=== PATIENT | female | born 1950 | race Hispanic/Latino ===

== ENCOUNTER 2022-06-29 12:11 | Emergency (ER) | payer MEDICARE ==
--- OUTSIDE RECORDS SUMMARY | 2022-06-29 12:19 | XMS REPORT | Continuity of Care Document ---
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 spray, Me moria propionate 03-06 NASAL, l 0.05 15:50: BID, # 16 Xander MG/ACTUAT 24 gm, 0 Metered Refill(s), Dose Nasal Pharmacy: [place] [facility] [Flonase[facility] [id number] Bromphenira No 5 mL, PO, M emoria mine 03-06 TID, PRN l Maleate 0.4 15:50: cough, # He rmann MG/ML / 16 200 mL, 0 Dextrometho Refill(s), [facility] Pharm[facility]: [facility] MG/ML / [facility] Store Pseudoephed [id number] rine Hydrochlori de 6 MG/ML Oral Solution [Bromfed DM] diclofenac No 50 mg = 1 Me moria potassium 03-06 tab, PO, l 50 mg oral 15:50: TID, PRN Her capps tablet 00 for pain, # 60 tab, 0 Refill(s), [facility] [id number] Methocarbam No 750 mg = 1 Memoria ol 750 MG 03-06 tab, PO, l Oral Tablet 15:50: Q8H, PRN He rmann [Robaxin] 00 Spasms, X 20 day, # 60 tab, 0 Refill(s), [facility] [address] Ketorolac No 30 mg, Memori a 03-06 Route: IM, l 15:49: Drug form: Xander 00 INJ, ONCE, Dosing Weight 86.364, kg, Start date: 03/06/18 10:49:00 CDT, Stop date: 03/06/18 10:49:00 CDT NovoTwist Yes 1 ea, Memoria Insulin Pen 5-18 MISC, l [employer] 32G 19:45: Daily, # He rmann 5mm=3/16 00 365 ea, 11 inch Refill(s) 3 ML Yes See Memoria Insulin 5-18 Instructio l Glargine 16:14: ns, 50 Xander 100 UNT/ML 00 unit SUB-Q Prefilled Bedtime, # Syringe 1 box, 6 [Lantus] Refill(s), Pharmacy: [facility] [id number] 3 ML Yes 60 unit, Memoria Insulin 5-18 SUB-Q, l Lispro 100 16:14: BID, # 1 Her capps UNT/ML Pen 00 box, 5 Injector Refill(s), [Humalog] Pharmacy: [facility] [address] cetirizine Yes 10 mg = 1 Me moria hydrochlori 5-18 tab, PO, l de 10 MG 16:14: Daily, PRN Her capps Oral Tablet 00 for [Zyrtec] allergy symptoms, # 30 tab, 0 Refill(s), Pharmacy: [facility] [id number] 3 ML Yes See Memoria Insulin 5-02 Instructio l Lispro 25 12:30: ns, INJECT He rmann UNT/ML / 00 60 UNITS Insulin, SUBCUTANEO Protamine USLY EVERY Lispro, 12 HOURS, Human 75 # 21 syr, UNT/ML 1 Prefilled Refill(s), Syringe Pharmacy: [Humalog [facility] Mix 75/25] [facility] Store [address] levothyroxi Yes See Memori a ne 25 mcg -02 Instructio l (0.025 mg) 12:30: ns, TAKE 1 H ermann oral tablet 00 TABLET BY MOUTH EVERY DAY, # 90 tab, 1 Refill(s), Pharmacy: [facility] [address] Rosuvastati Yes 40 mg, PO, Memoria n calcium 5-02 Bedtime, # l 40 MG Oral 12:30: 90 tab, 1 He rmann Tablet 00 Refill(s), [Crestor] Pharmacy: [facility] [address] Trazodone Yes 50 mg = 1 Mem oria Hydrochlori 5-02 tab, PO, l de 50 MG 12:30: Bedtime, # Her capps Oral Tablet 00 90 tab, 1 Refill(s) tramadol Yes 50 mg = 1 Antoni bret hydrochlori 5-02 tab, PO, l de 50 MG 12:30: Q8H, PRN Bonny nn Oral Tablet 00 Pain, # 90 tab, 0 Refill(s) Hydrochloro Yes 1 tab, PO, Memoria thiazide 5-02 Daily, # l 12.5 MG / 12:30: 90 tab, 0 Her capps Lisinopril 00 Refill(s), 20 MG Oral Pharmacy: Tablet [facility] [address] baclofen Yes 20 mg = 1 M emoria mg oral 4-24 tab, PO, l tablet 16:34: TID, PRN Xander 00 Spasms, # 90 tab, 0 Refill(s), Pharmacy: [facility] [address] Bromphenira Yes 5 mL, PO, M emoria mine 4-02 TID, PRN l Maleate 0.4 20:26: cough, # He rmann MG/ML / 33 200 mL, 0 Dextrometho Refill(s), [facility] Pharmacy: Hydrobromid [facility] e 2 MG/ML / Drug Store Pseudoephed [address] rine Hydrochlori de 6 MG/ML Oral Solution [Bromfed DM] cetirizine No 10 mg = 1 Me moria hydrochlori -02 tab, PO, l de 10 MG 20:26: Daily, PRN Her capps Oral Tablet 00 for [Zyrtec] allergy symptoms, # 30 tab, 0 Refill(s), Pharmacy: [facility] [address] Azithromyci No See Memori a n 5 Day 4 Instructio l Dose Pack 20:26: ns, Take 2 He rmann 250 mg oral 00 tablets by tablet mouth the first day then 1 tablet by mouth days 2-5., X 5 day, # 6 tab, 0 Refill(s), Pharmacy: [facility] [address] Magic Mouth Yes 5 ml, Memor ia Wash 2-05 S&SPIT, l (Maalox/Russell 18:05: QID, PRN He rmann adryl/Lidoc 00 Mouth ann-marie) 1:1:1 Pain, swish and spit out up to 4 times per day, # 90 ml, 1 Refill(s) 2 ML No 1,200,000 Memoria penicillin 1-30 unit, l G 17:32: Route: IM, Adrian benzathine 00 ONCE, [id number] Dosing UNT/ML Weight Prefilled 93.636, Syringe kg, Start [Bicillin date: A] 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, Stop date: 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 benzonatate No 200 mg = 1 Memoria 200 MG Oral 1-30 cap, PO, l Capsule 17:32: TID, X 10 Bonny nn [Tessalon] 00 day, # 30 cap, 0 Refill(s), Pharmacy: [facility] #[id number] Fluticasone Yes 2 spray, Me moria propionate 1-30 NASAL, l 0.05 17:32: BID, # 16 Adrian MG/ACTUAT 00 gm, 0 Metered Refill(s), Dose Nasal Pharmacy: [place] [facility] [Flonase] [facility] #[id number] Bromphenira No 5 mL, PO, M emoria mine 1-30 TID, PRN l Maleate 0.4 17:32: cough, # He rmann MG/ML / 00 200 mL, 0 Dextrometho Refill(s), [facility] Pharmacy: Hydrobromid [facility] 2 MG/ML / cy #[id number] Pseudoephed rine Hydrochlori de 6 MG/ML Oral Solution [Bromfed DM] Tylenol No Notes: Do Memor ia 08 not exceed l 09:41: 4 gm/day. Adrian 00 (Same as: Tylenol) tramadol Yes 50 mg = 1 Antoni bret hydrochlori 1-05 tab, PO, l de 50 MG 15:21: Q8H, PRN Bonny nn Oral Tablet 00 Pain, # 90 tab, 0 Refill(s) Trazodone Yes 50 mg = 1 Mem oria Hydrochlori 1-05 tab, PO, l de 50 MG 15:20: Bedtime, # Her capps Oral Tablet 25 90 tab, 1 Refill(s), Pharmacy: [id number] Rosuvastati Yes 40 mg, PO, Memoria n calcium 1-05 Bedtime, # l 40 MG Oral 15:20: 90 tab, 1 He rmann Tablet 16 Refill(s), [Crestor] Pharmacy: [facility] #[id number] levothyroxi Yes See Memori a ne 25 mcg 1-05 Instructio l (0.025 mg) 15:20: ns, TAKE 1 H ermann oral tablet 01 TABLET BY MOUTH EVERY DAY, # 90 tab, 1 Refill(s), Pharmacy: [facility] #[id number] baclofen 20 Yes See Memori a mg oral 1-05 Instructio l tablet 15:17: ns, TAKE 1 Bonny nn 33 TABLET BY MOUTH 3 TIMES A DAY NEEDED FOR SPASMS, # 90 tab, 0 Refill(s), Pharmacy: [facility] #[id number] sertraline Yes 50 mg = 1 Me moria 50 mg oral 1-05 tab, PO, l tablet 15:17: Daily, # Xander 00 90 tab, 0 Refill(s), Pharmacy: [facility] #[id number] Hydrochloro Yes 1 tab, PO, Memoria thiazide 1-05 Daily, # l 12.5 MG / 15:17: 90 tab, 0 Her capps Lisinopril 00 Refill(s), 20 MG Oral [id number] Glyburide 5 Yes 2 tab, PO, Memoria MG / 1-05 BID-Meals, l Metformin 15:17: # 120 tab, He rmann hydrochlori 00 3 de 500 MG Refill(s), Oral Tablet Pharmacy: [facility] #[id number] Glyburide 5 No 2 tab, PO, Memoria MG / 1-05 BID-Meals, l Metformin 14:46: # 120 tab, He rmann hydrochlori 00 1 de 500 MG Refill(s) Oral Tablet Hydrochloro 0 No 1 tab, PO, Memoria thiazide 1-05 Daily, # l 12.5 MG / 14:46: 90 tab, 0 Her capps Lisinopril 00 Refill(s) 20 MG Oral Tablet sertraline No 50 mg = 1 Me moria 50 mg oral 1-05 tab, PO, l tablet 14:46: Daily, # Xander 00 90 tab, 0 Refill(s) levothyroxi 2016-07 Yes See Memori a ne 25 mcg 2-29 Instructio l (0.025 mg) 11:59: ns, # 90 Her capps oral tablet 53 tab, TAKE 1 TABLET BY MOUTH EVERY DAY, Pharmacy: [facility] #[id number] baclofen 20 2016-07 Yes See Memori a mg oral 2-15 Instructio l tablet 19:19: ns, TAKE 1 Bonny nn 00 TABLET BY MOUTH 3 TIMES A DAY NEEDED FOR SPASMS, # 90 tab, 0 Refill(s), Pharmacy: [facility] #[id number] Ibuprofen 2016-07 Yes See Memoria 600 MG Oral 2-01 Instructio l Tablet 20:59: ns, # 60 Adrian [Ibu] 00 tab, TAKE 1 TABLET BY MOUTH EVERY 8HOURS NEEDED WITH PAIN TAKE WITH FOOD, Pharmacy: [facility] #[id number] 3 ML 2016-07 Yes See Memoria Insulin 2-01 Instructio l Lispro 25 20:59: ns, # 21 Herm danuta UNT/ML / 00 syr, Insulin, INJECT 60 Protamine UNITS Lispro, SUBCUTANEO Human 75 USLY EVERY UNT/ML 12 HOURS, Prefilled Pharmacy: Syringe [facility] [Humalog [facility] #[id number] Mix 75/25] FLUoxetine Yes Severe 10mg QD Take 1 Nando ris (PROZAC) 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 rosuvastati 2015-07 Yes 40mg Take 40 mg Coleman n (CRESTOR) 1-03 by mouth Heal th 40 mg 14:12: at bedtime tablet 04 nightly. aspirin 325 2015-07 Yes 325mg QD Take 325 H arris mg tablet 1-03 mg by Health 14:12: mouth 04 daily. INSULIN 2015-07 Yes Hyperglycem Q.5D Use to H arris SYRINGE 0-13 ia inject Health 0.5mL 00:00: medication 30GX5/16" 00 2 times (MONOJECT daily. Use ULTRACOMFOR a new T INSULIN syringe SYR 0.5ML each time. 30GX5/16") syringe-nee dle insulin NPH 2015-07 Yes Hyperglycem Inject 20 Coleman (NOVOLIN N, 0-13 ia units [facility] HUMULIN N) 00:00: under the 100 unit/mL 00 skin every injection morning with breakfast and 10 units under the skin every evening with dinner.. glyBURIDE-m Yes Type 2 2{tbl} Q.5D Take 2 Coleman [facility]FORMIN 8-23 [facility] ([facility] 00:00: mellitus mouth 2 ) 5-500 mg 00 with times per tablet complicatio daily n, without (with long-term meals). current use of insulin fenofibrate Yes Hypertrigly 54mg QD Take 1 Coleman (LOFIBRA) 8-23 ceridemia tablet by [facility] 54 mg 00:00: mouth tablet 00 daily. blood Yes Type 2 Use as Berthold glucose 8-23 diabetes directed.. He alth meter 00:00: mellitus 00 with complicatio n, without long-term current use of insulin blood Yes Type 2 Q.5D 2 times Coleman glucose 8-23 diabetes daily to Heal th test strips 00:00: mellitus test blood 00 with sugar. complicatio n, without long-term current use of insulin lancets 28 Yes Type 2 Q.5D 2 times Price rris gauge 8-23 diabetes daily. Health 00:00: mellitus 00 with complicatio n, without long-term current use of insulin gabapentin Yes Type 2 100mg Take 1 Price rris (NEURONTIN) 8-08 diabetes capsule by [facility] 100 mg 00:00: mellitus mouth 3 capsule 00 with times complicatio daily. n, without long-term current use of insulin traMADol Yes Acute left 50mg Take 1 H arris (ULTRAM) 50 7-28 ankle pain tablet by [facility] mg tablet 00:00: mouth 00 every 8 hours as needed for Pain Severe pain. ibuprofen Yes Body aches 800mg Take 1 Coleman (MOTRIN) 6-20 tablet by [facility] 800 mg 00:00: mouth tablet 00 every 8 hours as needed for Pain. loratadine Yes Acute 10mg QD Take 1 Sharita is (CLARITIN) 6-20 pharyngitis tablet by Health 10 mg 00:00: , mouth tablet 00 unspecified daily. etiology loratadine Yes 10mg Take 10 mg M ethodi (CLARITIN) 6-[address] 10 mg 00:00: Hospita tablet 00 l ibuprofen Yes Sprain of Take 1 tab Coleman (MOTRIN) 5-25 left ankle, PO Q8 hrs Health 800 mg 00:00: unspecified x5 days, tablet 00 ligament, then Q8 initial hrs prn encounter pain. Take with food.. ketorolac No 4 days Memor ia 30 mg/mL 04-11 l injectable 17:00: Xander solution Aspirin 81 No Notes: Do Me moria MG Enteric 04-11 not crush l Coated 14:00: or chew. Adrian Tablet (Same As: Ecotrin) Lantus No 7 unit, Memoria 04-11 Route: l 02:00: SUB-Q, Drug form: SOLN, Bedtime, Dosing Weight 85.909, kg, Start date: 04/10/14 21:00:00, Duration: 30 day, Stop date: 05/09/14 21:00:00 Levemir No Notes: Memoria FlexPen 04-11 Same as l 02:00: Levemir "single patient use only" Plavix Yes 75 mg, PO, Memor ia 9-25 Daily, 0 l 20:10: Refill(s) Lexapro Yes 10 mg, PO, Antoni bret 9-25 Daily, 0 l 20:10: Refill(s) Lisinopril Yes 2.5 mg, Antoni bret 9-25 PO, Daily, l 20:10: 0 Refill(s) aspirin No 81 mg, PO, Antoni bret 9-25 Daily, 0 l 20:10: Refill(s) Metformin Yes 1,000 mg, Mem oria 9-25 PO, BID, 0 l 20:10: Refill(s) Crestor Yes 40 mg, PO, Antoni bret 9-25 Bedtime, 0 l 20:10: Refill(s) 3 ML Yes = 40 unit, Memoria Insulin 9-25 SUB-Q, l Glargine 20:10: Bedtime, # Her capps 100 UNT/ML 00 10 ml, 0 Prefilled Refill(s) Syringe [Lantus] ketorolac No 4 days Memor ia 30 mg/mL 9-25 l injectable 17:00: Adrian solution 00 Saline No Notes: Memoria Flush 0.9% 9-25 (Same as: l 14:00: BD Adrian 00 Posiflush) Aspirin 81 No 81 mg, Memor ia MG Enteric 9-25 Route: PO, l Coated 14:00: Drug form: Bonny nn Tablet 00 ECTAB, Daily, Dosing Weight 85.909, kg, Start date: 04/10/14 9:00:00, Duration: 30 day, Stop date: 05/09/14 9:00:00 Aspirin 325 No Notes: (Do Memoria MG Enteric 9-25 Not Crush) l Coated 14:00: Do not Xander Tablet 00 crush or chew. Aspirin 81 Yes 81 mg = 1 Me moria MG Enteric 9-25 tab, PO, l Coated 07:27: Daily, # 0 Bonny nn Tablet 00 tab, 0 Refill(s) Aspirin Low No 0 Memori a Dose 81 mg 9-25 Refill(s) l oral tablet 07:27: Heron n 00 Insulin Yes Bedtime, 0 Antoni bret Glargine 9-25 Refill(s) l 100 UNT/ML 07:03: Xander Injectable 00 Solution [Lantus] Saline No Notes: Memoria Flush 0.9% 9-25 (Same as: l 06:54: BD Adrian 00 Posiflush) Aspirin 81 No 324 mg, Antoni bret MG Chewable 9-25 Route: l Tablet 06:01: CHEW, Adrian 00 ONCE, Dosing Weight 84.545, kg, Priority: STAT, Start date: 04/10/14 1:01:00, Stop date: 04/10/14 1:01:00 Saline No Notes: Memoria Flush 0.9% 9-25 (Same as: l 02:52: BD Adrian 00 Posiflush) insulin Yes DM type 2 If 150 to Coleman REGULAR 12 (diabetes 200 take 2 H ealth (NOVOLIN R) 00:00: mellitus, un its sc 100 unit/mL 00 type 2) 200 to 250 injection take 4 units scIf 250 to 300 take 6 units scIf 300 to 350 take 8 units scAnd if 350 and more call simvastatin Yes Polyneuropa Take 1 po Coleman (ZOCOR) 40 9-12 thy in daily Health mg tablet 00:00: diabetes(35 00 7.2) levothyroxi Yes UTI (lower Take 1 po Coleman ne 9-12 urinary daily Health (SYNTHROID) 00:00: tract 25 mcg 00 infection) tablet ibuprofen Yes Knee pain Take 1 po Coleman (MOTRIN) 912 twice Health 800 mg 00:00: daily tablet 00 levothyroxi Yes Take 1 po M ethodi ne 9-[address] (SYNTHROID) 00:00: Hospit a 25 mcg 00 l tablet simvastatin Yes Take 1 po M ethodi (ZOCOR) 40 9-[address] mg tablet 00:00: Hospita 00 l Insulin Yes UTI (lower Use as Price rris Syringes, 3-21 urinary directed Hea lth Disposable, 00:00: tract 1 mL 00 infection) syringe furosemide Yes UTI (lower Take 1 po Coleman (LASIX) 20 2-28 urinary q week Heal th mg tablet 00:00: tract 00 infection) gabapentin 2010-07 Yes Polyneuropa Take 1 po Coleman (NEURONTIN) 2-22 thy in tid Health 300 mg 00:00: diabetes(35 capsule 00 7.2) famotidine Yes Gastritis 40mg QD Take 1 Tab Coleman (PEPCID) 40 6-27 by mouth Heal th mg tablet 00:00: daily. 00 LANCETS 2009-07 Yes UTI (lower Use as Price rris 0-26 urinary Directed Health 00:00: tract 00 infection) NAFTIN 1 % Yes Tinea apply to Price rris TOPICAL 4-14 corporis the Health CREAM 00:00: affected 00 and surroundin g areas of skin by topical route bid for fungus IBUPROFEN Yes Furuncle of take 1 Coleman 800 MG TAB 3-11 axilla tablet Healt h 00:00: (800mg) by 00 oral route 3 times per day with food prn pain PRECISION 2008-0 Yes Diabetes use 2-3 H arris XTRA 5-30 uncomplicat times Health GLUCOMETER 00:00: ed daily 00 adult-type II Alcohol Alcohol No Alcohol Vill[facility] e Prep Pads Prep Pads Prep Pads Family APPLY 1 APPLY 1 APPLY 1 Practi c PADS EVERY PADS EVERY PADS EVERY e DAY BY DAY BY DAY BY TOPICAL TOPICAL TOPICAL ROUTE ROUTE ROUTE azelastine azelastine No azelastine [place] 137 mcg 137 mcg 137 mcg Family (0.1 %) (0.1 %) (0.1 %) Practi c nasal spray nasal spray nasal e aerosol aerosol spray SPRAY 2 SPRAY 2 aerosol SPRAYS BY SPRAYS BY SPRAY 2 INTRANASAL INTRANASAL SPRAYS BY ROUTE TWICE ROUTE TWICE INTRANASAL A DAY A DAY ROUTE TWICE A DAY BD BD No BD Village Ultra-Fine Ultra-Fine Ultra-Fine Family Mini Pen Mini Pen Mini Pen Pra ctic Needle 31 Needle 31 Needle 31 e gauge x gauge x gauge x 3/16" USE 316" USE 316" USE DIRECTED DIRECTED TWICE A DAY TWICE A DAY DIRECTED TWICE A DAY ezetimibe ezetimibe No ezetimibe [facility] 10 mg 10 mg 10 mg Family tablet TAKE tablet TAKE tablet Practic 1 TABLET BY 1 TABLET BY TAKE 1 e MOUTH EVERY MOUTH EVERY TABLET BY DAY DAY MOUTH EVERY DAY FreeStyle FreeStyle No FreeStyle [facility] Bebo 14 Bebo 14 Bebo 14 Fam vinay Day [place] Practic USE TO TEST USE TO TEST USE TO e BLOOD SUGAR BLOOD SUGAR TEST BLOOD FOUR TIMES FOUR TIMES SUGAR FOUR DAILY DAILY TIMES DAILY FreeStyle FreeStyle No FreeStyle [facility] Bebo 14 Bebo 14 Bebo 14 Fam vinay Day Sensor Day Sensor Day Sensor Practic kit USE TO kit USE TO kit USE TO e TEST BLOOD TEST BLOOD TEST BLOOD SUGAR FOUR SUGAR FOUR SUGAR FOUR TIMES DAILY TIMES DAILY TIMES DAILY Jardiance Jardiance No Jardiance [facility] 25 mg 25 mg 25 mg Family tablet TAKE tablet TAKE tablet Practic 1 TABLET BY 1 TABLET BY TAKE 1 e MOUTH EVERY MOUTH EVERY TABLET BY DAY DAY MOUTH EVERY DAY Levemir Levemir No Levemir Villag e FlexTouch FlexTouch FlexTouch Family U-100 U-100 U-100 Practic Insulin 100 Insulin 100 Insulin e unit/mL (3 unit/mL (3 100 mL) mL) unit/mL (3 subcutaneou subcutaneou mL) s pen s pen subcutaneo INJECT 42 INJECT 42 us pen UNITS EVERY UNITS EVERY INJECT 42 DAY BY DAY BY UNITS SUBCUTANEOU SUBCUTANEOU EVERY DAY S ROUTE FOR S ROUTE FOR BY 90 DAYS. 90 DAYS. SUBCUTANEO US ROUTE FOR 90 DAYS. levocetiriz levocetiriz No levocetiri [place] ine 5 mg ine 5 mg zine 5 mg Fa veda tablet TAKE tablet TAKE tablet Practic 1 TABLET BY 1 TABLET BY TAKE 1 e MOUTH MOUTH TABLET BY EVERYDAY AT EVERYDAY AT MOUTH BEDTIME BEDTIME EVERYDAY AT BEDTIME lisinopril lisinopril No lisinopril [facility] 10 mg 10 mg 10 mg Family tablet TAKE tablet TAKE tablet Practic 1 TABLET BY 1 TABLET BY TAKE 1 e MOUTH TWICE MOUTH TWICE TABLET BY A DAY A DAY MOUTH TWICE A DAY pantoprazol pantoprazol No pantoprazo [facility] e 40 mg e 40 mg le 40 mg Famil y tablet,kana tablet,kana tablet,del Practic yed release yed release ayed e TAKE 1 TAKE 1 release TABLET BY TABLET BY TAKE 1 MOUTH EVERY MOUTH EVERY TABLET BY DAY DAY MOUTH EVERY DAY Rybelsus 7 Rybelsus 7 No Rybelsus 7 Village mg tablet mg tablet mg tablet Family TAKE 1 TAKE 1 TAKE 1 Practic TABLET BY TABLET BY TABLET BY e MOUTH EVERY MOUTH EVERY MOUTH DAY DAY EVERY DAY sertraline sertraline No sertraline [facility] 25 mg 25 mg 25 mg Family tablet TAKE tablet TAKE tablet Practic 1 TABLET BY 1 TABLET BY TAKE 1 e MOUTH EVERY MOUTH EVERY TABLET BY DAY DAY MOUTH EVERY DAY Immunizations Ordered Immunization Filled Immunization Date Status Commen ts Source Name Name COVID-19, mRNA, COVID-19, mRNA, 2021-06-01 Completed [facility] LNP-S, PF, 30 LNP-S, PF, 30 00:00:00 Practice mcg/0.3 mL dose mcg/0.3 mL dose ([facility]) ([facility]) COVID-19, mRNA, COVID-19, mRNA, 2020-09-28 Completed [facility] LNP-S, PF, 30 LNP-S, PF, 30 00:00:00 Practice mcg/0.3 mL dose mcg/0.3 mL dose ([facility]) ([employer]) PFIZER COVID-19 MRNA 2020-09-28 Completed [facility] VACCINATION 00:00:00 Hospital COVID-19, mRNA, COVID-19, mRNA, 2020-09-07 Completed [facility] age Family LNP-S, PF, 30 LNP-S, PF, 30 00:00:00 Practice mcg/0.3 mL dose mcg/0.3 mL dose ([facility]) ([facility] [employer]) PFIZER COVID-19 MRNA 2020-09-07 Completed [facility] VACCINATION 00:00:00 Hospital pneumococcal pneumococcal 2020-04-21 Completed [facility] veda conjugate PCV 13 conjugate PCV 13 00:00:00 Pr actice zoster recombinant zoster recombinant 2020-04-21 Completed [facility] 00:00:00 Practice pneumococcal 2018-09-10 Completed [facility] capps 13-valent 15:32:00 vaccine<sup>1</sup> pneumococcal pneumococcal 2018-09-10 Completed [facility] conjugate PCV 13 conjugate PCV 13 00:00:00 Pr actice PPV 23 Pneumococcal 2015-11-30 Completed [facility] Polysaccaride 00:00:00 influenza virus 2015-04-17 Completed [facility] Adrian vaccine, inactivated 18:05:00 Hx influenza 2014-05-19 Completed [facility] vaccine-unspecified< 06:00:00 sup>3</sup> Hx influenza 2014-05-19 Completed [facility] capps vaccine-unspecified< 06:00:00 sup>2</sup> diphtheria/pertussis 2014-01-21 Completed Antoni Grantann , acel/tetanus 05:00:00 adult<sup>4</sup> diphtheria/pertussis 2014-01-21 Completed Antoni rial Adrian , acel/tetanus 05:00:00 adult<sup>3</sup> influenza virus 2013-04-05 Completed [facility] Xander vaccine, 05:00:00 inactivated<sup>2</s up> influenza virus 2013-04-05 Completed [facility] Adrian vaccine, 05:00:00 inactivated<sup>1</s up> Tdap Tetanus, 2011-03-16 Completed Jared Carcamo diphtheria, 00:00:00 acellular pertussis Vaccine Pneumococcal 2011-03-16 Completed Jared Graham 7-valent conj 0.5 mL 00:00:00 injection pneumococcal pneumococcal 2011-03-16 Completed [facility] veda conjugate PCV 7 conjugate PCV 7 00:00:00 Prac darwin Influenza Vaccine 2008-09-24 Completed [facility] 00:00:00 Vital Signs Vital Name Observation Time Observation Value Comments Source BP Diastolic 2021-12-22 00:00:00 73 mm[Hg] [facility] Height 2021-12-22 00:00:00 62 [in_i] [facility] BMI (Body Mass Index) 2021-12-22 00:00:00 33.7 kg/m2 [facility] BP Systolic 2021-12-22 00:00:00 113 mm[Hg] [facility] Body Weight 2021-12-22 00:00:00 184 [lb_av] [facility] BP Diastolic 2021-12-10 00:00:00 76 mm[Hg] [facility] Height 2021-12-10 00:00:00 62 [in_i] [facility] BMI (Body Mass Index) 2021-12-10 00:00:00 33.9 kg/m2 [facility] BP Systolic 2021-12-10 00:00:00 131 mm[Hg] [facility] Body Weight 2021-12-10 00:00:00 185.6 [lb_av] [facility] BP Diastolic 2021-11-11 00:00:00 73 mm[Hg] [facility] Height 2021-11-11 00:00:00 62 [in_i] [facility] BMI (Body Mass Index) 2021-11-11 00:00:00 33.8 kg/m2 [facility] BP Systolic 2021-11-11 00:00:00 130 mm[Hg] [facility] Body Weight 2021-11-11 00:00:00 184.6 [lb_av] [facility] Height 2021-11-10 00:00:00 62 [in_i] [facility] BP Diastolic 2021-09-14 00:00:00 82 mm[Hg] [facility] Height 2021-09-14 00:00:00 62 [in_i] [facility] BMI (Body Mass Index) 2021-09-14 00:00:00 34.6 kg/m2 [facility] BP Systolic 2021-09-14 00:00:00 146 mm[Hg] [facility] Body Weight 2021-09-14 00:00:00 189 [lb_av] [facility] BP Diastolic 2021-07-07 00:00:00 75 mm[Hg] [facility] Height 2021-07-07 00:00:00 62 [in_i] [facility] BMI (Body Mass Index) 2021-07-07 00:00:00 34.7 kg/m2 [facility] BP Systolic 2021-07-07 00:00:00 145 mm[Hg] [facility] Body Weight 2021-07-07 00:00:00 189.8 [lb_av] [facility] BP Diastolic 2021-05-11 00:00:00 80 mm[Hg] [facility] Height 2021-05-11 00:00:00 62 [in_i] [facility] BMI (Body Mass Index) 2021-05-11 00:00:00 35 kg/m2 [facility] BP Systolic 2021-05-11 00:00:00 143 mm[Hg] [facility] Body Weight 2021-05-11 00:00:00 191.6 [lb_av] [facility] BP Diastolic 2021-02-03 00:00:00 83 mm[Hg] [facility] Height 2021-02-03 00:00:00 62 [in_i] [facility] BMI (Body Mass Index) 2021-02-03 00:00:00 34.6 kg/m2 [facility] BP Systolic 2021-02-03 00:00:00 133 mm[Hg] [facility] Body Weight 2021-02-03 00:00:00 189 [lb_av] [facility] BP Diastolic 2021-02-02 00:00:00 60 mm[Hg] [facility] Height 2021-02-02 00:00:00 62 [in_i] [facility] BMI (Body Mass Index) 2021-02-02 00:00:00 34.6 kg/m2 [facility] BP Systolic 2021-02-02 00:00:00 132 mm[Hg] [facility] Body Weight 2021-02-02 00:00:00 189.4 [lb_av] [facility] BP Diastolic 2021-01-09 00:00:00 72 mm[Hg] [facility] Height 2021-01-09 00:00:00 62 [in_i] [facility] BMI (Body Mass Index) 2021-01-09 00:00:00 34.9 kg/m2 [facility] BP Systolic 2021-01-09 00:00:00 112 mm[Hg] [facility] Body Weight 2021-01-09 00:00:00 191 [lb_av] [facility] BP Diastolic 2020-11-02 00:00:00 72 mm[Hg] [facility] Height 2020-11-02 00:00:00 62 [in_i] [facility] BMI (Body Mass Index) 2020-11-02 00:00:00 34.6 kg/m2 [facility] BP Systolic 2020-11-02 00:00:00 115 mm[Hg] [facility] Body Weight 2020-11-02 00:00:00 189.2 [lb_av] [facility] BP Diastolic 2020-09-16 00:00:00 78 mm[Hg] [facility] Height 2020-09-16 00:00:00 62 [in_i] [facility] BMI (Body Mass Index) 2020-09-16 00:00:00 35.3 kg/m2 [facility] BP Systolic 2020-09-16 00:00:00 125 mm[Hg] [facility] Body Weight 2020-09-16 00:00:00 193 [lb_av] [facility] BP Diastolic 2020-07-27 00:00:00 80 mm[Hg] [facility] Height 2020-07-27 00:00:00 62 [in_i] [facility] BMI (Body Mass Index) 2020-07-27 00:00:00 35.9 kg/m2 [facility] BP Systolic 2020-07-27 00:00:00 144 mm[Hg] [facility] Body Weight 2020-07-27 00:00:00 196.2 [lb_av] [facility] BP Diastolic 2020 00:00:00 80 mm[Hg] [facility] Height 2020 00:00:00 62 [in_i] [facility] BMI (Body Mass Index) 2020 00:00:00 35.7 kg/m2 [facility] BP Systolic 2020 00:00:00 168 mm[Hg] [facility] Body Weight 2020 00:00:00 195 [lb_av] [facility] BP Diastolic 2020-05-19 00:00:00 83 mm[Hg] [facility] Height 2020-05-19 00:00:00 62 [in_i] [facility] BMI (Body Mass Index) 2020-05-19 00:00:00 35.7 kg/m2 [facility] BP Systolic 2020-05-19 00:00:00 175 mm[Hg] [facility] Body Weight 2020-05-19 00:00:00 195 [lb_av] [facility] Weight 2018-10-31 16:20:00 [facility] BMI Calculated 2018-10-31 16:20:00 [facility] Height 2018-10-31 16:20:00 154.94 cm [facility] Temperature Oral (F) 2018-10-31 16:20:00 98.8 F [facility] Heart Rate 2018-10-31 16:20:00 [facility] Systolic (mm Hg) 2018-10-31 16:20:00 [facility] Diastolic (mm Hg) 2018-10-31 16:20:00 [facility] Weight 2018-09-10 14:33:00 [facility] BMI Calculated 2018-09-10 14:33:00 [facility] Height 2018-09-10 14:33:00 154.94 cm [facility] Systolic (mm Hg) 2018-09-10 14:33:00 Antoni [facility] Diastolic (mm Hg) 2018-09-10 14:33:00 [facility] Temperature Oral (F) 2018-09-10 14:33:00 99.0 F [facility] Heart Rate 2018-09-10 14:33:00 [facility] BMI Calculated 2018-08-02 19:39:00 [facility] Weight 2018-08-02 19:39:00 [facility] Height 2018-08-02 19:39:00 154.94 cm [facility] Temperature Oral (F) 2018-08-02 19:39:00 98.7 F [facility] Heart Rate 2018-08-02 19:39:00 [facility] Systolic (mm Hg) 2018-08-02 19:39:00 Antoni [facility] Temperature Oral (F) 2018-04-02 18:44:00 98.9 F [facility] Weight 2018-04-02 18:44:00 [facility] BMI Calculated 2018-04-02 18:44:00 [facility] Height 2018-04-02 18:44:00 154.94 cm [facility] Systolic (mm Hg) 2018-04-02 18:44:00 Antoni rial X[facility] Diastolic (mm Hg) 2018-04-02 18:44:00 [facility] Heart Rate 2018-04-02 18:44:00 [facility] Temperature Oral (F) 2018-03-26 05:06:00 98.6 F [facility] Respitory Rate 2018-03-26 05:06:00 [facility] Heart Rate 2018-03-26 05:06:00 [facility] Systolic (mm Hg) 2018-03-26 05:06:00 Antoni rial X[facility] Diastolic (mm Hg) 2018-03-26 05:06:00 [facility] Weight 2018-03-26 02:39:00 [facility] Systolic (mm Hg) 2018-03-26 02:39:00 Antoni rial [facility] Diastolic (mm Hg) 2018-03-26 02:39:00 [facility] Heart Rate 2018-03-26 02:39:00 [facility] Temperature Oral (F) 2018-03-26 02:39:00 98.7 F [facility] Respitory Rate 2018-03-26 02:39:00 [facility] BMI Calculated 2018-03-06 15:22:00 [facility] Weight 2018-03-06 15:22:00 [facility] Heart Rate 2018-03-06 15:22:00 [facility] Temperature Oral (F) 2018-03-06 15:22:00 98.5 F [facility] Systolic (mm Hg) 2018-03-06 15:22:00 Antoni [facility] Diastolic (mm Hg) 2018-03-06 15:22:00 [facility] Height 2018-03-06 15:22:00 154.94 cm [facility] BMI Calculated 2017-11-07 16:17:00 [facility] Height 2017-11-07 16:17:00 154.94 cm [facility] Weight 2017-11-07 16:17:00 [facility] Heart Rate 2017-11-07 16:17:00 [facility] Temperature Oral (F) 2017-11-07 16:17:00 97.8 F [facility] Systolic (mm Hg) 2017-11-07 16:17:00 Antoni rial Adrian Diastolic (mm Hg) 2017-11-07 16:17:00 [facility] BMI Calculated 2017-10-16 19:56:00 [facility] Weight 2017-10-16 19:56:00 [facility] Height 2017-10-16 19:56:00 154.94 cm [facility] Temperature Oral (F) 2017-10-16 19:56:00 98.4 F [facility] Heart Rate 2017-10-16 19:56:00 [facility] Systolic (mm Hg) 2017-10-16 19:56:00 Antoni rial Xander Diastolic (mm Hg) 2017-10-16 19:56:00 [facility] Height 2017-09-26 18:19:00 154.94 cm [facility] BMI Calculated 2017-09-26 18:19:00 [facility] Weight 2017-09-26 18:19:00 [facility] Temperature Oral (F) 2017-09-26 18:19:00 98.3 F [facility] Systolic (mm Hg) 2017-09-26 18:19:00 Antoni rial Xander Diastolic (mm Hg) 2017-09-26 18:19:00 [facility] Heart Rate 2017-09-26 18:19:00 [facility] Height 2017-08-21 17:29:00 154.94 cm [facility] Temperature Oral (F) 2017-08-21 17:29:00 98.9 F [facility] Respitory Rate 2017-08-21 17:29:00 [facility] Heart Rate 2017-08-21 17:29:00 [facility] BMI Calculated 2017-08-21 17:29:00 [facility] Weight 2017-08-21 17:29:00 [facility] Systolic (mm Hg) 2017-08-21 17:29:00 Antoni [facility] Diastolic (mm Hg) 2017-08-21 17:29:00 [facility] Height 2017-08-15 16:49:00 154.94 cm [facility] Temperature Oral (F) 2017-08-15 16:49:00 97.9 F [facility] Heart Rate 2017-08-15 16:49:00 [facility] BMI Calculated 2017-08-15 16:49:00 [facility] Weight 2017-08-15 16:49:00 [facility] Systolic (mm Hg) 2017-08-15 16:49:00 Antoni rial Adrian Diastolic (mm Hg) 2017-08-15 16:49:00 [facility] Weight 2017-07-24 09:36:00 [facility] BMI Calculated 2017-07-24 09:36:00 [facility] Height 2017-07-24 09:36:00 160.02 cm [facility] Respitory Rate 2017-07-24 09:36:00 [facility] Heart Rate 2017-07-24 09:36:00 [facility] Systolic (mm Hg) 2017-07-24 09:36:00 Antoni rial X[facility] Diastolic (mm Hg) 2017-07-24 09:36:00 [facility] Temperature Oral (F) 2017-07-24 09:36:00 101.9 F [facility] BMI Calculated 2017-07-21 14:41:00 [facility] Height 2017-07-21 14:41:00 157.48 cm [facility] Weight 2017-07-21 14:41:00 [facility] Heart Rate 2017-07-21 14:41:00 [facility] Temperature Oral (F) 2017-07-21 14:41:00 98.5 F [facility] Systolic (mm Hg) 2017-07-21 14:41:00 Antoni rial [facility] Diastolic (mm Hg) 2017-07-21 14:41:00 [facility] Temperature Oral (F) 2014-04-10 20:30:00 98.7 F [facility] Heart Rate 2014-04-10 20:30:00 [facility] Respitory Rate 2014-04-10 20:30:00 [facility] Systolic (mm Hg) 2014-04-10 20:30:00 Antoni [facility] Diastolic (mm Hg) 2014-04-10 20:30:00 [facility] Diastolic (mm Hg) 2014-04-10 16:36:00 [facility] Systolic (mm Hg) 2014-04-10 16:36:00 Antoni [facility] Temperature Oral (F) 2014-04-10 16:36:00 98.2 F [facility] Heart Rate 2014-04-10 16:36:00 [facility] Respitory Rate 2014-04-10 16:36:00 Livanjose armando lund X[facility] Systolic (mm Hg) 2014-04-10 12:32:00 Antoni [facility] Respitory Rate 2014-04-10 12:32:00 Livanori al Adrian Diastolic (mm Hg) 2014-04-10 12:32:00 [facility] Temperature Oral (F) 2014-04-10 12:32:00 97.8 F [facility] Heart Rate 2014-04-10 12:32:00 Jamie Terrell Height 2014-04-10 06:46:00 160.02 cm [facility] BMI Calculated 2014-04-10 06:46:00 Thalia Talamantes Weight 2014-04-10 06:46:00 [facility] Weight 2014-04-10 02:38:00 [facility] Procedures Procedure Date / Time Performing Clinician Source Performed MAMMO, screening, 2021-12-22 00:00:00 [facility] Wayne barrett bilateral Practice X-RAY OF SHOULDER 2 VIEW 2021-01-09 00:00:00 [facility] XR, ribs, unilateral, w/ 2021-01-09 00:00:00 [facility] chest Practice XR, lumbar spine 2021-01-09 00:00:[address] [facility] Practice Colonoscopy 2020-09-24 [facility] screening, 2020-07-27 00:00:00 [facility] Wayne barrett, bilateral Practice bone density 2020-07-27 00:00:00 [facility] daniela Practice MAMMO, screening, 2020 00:00:00 [facility] Wayne barrett, bilateral Practice Diabetic retinal eye exam 2018-09-10 06:00:00 Me dre Terrell Ankle joint operations [facility] Partial hysterectomy [facility] rmdanuta [facility]lect[facility]air [facility] Ankle [facility] Tonsillectomy [facility] Cancer Surgery [facility] Plan of Care Planned Activity Planned Date Details Comments Source Future Scheduled Test 2022-05-23 HEPATITIS B VACCINES [facility] 02:11:48 (1 of 3 - 3-dose series) [code = HEPATITIS B VACCINES (1 of 3 - 3-dose series)] Future Scheduled Test 2022-05-23 Hepatitis C screening [facility] 02:11:48 (procedure) [code = 487321550] Future Scheduled Test 2022-05-23 BREAST CANCER [facility] 02:11:48 SCREENING [code = BREAST CANCER SCREENING] Future Scheduled Test 2022-05-23 COLONOSCOPY SCREENING [facility] 02:11:48 [code = COLONOSCOPY SCREENING] Future Scheduled Test 2022-05-23 SHINGLES VACCINES (1 [facility] 02:11:48 of 2) [code = SHINGLES VACCINES (1 of 2)] Future Scheduled Test 2022-05-23 65+ PNEUMOCOCCAL [facility] 02:11:48 VACCINE (2 - PPSV23 if available, else PCV20) [code = 65+ PNEUMOCOCCAL VACCINE (2 - PPSV23 if available, else PCV20)] Future Scheduled Test 2022-05-23 COVID-19 VACCINE (3 - [facility] 02:11:48 Booster for Pfizer series) [code = COVID-19 VACCINE (3 - Booster for Pfizer series)] Future Scheduled Test 2022-05-23 INFLUENZA VACCINE [facility] 02:11:48 [code = INFLUENZA VACCINE] Future Scheduled Test 2017-02-28 Screening for [facility] 00:00:00 malignant neoplasm of colon (procedure) [code = 538218966] Future Scheduled Test 2017-02-25 Breast Cancer Scrn [facility] 00:00:00 (Yearly) [code = Breast Cancer Scrn (Yearly)] Future Scheduled Test 2016-11-29 Imm Pneumococcal 65+ [facility] 00:00:00 (2 - PCV) [code = Imm Pneumococcal 65+ (2 - PCV)] Future Scheduled Test 1949 COVID-19 Vaccine (#1) [facility] 00:00:00 [code = COVID-19 Vaccine (#1)] Future Appointment 2022-12-22 Marsha Rico, [address] [facility] [address] [facility] 15:30:00 Mendy Lujan; [address], [place] [address] Instructions [facility] Encounters Start End Encounter Admission Attending Care Care Encounter Source Date/Time Date/Time Type Type Clinicians Facility Department ID 2020-09-24 Inpatient Ted Anna HCABM DAYS [id number] [facility] 12:30:00 [id number] [facility] 2020-09-14 Inpatient EL Ted Anna HCABM OPLA [id number] [facility] 10:00:00 [id number] [facility] 2019-10-14 Inpatient HCABM ROXANE [id number] [facility] 16:24:00 [facility] 2022-06-12 2022-06-12 Outpatient Gilbert_L VFP VFP [id number] 00:00:00 00:00:00 [id number] Family Practic e 2022-05-16 2022-05-16 NOREEN Freitas [id number] CLAC [id number] [facility] 20:00:00 21:00:00 Miftari [id number] 5[facility] [id number] 2022-05-08 2022-05-08 Outpatient Gilbert_L VFP VFP [id number] 00:00:00 00:00:00 [id number] Family Practic e 2022-05-03 2022-05-03 Outpatient OWENS_T DMG DMG [id number] [facility] 00:00:00 00:00:00 1018 [facility] l [facility] 2022-03-15 2022-03-15 Outpatient OWENS_T DMG DMG [id number] [facility] 00:00:00 00:00:00 0830 Medica l Group 2022-03-15 2022-03-15 Outpatient Gilbert_L VFP VFP [id number] 00:00:00 00:00:00 [id number] Family Practic e 2022-03-09 2022-03-09 Outpatient OWENS_T DMG DMG [id number] [facility] 00:00:00 00:00:00 0824 Medica l Group 2022-03-08 2022-03-08 Outpatient Persaud_B_W VFP VFP [id number] [facility] 00:00:00 00:00:00 AGDNU [id number] Family Practic e 2022-02-15 2022-02-15 Outpatient OWENS_T DMG [facility] [id number] [facility] 00:00:00 00:00:00 0802 Medica l Group 2022-01-28 2022-01-28 Outpatient OWENS_T DMG [facility] [id number] [facility] 07:21:00 07:21:00 0715 Medica l Group 2021-12-22 2021-12-22 Outpatient Gilbert_L VFP VFP [id number] [facility] 06:14:00 06:14:00 [id number] Family Practic e 2021-12-22 2021-12-22 Outpatient Persaud_B_W VFP VFP [id number] [facility] 06:14:00 06:14:00 AGDNU [id number] Family Practic e 2021-12-22 2021-12-22 Outpatient Persaud_B_W VFP VFP [id number] [facility] 06:14:00 06:14:00 AGDNU [id number] Family Practic e 2021-12-22 2021-12-22 Outpatient Persaud_B_W VFP VFP [id number] [facility] 06:14:00 06:14:00 AGDNU [id number] Family Practic e 2021-12-22 2021-12-22 Marsha VFP [place] - [id number] V illage 00:00:00 00:00:00 RicoLaw Famil y MD: [id number] Medical - Pract grace Brooke [address] [address] , Ph. 2021-12-10 2021-12-10 Outpatient Persaud_B_W VFP VFP [id number] [facility] 04:12:00 04:12:00 AGDNU [id number] Family Practic e 2021-12-10 2021-12-10 Outpatient Gilbert_L VFP VFP [id number] [facility] 04:12:00 04:12:00 [id number] Family Practic e 2021-12-10 2021-12-10 Eva VFP [place] - [id number] [facility] 00:00:00 00:00:00 Law Blue Family PEDAL ASSEMBLER: 4615 Medical - Pract [place] [address], jessica ([address] [address] , Ph. 2021-11-15 2021-11-15 Outpatient Gilbert_L VFP VFP [id number] [facility] 08:45:00 08:45:00 [id number] Family Practic e 2021-11-15 2021-11-15 Outpatient Persaud_B_W VFP VFP [id number] [facility] 08:45:00 08:45:00 AGDNU [id number] Family Practic e 2021-11-15 2021-11-15 Outpatient Persaud_B_W VFP VFP [id number] [facility] 08:45:00 08:45:00 AGDNU [id number] Family Practic e 2021-11-11 2021-11-11 Outpatient Gilbert_L VFP VFP [id number] 10:58:00 10:58:00 [id number] Family Practic e 2021-11-11 2021-11-11 Lisbeth VFP [place] - [id number] V illage 00:00:00 00:00:00 [facility] [place]: [facility] ctic 4615 STEFANY_HOU_[address] zachary Brooke [address] [address] , Ph. 2021-11-10 2021-11-10 Outpatient Gilbert_L VFP VFP [id number] [place] [address] 04:06:00 04:06:00 [id number] Family Practic e 2021-11-10 2021-11-10 Lisbeth VFP [place] - [id number] V illage 00:00:00 00:00:00 [facility] [place] MD: [facility] ct 4615 VM_HOU_[address] zachary Brooke [facility], [address] [address] , Ph. 2021-09-14 2021-09-14 Outpatient Gilbert_L VFP VFP [id number] [facility] 03:06:00 03:06:00 [id number] Family Practic e 2021-09-14 2021-09-14 Outpatient Persaud_B_W VFP VFP [id number] [facility] 03:06:00 03:06:00 AGDNU [id number] Family Practic e 2021-09-14 2021-09-14 Outpatient Persaud_B_W VFP VFP [id number] [facility] 03:06:00 03:06:00 AGDNU [id number] Family Practic e 2021-09-14 2021-09-14 Eva VFP [place] - [id number] [facility] 00:00:00 00:00:00 Law Blue Family PEDAL ASSEMBLER: 4615 Medical - Pract grace OLIVIA_Fair jessica Singleton ([facility] [address], [place] [address] , Ph. 2021-08-16 2021-08-16 Outpatient Gilbert_L VFP VFP [id number] [facility] 06:24:00 06:24:00 [id number] Family Practic e 2021-08-13 2021-08-13 Outpatient Persaud_B_W VFP VFP [id number] [facility] 02:31:00 02:31:00 AGDNU [id number] Family Practic e 2021-08-13 2021-08-13 Outpatient Persaud_B_W VFP VFP [id number] [facility] 02:31:00 02:31:00 AGDNU [id number] Family Practic e 2021-07-07 2021-07-07 Outpatient Gilbert_L VFP VFP [id number] [facility] 07:33:00 07:33:00 [id number] Family Practic e 2021-07-07 2021-07-07 Marsha VFP [place] - [id number] V illage 00:00:00 00:00:00 Law Rico Famil y MD: [id number] Medical - Pracarjun MCKINNEYU_Fair jessica Singleton ([facility] [address], [place] [address] , Ph. 2021-06-25 2021-06-25 Outpatient Persaud_B_W VFP VFP [id number] [facility] 02:12:00 02:12:00 AGDNU [id number] Family Practic e 2021-06-25 2021-06-25 Outpatient Persaud_B_W VFP VFP [id number] [facility] 02:12:00 02:12:00 AGDNU [id number] Family Practic e 2021-06-25 2021-06-25 Outpatient Gilbert_L VFP VFP [id number] 68-20 [facility] 02:12:00 02:12:00 [id number] Family Practic e 2021-05-11 2021-05-11 Outpatient Gilbert_L VFP VFP [id number] 05:47:00 05:47:00 [id number] Family Practic e 2021-05-11 2021-05-11 Marsha VFP [place] - [id number] V illage 00:00:00 00:00:00 Law Rico y MD: [id number] Medical - Pract [facility] VM_HOU_Fair e jessica Lujan ([facility]) [address] [address] , Ph. 2021-04-27 2021-04-27 Outpatient Harrison_L VFP VFP [id number] [facility] 08:19:00 08:19:00 [id number] Family Practic e 2021-04-15 2021-04-15 Outpatient Persaud_B_W VFP VFP [id number] [facility] 02:28:00 02:28:00 AG [id number] Family Practic e 2021-04-15 2021-04-15 Zach VFP [place] - [id number] V illage 00:00:00 00:00:00 Jarrel [facility] Family Yobany Medical - Pract DO: 4615 VM_HOU_[address] Mendy lopez ([facility]) Tai ([facility]) [address], [place] [address] , Ph. 2021-04-14 2021-04-14 Outpatient Persaud_B_W VFP VFP [id number] [facility] 04:58:00 04:58:00 AG [id number] Family Practic e 2021-04-14 2021-04-14 Marsha VFP [place] - [id number] V illage 00:00:00 00:00:00 Law Rico Famil y MD: 4615 Medical - Pract grace Brooke VM_HOU_[place] e jessica Lujan ([address] [address] , Ph. 2021-04-07 2021-04-07 Outpatient Harrison_L VFP VFP [id number] [facility] 10:47:00 10:47:00 [id number] Family Practic e 2021-04-07 2021-04-07 Outpatient Harrison_L VFP VFP [id number] [facility] 10:47:00 10:47:00 [id number] Family Practic e 2021-02-23 2021-02-23 Outpatient Persaud_B_W VFP VFP [id number] [facility] 03:17:00 03:17:00 AG [id number] Family Practic e 2021-02-23 2021-02-23 Outpatient Persaud_B_W VFP VFP [id number] [facility] 03:17:00 03:17:00 AG [id number] Family Practic e 2021-02-05 2021-02-05 Outpatient Persaud_B_W VFP VFP [id number] [facility] 05:41:00 05:41:00 AG [id number] Family Practic e 2021-02-04 2021-02-04 Outpatient Persaud_B_W VFP VFP [id number] [facility] 11:21:00 11:21:00 AG [id number] Family Practic e 2021-02-03 2021-02-03 Outpatient Persaud_B_W VFP VFP [id number] [facility] 01:38:00 01:38:00 AG [id number] Family Practic e 2021-02-03 2021-02-03 Marsha VFP [place] - [id number] V illage 00:00:00 00:00:00 Law Rico Famil y MD: 4615 Medical - Pract grace Brooke [facility] jessica Lujan ([facility] [address], [place] [address] , Ph. 2021-02-02 2021-02-02 Outpatient Persaud_B_W VFP VFP [id number] [facility] 11:36:00 11:36:00 AG [id number] Family Practic e 2021-02-02 2021-02-02 Marsha VFP [place] - [id number] V illage 00:00:00 00:00:00 RicoLaw y MD: 4615 Medical - Pract [facility] VM_HOU_Fair e Tai [facility] [address], [place] [address] , Ph. 2021-01-25 2021-01-25 Emergency EM Baer, [facility] FERS [id number] [facility] 19:52:00 22:38:00 Gabriel [id number] [facility] 2021-01-21 2021-01-21 Outpatient EDWINENS_T DMG [facility] [id number] [facility] 05:58:00 05:58:00 [id number] Medica l Group 2021-01-13 2021-01-13 Outpatient Persaud_B_W VFP VFP [id number] [facility] 08:32:00 08:32:00 AG [id number] Family Practic e 2021-01-13 2021-01-13 Outpatient Persaud_B_W VFP VFP [id number] [facility] 08:32:00 08:32:00 AG [id number] Family Practic e 2021-01-09 2021-01-09 Outpatient Persaud_B_W VFP VFP [id number] [facility] 01:22:00 01:22:00 AG [id number] Family Practic e 2021-01-09 2021-01-09 Eva VFP [place] - [id number] [facility] 00:00:00 00:00:00 Mirza, [facility] PEDAL ASSEMBLER: 4615 Medical - Pract [place] VM_HOU_[place] e Tai [facility] ([facility] [facility] [address] [facility], [place] [address] , Ph. 2020-11-18 2020-11-18 Outpatient Persaud_B_W VFP VFP 119 5368-20 [facility] 03:32:00 03:32:00 AG [id number] Family Practic e 2020-11-18 2020-11-18 Outpatient Persaud_B_W VFP VFP 119 5368-20 [facility] 03:32:00 03:32:00 AG [id number] Family Practic e 2020-11-18 2020-11-18 Outpatient Persaud_B_W VFP VFP 119 5368-20 [facility] 03:32:00 03:32:00 AG [id number] Family Practic e 2020-11-18 2020-11-18 Outpatient Persaud_B_W VFP VFP 119 5368-20 [facility] 03:32:00 03:32:00 AG [id number] Family Practic e 2020-11-02 2020-11-02 Outpatient Persaud_B_W VFP VFP 119 5368-20 [place] 03:20:00 03:20:00 AG [id number] Family Practic e 2020-11-02 2020-11-02 Marsha VFP [place] - [id number] V illage 00:00:00 00:00:00 Rico Law Famil y MD: [id number] Medical - Pract grace MCCALL_Alex Lujan [facility]) [address], [place] [address] , Ph. 2020-10-06 2020-10-06 Outpatient Persaud_B_W VFP VFP 119 5368-20 [facility] 04:07:00 04:07:00 AG [id number] Family Practic e 2020-09-28 2020-09-28 Outpatient BONIFACIORUSSELL [facility] [id number] [address] [place] [address] 00:00:00 00:00:00 HANS Marques [facility] 2020-09-21 2020-09-21 Outpatient Ted AnnaCL HCACL [id number] [facility] 22:58:06 22:58:06 78 [facility] 2020-09-16 2020-09-16 Outpatient Ted Olsen HCABM OPLA [id number] [id number] [facility] 08:11:00 08:11:00 [id number] [facility] 2020-09-16 2020-09-16 Outpatient Persaud_B_W VFP VFP 119 5368-20 [facility] 05:04:00 05:04:00 AG [id number] Family Practic e 2020-09-16 2020-09-16 Marsha VFP [place] - [id number] V illage 00:00:00 00:00:00 Law Rico Famil y : 46[address] Luisana MCKINNEYU_Fair jessica Singleton [facility]) [address] [address] , Ph. 2020-09-07 2020-09-07 Outpatient Ted AnnaCL HCACL G00 [id number] [facility] 13:53:13 13:53:13 55 [facility] 2020-09-07 2020-09-07 Outpatient Ted Anna HCABM OPLA V82 [id number] [facility] 08:11:00 08:11:00 [id number] [facility] 2020-09-07 2020-09-07 Outpatient [facility] [id number] [place] 00:00:00 00:00:[address] 2020-09-02 2020-09-02 Outpatient Persaud_B_W VFP VFP 119 5368-20 [facility] 05:01:00 05:01:00 AG [id number] Family Practic e 2020-08-24 2020-08-24 Outpatient Persaud_B_W VFP VFP 119 5368-20 [facility] 12:12:00 12:12:00 AG [id number] Family Practic e 2020-08-24 2020-08-24 Marsha VFP [place] - [id number] V illage 00:00:00 00:00:00 Law Rico Famil y : 4615 Medical - Pracarjun OLIVIA_Fair jessica Singleton [facility] [address] [facility], [place] [address] , Ph. 2020-08-21 2020-08-21 Outpatient Persaud_B_W VFP VFP 119 5368-20 [facility] 12:51:00 12:51:00 AG [id number] Family Practic e 2020-08-12 2020-08-12 Outpatient Persaud_B_W VFP VFP 119 5368-20 [facility] 02:11:00 02:11:00 AG [id number] Family Practic e 2020-07-27 2020-07-27 Outpatient Persaud_B_W VFP VFP 119 5368-20 [facility] 06:13:00 06:13:00 AG [id number] Family Practic e 2020-07-27 2020-07-27 Marsha VFP [place] - [id number] V illage 00:00:00 00:00:00 Law Rico Famil y MD: [id number] Medical - Pract Mendy _HOU_Fair e jessica Lujan [address] [address] , Ph. 2020-07-24 2020-07-24 Outpatient Persaud_B_W VFP VFP 119 5368-20 [facility] 09:04:00 09:04:00 AG [id number] Family Practic e 2020-06-12 2020-06-12 Outpatient Persaud_B_W VFP VFP 119 5368-20 [facility] 02:58:00 02:58:00 AG [id number] Family Practic e 2020-06-09 2020-06-09 Outpatient Persaud_B_W VFP VFP 119 5368-20 [facility] 09:00:00 09:00:00 AG [id number] Family Practic e 2020 2020 Outpatient Persaud_B_W VFP VFP 119 5368-20 [facility] 05:40:00 05:40:00 AG [id number] Family Practic e 2020 2020 Marsha VFP [place] - [id number] V illage 00:00:00 00:00:00 Law Rico Famil y MD: [id number] Medical - Pract Mendy VM_HOU_Fair e jessica Lujan [address] [address] , Ph. 2020-05-23 2020-05-23 Outpatient Persaud_B_W VFP VFP 119 5368-20 [facility] 01:14:00 01:14:00 AG Family Practic e 2020-05-19 2020-05-19 Outpatient Persaud_B_W VFP VFP 119 5368-20 [facility] 05:53:00 05:53:00 AG Family Practic e 2020-05-19 2020-05-19 Marsha VFP [place] - [id number] V illage 00:00:00 00:00:00 RicoLaw davis: 4615 Medical - Pract grace MCCALL_MALATHI_jessica Aguayo ([facility]) [address], [place] [address] , Ph. 2020-05-12 2020-05-12 [facility] 5368-20 [facility] 03:41:00 03:41:00 AG [id number] Family Practic e 2020-01-10 2020-01-10 Outpatient BRITTON, [facility] [id number] [place] 00:00:00 00:00:00 SUZAN [address] 2020-01-02 2020-01-02 Outpatient [facility] [id number] [place] 00:00:00 00:00:00 SUZAN [address] 2020-01-02 2020-01-02 Outpatient [facility] [id number] [place] 00:00:00 00:00:00 SUZAN [address] 2019-01-07 2019-01-09 Phone nullFlavo [facility] [id number] Memoria 16:17:50 04:59:59 Message r Primary 21 l [facility] 2019-01-07 2019-01-08 Outpatient MHMG MH[facility] [id number] 11:17:50 23:59:59 21 2018-12-31 2019-01-02 Phone nullFlavo [facility] [id number] Memoria 20:19:01 04:59:59 Message r Primary 20 [facility] 2018-12-31 2019-01-01 Outpatient MHMG MHMG [id number] 15:19:01 23:59:59 20 2018-11-09 2018-11-11 Phone nullFlavo [facility] [id number] Memoria 19:21:00 04:59:59 Message r Primary 19 [facility] 2018-11-09 2018-11-10 Outpatient MHMG MH[facility] [id number] 14:21:00 23:59:59 19 2018-11-08 2018-11-09 Between nullFlavo [facility] [id number] Memoria 17:54:48 17:54:48 Visit r Primary 35 l [facility] 2018-11-08 2018-11-09 Between nullFlavo MG [id number] Memoria 17:53:56 17:53:56 Visit r Primary 34 [facility] 2018-11-08 2018-11-09 Outpatient MHMG MG [id number] 12:54:48 12:54:48 35 2018-11-08 2018-11-09 Outpatient MHMG MG [id number] 12:53:56 12:53:56 34 2018-10-31 2018-11-01 [place] [id number] Memoria 16:15:00 04:59:59 r Primary 23 [facility] 2018-10-31 2018-10-31 [facility] [id number] 11:15:00 23:59:59 Dhiekson 23 quised2018-10-31 2018-10-31 Outpatient MHIE IE [id number] Memoria 11:15:00 11:15:[address] [facility] 2018-09-16 2018-09-17 Between nullFlavo MG [id number] Memoria 12:13:57 12:13:57 Visit r Primary 32 [facility] 2018-09-16 2018-09-17 Outpatient MG MG [id number] 06:13:57 06:13:57 32 2018-09-10 2018-09-12 Phone nullFlavo MG [id number] Memoria 15:15:00 05:59:59 Message r Primary 18 [facility] 2018-09-10 2018-09-11 Outpatient MG MG [id number] 09:15:00 23:59:59 18 2018-09-10 2018-09-11 [place] [id number] Memoria 14:30:00 05:59:59 r Primary 21 [facility] 2018-09-10 2018-09-10 Outpatient R[facility] [id number] 08:30:00 23:59:59 Dhiekson 21 quisedek 2018-09-10 2018-09-10 [place] [id number] Memoria 14:30:00 14:30:00 Pre-Reg r Primary 20 [facility] 2018-09-10 2018-09-10 Outpatient MHIE MHIE [id number] Memoria 08:30:00 08:30:[address] [facility] 2018-09-10 2018-09-10 Outpatient MHIE MHIE [id number] Memoria 08:30:00 08:30:[address] [facility] 2018-09-10 2018-09-10 Outpatient Shpats, MG MG [id number] 08:30:00 08:30:00 Selena 20 2018-08-27 2018-08-27 Ambulatory nullFlavo MHMG [id number] Memoria 21:30:00 21:30:00 Pre-Reg r Primary 22 [facility] 2018-08-27 2018-08-27 Outpatient MHIE MHIE [id number] Memoria 15:30:00 15:30:[address] [facility] 2018-08-27 2018-08-27 Outpatient Saravia, MG MG [id number] 15:30:00 15:30:00 Dhiekson 22 [facility] 2018-08-02 2018-08-03 [place] [id number] Memoria 19:30:00 05:59:59 r Primary 19 [facility] 2018-08-02 2018-08-02 Outpatient Shpats, MG MG [id number] 13:30:00 23:59:59 Selena 19 2018-08-02 2018-08-02 Ambulatory nullFlavo MHMG [id number] Memoria 19:30:00 19:30:00 Pre-Reg r Primary 18 [facility] 2018-08-02 2018-08-02 Outpatient MHIE MHIE [id number] Memoria 13:30:00 13:30:[address] [facility] 2018-08-02 2018-08-02 Outpatient MHIE MHIE [id number] Memoria 13:30:00 13:30:[address] [facility] 2018-08-02 2018-08-02 Outpatient Saravia, MG MG [id number] 13:30:00 13:30:00 Dhiekson 18 Melquised 2018-07-30 2018-07-30 [place] [id number] Memoria 20:30:00 20:30:00 Pre-Reg r Primary 17 l [facility] 2018-07-30 2018-07-30 Outpatient MHIE IE [id number] Memoria 14:30:00 14:30:00 17 radha Adrian 2018-07-30 2018-07-30 Outpatient Saravia, MG MG [id number] 14:30:00 14:30:00 Dhiekson 17 Mel[place] 2018-07-05 2018-07-07 Phone nullFlavo MG [id number] Memoria 17:18:00 05:59:59 Message r Primary 17 l [facility] 2018-07-05 2018-07-06 Outpatient MHMG MG [id number] 11:18:00 23:59:59 17 2018-05-18 2018-05-20 Phone nullFlavo MG [id number] Memoria 16:39:00 04:59:59 Message r Primary 16 l [facility] 2018-05-18 2018-05-19 Outpatient MHMG MG [id number] 11:39:00 23:59:59 16 2018-04-03 2018-04-03 Outpt Diag nullFlavo [facility] [id number] Memoria 12:45:00 12:45:00 Services r Outpatient 07 [facility] 2018-04-03 2018-04-03 Outpatient Alexandr, 2.16.840. 2.16.840.1. 3 [id number] 07:45:00 07:45:00 [place] 1.688451. [id number] 07 3.615.36 5.36 2018-04-02 2018-04-03 Outpatient nullFlavo [facility] [id number] Memoria 19:30:00 04:59:59 r Primary 16 [facility] 2018-04-02 2018-04-02 Outpatient Rani, MG [facility] [id number] 14:30:00 23:59:59 Dhiekson 16 Melquisedolya 2018-04-02 2018-04-02 Outpatient MHIE IE [id number] Memoria 14:30:00 14:30:00 16 radha Adrian 2018-03-26 2018-03-26 Emergency nullFlavo [facility] [id number] Memoria 02:38:00 05:08:00 zurdo Terrell 08 [facility] 2018-03-25 2018-03-26 Outpatient Brigid, [facility] [id number] 21:38:00 00:08:00 Gaby Rasmussen 2018-03-14 2018-03-16 Phone nullFlavo MH[facility] [id number] Memoria 15:17:00 04:59:59 Message r Primary 15 [facility] 2018-03-14 2018-03-15 Outpatient MHMG MHMG [id number] 10:17:00 23:59:59 15 2018-03-07 2018-03-09 Phone nullFlavo MHMG [id number] Memoria 19:52:00 04:59:59 Message r Primary 14 [facility] 2018-03-07 2018-03-08 Outpatient MHMG MHMG [id number] 14:52:00 23:59:59 14 2018-03-06 2018-03-07 Outpatient nullFlavo MHMG [id number] Memoria 15:00:00 04:59:59 r Primary 15 [facility] 2018-03-06 2018-03-06 Outpatient Saravia, MG MHMG [id number] 10:00:00 23:59:59 Dhiekson 15 [place] 2018-03-06 2018-03-06 Outpatient MHIE MHIE [id number] Memoria 10:00:00 10:00:00 15 radha Adrian 2017-12-01 2017-12-03 Phone nullFlavo MHMG [id number] Memoria 19:26:00 04:59:59 Message r Primary 13 [facility] 2017-12-01 2017-12-03 Phone nullFlavo MHMG [id number] Memoria 15:06:00 04:59:59 Message r Primary 12 [facility] 2017-12-01 2017-12-02 Outpatient MHMG MHMG [id number] 14:26:00 23:59:59 13 2017-12-01 2017-12-02 Outpatient MHMG MHMG [id number] 10:06:00 23:59:59 12 2017-10-20 2017-11-19 OP Therapy nullFlavo [facility] [id number] Memoria 07:30:00 04:59:00 Patients r DANIELA-Sj 02 [facility] 2017-10-20 2017-11-18 Outpatient Saravia, 2.16.840. 2.16.840.1. 3 [id number] 02:30:00 23:59:00 Dhiekson 1.906294. [id number] 02 Melquised[place] 3.615.98 5.98 2017-11-13 2017-11-15 Phone nullFlavo MHMG [id number] Memoria 20:21:00 04:59:59 Message r Primary 11 [facility] 2017-11-13 2017-11-15 Phone nullFlavo MNA [id number] Memoria 13:42:00 04:59:59 Message r Neuroscienc 10 l e [facility] 2017-11-13 2017-11-14 Outpatient MHMG MHMG [id number] 15:21:00 23:59:59 11 2017-11-13 2017-11-14 Outpatient MHMISCHER MHMISCHER [id number] 08:42:00 23:59:59 10 2017-11-07 2017-11-08 Outpatient nullFlavo MNA [id number] Memoria 15:30:00 04:59:59 r Neuroscienc 13 l e [facility] 2017-11-07 2017-11-07 Outpatient MHMISCHER MHMISCHER [id number] 10:30:00 23:59:59 13 2017-11-07 2017-11-07 Outpatient MHIE MHIE [id number] Memoria 10:30:00 10:30:[address] [facility] 2017-10-16 2017-10-17 Outpatient nullFlavo MHMG [id number] Memoria 20:00:00 04:59:59 r Primary 14 [facility] 2017-10-16 2017-10-16 Outpatient Saravia, MHMG MHMG [id number] 15:00:00 23:59:59 Dhiekson 14 [place] 2017-10-16 2017-10-16 Outpatient MHIE MHIE [id number] Memoria 15:00:00 15:00:[address] [facility] 2017-10-05 2017-10-07 Phone nullFlavo MNA [id number] Memoria 20:43:00 04:59:59 Message r Neuroscienc 09 l e [facility] 2017-10-05 2017-10-06 Outpatient MHMISCHER MHMISCHER [id number] 15:43:00 23:59:59 09 2017-09-26 2017-09-27 Outpatient nullFlavo MNA [id number] Memoria 17:45:00 04:59:59 r Neuroscienc 11 l e [facility] 2017-09-26 2017-09-26 Outpatient MHMISCHER MHMISCHER [id number] 12:45:00 23:59:59 11 2017-09-26 2017-09-26 Outpatient MHIE MHIE [id number] Memoria 12:45:00 12:45:00 11 l Adrian 2017-09-04 2017-09-06 Phone nullFlavo MNA [id number] Memoria 22:11:00 05:59:59 Message r Neuroscienc 08 l e [facility] 2017-09-04 2017-09-05 Outpatient MHMISCHER MHMISCHER [id number] 16:11:00 23:59:59 08 2017-08-21 2017-08-22 Outpatient nullFlavo [facility] [id number] Memoria 17:30:00 05:59:59 r Primary 12 l [facility] 2017-08-21 2017-08-21 Outpatient Brock MG [facility] [id number] 11:30:00 23:59:59 Terrie Pacheco 2017-08-21 2017-08-21 Outpatient MHIE MHIE [id number] Memoria 11:30:00 11:30:00 12 radha Adrian 2017-08-15 2017-08-17 Phone nullFlavo MNA [id number] Memoria 20:38:00 05:59:59 Message r Neuroscienc 07 l e [facility] 2017-08-15 2017-08-16 Outpatient MHMISCHER MHMISCHER [id number] 14:38:00 23:59:59 07 2017-08-15 2017-08-16 [place] [id number] Memoria 17:00:00 05:59:59 r Primary 10 l [facility] 2017-08-15 2017-08-16 Outpt Diag nullFlavo [facility] [id number] Memoria 18:16:00 05:59:00 Services r Outpatient 05 l [facility] 2017-08-15 2017-08-15 Outpatient Rani, [facility] [id number] 11:00:00 23:59:59 Dhiekson 10 [place] 2017-08-15 2017-08-15 Outpatient Rani, 2.16.840. 2.16.840.1. 3 [id number] 12:16:00 23:59:00 Dhiekson 1.146418. [id number] 05 Melquisedek 3.615.36 5.36 2017-08-15 2017-08-15 Outpatient MHIE IE [id number] Memoria 11:00:00 11:00:00 10 l Adrian 2017-08-04 2017-08-05 Outpt Diag nullFlavo [facility] [id number] Memoria 20:21:00 05:59:00 Services r Outpatient 04 l [facility] 2017-08-04 2017-08-04 Outpatient Saravia, 2.16.840. 2.16.840.1. 3 [id number] 14:21:00 23:59:00 Dhiekson 1.562297. [id number] 04 Mel[place] 3.615.36 5.36 2017-07-24 2017-07-24 Emergency nullFlavo [facility] [id number] Memoria 09:29:00 12:32:[address] [facility] 2017-07-24 2017-07-24 Outpatient Brigid [facility] [id number] 03:29:00 06:32:[address] [place] [address] 2017-07-24 2017-07-24 Outpatient Brigid, [facility] [id number] 03:29:00 06:32:[address] [place] [address] 2017-07-21 2017-07-22 Outpatient nullFlavo [facility] [id number] Memoria 14:30:00 05:59:59 r Primary 09 [facility] 2017-07-21 2017-07-21 Outpatient Rani [facility] [id number] 08:30:00 23:59:59 Dhiekson 09 [place] 2017-07-21 2017-07-21 Outpatient MHIE IE [id number] Memoria 08:30:00 08:30:00 09 radha Adrian 2017-07-14 2017-07-16 Phone nullFlavo [facility] [id number] Memoria 11:59:00 05:59:59 Message r Primary 06 [facility] 2017-07-14 2017-07-15 Outpatient MHMG MHMG [id number] 05:59:00 23:59:59 06 2017-06-30 2017-07-02 Phone nullFlavo [facility] [id number] Memoria 19:02:00 05:59:59 Message r Primary 05 [facility] 2017-06-30 2017-07-01 Outpatient MHMG MHMG [id number] 13:02:00 23:59:59 05 2017-06-30 2017-07-01 Outpt Diag nullFlavo [facility] [id number] Memoria 21:24:00 05:59:00 Services r Outpatient 03 [facility] 2017-06-30 2017-06-30 Outpatient Saravia, 2.16.840. 2.16.840.1. 3 [id number] 15:24:00 23:59:00 Liza 1.866626. [id number] 03 [place] 3.615.36 5.36 2017-06-19 2017-06-21 Phone nullFlavo [facility] [id number] Memoria 22:08:00 05:59:59 Message r Primary 04 [facility] 2017-06-19 2017-06-20 Outpatient MHMG MHMG [id number] 16:08:00 23:59:59 2017-06-14 2017-06-16 Phone nullFlavo MHMG [id number] Memoria 22:45:00 05:59:59 Message r Primary 03 [facility] 2017-06-14 2017-06-15 Outpatient MHMG MHMG [id number] 16:45:00 23:59:59 03 2017-04-21 2017-04-21 Outpatient MHIE MHIE [id number] Memoria 14:00:00 14:00:[address] [facility] 2016-07-22 2016-07-22 Outpatient [facility] [id number] [place] [address] 09:27:32 09:27:32 Health 2015-10-19 2015-10-19 Outpatient MHIE MHIE [id number] Memoria 08:00:00 08:00:00 07 radha Terrell 2015-09-28 2015-09-28 Outpatient MHIE MHIE [id number] Memoria 14:30:00 14:30:00 06 radha Terrell 2015-09-18 2015-09-18 Outpatient MHIE MHIE [id number] Memoria 10:00:00 10:00:00 05 radha Terrell 2015-08-18 2015-08-18 Outpatient MHIE MHIE [id number] Memoria 11:30:00 11:30:00 03 radha Adrian 2015-07-29 2015-07-29 Outpatient MHIE MHIE [id number] Memoria 10:00:00 10:00:00 04 radha GrantXander 2015-05-18 2015-05-18 Outpatient MHIE MHIE [id number] Memoria 11:00:00 11:00:00 02 radha Adrian 2015-05-04 2015-05-04 Outpatient MHIE MHIE [id number] Memoria 11:15:00 11:15:00 01 radha Adrian 2015-04-17 2015-04-17 Outpatient MHIE MHIE [id number] Memoria 11:00:00 11:00:00 00 radha Adrian 2014-06-05 2014-06-06 Outpatient nullFlavo [facility] [id number] Memoria 17:12:00 05:59:00 r Outpatient 01 l Imaging [facility] 2014-06-05 2014-06-05 Outpatient Murillo, 2.16.840. 2.16.840.1. [id number] 11:12:00 23:59:00 Yasemin 1.332497. 924720.3.61 01 Ryann 3.615.0.1 5.0.102 70 6440-09-25 2014-04-10 OBS nullFlavo [facility] [id number] Memoria 02:24:00 22:50:00 Observatio zurdo Terrell 04 l n Patient [facility] 2014-04-09 2014-04-10 Outpatient Marilin, 2.16.840. 2.16.840.1. [id number] 21:24:00 17:50:00 Eulalio 1.718914. [id number] 04 Parvez 3.615.0.1 5.0.758 12 7530-08-27 2014-03-13 Outpt Diag nullFlavo [facility] [id number] Memoria 18:44:00 04:59:00 Services r Outpatient 00 l [facility] 2014-03-12 2014-03-12 Outpatient Muirllo, 2.16.840. 2.16.840.1. [id number] 13:44:00 23:59:00 Yasemin 1.808282. [id number] [id number] Ryann 3.615.0.1 5.0.322 04 6734-01-16 2013-08-01 Outpatient 2.16.840. 2.16.840.1. 3 [id number] Memoria 19:51:00 23:59:00 1.907839. [id number] 03 l 3.615.0.1 5.0.101 Heron n 01 [facility] 2013-08-01 2013-08-01 Outpatient nullFlavo [id number] Memoria 19:51:00 19:51:00 [facility] 03 l Adrian 2013-06-14 2013-06-14 Outpatient 2.16.840. 2.16.840.1. 3 [id number] Memoria 19:34:00 23:59:00 1.546346. 825251.3.61 02 l 3.615.0.1 5.0.101 Heron n [facility] 2013-06-14 2013-06-14 Outpatient nullFlavo [id number] Memoria 19:34:00 19:34:00 [facility] 02 l Adrian 2012-07-24 2012-07-24 Outpatient [facility] [id number] Memoria 10:50:00 10:50:00 00 Adrian Results Test Description Test Time Test Comments Results Result Comments Source Influenza virus A and B and SARS-CoV+SARS-CoV-2 (COVID -19) 2021-12-10 14:11:38 panel - Upper respiratory specimen by Rapid immunoassay Test Item Value Reference Range Interpretation Comme nts Influenza A (test code = Influenza A) Presumptive Negative Influenza B (test code = Influenza B) Presumptive Negative SARS-CoV-2 Antigen (test code = SARS-CoV-2 Antigen) Presumptive Neg ative [facility] and SARS-CoV+SARS-CoV-2 (COVID- 19) Ag panel - Upper respiratory specimen by Rapid [id number] 14:11:38 Test Item Value Reference Range Interpretation Comments Influenza A (test code = Presumptive Negative Influenza A) Influenza B (test code = Presumptive Negative Influenza B) SARS-CoV-2 Antigen (test Presumptive Negative code = SARS-CoV-2 Antigen) [facility]Hemoglobin.total in [id number] 00:00:00 Test Item Value Reference Range Interpretation Comments Hemoglobin A1c/Hemoglobin.total in 7.7 % 1.0-5.7 H Blood (test code = 4548-4) average blood glucose (calculation) 174 mg/dL (test code = average blood glucose (calculation)) [facility] C-SPINE W/O [id number] 21:00:00 [facility])Name: JAMESON FLYNN : 1950 Sex: F Name: JAMESON FLYNN [facility] : 1950 Age/S: 70 / F [address] [facility] Unit #: [id number] Loc: Lisa Skinner [address] Phys: Gabriel Baer MD Acct: [id number] Dis Date: Status: REG ER PHONE #: [phone] Exam Date: 01/25/20212010 FAX #: [phone]: Pain s/p fall EXAMS: CPT CODE: [id number] CT C-SPINE W/O CONTRAST 38263 HISTORY: Pain s/p fall TECHNIQUE: Noncontrast 2.[address] of the head and cervical spine. Examination acquired within 24 hours of arrival. Automated exposure control for dose reduction. COMPARISON: None FINDINGS: There is swelling of the soft tissues of the scalp overlying the left side of the frontal bone. Calvarium and skull base are intact. No acute hemorrhage. No intracranial mass, mass effect, or midline shift. No effacement of the sulci or aprrish-white matter interface. No cortical atrophy. No signs of white matter small-vessel disease. No hydrocephalus.. No extra-axial fluid collection. Visualized paranasal sinuses are clear. Mastoid air cells and middle ear cavities are clear. Orbital contents are unremarkable. No acute fracture of the cervical spine. No subluxation. Craniocervical and cervicothoracic articulations are appropriate. Vertebral body heights are preserved. There is mild height loss of the C4-C5disc. Remaining intervertebral disc heights appear to be preserved. No prevertebral or paraspinal soft tissue abnormality. Lung apices are clear. IMPRESSION: Swelling of the soft tissues of the scalp overlying the left side of the frontal bone with no underlying skull fracture or evidence of intracranial injury. The brain parenchyma appears to be within normal limits. Mild degenerative changes of the cervical spine without fracture or malalignment. PAGE 1 Signed Report (CONTINUED) Name: JAMESON FLYNN [facility] : 1950 Age/S: 70 / F [address] [facility] Unit #: [id number] Loc: [place] [address] Phys: Gabriel Baer MD Acct: [id number] Dis Date: Status: REG ER PHONE #: [phone] Exam Date: 01/25/20212010 FAX #: [phone] Reason: Pain s/p fall EXAMS: CPT CODE: [id number] CT C-SPINE W/O CONTRAST 31160 (Continued) Location: [facility] Electronically Signedby Ata Casas MD on 01/25/2021 at 2100 Reported and signed by: Ata Casas MD CC: Gabriel Baer MD; Ted Anna MD Technologist:CRIS WARREN CT CTDI: DLP: Trnscb Date/Time: 01/25/2021 (2099) [email or web address] Orig Print D/T: S: 01/25/2021 (2102) PAGE 2 Signed Report- CT HEAD/BRAIN W/O [id number] 21:00:00 [facility] ([facility])Name: JAMESON FLYNN : 1950 Sex: F Name: JAMESON FLYNN [facility] : 1950 Age/S: 70 / F [address] [facility] Unit #: [id number] Loc: [place] [address] Phys: Gabriel Baer MD Acct: [id number] Dis Date: Status: REG ER PHONE #: [phone] Exam Date: 01/25/20212010 FAX #: [phone]: Pain s/p fall EXAMS: CPT CODE: [id number] CT HEAD/BRAIN W/O CONT 45654 HISTORY: Pain s/p fall TECHNIQUE: Noncontrast 2.[address] of the head and cervical spine. Examination acquired within 24 hours of arrival. Automated exposure control for dose reduction. COMPARISON: None FINDINGS: Thereis swelling of the soft tissues of the scalp overlying the left side of the frontal bone. Calvarium and skull base are intact. No acute hemorrhage. No intracranial mass, mass effect, or midline shift. No effacement of the sulci or parrish-white matter interface. No cortical atrophy. No signs of white matter small-vessel disease. No hydrocephalus.. No extra-axial fluid collection. Visualized paranasal sinuses are clear. Mastoid air cells and middle ear cavities are clear. Orbital contents are unremarkable. No acute fracture of the cervical spine. No subluxation. Craniocervical and cervicothoracic articulations are appropriate. Vertebral body heights are preserved. There is mild height loss of the C4-C5 disc. Remaining intervertebral disc heights appear to be preserved. No prevertebral or paraspinal soft tissue abnormality. Lung apices are clear. IMPRESSION: Swelling of the soft tissues of the scalp overlying the left side of the frontal bone with no underlying skull fracture or evidence of intracranial injury. The brain parenchyma appears to be within normal limits. Mild degenerative changes of the cervical spine without fracture or malalignment. PAGE 1 Signed Report (CONTINUED) Name: JAMESON FLYNN [facility] : 1950 Age/S: 70 / F [address] [facility] Unit #: [id number] Loc: [place] [address] Phys: Gabriel Baer MD Acct: [id number] Dis Date: Status: REG ER PHONE #: [phone] Exam Date: 01/25/20212010 FAX #: [phone] Reason: Pain s/p fall EXAMS: CPT CODE: [id number] CT HEAD/BRAIN W/O CONT 55055 (Continued) Location: [facility] Electronically Signedby Ata Casas MD on 01/25/2021 at 2100 Reported and signed by: Ata Casas MD CC: Gabriel Baer MD; Ted Anna MD Technologist:CRIS LOUISE CTDI: DLP: Trnscb Date/Time: 01/25/2021 (2099) t.[id number] Orig Print D/T: S: 01/25/2021 (2102) PAGE 2 Signed ReportSCR MAMM BILATERAL OLEGARIO CAD [id number] 12:57:49 Name: Jameson : 1950 Sex: F* - SCR MAMM BILATERAL OLEGARIO CAD DIGITALBILATERAL DIGITAL SCREENING MAMMOGRAM 3D/2D WITH CAD: 01/01/2021LINICAL: Asymptomatic. Digital breast tomosynthesis was performed in addition to routine CC and MLO views. Current mammographic images were evaluated by [employer] CAD (computer-aided detection) software. No prior exams were available for comparison. The tissue of both breasts is predominantly fatty. No suspicious mass, architectural distortion, malignant type calcification, or lymph node abnormality detected. IMPRESSION: NEGATIVEThere is no mammographic evidence of malignancy. Resume annual screening mammography in one year. Floyd Winslow M.D. ss/penrad:01/02/2021 12:57:49 Change Control Analyst: Jenna Leon , [facility]-FWletter sent: BIRADS 1-2 Normal Mammogram BI-RADS: 1 NegativeGASTRIC,[id number] 16:28:00 Test Item Value Reference Range Interpretation Comments GASTRIC,BIOPSY (test code = GASTB) RUN DATE: 09/25/20 [place] - Lab PAGE 1 RUN TIME: 1628 Specimen Inquiry RUN USER: INTERFACE PATIENT: JAMESON FLYNN LOC: [place] U #: [id number] AGE/SX: 70/F ROOM: RE09/24/20REG DR: Ted Anna MD : [birth year] BED: DIS: STATUS: [facility] TLOC: SPEC #: [id number] RECD: 09/24/20 STATUS: [facility] #: [id number] ELIANE: 09/24/20- SUBM DR: Ted Anna MD ENTERED: 09/24/20 SP TYPE: GASTRIC BX OT DR: ORDERED: GROSS/2 PROCEDURES: GROSS (09/25/20-1432) TISSUES: 1. DUODENUM, NOS - COLD BX 2. GASTRIC CORPUS - COLD BX 3. SIGMOID COLON - POLYP CLINICAL HISTORY COLLECTION DATE: 09/24/20 ROUTINE SCREENING COMMENT Sections of the third specimen (sigmoid colon polyp) shows benign colonic mucosa. In one area there is prominent submucosal fibrosis that is hypocellular and hyalinized appearing. A few scattered vessels are present within this area. The fibrosis causes the mucosa to have a polypoid appearance but no hyperplastic or adenomatous change is present. FINAL DIAGNOSIS Duodenum, cold biopsy: BENIGN DUODENAL MUCOSA WITH UNREMARKABLE VILLOUS ARCHITECTURE AND NO SIGNIFICANT PATHOLOGIC ALTERATION Gastric tissue, cold biopsy: REACTIVE GASTROPATHY SEPARATE FRAGMENT OF GASTRIC MUCOSA WITH MILD CHRONIC INFLAMMATION, INTESTINAL METAPLASIA AND REACTIVE EPITHELIAL CHANGE FRAGMENTS OF GASTRIC MUCOSA WITH NO SIGNIFICANT PATHOLOGIC ALTERATION NO AREAS OF MUCOSAL EROSION/ULCERATION NEGATIVE FOR MALIGNANCY Sigmoid colon polyp, hot snare: COLONIC MUCOSA WITH PROMINENT AREA OF INCREASED SUBMUCOSAL FIBROSIS, see comment NO HYPERPLASTIC OR ADENOMATOUS CHANGE PRESENT NEGATIVE FOR MALIGNANCY CONTINUED ON NEXT PAGE RUN DATE: 09/25/20 [facility] Lab PAGE 2 RUN TIME: 1628 Specimen Inquiry RUN USER: INTERFACE SPEC #: [id number] PATIENT: JAMESON FLYNN #[id number] (Continued) FINAL DIAGNOSIS (Continued) RRB/sm D [id number] MACROSCOPIC The first specimen is received in formalin, labeled with the patient's name, and identified as "duodenum bx", and consists of boothe biopsy tissue measuring 0.4 cm in aggregate, submitted as (1). The second specimen is received in formalin, labeled with the patient's name, and identified as "gastric bx", and consists of boothe biopsy tissue measuring 0.5 cm in aggregate, submitted as (2). The third specimen is received in formalin, labeled with the patient's name, and identified as "sigmoid colon polyp", and consists of a red nodular fragment of tissue measuring up to 0.4 cm that has a attached elongated boothe portion of tissue measuring 1.2 cm in length by 0.2 cm in diameter, submitted as (3). GROSS PERFORMED AT [facility] [address] [place] [address] [phone])[phone] MICROSCOPIC All of the stains, including any controls performed, stain appropriately. 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 Positiv e results do not rule out bacterial infection or co -infection with other viru ses. Negative result s do not preclude SARS-C oV-2 infection andsh ould not be used as the jenny e basis for patient managementdecis ions. Negative result s must be combined with otherclinical observations, p atient history, and epidemiological information . Detection of SARS-CoV-2 RNA may be affe cted bysample collec tion methods, storag e conditions, and /or stageof infection. Audrey l RNA mutations, vacc inations, antiviraltherap eutics, antibiotics, chemotherapeuti c orimmunosuppres monroe drugs have not been e valuated for effectson d etection. Results are for the identification of SARS-CoV-2 RNA usingthe Truong M2000 Sy stem under the FDA Emergen cy UseAuthorizatio n. The testing is perf ormed by personneltraine d in the procedures for the Truong M2000 molecular diagnostic SARS-CoV-2 assa y in vitro. Novel Coronavirus 17:06:00 Test Item Value Reference Range Interpretation Comments Novel Coronavirus Negative Negative Positive r esults are 2019 Inhouse (test indicativ e of the presence code = [id number]) ofSARS-CoV -2 RNA, clinical correlation wit h patient historyand othe r diagnostic info rmation is necessary to determinepatien t infection status. Positiv e results do not rule out bacterial infection or co -infection with other viru ses. Negative result s do not preclude SARS-C oV-2 infection andsh ould not be used as the jenny e basis for patient managementdecis ions. Negative result s must be combined with otherclinical observations, p atient history, and epidemiological information . Detection of SARS-CoV-2 RNA may be affe cted bysample collec tion methods, storag e conditions, and /or stageof infection. Audrey l RNA mutations, vacc inations, antiviraltherap eutics, antibiotics, chemotherapeuti c orimmunosuppres monroe drugs have not been e valuated for effectson d etection. Results are for the identification of SARS-CoV-2 RNA usingthe Truong M2000 Sy stem under the FDA Emergen cy UseAuthorizatio n. The testing is perf ormed by personneltraine d in the procedures for the Truong M2000 molecular diagnostic SARS-CoV-2 assa y in vitro. BASIC METABOLIC [id number] 18:05:00 Test Item Value Reference Range Interpretation Comments SODIUM (test code = 135 mmol/L 136-145 L NA) POTASSIUM (test code 3.8 mmol/L 3.5-5.1 N = K) CHLORIDE (test code 105.0 mmol/L 98-107 N = CL) CARBON DIOXIDE (test 23.0 mmol/L 21-32 N code = CO2) ANION GAP (test code 10.8 10-20 N = GAP) GLUCOSE (test code = 270 mg/dL 74-106 H GLU) BLOOD UREA NITROGEN 12 mg/dL 7-18 N (test code = BUN) GLOMERULAR > 60 mL/min See_Comment Estimated GFR b y FILTRATION RATE using Modifi ed MDRD (test code = GFR) formula. ron kidney disease is defined as eith er kidney damageor GFR <60 mL/min/1.73 m2 for >3 months. [Automated mess age] The system [employer]One generated this result transmitted ref erence range: >=60. Th e reference range was not used to int erpret this result as normal/abnormal . CREATININE (test 0.90 mg/dL 0.55-1.02 N Note rodrigues ge in code = CREAT) reference rang e due to change in reagent. BUN/CREATININE RATIO 13.3 10-20 N (test code = BUN/CREA) CALCIUM (test code = 9.0 mg/dL 8.5-10.1 N CA) CBC W/AUTO [id number] 17:44:00 Test Item Value Reference Range Interpretation Comments WHITE BLOOD CELL (test code = 6.8 K/mm3 4.5-12.5 N WBC) RED BLOOD CELL (test code = 5.03 mill/mm3 3.7-5.2 N RBC) HEMOGLOBIN (test code = HGB) 13.4 gram/dL 11.5-15.5 N HEMATOCRIT (test code = HCT) 44.5 % 36.0-46.0 N MEAN CELL VOLUME (test code = 88.5 fL 80-98 N MCV) MEAN CELL HGB (test code = MCH) 26.6 picogram 27.0-33.0 L MEAN CELL HGB CONCETRATION 30.1 gram/dL 33.0-36.0 L (test code = MCHC) RED CELL DISTRIBUTION WIDTH 15.4 % 11.6-16.2 N (test code = RDW) RED CELL DISTRIBUTION WIDTH SD 49.9 fL 37.0-51.0 N (test code = RDW-SD) PLATELET COUNT (test code = 228 K/mm3 150-450 N PLT) MEAN PLATELET VOLUME (test code 11.5 fL 6.7-11.0 H = MPV) NEUTROPHIL % (test code = NT%) 51.2 % 39.0-69.0 N IMMATURE GRANULOCYTE % (test 0.7 % 0.0-5.0 N code = IG%) LYMPHOCYTE % (test code = LY%) 39.8 % 25.0-55.0 N MONOCYTE % (test code = MO%) 5.1 % 0.0-10.0 N EOSINOPHIL % (test code = EO%) 2.3 % 0.0-5.0 N BASOPHIL % (test code = BA%) 0.9 % 0.0-1.0 N NUCLEATED RBC % (test code = 0.0 % 0-0 N NRBC%) NEUTROPHIL # (test code = NT#) 3.49 K/mm3 1.8-7.7 N IMMATURE GRANULOCYTE # (test 0.05 x10 3/uL 0-0.03 H code = IG#) LYMPHOCYTE # (test code = LY#) 2.72 K/mm3 1.0-5.0 N MONOCYTE # (test code = MO#) 0.35 K/mm3 0-0.8 N EOSINOPHIL # (test code = EO#) 0.16 K/mm3 0.0-0.5 N BASOPHIL # (test code = BA#) 0.06 K/mm3 0.0-0.2 N NUCLEATED RBC # (test code = 0.00 K/mm3 0.0-0.1 N NRBC#) Novel Coronavirus 14:24:00 Test Item Value Reference Range Interpretation Comments Novel Coronavirus 2018 Negative NOT DETECT. Test performed at: Inhouse (test code = [facility] IRL [address] [id number]) [address] [place], [place] [address] Covid 19 InHouse [id number] 17:15:00 Test Item Value Reference Range Interpretation Comments Covid 19 Negative Negative A negative resu lt does not InHouse NTX preclude the SA RS-COV-2 (test code = viralinfection and should not be [id number]) used as the so le basis forpatient trevor gement decisions. Negative result s must becombined with clinical o bservations, patient history , andepidemiologi erika information. Viral levels in clinicalsamples below the detec tion limit of the assay could ivnod d tonegative results. This t est was performed using the [employer] SmartTM COVID-19 PCRassay. This test was developed and i ts performancechar acteristics were determined by [facility]. Thi s test has notbeen FDA shazia ared or approved. This test is au thorized by theFDA under Em ergency Use Authorization(E UA). The EUA willremain in e ffect unless it is terminated o r revoked by FDA . Testing berta eters have not been validated for screeningasympt omatic patients. This test was v alidated according to e FDA's guidancedocumen t "Policy for Diagnostics yadira ting in LaboratoriesCer tified to Perform High Complexity Testing under CLIA". First test? UnknownEmployed in Healthcare? UnknownSymptomatic as defined by CDC? UnknownHospitalizeddue to COVID? UnknownIn ICU due to COVID? UnknownResident in a congregate care setting? Unknown? UnknownAge at collection: YHepatitis C virus RNA [Units/volume] (viral load) in Serum or Plasma by GET with probe [id number] 16:24:00 Test Item Value Reference Range Interpretation Comments hepatitis C antibody (test code non-reactive non-reactive = hepatitis C antibody) signal to cut-off (test code = 0.00 <1.00 signal to cut-off) [facility] W Auto Differential panel - [id number] 16:00:00 Test Item Value Reference Range Interpretation Comments WBC (test code = WBC) 5.49 x10*3/?L 3.98-10.04 RBC (test code = RBC) 5.47 10*12/L 3.93-5.22 H hemoglobin (test code = 14.70 g/dL 11.20-15.70 hemoglobin) hematocrit (test code = 45.7 % 34.1-44.9 H hematocrit) MCV (test code = MCV) 83.5 fL 80.0-100.0 MCH (test code = MCH) 26.9 pg 25.6-32.2 MCHC (test code = MCHC) 32.2 g/dL 32.2-35.5 RDW-SD (test code = RDW-SD) 44.6 fL 36.4-46.3 platelet count (test code = 224.0 k/uL 182.0-369.0 platelet count) MPV (test code = MPV) 12.7 fL 7.5-11.5 H neut% (test code = neut%) 44.8 % 34.0-71.1 lymph% (test code = lymph%) 44.4 % 19.3-51.7 mon% (test code = mon%) 6.6 % 4.7-12.5 eos% (test code = eos%) 3.5 % 0.7-5.8 baso% (test code = baso%) 0.7 % 0.1-1.2 neut# (test code = neut#) 2.5 x10*3/?L 1.6-6.1 lymph# (test code = lymph#) 2.4 x10*3/?L 1.2-3.7 mon# (test code = mon#) 0.4 x10*3/?L 0.2-0.9 eos# (test code = eos#) 0.19 x10*3/?L 0.04-0.36 baso# (test code = baso#) 0.04 x10*3/?L 0.01-0.08 [facility]em[facility].total in [id number] 12:48:00 Test Item Value Reference Range Interpretation Comments Hemoglobin A1c/Hemoglobin.total in 12.4 % 1.0-5.7 H Blood (test code = 4548-4) average blood glucose (calculated) 309 mg/dL (test code = average blood glucose (calculated)) [facility] 2000 panel - Serum or Plasma 2020-05-25 11:25:00 Test Item Value Reference Range Interpretation Comments ALT (test code = ALT) 26 U/L 0-55 AST (test code = AST) 21 U/L 5-34 BUN (test code = BUN) 12.8 mg/dL 9.8-25.0 alk phos (test code = alk phos) 94 unit/L 40-150 glucose (test code = glucose) 275 mg/dL 70-99 H albumin (test code = albumin) 4.3 g/dL 3.4-5.1 creatinine (test code = 0.83 mg/dL 0.57-1.11 creatinine) eGFR non- (test >60 code = eGFR non-) total bilirubin (test code = 0.6 mg/dL 0.2-1.2 total bilirubin) eGFR - (test >60 code = eGFR - ) sodium (test code = sodium) 137 mEq/L 135-145 potassium (test code = potassium) 4.5 mEq/L 3.5-5.3 chloride (test code = chloride) 104 mmol/L 98-110 total protein (test code = total 7.3 g/dL 6.1-8.2 protein) calcium (test code = calcium) 9.4 mg/dL 8.6-10.4 CO2 (test code = CO2) 24.9 mmol/L 20.0-32.0 anion gap (test code = anion gap) 8 calc [facility] 1996 panel - Serum or [id number] 11:25:00 Test Item Value Reference Range Interpretation Comments HDL (test code = HDL) 44 mg/dL L triglyceride (test code = 171 mg/dL <150 H triglyceride) VLDL (calculated) (test code = VLDL 34 mg/dL (calculated)) cholesterol/HDL ratio (test code = 4.5 mg/dL cholesterol/HDL ratio) non-HDL cholesterol (calculated) 156 mg/dL <160 (test code = non-HDL cholesterol (calculated)) cholesterol (test code = 200 mg/dL <200 cholesterol) Cholesterol in LDL [Mass/volume] in 122 mg/dL <130 Serum or Plasma (test code = 2089-1) [facility] Auto Differential panel - [id number] 04:46:00 Test Item Value Reference Range Interpretation Comments white blood cell count (test 5.4 thousand/uL 3.8-10.8 code = white blood cell count) red blood cell count (test 5.52 million/uL 3.80-5.10 H code = red blood cell count) hemoglobin (test code = 14.7 g/dL 11.7-15.5 hemoglobin) hematocrit (test code = 47.0 % 35.0-45.0 H hematocrit) MCV (test code = MCV) 85.1 fL 80.0-100.0 MCH (test code = MCH) 26.6 pg 27.0-33.0 L MCHC (test code = MCHC) 31.3 g/dL 32.0-36.0 L RDW (test code = RDW) 13.8 % 11.0-15.0 platelet count (test code = 217 thousand/uL 140-400 platelet count) MPV (test code = MPV) 12.1 fL 7.5-12.5 absolute neutrophils (test 2468 cells/uL 7704-5885 code = absolute neutrophils) absolute lymphocytes (test 2360 cells/uL 850-3900 code = absolute lymphocytes) absolute monocytes (test code 340 cells/uL 200-950 = absolute monocytes) absolute eosinophils (test 162 cells/uL 15-500 code = absolute eosinophils) absolute basophils (test code 70 cells/uL 0-200 = absolute basophils) neutrophils (test code = 45.7 % neutrophils) lymphocytes (test code = 43.7 % lymphocytes) monocytes (test code = 6.3 % monocytes) eosinophils (test code = 3.0 % eosinophils) basophils (test code = 1.3 % basophils) [facility] [id number] 11:25:00 Test Item Value Reference Range Interpretation Comments GLUBED (test code = 294 mg/dL 74-106 H Performe d by certified GLUBED) docking saw operator at [facility] - MRI BRAIN W/O [id number] 09:24:00 FAX: Cris Marroquin [phone] Elizabeth: B St: ADM Name: JAMESON FLYNN [facility] : 1950 Age/S: 69/F [address] [facility] Unit #: [id number] Loc: V.5 [place] [address] Phys: Cris Kruse MD Acct: [id number] Dis Date: Status: ADM IN PHONE #: [phone] Exam Date: 10/15/2019 09 FAX #: [phone] Reason: possible cva EXAMS: CPT CODE: [id number] MRI BRAIN W/O CONTRAST 46791 HISTORY:Possible CVA. COMPARISON: Head CT from previous day. Location: [facility]. MRI brain without contrast: No acute territorial vascular or acute lacunar infarction. No MR evidence for hemorrhage is noted. No extra-axial fluid collections are noted. Periventricular white matter ischemic lesions scattered lesionswithin the centrum semiovale white matter. No herniation, hydrocephalus or midline shift. Fourth ventricle does remain midline. The expected flow-voids are noted within the major intracranial vasculature. VII and VIII nerve complex are symmetrical and normal. Inspissated secretions within the bilateral mastoid air cells. Sinuses are clear. Intraorbital contents are unremarkable. Midbrain, cali and medulla are without mass effect. No cerebellar ectopia. Pituitary gland, optic chiasm and corpus callosum are normal. Clivus demonstrated normal marrow signal. Symmetrical hippocampi. No mesial temporal sc lerosis. IMPRESSION: No acute territorial vascular or acute lacunar infarction. Chronic white matterischemic disease. at 0924 Reported and signed by: Pernell Temple M.D. CC: Cris Kruse Technologist: FILEMON ERICKSONRT - MRI TrnscrdDate/Time/By: 10/15/2019 (923) : By: [email or web address] Orig Print D/T: S: 10/15/2019 (6117) PAGE 1 Signed [id number] 08:20:00 Test Item Value Reference Range Interpretation Comments GLUBED (test code = 243 mg/dL 74-106 H Performe d by certified GLUBED) docking saw operator at [facility] [id number] 07:07:00 Test Item Value Reference Range Interpretation Comments GLUBED (test code = 255 mg/dL 74-106 H Performe d by certified GLUBED) docking saw operator at [facility] BASIC METABOLIC [id number] 05:18:00 Test Item Value Reference Range Interpretation Comments SODIUM (test code = 137 mmol/L 136-145 RESULT V ERIFIED BY NA) REPEAT ANALYSIS POTASSIUM (test code 4.1 mmol/L 3.5-5.1 N = K) CHLORIDE (test code = 104.0 mmol/L 98-107 N CL) CARBON DIOXIDE (test 26.0 mmol/L 21-32 N code = CO2) ANION GAP (test code 11.1 10-20 N = GAP) GLUCOSE (test code = 277 mg/dL 74-106 H GLU) BLOOD UREA NITROGEN 20 mg/dL 7-18 H (test code = BUN) GLOMERULAR FILTRATION 55 mL/min >=60 Estima joel GFR by RATE (test code = using Dasha fied MDRD GFR) formula.Chronic kidney disease is defined as eith er kidney damageor GFR <60 mL/min/1.73 m2 for >3 months. CREATININE (test code 1.00 mg/dL 0.55-1.02 N Note change in = CREAT) reference range due to change in reagent. BUN/CREATININE RATIO 20.0 10-20 N (test code = BUN/CREA) CALCIUM (test code = 8.7 mg/dL 8.5-10.1 N CA) THYROID PROFILE [id number] 05:18:00 Test Item Value Reference Range Interpretation Comments T3 UPTAKE (test code = 33.0 % 30.0-40.0 N T3UP) T4 (THYROXINE) (test 6.3 ug/dL 4.5-13.9 N code = T4) T7 (FREE THYROXINE 2.07 FTI 1.3-5.1 N INDEX) (test code = T7) THYROID STIMULATING 3.480 uIU/mL 0.36-3.74 N TSH REFE RENCE HORMONE (test code = RANGES: EUTHYROID: TSH) 0.35 - 4.3 mIU/ mL HYPO : > 5.5 mI U/mL HYPER : < 0.35 mIU/mL [id number] 05:15:00 Test Item Value Reference Range Interpretation Comments GLYCOSYLATED HEMOGLOBIN 13.8 % HbA1 BELA [place]ELHO (HA1C) (test code = DIAGNOSI S: HbA1C GLYHGB) (%) ---- ------ Diab etic >6.4Prediabetes 5.7 - 6.4Normal <5. 7 ESTIMATED AVERAGE 349 MG/DL GLUCOSE (test code = EAG) [id number] 02:55:00 Test Item Value Reference Range Interpretation Comments TROPONIN-I (test code = TROPI) <0.015 ng/mL 0-0.045 N COMMENTS TO WEB PRESS OPERATOR: COLLECT 3 HOURS AFTER PREVIOUS SAMPLETROPONIN-I 2019-10-14 23:13:00 Test Item Value Reference Range Interpretation Comments TROPONIN-I (test code = TROPI) <0.015 ng/mL 0-0.045 N COMMENTS TO WEB PRESS OPERATOR: COLLECT 3 HOURS AFTER PREVIOUS [id number] 20:36:00 Test Item Value Reference Range Interpretation Comments GLUBED (test code = 270 mg/dL 74-106 H Performe d by certified GLUBED) docking saw operator at [facility] [id number] 18:43:00 Test Item Value Reference Range Interpretation Comments GLUBED (test code = 309 mg/dL 74-106 H Performe d by certified GLUBED) docking saw operator at [facility] BASIC METABOLIC [id number] 17:37:00 Test Item Value Reference Range Interpretation Comments SODIUM (test code = 130 mmol/L 136-145 L NA) POTASSIUM (test code = 4.0 mmol/L 3.5-5.1 N K) CHLORIDE (test code = 97.0 mmol/L 98-107 L CL) CARBON DIOXIDE (test 26.0 mmol/L 21-32 N code = CO2) ANION GAP (test code = 11.0 10-20 N GAP) GLUCOSE (test code = 396 mg/dL 74-106 H GLU) BLOOD UREA NITROGEN 26 mg/dL 7-18 H (test code = BUN) GLOMERULAR FILTRATION 44 mL/min >=60 Estima joel GFR by RATE (test code = GFR) using Modified MDRD formula.Chronic kidney disease is defined as eith er kidney damageor GFR <60 mL/min/1.73 m2 for >3 months. CREATININE (test code 1.20 mg/dL 0.55-1.02 H Note change in = CREAT) reference range due to change in reagent. BUN/CREATININE RATIO 21.7 10-20 H (test code = BUN/CREA) CALCIUM (test code = 9.0 mg/dL 8.5-10.1 N [place]) [id number] 17:37:00 Test Item Value Reference Range Interpretation Comments TROPONIN-I (test code = TROPI) <0.015 ng/mL 0-0.045 N PROTHROMBIN [id number] 17:31:00 Test Item Value Reference Range Interpretation Comments PROTHROMBIN TIME 11.6 seconds 9.0-14.0 N PATIENT (test code = PTP) INTERNATIONAL NORMAL 1.0 0.8-1.2 N The the rapeutic range RATIO (test code = for oral INR) anticoagulant t herapy formost indicat ions is an internati onal normalized rati o (INR)of between 2.0 and 3.0. The recommended therapeutic INR range for various cli nical situations is l isted below: Clinical Situat ion INR range Pulmonary embol ism treatment (2.0-3.0)Venous thrombosis treatmentVenous thrombosis prophylaxis (hi gh risk surgery)Prevent ion of systemic emboli sm from: Acute myocardial infa rction Valvular heart disease Atrial fibrillation Mechanical pros thetic heart valves (2.5-3.5) IS PATIENT ON ANTICOAGULANTS? NTHROMBOPLASTIN TIME [id number] 17:31:00 Test Item Value Reference Range Interpretation Comments THROMBOPLASTIN TIME PARTIAL 32.4 seconds 25.0-36.5 N (test code = PTT) IS PATIENT ON ANTICOAGULANTS? NBASIC METABOLIC [id number] 17:25:00 Test Item Value Reference Range Interpretation Comments SODIUM (test code = NA) 130 mmol/L 136-145 L POTASSIUM (test code = K) 4.0 mmol/L 3.5-5.1 N CHLORIDE (test code = CL) 97.0 mmol/L 98-107 L CARBON DIOXIDE (test code = CO2) mmol/L 21-32 ANION GAP (test code = GAP) 10-20 GLUCOSE (test code = GLU) mg/dL 74-106 BLOOD UREA NITROGEN (test code = mg/dL 7-18 BUN) GLOMERULAR FILTRATION RATE (test mL/min >=60 code = GFR) CREATININE (test code = CREAT) mg/dL 0.55-1.02 BUN/CREATININE RATIO (test code = 10-20 BUN/CREA) CALCIUM (test code = CA) mg/dL 8.5-10.1 [id number] 17:25:00 Test Item Value Reference Range Interpretation Comments TROPONIN-I (test code = TROPI) ng/mL 0-0.045 [id number] 17:21:00 Test Item Value Reference Range Interpretation Comments GLUBED (test code = 392 mg/dL 74-106 H Performe d by certified GLUBED) docking saw operator at [facility] CBC W/AUTO [id number] 17:17:00 Test Item Value Reference Range Interpretation Comments WHITE BLOOD CELL (test code = 5.6 K/mm3 4.5-12.5 N WBC) RED BLOOD CELL (test code = 4.76 mill/mm3 3.7-5.2 N RBC) HEMOGLOBIN (test code = HGB) 12.8 gram/dL 11.5-15.5 N HEMATOCRIT (test code = HCT) 39.2 % 36.0-46.0 N MEAN CELL VOLUME (test code = 82.4 fL 80-98 N MCV) MEAN CELL HGB (test code = MCH) 26.9 picogram 27.0-33.0 L MEAN CELL HGB CONCETRATION 32.7 gram/dL 33.0-36.0 L (test code = MCHC) RED CELL DISTRIBUTION WIDTH 13.9 % 11.6-16.2 N (test code = RDW) RED CELL DISTRIBUTION WIDTH SD 41.6 fL 37.0-51.0 N (test code = RDW-SD) PLATELET COUNT (test code = 201 K/mm3 150-450 N PLT) MEAN PLATELET VOLUME (test code 11.6 fL 6.7-11.0 H = MPV) NEUTROPHIL % (test code = NT%) 46.0 % 39.0-69.0 N IMMATURE GRANULOCYTE % (test 0.4 % 0.0-5.0 N code = IG%) LYMPHOCYTE % (test code = LY%) 43.0 % 25.0-55.0 N MONOCYTE % (test code = MO%) 6.6 % 0.0-10.0 N EOSINOPHIL % (test code = EO%) 2.8 % 0.0-5.0 N BASOPHIL % (test code = BA%) 1.2 % 0.0-1.0 H NUCLEATED RBC % (test code = 0.0 % 0-0 N NRBC%) NEUTROPHIL # (test code = NT#) 2.59 K/mm3 1.8-7.7 N IMMATURE GRANULOCYTE # (test 0.02 x10 3/uL 0-0.03 N code = IG#) LYMPHOCYTE # (test code = LY#) 2.42 K/mm3 1.0-5.0 N MONOCYTE # (test code = MO#) 0.37 K/mm3 0-0.8 N EOSINOPHIL # (test code = EO#) 0.16 K/mm3 0.0-0.5 N BASOPHIL # (test code = BA#) 0.07 K/mm3 0.0-0.2 N NUCLEATED RBC # (test code = 0.00 K/mm3 0.0-0.1 N NRBC#) CBC W/AUTO [id number] 17:16:00 Test Item Value Reference Range Interpretation Comments WHITE BLOOD CELL (test code = K/mm3 4.5-12.5 WBC) RED BLOOD CELL (test code = RBC) mill/mm3 3.7-5.2 HEMOGLOBIN (test code = HGB) 12.8 gram/dL 11.5-15.5 N HEMATOCRIT (test code = HCT) 39.2 % 36.0-46.0 N MEAN CELL VOLUME (test code = fL 80-98 MCV) MEAN CELL HGB (test code = MCH) picogram 27.0-33.0 MEAN CELL HGB CONCETRATION (test gram/dL 33.0-36.0 code = MCHC) RED CELL DISTRIBUTION WIDTH % 11.6-16.2 (test code = RDW) RED CELL DISTRIBUTION WIDTH SD fL 37.0-51.0 (test code = RDW-SD) PLATELET COUNT (test code = PLT) K/mm3 150-450 MEAN PLATELET VOLUME (test code fL 6.7-11.0 = MPV) NEUTROPHIL % (test code = NT%) % 39.0-69.0 IMMATURE GRANULOCYTE % (test % 0.0-5.0 code = IG%) LYMPHOCYTE % (test code = LY%) % 25.0-55.0 MONOCYTE % (test code = MO%) % 0.0-10.0 EOSINOPHIL % (test code = EO%) % 0.0-5.0 BASOPHIL % (test code = BA%) % 0.0-1.0 NEUTROPHIL # (test code = NT#) K/mm3 1.8-7.7 LYMPHOCYTE # (test code = LY#) K/mm3 1.0-5.0 MONOCYTE # (test code = MO#) K/mm3 0-0.8 EOSINOPHIL # (test code = EO#) K/mm3 0.0-0.5 BASOPHIL # (test code = BA#) K/mm3 0.0-0.2 - CT HEAD/BRAIN W/O [id number] 17:04:00 Name: JAMESON FLYNN [facility] : 1950 Age/S: 69 / F [address] [facility] #: [id number] Loc: [place] [address] Phys: MurphyElizabeth DO Acct: [id number] Dis Date: Status: REG ER PHONE #: [phone] Exam Date: 10/14/2019 1650 FAX #: [phone] Reason: slurred speech EXAMS: CPT CODE: [id number] CT HEAD/BRAIN W/O CONT 22527 HISTORY: slurred speech TECHNIQUE: Noncontrast 2.[address] of the head. Examination acquired within 24 hours of arrival. Automated exposure control for dose reduction. COMPARISON: None FINDINGS: No lacerations or contusions of the scalp or facial soft tissues. Calvarium and skull base are intact. No acute hemorrhage. No intracranial mass, mass effect, or midline shift. No effacement of the sulci or parrish-white matter interface. There is mild cortical atrophy and there are mild microvascular ischemic changes in the white matter. No hydrocephalus.. No extra-axial fluid collection. Visualized paranasal sinuses are clear. Mastoid air cells and middle ear cavities are clear. Orbital contents are unremarkable. IMPRESSION: No acute intracranial process. Mild cortical atrophy and white matter microvascular ischemic changes are present and likely chronic. Location: [facility] Reported and signed by: Ata Casas MD CC: Elizabeth Arrington DO Technologist:Yumi Sanderson RT(R); GIOVANNA Mcclellan CTDI: DLP: Trnscb Date/Time: 10/14/2019 (170) t.[email or web address] Orig Print D/T: S: 10/14/2019 (5935) PAGE 1 Signed Report- XR CHEST 1 [id number] 17:04:00 FAX: Elizabeth Arrington DO Elizabeth: B St: REG Name: JAMESON FLYNN [facility] : 1950 Age/S: 69/F [address] [facility] Unit #: [id number] Loc: [place] [address] Phys: Elizabeth Arrington DO Acct: [id number] Dis Date: Status: REG ER PHONE #: [phone] Exam Date: 10/14/2019 1652 FAX #: [phone] Reason: CODE STROKE EXAMS: CPT CODE: [id number] XR CHEST 1 V 09334 REASON FOR EXAM: CODE STROKE Exam Order Date: 10/14/2019 4:34 PM Ordering M.DJosue: Elizabeth Arrington DO PROCEDURE: - XR CHEST 1 V COMPARISON: None FINDINGS: The lungs are clear. There is no pleural effusion or pneumothorax. Pulmonary vascularity is within normal limits. Cardiomediastinal silhouette is normal in size for technique. The mediastinal contours are within normal limits. There are degenerative changes in the spine. The visualized upper abdomen is within normal limits. IMPRESSION: No acute cardiopulmonary process. Location: [facility] Reported and signed by: Ata Casas MD CC: Elizabeth Arrington DO Technologist: ANGELO MARLEY Trnscrd Date/Time/By: 10/14/2019 (765) : By: [email or web address] Orig Print D/T: S: 10/14/2019 (3926) PAGE 1 Signed ReportDUKE RALEIGH [id number] 14:45:00 Test Item Value Reference Range Interpretation Comments eGFR (test code = eGFR) 92 [facility]2014-09-25 14:45:00 Test Item Value Reference Range Interpretation Comments Potassium Lvl (test code = Potassium 3.6 3.5-5.1 Lvl) [facility]2014-09-25 14:45:00 Test Item Value Reference Range Interpretation Comments Calcium Lvl (test code = Calcium Lvl) 8.8 8.5-10.5 [facility]2014-09-25 14:45:00 Test Item Value Reference Range Interpretation Comments AGAP (test code = AGAP) 9.6 10.0-20.0 [facility]2014-09-25 14:45:00 Test Item Value Reference Range Interpretation Comments Sodium Lvl (test code = Sodium Lvl) 136 135-145 [facility]2014-09-25 14:45:00 Test Item Value Reference Range Interpretation Comments Creatinine Lvl (test code = Creatinine 0.7 0.5-1.4 Lvl) [facility]2014-09-25 14:45:00 Test Item Value Reference Range Interpretation Comments CO2 (test code = CO2) 27 24-32 [facility]2014-09-25 14:45:00 Test Item Value Reference Range Interpretation Comments Chloride Lvl (test code = Chloride Lvl) 103 95-109 [facility]2014-09-25 14:45:00 Test Item Value Reference Range Interpretation Comments BUN (test code = BUN) 11 7-22 [facility]2014-09-25 14:45:00 Test Item Value Reference Range Interpretation Comments Glucose Lvl (test code = Glucose Lvl) 131 70-99 [facility] [id number] 09:15:00 Test Item Value Reference Range Interpretation Comments Total CK (test code = Total CK) 88 12-191 [facility] [id number] 09:15:00 Test Item Value Reference Range Interpretation Comments Troponin-I (test code no gt See_Comment [Auto mated message] The = Troponin-I) system which g enerated this result transmit joel reference range : <=0.40. The reference r kezia was not used to interpr et this result as adal l/abnormal. [facility] CampusInteractive Project [id number] 09:15:00 Test Item Value Reference Range Interpretation Comments CK MB (test code = CK MB) 1.0 0.5-3.6 [facility] CenterDITTO.comR[facility] [id number] 09:15:00 Test Item Value Reference Range Interpretation Comments CK MB Index (test 1.1 See_Comment [Automate d message] The code = CK MB Index) system w [facility] generated this result transmit joel reference range : <=2.5. The reference range was not used to interpr et this result as adal l/abnormal. [facility] [employer] [id number] 09:15:00 Test Item Value Reference Range Interpretation Comments Glucose Lvl (test code = Glucose Lvl) 75 70-99 [facility] CampusBigFix [id number] 09:15:00 Test Item Value Reference Range Interpretation Comments BUN (test code = BUN) 12 7-22 [facility]Big[facility] [id number] 09:15:00 Test Item Value Reference Range Interpretation Comments Creatinine Lvl (test code = Creatinine 0.8 0.5-1.4 Lvl) [facility]Big[facility] [id number] 09:15:00 Test Item Value Reference Range Interpretation Comments CO2 (test code = CO2) 26 24-32 [facility] [id number] 09:15:00 Test Item Value Reference Range Interpretation Comments Chloride Lvl (test code = Chloride Lvl) 105 95-109 [facility]Big[facility] [id number] 09:15:00 Test Item Value Reference Range Interpretation Comments Sodium Lvl (test code = Sodium Lvl) 138 135-145 [facility] [id number] 09:15:00 Test Item Value Reference Range Interpretation Comments Potassium Lvl (test code = Potassium 3.8 3.5-5.1 Lvl) [facility] [id number] 09:15:00 Test Item Value Reference Range Interpretation Comments Calcium Lvl (test code = Calcium Lvl) 8.7 8.5-10.5 [facility] [id number] 09:15:00 Test Item Value Reference Range Interpretation Comments AGAP (test code = AGAP) 10.8 10.0-20.0 [facility]2014-09-25 09:15:00 Test Item Value Reference Range Interpretation Comments eGFR (test code = eGFR) 78 [facility] [id number] 09:15:00 Test Item Value Reference Range Interpretation Comments MPV (test code = MPV) 9.9 7.4-10.4 [facility] [id number] 09:15:00 Test Item Value Reference Range Interpretation Comments Platelet (test code = Platelet) 169 133-450 [facility] HospitalZfcmrngSCUOGSWNTG3476-07-03 09:15:00 Test Item Value Reference Range Interpretation Comments RDW (test code = RDW) 14.4 11.5-14.5 [facility] [id number] 09:15:00 Test Item Value Reference Range Interpretation Comments MCH (test code = MCH) 27.5 pg 27.0-31.0 [facility] [id number] 09:15:00 Test Item Value Reference Range Interpretation Comments MCHC (test code = MCHC) 33.2 32.0-36.0 [facility] H[id number] 09:15:00 Test Item Value Reference Range Interpretation Comments MCV (test code = MCV) 82.8 80.0-98.0 [facility] HospitalZedajeoXFCBTKUBMS2696-12-15 09:15:00 Test Item Value Reference Range Interpretation Comments Hct (test code = Hct) 37.3 36.0-48.0 [facility] HospitalDfvesgwRSWEEDGHLV6007-73-06 09:15:00 Test Item Value Reference Range Interpretation Comments Hgb (test code = Hgb) 12.4 12.0-16.0 [facility] HospitalCxiydmeZPEFNDBCHA4030-02-15 09:15:00 Test Item Value Reference Range Interpretation Comments RBC (test code = RBC) 4.50 4.20-5.40 [facility] [id number] 09:15:00 Test Item Value Reference Range Interpretation Comments WBC (test code = WBC) 7.5 3.7-10.4 [facility] H[id number] 09:15:00 Test Item Value Reference Range Interpretation Comments Basophils # (test code 0.0 See_Comment [Aut omated message] The = Basophils #) system which generated this result tra nsmitted reference range : <=0.2. The reference r kezia was not used to int erpret this result as normal/abnormal . [facility] H[id number] 09:15:00 Test Item Value Reference Range Interpretation Comments Eosinophils # (test code 0.2 See_Comment [A utomated message] The = Eosinophils #) system whic h generated this result tra nsmitted reference range : <=0.5. The reference r kezia was not used to int erpret this result as normal/abnormal . [facility] HospitalCmohozlOQWMZDCKYT4572-54-06 09:15:00 Test Item Value Reference Range Interpretation Comments Segs-Bands # (test code = Segs-Bands #) 3.5 1.5-8.1 [facility] H[id number] 09:15:00 Test Item Value Reference Range Interpretation Comments Basophils (test code = 0.5 See_Comment [Aut omated message] The Basophils) system which ge nerated this result tra nsmitted reference range : <=1.0. The reference r kezia was not used to int erpret this result as normal/abnormal . [facility] Ho[id number] 09:15:00 Test Item Value Reference Range Interpretation Comments Monocytes # (test code 0.5 See_Comment [Aut omated message] The = Monocytes #) system which generated this result tra nsmitted reference range : <=0.8. The reference r kezia was not used to int erpret this result as normal/abnormal . [facility] HospitalArrjeyeKJIGAPBTJQ3467-74-46 09:15:00 Test Item Value Reference Range Interpretation Comments Lymphocytes # (test code = Lymphocytes 3.3 1.0-5.5 #) [facility] Ho[id number] 09:15:00 Test Item Value Reference Range Interpretation Comments Monocytes (test code = Monocytes) 6.8 2.0-12.0 [facility] HospitalBudtkkhRXAIUNNWYT0975-04-39 09:15:00 Test Item Value Reference Range Interpretation Comments Lymphocytes (test code = Lymphocytes) 43.6 20.0-40.0 [facility] CenterNnjusltYEHSWFVRHT5060-56-07 09:15:00 Test Item Value Reference Range Interpretation Comments Eosinophils (test code = 3.1 See_Comment [A utomated message] The Eosinophils) system which ge nerated this result tra nsmitted reference range : <=4.0. The reference r kezia was not used to int erpret this result as normal/abnormal . [facility]WfgtdbrTDSOCGFAZK4327-81-38 09:15:00 Test Item Value Reference Range Interpretation Comments Segs (test code = Segs) 46.0 45.0-75.0 [facility] CenterLzvvfzvARYJNS5655-70-23 09:15:00 Test Item Value Reference Range Interpretation Comments LDL (Calculated) (test code = LDL 58 (Calculated)) [facility] CenterObltkchXSIGPA4224-95-75 09:15:00 Test Item Value Reference Range Interpretation Comments VLDL (test code = VLDL) 20 [facility] CenterSmaullfYACFDB8691-50-00 09:15:00 Test Item Value Reference Range Interpretation Comments HDL (test code = HDL) 51 [facility] CenterYxvftdwOACCMJ3028-99-16 09:15:00 Test Item Value Reference Range Interpretation Comments CHD Risk (test code = CHD Risk) 2.53 3.90-5.80 [facility] CenterZbpzswzUWUHZK2758-13-20 09:15:00 Test Item Value Reference Range Interpretation Comments Chol (test code = Chol) 129 [facility] CenterQxuikijLNAFQL5973-46-68 09:15:00 Test Item Value Reference Range Interpretation Comments Trig (test code = Trig) 98 [facility] [id number] 09:15:00 Test Item Value Reference Range Interpretation Comments Hgb A1C (test code = Hgb A1C) 6.0 [facility] AND [id number] 07:45:50 Test Item Value Reference Range Interpretation Comments UA Urobilinogen (test code = UA no gt 0.1-1.0 Urobilinogen) [facility] AND [id number] 07:45:50 Test Item Value Reference Range Interpretation Comments UA Turbidity (test code = Clear (04/10/14 2:45 UA Turbidity) AM) [facility] AND [id number] 07:45:50 Test Item Value Reference Range Interpretation Comments UA Color (test code = Yellow *NA*(04/10/14 UA Color) 2:45 AM) [facility] AND [id number] 07:45:50 Test Item Value Reference Range Interpretation Comments UA Spec Grav (test code = UA Spec Grav) 1.014 [facility] AND [id number] 07:45:50 Test Item Value Reference Range Interpretation Comments UA Glucose (test code = UA Negative mg/dL Glucose) [facility] AND [id number] 07:45:50 Test Item Value Reference Range Interpretation Comments UA Blood (test code = Negative (04/10/14 2:45 UA Blood) AM) [facility] AND [id number] 07:45:50 Test Item Value Reference Range Interpretation Comments UA pH (test code = UA pH) 5.5 5.0-8.0 [facility] AND [id number] 07:45:50 Test Item Value Reference Range Interpretation Comments UA Protein (test code = UA Negative mg/dL Protein) [facility] AND [id number] 07:45:50 Test Item Value Reference Range Interpretation Comments UA RBC (test code = no gt See_Comment [Automa joel message] The UA RBC) system which ge nerated this result transmit joel reference range : <=2. The reference range was not used to interpr et this result as adal l/abnormal. [facility] AND [id number] 07:45:50 Test Item Value Reference Range Interpretation Comments UA Leuk Est (test code Large *ABN*(04/10/14 = UA Leuk Est) 2:45 AM) [facility] AND [id number] 07:45:50 Test Item Value Reference Range Interpretation Comments UA Bili (test code = Negative *NA*(04/10/14 UA Bili) 2:45 AM) [facility] AND [id number] 07:45:50 Test Item Value Reference Range Interpretation Comments UA Nitrite (test code Negative (04/10/14 2:45 = UA Nitrite) AM) [facility] AND [id number] 07:45:50 Test Item Value Reference Range Interpretation Comments UA Ketones (test code = UA Negative mg/dL Ketones) [facility] AND [id number] 07:45:50 Test Item Value Reference Range Interpretation Comments UA WBC (test code = 30 See_Comment [Automa joel message] The UA WBC) system which ge nerated this result transmit joel reference range : <=5. The reference range was not used to interpr et this result as adal l/abnormal. [facility] AND [id number] 07:45:50 Test Item Value Reference Range Interpretation Comments UA Bacteria (test code = UA Occasional /HPF Bacteria) [facility] AND [id number] 07:45:50 Test Item Value Reference Range Interpretation Comments UA Mucus (test code = UA Mucus) Few /LPF [facility] AND [id number] 07:45:50 Test Item Value Reference Range Interpretation Comments UA Sq Epi (test code = UA Sq Epi) Few /LPF [facility] CenterFbcfjptCDZPTVKIIG3958-99-36 02:56:13 Test Item Value Reference Range Interpretation Comments MCHC (test code = MCHC) 33.1 32.0-36.0 [facility]MdemgthWLBSPHRZJO9994-31-48 02:56:13 Test Item Value Reference Range Interpretation Comments RBC (test code = RBC) 4.77 4.20-5.40 [facility] CenterXzosslfKGMHLXOZKZ5380-23-78 02:56:13 Test Item Value Reference Range Interpretation Comments MCH (test code = MCH) 27.7 pg 27.0-31.0 [facility] CenterLfbnumlYJVAXSLSGS0793-91-24 02:56:13 Test Item Value Reference Range Interpretation Comments MCV (test code = MCV) 83.7 80.0-98.0 [facility]JyyaodrIVWNZFYZBE6519-61-79 02:56:13 Test Item Value Reference Range Interpretation Comments PTT (test code = PTT) 30.3 s 22.9-35.8 [facility] CampusCisxsotSSTEECRPZL3042-04-72 02:56:13 Test Item Value Reference Range Interpretation Comments INR (test code = INR) 1.00 0.85-1.17 [facility] CampusHycorkmGGOACNOSST4817-93-67 02:56:13 Test Item Value Reference Range Interpretation Comments PT (test code = PT) 13.2 s 12.0-14.7 [facility] CampusannCARDIAC [id number] 02:56:13 Test Item Value Reference Range Interpretation Comments CK MB Index (test 0.7 See_Comment [Automate d message] The code = CK MB Index) system w [facility] generated this result transmit joel reference range : <=2.5. The reference range was not used to interpr et this result as adal l/abnormal. [facility] CampusSpeech Kingdom [id number] 02:56:13 Test Item Value Reference Range Interpretation Comments Troponin-I (test code no gt See_Comment [Auto mated message] The = Troponin-I) system which g enerated this result transmit joel reference range : <=0.40. The reference r kezia was not used to interpr et this result as adal l/abnormal. [facility] CampusSpe[facility] Kingdom [id number] 02:56:13 Test Item Value Reference Range Interpretation Comments CK MB (test code = CK MB) 0.7 0.5-3.6 [facility] CampusInteractive Project [id number] 02:56:13 Test Item Value Reference Range Interpretation Comments Total CK (test code = Total CK) 96 12-191 [facility] CampusBig[facility] [id number] 02:56:13 Test Item Value Reference Range Interpretation Comments eGFR (test code = eGFR) 78 [facility]Big[facility] [id number] 02:56:13 Test Item Value Reference Range Interpretation Comments BUN (test code = BUN) 15 7-22 [facility] [id number] 02:56:13 Test Item Value Reference Range Interpretation Comments Sodium Lvl (test code = Sodium Lvl) 136 135-145 [facility]Big[facility] [id number] 02:56:13 Test Item Value Reference Range Interpretation Comments Creatinine Lvl (test code = Creatinine 0.8 0.5-1.4 Lvl) [facility] [id number] 02:56:13 Test Item Value Reference Range Interpretation Comments AGAP (test code = AGAP) 9.9 10.0-20.0 [facility] [employer] [id number] 02:56:13 Test Item Value Reference Range Interpretation Comments CO2 (test code = CO2) 26 24-32 [facility] CampusBig[facility] [id number] 02:56:13 Test Item Value Reference Range Interpretation Comments Calcium Lvl (test code = Calcium Lvl) 8.8 8.5-10.5 [facility] [employer] [id number] 02:56:13 Test Item Value Reference Range Interpretation Comments Chloride Lvl (test code = Chloride Lvl) 104 95-109 [facility]2014-09-25 02:56:13 Test Item Value Reference Range Interpretation Comments Potassium Lvl (test code = Potassium 3.9 3.5-5.1 Lvl) [facility]2014-09-25 02:56:13 Test Item Value Reference Range Interpretation Comments Glucose Lvl (test code = Glucose Lvl) 104 70-99 [id number] 02:56:13 Test Item Value Reference Range Interpretation Comments Basophils # (test code 0.0 See_Comment [Aut omated message] The = Basophils #) system which generated this result tra nsmitted reference range : <=0.2. The reference r kezia was not used to int erpret this result as normal/abnormal . [id number] 02:56:13 Test Item Value Reference Range Interpretation Comments Eosinophils # (test code 0.1 See_Comment [A utomated message] The = Eosinophils #) system whic h generated this result tra nsmitted reference range : <=0.5. The reference r kezia was not used to int erpret this result as normal/abnormal . [facility] H[id number] 02:56:13 Test Item Value Reference Range Interpretation Comments Monocytes # (test code 0.5 See_Comment [Aut omated message] The = Monocytes #) system which generated this result tra nsmitted reference range : <=0.8. The reference r kezia was not used to int erpret this result as normal/abnormal . [facility] HospitalXywaxxnJYSTAAVNAJ0310-31-62 02:56:13 Test Item Value Reference Range Interpretation Comments Lymphocytes # (test code = Lymphocytes 3.4 1.0-5.5 #) [facility] Hos[id number] 02:56:13 Test Item Value Reference Range Interpretation Comments Segs-Bands # (test code = Segs-Bands #) 4.2 1.5-8.1 [facility] HospitalZuujdggGEVHNOYASQ1527-56-69 02:56:13 Test Item Value Reference Range Interpretation Comments Segs (test code = Segs) 51.2 45.0-75.0 [facility] HospitalUqarthdHYCSYNHKDM2861-62-79 02:56:13 Test Item Value Reference Range Interpretation Comments Basophils (test code = 0.5 See_Comment [Aut omated message] The Basophils) system which ge nerated this result tra nsmitted reference range : <=1.0. The reference r kezia was not used to int erpret this result as normal/abnormal . [facility] HospitalClypyqsXJVJKQNBFU1591-98-66 02:56:13 Test Item Value Reference Range Interpretation Comments Monocytes (test code = Monocytes) 6.0 2.0-12.0 [facility] HospitalGrmbmfgTLDBTEUXHL0669-72-86 02:56:13 Test Item Value Reference Range Interpretation Comments Lymphocytes (test code = Lymphocytes) 40.7 20.0-40.0 [facility] HospitalWbtommaIBOHITVTTU7410-39-23 02:56:13 Test Item Value Reference Range Interpretation Comments Eosinophils (test code = 1.6 See_Comment [A utomated message] The Eosinophils) system which ge nerated this result tra nsmitted reference range : <=4.0. The reference r kezia was not used to int erpret this result as normal/abnormal . [facility] HospitalCskmlftFPNQXLRWCD9154-89-37 02:56:13 Test Item Value Reference Range Interpretation Comments WBC (test code = WBC) 8.3 3.7-10.4 [facility] HospitalFjkmxwbDJJWQZJCTE2448-18-16 02:56:13 Test Item Value Reference Range Interpretation Comments Hgb (test code = Hgb) 13.2 12.0-16.0 [facility] HospitalDqyivcmILCXFHCABD5798-03-68 02:56:13 Test Item Value Reference Range Interpretation Comments Hct (test code = Hct) 39.9 36.0-48.0 [facility] HospitalRrkvyjjJVNGXCMCRH2390-70-62 02:56:13 Test Item Value Reference Range Interpretation Comments MPV (test code = MPV) 9.8 7.4-10.4 [facility] HospitalQjjslpwFPNFXSZLKY2530-46-08 02:56:13 Test Item Value Reference Range Interpretation Comments Platelet (test code = Platelet) 184 133-450 [facility] H[id number] 02:56:13 Test Item Value Reference Range Interpretation Comments RDW (test code = RDW) 14.7 11.5-14.5 [facility]
[2022-06-29] MEDS ORDERED: HYDROCODONE/APAP 10/325 TAB ONE (13:27)
--- NOTE | 2022-06-29 14:05 | RAD REPORT ---
EXAM DESCRIPTION: RAD - Shoulder Left 2 View - 06/29/2022 1:28 pm CLINICAL HISTORY: Left shoulder pain status post fall FINDINGS: No fracture or dislocation is seen. Osteoporosis
--- NOTE | 2022-06-29 14:25 | ER ---
Nurse's Notes [facility] Name: Ashley Flynn Age: 72 yrs Sex: Female : 1950 Arrival Date: 06/29/2022 Time: 12:16 Bed 14 Private MD: Diagnosis: Other sprain of left shoulder joint Presentation: 06/29 12:24 Chief complaint: Patient states: fall in house/tripped about 11 today and tried to jh5 catch myself on the wall with my left arm and it twisted back. I now have bad pain in my left neck, shoulder, left arm all the way down. Coronavirus screen: Vaccine status: Patient reports receiving the 2nd dose of the covid vaccine. Client denies travel out of the [place] in the last 14 days. Ebola Screen: Patient negative for fever greater than or equal to 101.5 degrees Fahrenheit, and additional compatible Ebola Virus Disease symptoms Patient denies exposure to infectious person. Patient denies travel to an Ebola-affected area in the 21 days before illness onset. Initial Sepsis Screen: Does the patient meet any 2 criteria? No. Patient's initial sepsis screen is negative. Does the patient have a suspected source of infection? No. Patient's initial sepsis screen is negative. Risk Assessment: Do you want to hurt yourself or someone else? Patient reports no desire to harm self or others. 12:24 Method Of Arrival: Ambulatory 5 12:24 Acuity: DONTE 3 jh5 12:45 Onset of symptoms was June 29, 2022. ap3 Triage Assessment: 12:27 General: Appears uncomfortable, slender, well groomed, well developed, Behavior is jh5 calm, cooperative, appropriate for age. Historical: - Allergies: 12:27 Sulfa (Sulfonamide Antibiotics); jh5 12:27 steriods; jh5 12:27 Latex, Natural Rubber; jh5 - PMHx: 12:27 Hypertensive disorder; Hypercholesterolemia; Diabetes mellitus; Hypothyroidism; jh5 - Immunization history:: Adult Immunizations up to date. - Social history:: Smoking status: Patient denies any tobacco usage or history of. Screenin:44 [facility] ED Fall Risk Assessment (Adult) History of falling in the last 3 months, ap3 including since admission Yes- single mechanical fall (1 pt) Confusion or Disorientation No (0 pts) Intoxicated or Sedated No (0 pts) Impaired Gait No (0 pts) Mobility Assist Device Used No (0 pt) Altered Elimination No (0 pt) Score/Fall Risk Level 0 - 2 = Low Risk Oriented to surroundings, Maintained a safe environment, Educated pt \T\ family on fall prevention, incl call for assistance when getting out of bed, Assessed \T\ reinforced patient's understanding of fall precautions, Provided non-skid footwear, Hourly rounding (assess needs \T\ fall precautionary measures) done, Used ambulatory aids as needed (educated on \T\ assisted with), Used gait belt as appropriate. Humpty Dumpty Scale Fall Assessment Tool (age< 18yrs) Age 13 years and above (1 pt). Abuse screen: Denies threats or abuse. Nutritional screening: No deficits noted. Tuberculosis screening: No symptoms or risk factors identified. Fall Risk Fall in past 12 months (25 points). No secondary diagnosis (0 pts). No IV (0 pts). Ambulatory Aid- None/Bed Rest/Nurse Assist (0 pts). Gait- Normal/Bed Rest/Wheelchair (0 pts) Mental Status- Oriented to own ability (0 pts). Total Henderson Fall Scale indicates Low Risk Score (25-44 pts). Fall prevention measures have been instituted. Side Rails Up X 2 Placed close to Nursing Station Frequent Obs/Assesments occuring Family Present and informed to notify staff if they need to leave bedside As available Patient and Family Educated on Fall Prevention Program and strategies. Assessment: 12:43 General: Appears uncomfortable, Behavior is calm, cooperative. Pain: Complains of pain ap3 in anterior aspect of left shoulder and posterior aspect of left shoulder. Neuro: Level of Consciousness is awake, alert, obeys commands, Oriented to person, place, time, situation, Gait is steady, Speech is normal. Cardiovascular: Patient's skin is warm and dry. Respiratory: Airway is patent Respiratory effort is even, unlabored, Respiratory pattern is regular, symmetrical. 14:34 Reassessment: Patient and/or family updated on plan of care and expected duration. Pain ap3 level reassessed. Patient is alert, oriented x 3, equal unlabored respirations, skin warm/dry/pink. Vital Signs: 12:24 BP 130 / 75; Pulse 75; Resp 16; Temp 98.6; Pulse Ox 96% ; Weight 82.55 kg; Height 5 ft. 5 2 in. (157.48 cm); Pain 8/10; 12:24 Body Mass Index 33.29 (82.55 kg, 157.48 cm) [facility] ED Course: 12:16 Patient arrived in ED. as 12:16 Heraclio Singleton PA is PHCP. [facility] 12:16 Radu Fernández MD is Attending Physician. [facility] 12:27 Triage completed. 5 12:29 Arm band placed on right wrist. 5 12:45 Patient has correct armband on for positive identification. Call light in reach. Adult ap3 w/ patient. Pulse ox on. NIBP on. Door closed. Noise minimized. Warm blanket given. 13:24 Teena Glasgow, RN is Primary Nurse. ap3 13:29 Shoulder Left (2 View) XRAY In Process Unspecified. EDMS 14:25 Hans Saldivar MD is Referral Physician. [facility] 14:38 No provider procedures requiring assistance completed. Patient did not have IV access ap3 during this emergency room visit. Administered Medications: 13:37 Drug: [place] (HYDROcodone-acetaminophen) 10 mg-325 mg 1 tabs Route: PO; ap3 14:34 Follow up: Response: No adverse reaction ap3 Medication: 12:45 VIS not applicable for this client. ap3 Outcome: 14:25 Discharge ordered by . [facility] 14:38 Discharged to home ambulatory. ap3 14:38 Condition: good 14:38 Discharge instructions given to patient, family, Instructed on discharge instructions, follow up and referral plans. medication usage, Demonstrated understanding of instructions, follow-up care, medications, Prescriptions given X 1. 14:43 Patient left the ED. ap3 Signatures: Dispatcher [employer] EDMS Heraclio Singleton PA PA Tyra Bowie as Teena Glasgow, RN RN ap3 Lakshmi Cortes RN RN 5
--- NOTE | 2022-06-29 14:26 | EDPHYS ---
Physician Documentation [facility] Name: Ashley Flynn Age: 72 yrs Sex: Female : 1950 Arrival Date: 06/29/2022 Time: 12:16 Bed 14 Private MD: ED Physician Radu Fernández HPI: 06/29 14:22 This 72 yrs old Female presents to ER via Ambulatory with complaints of Fall jmm Injury, Arm Pain, Shoulder Pain. 14:22 Details of fall: The patient fell from an upright position. Onset: The symptoms/episode jmm began/occurred acutely, today. This is a 72 year old female with a history of htn, hlp, dm that presents to the ED with complants of left shoulder pain after a fall which occurred earlier today. Denies hitting her head. Patient states her left arm twisted behind her and states she felt a pop. . Historical: - Allergies: 12:27 Sulfa (Sulfonamide Antibiotics); jh5 12:27 steriods; jh5 12:27 Latex, Natural Rubber; jh5 - PMHx: 12:27 Hypertensive disorder; Hypercholesterolemia; Diabetes mellitus; Hypothyroidism; jh5 - Immunization history:: Adult Immunizations up to date. - Social history:: Smoking status: Patient denies any tobacco usage or history of. ROS: 14:22 Constitutional: Negative for fever, chills, and weight loss, Cardiovascular: Negative jmm for chest pain, palpitations, and edema, Respiratory: Negative for shortness of breath, cough, wheezing, and pleuritic chest pain. 14:22 MS/extremity: Positive for injury or acute deformity, pain. 14:22 All other systems are negative. Exam: 14:22 Constitutional: This is a well developed, well nourished patient who is awake, alert, jmm and in no acute distress. Head/Face: atraumatic. Eyes: EOMI, no conjunctival erythema appreciated ENT: Moist Mucus Membranes Neck: Trachea midline, Supple Chest/axilla: Normal chest wall appearance and motion. Cardiovascular: Regular rate and rhythm. 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 14:22 Skin: Appearance: Color: normal in color. 14:22 Neuro: Orientation: is normal, Mentation: is normal, Memory: is normal. 14:22 Psych: Behavior/mood is pleasant, cooperative. Vital Signs: 12:24 BP 130 / 75; Pulse 75; Resp 16; Temp 98.6; Pulse Ox 96% ; Weight 82.55 kg; Height 5 ft. jh5 2 in. (157.48 cm); Pain 8/10; 12:24 Body Mass Index 33.29 (82.55 kg, 157.48 cm) 5 MDM: 12:33 Patient medically screened. [facility] 14:25 Data reviewed: vital signs, nurses notes. Counseling: I had a detailed discussion with [facility] the patient and/or guardian regarding: the historical points, exam findings, and any diagnostic results supporting the discharge/admit diagnosis, radiology results, the need for outpatient follow up, to return to the emergency department if symptoms worsen or persist or if there are any questions or concerns that arise at home. 06/29 12:51 Order name: Shoulder Left (2 View) XRAY; Complete Time: 14:06 [facility] 06/29 12:51 Order name: Sling; Complete Time: 14:34 [facility] Administered Medications: 13:37 Drug: [place] (HYDROcodone-acetaminophen) 10 mg-325 mg 1 tabs Route: PO; ap3 14:34 Follow up: Response: No adverse reaction ap3 Disposition Summary: 06/29/22 14:25 Discharge Ordered Location: Home [facility] Condition: Stable [facility] Diagnosis - Other sprain of left shoulder joint [facility] Followup: [facility] - With: Hans Saldivar MD - When: 2 - 3 days - Reason: Recheck today's complaints, Continuance of care, Re-evaluation by your physician Discharge Instructions: - Discharge Summary Sheet [facility] - Shoulder Pain [facility] Forms: - Medication Reconciliation Form [facility] - Thank You Letter [facility] - Antibiotic Education [facility] - Prescription Opioid Use [facility] Prescriptions: - orphenadrine citrate 100 mg Oral Tablet Sustained Release - take 1 tablet by ORAL route 2 times per day As needed; 20 tablet; Refills: 0, [facility] Product Selection Permitted Addendum: 07/03/2022 15:02 Co-signature as Attending Physician, Radu Fernández MD I agree with the assessment and c osullivan plan of care. Signatures: Dispatcher [employer] Radu Reese MD MD cha Mickail, Joel, PA PA jmm Prokisch, Amanda RN RN ap3 Lakshmi Cortes RN RN jh5
[2022-06-29 14:48] VITALS: BP 130/75; TEMP 98.6; O2SAT 96
== END 2022-06-29 14:43 | disposition home or self-care (01) ==
LOC: ER 12:11
DX: S43.492A Other sprain of left shoulder joint, initial encounter (principal); I10 Essential (primary) hypertension; E11.9 Type 2 diabetes mellitus without complications; Z88.2 Allergy status to sulfonamides; Z88.8 Allergy status to other drugs, medicaments and biological substances; Z91.040 Latex allergy status; Z91.048 Other nonmedicinal substance allergy status
CPT/HCPCS: 99284

== ENCOUNTER 2022-07-16 10:52 | Emergency (ER) | payer MEDICARE ==
--- OUTSIDE RECORDS SUMMARY | 2022-07-16 11:03 | XMS REPORT | Continuity of Care Document ---
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 [employer] [facility] sertraline 2017-07 No See Memoria 50 mg oral 1-02 Instructio l tablet 18:30: ns, TAKE 1 Bon[place] nn 00 TABLET BY MOUTH EVERY DAY, # 90 tab, 0 Refill(s), Pharmacy: [facility] [employer] [facility] Hydrochloro 2017-07 No See Memori a thiazide -02 Instructio l 12.5 MG / 18:30: ns, TAKE 1 He rmann Lisinopril 00 TABLET BY 20 MG Oral MOUTH Tablet DAILY, # 90 tab, 0 Refill(s), [facility] [employer] [facility] diclofenac 2017-07 Yes See Memoria potassium 1-02 Instructio l 50 mg oral 18:30: ns, TAKE 1 H ermann tablet 00 TABLET BY MOUTH THREE TIMES DAILY NEEDED FOR PAIN, # 270 tab, 0 Refill(s), [facility] [employer] [facility] cetirizine 2017-07 No See Memoria 10 mg oral 1-02 Instructio l tablet 18:30: ns, TAKE 1 Bon[place] nn 00 TABLET BY MOUTH DAILY NEEDED FOR ALLERGY SYMPTOMS, # 30 tab, 0 Refill(s), [facility] Trazodone 2017-07 Yes See Memoria Hydrochlori 1-02 Instructio l de 50 MG 18:30: ns, TAKE 1 Her capps Oral Tablet 00 TABLET BY MOUTH AT BEDTIME, # 90 tab, 0 Refill(s), [facility] [employer] [facility] sertraline 2017-07 No See Memoria 50 mg oral 1-02 Instructio l tablet 18:30: ns, TAKE 1 [place] nn 00 TABLET BY MOUTH EVERY DAY, # 90 tab, 0 Refill(s), Pharmacy: [facility] [employer] [facility] [id number] Hydrochloro 2017-07 No See Memori a thiazide 07-18 Instructio l 12.5 MG / 18:30: ns, TAKE 1 He rmann Lisinopril 00 TABLET BY 20 MG Oral MOUTH Tablet DAILY, # 90 tab, 0 Refill(s), Pharmacy: [facility] [employer] [facility] [address] diclofenac 2017-07 Yes See Memoria potassium 07-18 Instructio l 50 mg oral 18:30: ns, TAKE 1 H ermann tablet 00 TABLET BY MOUTH THREE TIMES DAILY NEEDED FOR PAIN, # 270 tab, 0 Refill(s), Pharmacy: [facility] [employer] [address] cetirizine 2017-07 No See Memoria 10 mg oral 07-18 Instructio l tablet 18:30: ns, TAKE 1 Bon[place] nn 00 TABLET BY MOUTH DAILY NEEDED FOR ALLERGY SYMPTOMS, # 30 tab, 0 Refill(s), Pharmacy: [facility] [employer] [facility] [address] Acetaminoph No 1 tab, PO, Memoria en 300 MG / 910 Q6H, PRN l Codeine 04:48: Pain, X 5 Bonny nn Phosphate 00 day, # 20 30 MG Oral tab, 0 Tablet Refill(s) [Tylenol with Codeine #3] Acetaminoph No 1 tab, PO, Memoria en [...] day, # [Flexeril] 20 tab, 0 Refill(s) Cyclobenzap No 10 mg = 1 M emoria rine 9-10 tab, PO, l hydrochlori 04:47: TID, PRN He rmann de 10 MG 00 for spasm, Oral Tablet X 5 day, # [Flexeril] 20 tab, 0 Refill(s) Ketorolac No 30 mg, Memori a 9-10 Route: IM, l 03:03: Drug form: Xander 00 INJ, ONCE, Dosing Weight 90.909, kg, Priority: STAT, Start date: 03/25/18 22:03:00 CDT, Stop date: 03/25/18 22:03:00 CDT Valium 2018-0 No 5 mg, Memoria 03-26 Route: PO, l 03:03: ONCE, Xander Dosing Weight 90.909, kg, Priority: STAT, Start date: 03/25/18 22:03:00 CDT, Stop date: 03/25/18 22:03:00 CDT Acetaminoph 2018-0 No 1 tab, Antoni bret en 325 MG / 03-26 Route: PO, l Hydrocodone 03:03: Drug Form: Xander Bitartrate 00 TAB, 5 MG Oral Dosing Tablet Weight [[place] 90.909, 5/325] kg, ONCE, STAT, Start date: 03/25/18 22:03:00 CDT, Stop date: 03/25/18 22:03:00 CDT Ketorolac 2018-0 No 30 mg, Memori a 03-26 Route: IM, l 03:03: Drug form: Xander 00 INJ, ONCE, Dosing Weight 90.909, kg, Priority: STAT, Start date: 03/25/18 22:03:00 CDT, Stop date: 03/25/18 22:03:00 CDT Valium 2018-0 No 5 mg, Memoria 03-26 Route: PO, l 03:03: ONCE, Dosing Weight 90.909, kg, Priority: STAT, Start date: 03/25/18 22:03:00 CDT, Stop date: 03/25/18 22:03:00 CDT Acetaminoph 2018-0 No 1 tab, Antoni bret en 325 MG / 03-26 Route: PO, l Hydrocodone 03:03: Drug Form: Xander Bitartrate 00 TAB, 5 MG Oral Dosing Tablet Weight [[place] 90.909, 5/325] kg, ONCE, STAT, Start date: 03/25/18 22:03:00 CDT, Stop date: 03/25/18 22:03:00 CDT Hydrochloro 2018-0 No See Memori a thiazide 8-22 Instructio l 12.5 MG / 23:53: ns, # 90 Herm danuta Lisinopril 50 tab, TAKE 20 MG Oral 1 TABLET Tablet BY MOUTH DAILY, 05/18/18 11:40:21 CDT, Pharmacy: [facility] [employer] [place] [address] levothyroxi No See Memori a ne 25 mcg 8-22 Instructio l (0.025 mg) 23:53: ns, # 90 Her capps oral tablet 50 tab, TAKE 1 TABLET BY MOUTH EVERY DAY, 07/05/18 11:24:22 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, Pharmacy: [facility] [employer] [place] [address] rosuvastati No See Memori a n 40 mg 8-22 Instructio l oral tablet 23:53: ns, # 90 He rmann 50 tab, TAKE 1 TABLET BY MOUTH AT BEDTIME, Pharmacy: [facility] [employer] [place] [address] Trazodone No See Memoria Hydrochlori 8-22 Instructio l de 50 MG 23:53: ns, # 90 Bonny nn Oral Tablet 50 tab, TAKE 1 TABLET BY MOUTH AT BEDTIME, 05/18/18 11:40:51 CDT, Pharmacy: [facility] [employer] [place] [address] Hydrochloro No See Memori a thiazide 8-22 Instructio l 12.5 MG / 23:53: ns, # 90 Herm danuta Lisinopril 50 tab, TAKE 20 MG Oral 1 TABLET Tablet BY MOUTH DAILY, 05/18/18 11:40:21 CDT, Pharmacy: [facility] [employer] [place] [address] levothyroxi No See Memori a ne 25 mcg 8-22 Instructio l (0.025 mg) 23:53: ns, # 90 Her capps oral tablet 50 tab, TAKE 1 TABLET BY MOUTH EVERY DAY, 07/05/18 11:24:22 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, Pharmacy: [facility] [employer] [place] [address] rosuvastati No See Memori a n 40 mg 8-22 Instructio l oral tablet 23:53: ns, # 90 He rmann 50 tab, TAKE 1 TABLET BY MOUTH AT BEDTIME, Pharmacy: [facility] [employer] [place] [address] Trazodone No See Memoria Hydrochlori 8-22 Instructio l de 50 MG 23:53: ns, # 90 Bon[place] nn Oral Tablet 50 tab, TAKE 1 TABLET BY MOUTH AT BEDTIME, 05/18/18 11:40:51 CDT, Pharmacy: [facility] Fluticasone No See Memori a propionate 8-21 Instructio l 0.05 20:14: ns, # 48 [place] MG/ACTUAT 08 mL, SHAKE Metered LIQUID AND Dose Nasal USE 1 [place] SPRAY IN EACH NOSTRIL TWICE DAILY, Pharmacy: [facility] diclofenac No See Memoria potassium 8-21 Instructio l 50 mg oral 20:14: ns, # 270 He rmann tablet 08 tab, TAKE 1 TABLET BY MOUTH THREE TIMES DAILY NEEDED FOR PAIN, 05/18/18 11:40:05 CDT, Pharmacy: [facility] Fluticasone No See Memori a propionate 8-21 Instructio l 0.05 20:14: ns, # 48 Xander MG/ACTUAT 08 mL, SHAKE Metered LIQUID AND Dose Nasal USE 1 [place] SPRAY IN EACH NOSTRIL TWICE DAILY, [facility] diclofenac No See Memoria potassium 8-21 Instructio l 50 mg oral 20:14: ns, # 270 He rmann tablet 08 tab, TAKE 1 TABLET BY MOUTH THREE TIMES DAILY NEEDED FOR PAIN, 05/18/18 11:40:05 CDT, Pharmacy: [facility] [employer] [facility] Fluticasone No 1 spray, Me moria propionate 8-21 NASAL, l 0.05 15:50: BID, # 16 [place] MG/ACTUAT 24 gm, 0 Metered Refill(s), Dose Nasal Pharmacy: [place] [facility] [Flonase[facility] [address] Fluticasone No 1 spray, Me moria propionate 8-21 NASAL, l 0.05 15:50: BID, # 16 [place] MG/ACTUAT 24 gm, 0 Metered Refill(s), Dose Nasal Pharmacy: [place] [facility]Flonase[facility] [id number] Bromphenira No 5 mL, PO, M emoria mine 8-21 TID, PRN l Maleate 0.4 15:50: cough, # He rmann MG/ML / 16 200 mL, 0 Dextrometho Refill(s), rphan [facility] Store Pseudoephed [address] rine Hydrochlori de 6 MG/ML Oral Solution [Bromfed DM] Bromphenira 2018-0 No 5 mL, PO, M emoria mine 8-21 TID, PRN l Maleate 0.4 15:50: cough, # He rmann MG/ML / 16 200 mL, 0 Dextrometho Refill(s), [facility] Pharmacy: Hydrobromid [facility] e 2 MG/ML / Drug Store Pseudoephed [address] rine Hydrochlori de 6 MG/ML Oral Solution [Bromfed DM] diclofenac No 50 mg = 1 Me moria potassium 8-21 tab, PO, l 50 mg oral 15:50: TID, PRN Her capps tablet 00 for pain, # 60 tab, 0 Refill(s), Pharmacy: [facility] [address] Methocarbam 0 No 750 mg = 1 Memoria ol 750 MG 8-21 tab, PO, l Oral Tablet 15:50: Q8H, PRN He rmann [Robaxin] 00 Spasms, X 20 day, # 60 tab, 0 Refill(s), Pharmacy: [facility] [address] diclofenac 0 No 50 mg = 1 Me moria potassium 8-21 tab, PO, l 50 mg oral 15:50: TID, PRN Her capps tablet 00 for pain, # 60 tab, 0 Refill(s), Pharmacy: [facility] [address] Methocarbam No 750 mg = 1 Memoria ol 750 MG 8-21 tab, PO, l Oral Tablet 15:50: Q8H, PRN He rmann [Robaxin] 00 Spasms, X 20 day, # 60 tab, 0 Refill(s), Pharmacy: [facility] [address] Ketorolac 2017-0 No 30 mg, Memori a 8 Route: IM, l 15:49: Drug form: Xander 00 INJ, ONCE, Dosing Weight 86.364, kg, Start date: 03/06/18 10:49:00 CDT, Stop date: 03/06/18 10:49:00 CDT Ketorolac 2017-0 No 30 mg, Memori a 03-06 Route: IM, l 15:49: Drug form: Xander 00 INJ, ONCE, Dosing Weight 86.364, kg, Start date: 03/06/18 10:49:00 CDT, Stop date: 03/06/18 10:49:00 CDT NovoTwist 2018-0 Yes 1 ea, Memoria Insulin Pen 5-18 MISC, l [place] 32G 19:45: Daily, # He rmann 5mm=09/30 99 365 ea, 11 inch Refill(s) NovoTwist 2018-0 Yes 1 ea, Memoria Insulin Pen 5-18 MISC, l [place] 32G 19:45: Daily, # He rmann 5mm=09/30 99 365 ea, 11 inch Refill(s) 3 ML Yes See Memoria Insulin 5-18 Instructio l Glargine 16:14: ns, 50 [place] 100 UNT/ML 00 unit SUB-Q Prefilled Bedtime, # Syringe 1 box, 6 [Lantus] Refill(s), [id number] 3 ML Yes 60 unit, Memoria Insulin 5-18 SUB-Q, l Lispro 100 16:14: BID, # 1 Her capps UNT/ML Pen 00 box, 5 Injector Refill(s), [Humalog] [facility] [address] cetirizine Yes 10 mg = 1 Me moria hydrochlori 5-18 tab, PO, l de 10 MG 16:14: Daily, PRN Her capps Oral Tablet 00 for [Zyrtec] allergy symptoms, # 30 tab, 0 Refill(s), [facility] [address] 3 ML Yes See Memoria Insulin 5-18 Instructio l Glargine 16:14: ns, 50 [place] 100 UNT/ML 00 unit SUB-Q Prefilled Bedtime, # Syringe 1 box, 6 [Lantus] Refill(s), Pharmacy: [facility] [id number] 3 ML Yes 60 unit, Memoria Insulin 5-18 SUB-Q, l Lispro 100 16:14: BID, # 1 Her capps UNT/ML Pen 00 box, 5 Injector Refill(s), [Humalog] Pharmacy: [facility] [id number] cetirizine 2018-0 Yes 10 mg = 1 Me moria hydrochlori 5-18 tab, PO, l de 10 MG 16:14: Daily, PRN Her capps Oral Tablet 00 for [Zyrtec] allergy symptoms, # 30 tab, 0 Refill(s), Pharmacy: [facility] 67111 3 ML Yes See Memoria Insulin 5-02 Instructio l Lispro 25 12:30: ns, INJECT He rmann UNT/ML / 00 60 UNITS Insulin, SUBCUTANEO Protamine USLY EVERY Lispro, 12 HOURS, Human 75 # 21 syr, UNT/ML 1 Prefilled Refill(s), Syringe Pharmacy: [Humalog [facility] Mix 75/25] Drug Store 400[address] levothyroxi Yes See Memori a ne 25 mcg -02 Instructio l (0.025 mg) 12:30: ns, TAKE 1 H ermann oral tablet 00 TABLET BY MOUTH EVERY DAY, # 90 tab, 1 Refill(s), Pharmacy: [facility] [address] Rosuvastati Yes 40 mg, PO, Memoria n calcium 5-02 Bedtime, # l 40 MG Oral 12:30: 90 tab, 1 He rmann Tablet 00 Refill(s), [Crestor] Pharmacy: [facility] [address] Trazodone Yes 50 mg = 1 Mem [...] 00 Refill(s), 20 MG Oral [facility] [id number] 3 ML Yes See Memoria Insulin 5-02 Instructio l Lispro 25 12:30: ns, INJECT He rmann UNT/ML / 00 60 UNITS Insulin, SUBCUTANEO Protamine USLY EVERY Lispro, 12 HOURS, Human 75 # 21 syr, UNT/ML 1 Prefilled Refill(s), Syringe Pharmacy: [Humalog [facility] Mix 75/25] Drug Store 15375 levothyroxi Yes See Memori a ne 25 mcg -02 Instructio l (0.025 mg) 12:30: ns, TAKE 1 H ermann oral tablet 00 TABLET BY MOUTH EVERY DAY, # 90 tab, 1 Refill(s), Pharmacy: [facility] [address] Rosuvastati Yes 40 mg, PO, Memoria n calcium 5-02 Bedtime, # l 40 MG Oral 12:30: 90 tab, 1 He rmann Tablet 00 Refill(s), [Crestor] Pharmacy: [facility] [address] Trazodone Yes 50 mg = 1 Mem oria Hydrochlori -02 tab, PO, l de 50 MG 12:30: [...] 00 Refill(s), 20 MG Oral Pharmacy: Tablet [facility] [address] baclofen Yes 20 mg = 1 M emoria mg oral 4-24 tab, PO, l tablet 16:34: TID, PRN [place] 00 Spasms, # 90 tab, 0 Refill(s), Pharmacy: [facility] 95[address] baclofen Yes 20 mg = 1 M emoria mg oral 4-24 tab, PO, l tablet 16:34: TID, PRN [place] 00 Spasms, # 90 tab, 0 Refill(s), Pharmacy: [facility] [address] Bromphenira Yes 5 mL, PO, M emoria mine 4-02 TID, PRN l Maleate 0.4 20:26: cough, # He rmann MG/ML / 33 200 mL, 0 Dextrometho Refill(s), [facility] Pharmacy: Hydrobromid [facility] e 2 MG/ML / Drug Store Pseudoephed [address] rine Hydrochlori de 6 MG/ML Oral Solution [Bromfed DM] Bromphenira Yes 5 mL, PO, M emoria mine 4-02 TID, PRN l Maleate 0.4 20:26: cough, # He rmann MG/ML / 33 200 mL, 0 Dextrometho Refill(s), [facility] Pharmacy: Hydrobromid [facility] e 2 MG/ML / Drug Store Pseudoephed [address] rine Hydrochlori de 6 MG/ML Oral Solution [Bromfed DM] cetirizine No 10 mg = 1 Me moria hydrochlori -02 tab, PO, l de 10 MG 20:26: Daily, PRN Her capps Oral Tablet 00 for [Zyrtec] allergy symptoms, # 30 tab, 0 Refill(s), Pharmacy: [facility] [employer] [facility] Azithromyci No See Memori a n 5 Day 10-16 Instructio l Dose Pack 20:26: ns, Take 2 He rmann 250 mg oral 00 tablets by tablet mouth the first day then 1 tablet by mouth days 2-5., X 5 day, # 6 tab, 0 Refill(s), Pharmacy: [facility] [employer] [address] cetirizine No 10 mg = 1 Me moria hydrochlori - tab, PO, l de 10 MG 20:26: Daily, PRN Her capps Oral Tablet 00 for [Zyrtec] allergy symptoms, # 30 tab, 0 Refill(s), Pharmacy: [facility] [address] Azithromyci No See Memori a n 5 Day 10-16 Instructio l Dose Pack 20:26: ns, Take 2 He rmann 250 mg oral 00 tablets by tablet mouth the first day then 1 tablet by mouth days 2-5., X 5 day, # 6 tab, 0 Refill(s), Pharmacy: [facility] [address] Magic Mouth Yes 5 ml, Memor ia Wash 2-05 S&SPIT, l (Maalox/Otoniel 18:05: QID, PRN He rmann adryl/Lidoc 00 Mouth ann-marie) 1:1:1 Pain, swish and spit out up to 4 times per day, # 90 ml, 1 Refill(s) Magic Mouth Yes 5 ml, Memor ia Wash 2-05 S&SPIT, l (Maalox/Otoniel 18:05: QID, PRN He rmann adryl/Lidoc 00 Mouth ann-marie) 1:1:1 Pain, swish and spit out up to 4 times per day, # 90 ml, 1 Refill(s) 2 ML No 1,200,000 Memoria penicillin 1-30 unit, l G 17:32: Route: IM, Xander benzathine 00 ONCE, [id number] Dosing UNT/ML Weight Prefilled 93.636, Syringe kg, Start [Bicillin date: L-A] 08/15/17 11:32:00 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, Stop date: 08/15/17 11:32:00 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 benzonatate No 200 mg = 1 Memoria 200 MG Oral 1-30 cap, PO, l Capsule 17:32: TID, X 10 Bonny nn [Tessalon] 00 day, # 30 cap, 0 Refill(s), Pharmacy: [id number] Fluticasone Yes 2 spray, Me moria propionate 1-30 NASAL, l 0.05 17:32: BID, # 16 Xander MG/ACTUAT 00 gm, 0 Metered Refill(s), Dose Nasal Pharmacy: [place] [facility] [Flonase[facility] #[id number] Bromphenira No 5 mL, PO, M emoria mine 1-30 TID, PRN l Maleate 0.4 17:32: cough, # He rmann MG/ML / 00 200 mL, 0 Dextrometho Refill(s), rphan Pharmacy: Hydrobromid [facility] 2 MG/ML / cy #[id number] Pseudoephed rine Hydrochlori de 6 MG/ML Oral Solution [Bromfed DM] 2 ML No 1,200,000 Memoria penicillin 1-30 unit, l G 17:32: Route: IM, Xander benzathine 00 ONCE, [id number] Dosing UNT/ML Weight Prefilled 93.636, Syringe kg, Start [Bicillin date: L-A] 08/15/17 11:32:00 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, Stop date: 08/15/17 11:32:00 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 benzonatate No 200 mg = 1 Memoria 200 MG Oral 1-30 cap, PO, l Capsule 17:32: TID, X 10 Bonny nn [Tessalon] 00 day, # 30 cap, 0 Refill(s), Pharmacy: [facility] #[id number] Fluticasone Yes 2 spray, Me moria propionate 1-30 NASAL, l 0.05 17:32: BID, # 16 [place] MG/ACTUAT 00 gm, 0 Metered Refill(s), Dose Nasal Pharmacy: [place] [facility] [Flonase] [facility] #[id number] Bromphenira No 5 mL, PO, M emoria mine 1-30 TID, PRN l Maleate 0.4 17:32: cough, # He rmann MG/ML / 00 200 mL, 0 Dextrometho Refill(s), [facility] Pharmacy: Hydrobromid [facility] 2 MG/ML / cy #[id number] Pseudoephed rine Hydrochlori de 6 MG/ML Oral Solution [Bromfed DM] Tylenol No Notes: Do Memor ia 08 not exceed l 09:41: 4 gm/day. [place] 00 (Same as: Tylenol) Tylenol No Notes: Do Memor ia 08 not exceed l 09:41: 4 gm/day. (Same as: Tylenol) tramadol Yes 50 mg = 1 Antoni bret hydrochlori 1-05 tab, PO, l de 50 MG 15:21: Q8H, PRN Bonny nn Oral Tablet 00 Pain, # 90 tab, 0 Refill(s) tramadol Yes 50 mg = 1 Antoni bret hydrochlori 1-05 tab, PO, l de 50 MG 15:21: Q8H, PRN Bonny nn Oral Tablet 00 Pain, # 90 tab, 0 Refill(s) Trazodone Yes 50 mg = 1 Mem oria Hydrochlori 1-05 tab, PO, l de 50 MG 15:20: Bedtime, # Her capps Oral Tablet 25 90 tab, 1 Refill(s), [id number] Trazodone 2018 Yes 50 mg = 1 Mem oria Hydrochlori 1-05 tab, PO, l de 50 MG 15:20: Bedtime, # Her capps Oral Tablet 25 90 tab, 1 Refill(s), [id number] Rosuvastati Yes 40 mg, PO, Memoria n calcium 1-05 Bedtime, # l 40 MG Oral 15:20: 90 tab, 1 He rmann Tablet 16 Refill(s), [Crestor] [id number] Rosuvastati Yes 40 mg, PO, Memoria n calcium 1-05 Bedtime, # l 40 MG Oral 15:20: 90 tab, 1 He rmann Tablet 16 Refill(s), [Crestor] [id number] levothyroxi Yes See Memori a ne 25 mcg 1-05 Instructio l (0.025 mg) 15:20: ns, TAKE 1 H ermann oral tablet 01 TABLET BY MOUTH EVERY DAY, # 90 tab, 1 Refill(s), [id number] levothyroxi Yes See Memori a ne 25 mcg 1-05 Instructio l (0.025 mg) 15:20: ns, TAKE 1 H ermann oral tablet 01 TABLET BY MOUTH EVERY DAY, # 90 tab, 1 Refill(s), [id number] baclofen Yes See Memori a mg oral 1-05 Instructio l tablet 15:17: ns, TAKE 1 Bonny nn 33 TABLET BY MOUTH 3 TIMES A DAY NEEDED FOR SPASMS, # 90 tab, 0 Refill(s), [id number] baclofen Yes See Memori a mg oral 1-05 Instructio l tablet 15:17: ns, TAKE 1 Bonny nn 33 TABLET BY MOUTH 3 TIMES A DAY NEEDED FOR SPASMS, # 90 tab, 0 Refill(s), [id number] sertraline Yes 50 mg = 1 Me moria 50 mg oral 1-05 tab, PO, l tablet 15:17: Daily, # [place] 00 90 tab, 0 Refill(s), Pharmacy: [facility] #[id number] Hydrochloro 2018-0 Yes 1 tab, PO, Memoria thiazide 1-05 Daily, # l 12.5 MG / 15:17: 90 tab, 0 Her capps Lisinopril 00 Refill(s), 20 MG Oral Pharmacy: [facility] #[id number] Glyburide 5 0 Yes 2 tab, PO, Memoria MG / 1-05 [facility], l Metformin 15:17: # 120 tab, He rmann hydrochlori 00 3 de 500 MG Refill(s), Oral Tablet Pharmacy: [facility] #[id number] sertraline 2017- Yes 50 mg = 1 Me moria 50 mg oral 1-05 tab, PO, l tablet 15:17: Daily, # [place] 00 90 tab, 0 Refill(s), Pharmacy: [facility] #[id number] Hydrochloro 2017-0 Yes 1 tab, PO, Memoria thiazide 1-05 Daily, # l 12.5 MG / 15:17: 90 tab, 0 [facility] Lisinopril 00 Refill(s), 20 MG Oral Pharmacy: [facility] #[id number] Glyburide 5 Yes 2 tab, PO, Memoria MG / 1-05 [facility], l Metformin 15:17: # 120 tab, He rmann hydrochlori 00 3 de 500 MG Refill(s), Oral Tablet Pharmacy: [facility] #[id number] Glyburide 5 0 No 2 tab, PO, Memoria MG / 1-05 [facility], l Metformin 14:46: # 120 tab, He rmann hydrochlori 00 1 de 500 MG Refill(s) Oral Tablet Hydrochloro 2018-0 No 1 tab, PO, Memoria thiazide 1-05 Daily, # l 12.5 MG / 14:46: 90 tab, 0 Her capps Lisinopril 00 Refill(s) 20 MG Oral Tablet sertraline 2018-0 No 50 mg = 1 Me moria 50 mg oral 1-05 tab, PO, l tablet 14:46: Daily, # [place] 00 90 tab, 0 Refill(s) Glyburide 5 2018-0 No 2 tab, PO, Memoria MG / 1-05 BID-Meals, l Metformin 14:46: # 120 tab, He rmann hydrochlori 00 1 de 500 MG Refill(s) Oral Tablet Hydrochloro No 1 tab, PO, [facility] thiazide 1-05 [...] 1 TABLET BY MOUTH EVERY DAY, Pharmacy: [id number] levothyroxi 2016-07 Yes See Memori a ne 25 mcg 2-29 Instructio l (0.025 mg) 11:59: ns, # 90 Her capps oral tablet 53 tab, TAKE 1 TABLET BY MOUTH EVERY DAY, Pharmacy: [facility] #[id number] baclofen 20 2016-07 Yes See Memori a mg oral 2-15 Instructio l tablet 19:19: ns, TAKE 1 [place] nn 00 TABLET BY MOUTH 3 TIMES A DAY NEEDED FOR SPASMS, # 90 tab, 0 Refill(s), Pharmacy: [facility] #[id number] baclofen 20 2016-07 Yes See Memori a mg oral 2-15 Instructio l tablet 19:19: ns, TAKE 1 [place] nn 00 TABLET BY MOUTH 3 TIMES A DAY NEEDED FOR SPASMS, # 90 tab, 0 Refill(s), Pharmacy: [facility] #[id number] Ibuprofen 2016-07 Yes See Memoria 600 MG Oral 2-01 Instructio l Tablet 20:59: ns, # 60 [place] [Ibu] 00 tab, TAKE 1 TABLET BY MOUTH EVERY 8HOURS NEEDED WITH PAIN TAKE WITH FOOD, Pharmacy: [facility] #[id number] 3 ML 2016-07 Yes See Memoria Insulin 2-01 Instructio l Lispro 25 20:59: ns, # 21 Herm danuta UNT/ML / 00 syr, Insulin, INJECT 60 Protamine UNITS Lispro, SUBCUTANEO Human 75 USLY EVERY UNT/ML 12 HOURS, Prefilled Pharmacy: [facility] [Humalog [facility] #[id number] Mix 75/25] Ibuprofen 2016-07 Yes See Memoria 600 MG Oral 2-01 Instructio l Tablet 20:59: ns, # 60 [place] [Ibu] 00 tab, TAKE 1 TABLET BY MOUTH EVERY 8HOURS NEEDED WITH PAIN TAKE WITH FOOD, Pharmacy: [facility] #[id number] 3 ML 2016-07 Yes See Memoria Insulin 2-01 Instructio l Lispro 25 20:59: ns, # 21 Herm danuta UNT/ML / 00 syr, Insulin, INJECT 60 Protamine UNITS Lispro, SUBCUTANEO Human 75 USLY EVERY UNT/ML 12 HOURS, Prefilled Pharmacy: [facility] [Humalog [facility] #[id number] Mix 75/25] FLUoxetine Yes [...] daily as needed for Anxiety or Insomnia. FLUoxetine Yes Severe 10mg QD Take 1 [...] mg by Health 14:12: mouth 04 daily. rosuvastati 2015-07 Yes 40mg Take 40 mg [...] 20 [facility] (NOVOLIN N, 0-13 ia units Health HUMULIN N) 00:00: under the 100 unit/mL 00 skin every injection morning with breakfast and 10 units under the skin every evening with dinner.. INSULIN 2015-07 Yes Hyperglycem Q.5D Use to H arris SYRINGE 0-13 ia inject Health 0.5mL 00:00: medication 30GX5/16" 00 2 times (MONOJECT daily. Use ULTRACOMFOR a new T INSULIN syringe SYR 0.5ML each time. 30GX5/16") syringe-nee dle insulin NPH 2015-07 Yes Hyperglycem Inject 20 [facility] (NOVOLIN N, 0-13 ia units Health HUMULIN N) 00:00: under the 100 unit/mL 00 skin every injection morning with breakfast and 10 units under the skin every evening with dinner.. glyBURIDE-m Yes Type 2 2{tbl} Q.5D Take 2 [facility] etFORMIN 8-23 diabetes tablets by ealt (GLUCOVANCE 00:00: mellitus mouth 2 ) 5-500 mg 00 with times per tablet complicatio daily n, without (with long-term meals). current use of insulin fenofibrate Yes Hypertrigly 54mg QD Take 1 [facility] (LOFIBRA) 8-23 ceridemia tablet by [facility] 54 mg 00:00: mouth tablet 00 daily. blood Yes Type 2 Use as Coleman glucose 8-23 diabetes directed.. He alth meter 00:00: mellitus 00 with complicatio n, without long-term current use of insulin blood Yes Type 2 Q.5D 2 times [facility] glucose 8-23 diabetes daily to test strips 00:00: mellitus test blood 00 with sugar. complicatio n, without long-term current use of insulin lancets 28 Yes Type 2 Q.5D 2 times Price rris gauge 8-23 diabetes daily. Health 00:00: mellitus 00 with complicatio n, without long-term current use of insulin glyBURIDE-m Yes Type 2 2{tbl} Q.5D Take 2 [place] etFORMIN 8-23 diabetes tablets by H eaantonio (GLUCOVANCE 00:00: mellitus mouth 2 ) 5-500 mg 00 with times per tablet complicatio daily n, without (with long-term meals). current use of insulin fenofibrate Yes Hypertrigly 54mg QD Take 1 [facility] (LOFIBRA) 8- ceridemia tablet by Health 54 mg 00:00: mouth tablet 00 daily. blood Yes Type 2 Use as Coleman glucose 8- diabetes directed.. He alth meter 00:00: mellitus 00 with complicatio n, without long-term current use of insulin blood Yes Type 2 Q.5D 2 times [facility] glucose 8- diabetes daily to test strips 00:00: mellitus test blood 00 with sugar. complicatio n, without long-term current use of insulin lancets 28 Yes Type 2 Q.5D 2 times Price rris gauge 8- diabetes daily. Health 00:00: mellitus 00 with complicatio n, without long-term current use of insulin gabapentin Yes Type 2 100mg Take 1 Price rris (NEURONTIN) 8-08 diabetes capsule by Health 100 mg 00:00: mellitus mouth 3 capsule 00 with times complicatio daily. n, without long-term current use of insulin gabapentin Yes Type 2 100mg Take 1 Price rris (NEURONTIN) 8-08 diabetes capsule by Health 100 mg 00:00: mellitus mouth 3 capsule 00 with times complicatio daily. n, without long-term current use of insulin traMADol Yes Acute left 50mg Take 1 H arris (ULTRAM) 50 7-28 ankle pain tablet by Health mg tablet 00:00: mouth 00 every 8 hours as needed for Pain Severe pain. traMADol Yes Acute left 50mg Take 1 H arris (ULTRAM) 50 7-28 ankle pain tablet by Health mg tablet 00:00: mouth 00 every 8 hours as needed for Pain Severe pain. loratadine Yes 10mg Take 10 mg M ethodi (CLARITIN) 6-[address] 10 mg 00:00: Hospita tablet 00 l ibuprofen Yes Body aches 800mg Take 1 [facility] (MOTRIN) 6-20 tablet by Health 800 mg 00:00: mouth tablet 00 every 8 hours as needed for Pain. loratadine Yes Acute 10mg QD Take 1 Sharita is (CLARITIN) 6-20 pharyngitis tablet by Health 10 mg 00:00: , mouth tablet 00 unspecified daily. etiology loratadine Yes 10mg Take 10 mg M ethodi (CLARITIN) 6-[address] 10 mg 00:00: Hospita tablet 00 l ibuprofen Yes Body aches 800mg Take 1 [facility] (MOTRIN) 6-20 tablet by Health 800 mg 00:00: mouth tablet 00 every 8 hours as needed for Pain. loratadine Yes Acute 10mg QD Take 1 Sharita is (CLARITIN) 6-20 pharyngitis tablet by Health 10 mg 00:00: , mouth tablet 00 unspecified daily. etiology ibuprofen Yes Sprain of Take 1 tab [facility] (MOTRIN) 5-25 left ankle, PO Q8 hrs Health 800 mg 00:00: unspecified x5 days, tablet 00 ligament, then Q8 initial hrs prn encounter pain. Take with food.. ibuprofen Yes Sprain of Take 1 tab [facility] (MOTRIN) 5-25 left ankle, PO Q8 hrs Health 800 mg 00:00: unspecified x5 days, tablet 00 ligament, then Q8 initial hrs prn encounter pain. Take with food.. ketorolac No 4 days Memor ia 30 mg/mL 9-26 l injectable 17:00: [place] solution 00 ketorolac No 4 days Memor ia 30 mg/mL 9-26 l injectable 17:00: [place] solution 00 Aspirin 81 No Notes: Do Me moria MG Enteric 04-11 not crush l Coated 14:00: or chew. [place] Tablet 00 (Same As: Ecotrin) Aspirin 81 No Notes: Do Me moria MG Enteric 9-26 not crush l Coated 14:00: or chew. [place] Tablet 00 (Same As: Ecotrin) Lantus No 7 unit, Memoria 04-11 Route: l 02:00: SUB-Q, X[place] 00 Drug form: SOLN, Bedtime, Dosing Weight 85.909, kg, Start date: 04/10/14 21:00:00, Duration: 30 day, Stop date: 05/09/14 21:00:00 Levemir 2013-0 No Notes: Memoria FlexPen 04-11 Same as l 02:00: Levemir "single patient use only" Lantus No 7 unit, Memoria 04-11 Route: l 02:00: SUB-Q, Drug form: SOLN, Bedtime, Dosing Weight 85.909, kg, Start date: 04/10/14 21:00:00, Duration: 30 day, Stop date: 05/09/14 21:00:00 Levemir 2013-0 No Notes: [facility] FlexPen 04-11 Same as [...] 10 ml, 0 Prefilled Refill(s) Syringe [Lantus] Plavix Yes 75 mg, PO, Memor ia 9-25 Daily, 0 l 20:10: Refill(s) Lexapro Yes 10 mg, PO, Antoni bret 9-25 Daily, 0 l 20:10: Refill(s) Lisinopril Yes 2.5 mg, Antoni bret 9-25 PO, Daily, l 20:10: 0 Xander 00 Refill(s) aspirin No 81 mg, PO, Antoni bret 9-25 Daily, 0 l 20:10: Refill(s) Xander Metformin Yes 1,000 mg, Mem oria 9-25 PO, BID, 0 l 20:10: Refill(s) Xander Crestor Yes 40 mg, PO, Antoni bret 9-25 Bedtime, 0 l 20:10: Refill(s) [place] 00 3 ML Yes = 40 unit, Memoria Insulin 9-25 SUB-Q, l Glargine 20:10: Bedtime, # Her capps 100 UNT/ML 00 10 ml, 0 Prefilled Refill(s) Syringe [Lantus] ketorolac No 4 days Memor ia 30 mg/mL 9-25 l injectable 17:00: [place] solution 00 ketorolac No 4 days Memor ia 30 mg/mL 9-25 l injectable 17:00: Xander solution 00 Saline No Notes: Memoria Flush 0.9% 9-25 (Same as: l 14:00: BD [place] 00 Posiflush) Aspirin 81 No 81 mg, Memor ia MG Enteric 9-25 Route: PO, l Coated 14:00: Drug form: [place] nn Tablet 00 ECTAB, Daily, Dosing Weight 85.909, kg, Start date: 04/10/14 9:00:00, Duration: 30 day, Stop date: 05/09/14 9:00:00 Aspirin 325 No Notes: (Do Memoria MG Enteric 9-25 Not Crush) l Coated 14:00: Do not Xander Tablet 00 crush or chew. Saline No Notes: Memoria Flush 0.9% 9-25 (Same as: l 14:00: BD Xander 00 Posiflush) Aspirin 81 No 81 mg, Memor ia MG Enteric 9-25 Route: PO, l Coated 14:00: Drug form: [place] nn Tablet 00 ECTAB, Daily, Dosing Weight 85.909, kg, Start date: 04/10/14 9:00:00, Duration: 30 day, Stop date: 05/09/14 9:00:00 Aspirin 325 No Notes: (Do Memoria MG Enteric 9-25 Not Crush) l Coated 14:00: Do not [place] Tablet 00 crush or chew. Aspirin 81 Yes 81 mg = 1 Me moria MG Enteric 9-25 tab, PO, l Coated 07:27: Daily, # 0 [place] Tablet 00 tab, 0 Refill(s) Aspirin Low No 0 Memori a Dose 81 mg 9-25 Refill(s) l oral tablet 07:27: [place] n 00 Aspirin 81 Yes 81 mg = 1 Me moria MG Enteric 9-25 tab, PO, l Coated 07:27: Daily, # 0 [place] nn Tablet 00 tab, 0 Refill(s) Aspirin Low No 0 Memori a Dose 81 mg 9-25 Refill(s) l oral tablet 07:27: Her[place] n 00 Insulin Yes Bedtime, 0 Antoni bret Glargine 9-25 Refill(s) l 100 UNT/ML 07:03: [place] Injectable 00 Solution [Lantus] Insulin Yes Bedtime, 0 Antoni bret Glargine 9-25 Refill(s) l 100 UNT/ML 07:03: Xander Injectable 00 Solution [Lantus] Saline No Notes: Memoria Flush 0.9% 9-25 (Same as: l 06:54: BD [place] 00 Posiflush) Saline No Notes: Memoria Flush 0.9% 9-25 (Same as: l 06:54: BD Xander 00 Posiflush) Aspirin 81 No 324 mg, Antoni bret MG Chewable 9-25 Route: l Tablet 06:01: CHEW, [place] 00 ONCE, Dosing Weight 84.545, kg, Priority: STAT, Start date: 04/10/14 1:01:00, Stop date: 04/10/14 1:01:00 Aspirin 81 No 324 mg, Antoni bret MG Chewable 9-25 Route: l Tablet 06:01: CHEW, Xander 00 ONCE, Dosing Weight 84.545, kg, Priority: STAT, Start date: 04/10/14 1:01:00, Stop date: 09/25/14 1:01:00 Saline No Notes: Memoria Flush 0.9% 9-25 (Same as: l 02:52: BD X[place] 00 Posiflush) Saline No Notes: Memoria Flush 0.9% 9-25 (Same as: l 02:52: BD X[place] 00 Posiflush) levothyroxi Yes Take 1 po M ethodi ne 9-[address] (SYNTHROID) 00:00: Hospit a 25 mcg 00 l tablet simvastatin Yes Take 1 po M ethodi (ZOCOR) 40 9-[address] mg tablet 00:00: Hospita 00 l insulin Yes DM type 2 If 150 to [facility] REGULAR 12 (diabetes 200 take 2 H ealth (NOVOLIN R) 00:00: mellitus, un its sc 100 unit/mL 00 type 2) 200 to 250 injection take 4 units scIf 250 to 300 take 6 units scIf 300 to 350 take 8 units scAnd if 350 and more call MD frankel Yes Polyneuropa Take 1 po [facility] (ZOCOR) 40 9-12 thy in daily Health mg tablet 00:00: diabetes(35 00 7.2) levothyroxi Yes UTI (lower Take 1 po [place] ne 9-12 urinary daily Health (SYNTHROID) 00:00: tract 25 mcg 00 infection) tablet ibuprofen Yes Knee pain Take 1 po [facility] (MOTRIN) 9-12 twice Health 800 mg 00:00: daily tablet 00 levothyroxi Yes Take 1 po M ethodi ne 9-[address] (SYNTHROID) 00:00: Hospit a 25 mcg 00 l tablet simvastatin Yes Take 1 po M ethodi (ZOCOR) 40 9-[address] mg tablet 00:00: Hospita 00 l insulin Yes DM type 2 If 150 to [facility] REGULAR 12 (diabetes 200 take 2 H ealth (NOVOLIN R) 00:00: mellitus, un its sc 100 unit/mL 00 type 2) 200 to 250 injection take 4 units scIf 250 to 300 take 6 units scIf 300 to 350 take 8 units scAnd if 350 and more call MD frankel Yes Polyneuropa Take 1 po [facility] (ZOCOR) 40 9-12 thy in daily Health mg tablet 00:00: diabetes(35 00 7.2) levothyroxi Yes UTI (lower Take 1 po Coleman ne 9-12 urinary daily Health (SYNTHROID) 00:00: tract 25 mcg 00 infection) tablet ibuprofen Yes Knee pain Take 1 po [facility] (MOTRIN) 9-12 twice Health 800 mg 00:00: daily tablet 00 Insulin Yes UTI (lower Use as Price rris Syringes, 3-21 urinary directed Hea lth Disposable, 00:00: tract 1 mL 00 infection) syringe Insulin Yes UTI (lower Use as Price rris Syringes, 3-21 urinary directed Hea lth Disposable, 00:00: tract 1 mL 00 infection) syringe furosemide Yes UTI (lower Take 1 po [facility] (LASIX) 20 2-28 urinary q week Heal th mg tablet 00:00: tract 00 infection) furosemide Yes UTI (lower Take 1 po [facility] (LASIX) 20 2-28 urinary q week Heal th mg tablet 00:00: tract 00 infection) gabapentin 2010-07 Yes Polyneuropa Take 1 po [facility] (NEURONTIN) 2-22 thy in tid Health 300 mg 00:00: diabetes(35 capsule 00 7.2) gabapentin 2010-07 Yes Polyneuropa Take 1 po [facility] (NEURONTIN) 2-22 thy in tid Health 300 mg 00:00: diabetes(35 capsule 00 7.2) famotidine Yes Gastritis 40mg QD Take 1 Tab [facility] (PEPCID) 40 6-27 by mouth Heal th mg tablet 00:00: daily. 00 famotidine Yes Gastritis 40mg QD Take 1 Tab [facility] (PEPCID) 40 6-27 by mouth Heal th mg tablet 00:00: daily. 00 LANCETS 2009-07 Yes UTI (lower Use as Price rris 0-26 urinary Directed Health 00:00: tract 00 infection) LANCETS 2009-07 Yes UTI (lower Use as Price rris 0-26 urinary Directed Health 00:00: tract 00 infection) NAFTIN 1 % Yes Tinea apply to Price rris TOPICAL 4-14 corporis the Health CREAM 00:00: affected 00 and surroundin g areas of skin by topical route bid for fungus NAFTIN 1 % Yes Tinea apply to Price rris TOPICAL 4-14 corporis the Health CREAM 00:00: affected 00 and surroundin g areas of skin by topical route bid for fungus IBUPROFEN Yes Furuncle of take 1 [facility] 800 MG TAB 3-11 axilla tablet Healt h 00:00: (800mg) by 00 oral route 3 times per day with food prn pain IBUPROFEN Yes [place] of take 1 [facility] 800 MG TAB 3-11 axilla tablet Healt h 00:00: (800mg) by 00 oral route 3 times per day with food prn pain PRECISION Yes Diabetes use 2-3 H arris XTRA 5-30 uncomplicat times Health GLUCOMETER 00:00: ed daily 00 adult-type II PRECISION Yes Diabetes use 2-3 H arris XTRA [...] TWICE A DAY ezetimibe ezetimibe No ezetimibe [facility] 10 mg 10 mg 10 mg Family tablet TAKE tablet TAKE tablet Practic 1 TABLET BY 1 TABLET BY TAKE 1 e MOUTH EVERY MOUTH EVERY TABLET BY DAY DAY MOUTH EVERY DAY FreeStyle FreeStyle No FreeStyle [facility] Bebo 14 Bebo 14 Bebo 14 Fam vinay Day [place] Day [place] Day [place] Practic USE TO TEST USE TO TEST USE TO e BLOOD SUGAR BLOOD SUGAR TEST BLOOD FOUR TIMES FOUR TIMES SUGAR FOUR DAILY DAILY TIMES DAILY FreeStyle FreeStyle No FreeStyle [facility] Bebo 14 Bebo 14 Bebo 14 Fam vinay Day Sensor Day Sensor Day Sensor Practic kit USE TO kit USE TO kit USE TO e TEST BLOOD TEST BLOOD TEST BLOOD SUGAR FOUR SUGAR FOUR SUGAR FOUR TIMES DAILY TIMES DAILY TIMES DAILY Jardiance Jardiance No Jardiance [place] 25 mg 25 mg 25 mg Family [...] FOR 90 DAYS. levocetiriz levocetiriz No levocetiri [facility] ine 5 mg ine 5 mg zine 5 mg Fa veda tablet TAKE tablet TAKE tablet Practic 1 TABLET BY 1 TABLET BY TAKE 1 e MOUTH MOUTH TABLET BY EVERYDAY AT EVERYDAY AT MOUTH BEDTIME BEDTIME EVERYDAY AT BEDTIME lisinopril lisinopril No lisinopril [facility] 10 mg 10 mg 10 mg Family [...] DAY EVERY DAY sertraline sertraline No sertraline [place] 25 mg 25 mg 25 mg Family tablet TAKE tablet TAKE tablet Practic 1 TABLET BY 1 TABLET BY TAKE 1 e MOUTH EVERY MOUTH EVERY TABLET BY DAY DAY MOUTH EVERY DAY Immunizations Ordered Immunization Filled Immunization Date Status Commen Source Name Name COVID-19, mRNA, COVID-19, mRNA, 2021-06-01 Completed [facility] LNP-S, PF, 30 LNP-S, PF, 30 00:00:00 Practice mcg/0.3 mL dose mcg/0.3 mL dose (Pfizer-BioNTech) (Pfizer-BioNTech) COVID-19, mRNA, COVID-19, mRNA, 2020-09-28 Completed [facility] LNP-S, PF, 30 LNP-S, PF, 30 00:00:00 Practice mcg/0.3 mL dose mcg/0.3 mL dose (Pfizer-BioNTech) (Pfizer-BioNTech) PFIZER COVID-19 MRNA 2020-09-28 Completed [facility] VACCIN[facility] 00:00:00 Hospital PFIZER COVID-19 MRNA 2020-09-28 Completed [facility] VACCINATION 00:00:00 [facility] COVID-19, mRNA, COVID-19, mRNA, 2020-09-07 Completed [facility] LNP-S, PF, 30 LNP-S, PF, 30 00:00:00 Practice mcg/0.3 mL dose mcg/0.3 mL dose (Pfizer-BioNTech) (Pfizer-BioNTech) PFIZER COVID-19 MRNA 2020-09-07 Completed [facility]ACC[facility] 00:00:00 Hospital PFIZER COVID-19 MRNA 2020-09-07 Completed [facility] VACCINATION 00:00:00 [facility] pneumococcal pneumococcal 2020-04-[address] [facility] conjugate PCV 13 conjugate PCV 13 00:00:00 Pr actice zoster recombinant zoster recombinant 2020-04-21 Completed [facility] 00:00:00 Practice pneumococcal 2018-09-10 Completed [facility] capps 13-valent 15:32:00 vaccine<sup>1</sup> pneumococcal 2018-09-10 Completed [facility] capps 13-valent 15:32:00 vaccine<sup>1</sup> pneumococcal pneumococcal 2018-09-[address] [facility] conjugate PCV 13 conjugate PCV 13 00:00:00 Pr actice PPV 23 Pneumococcal 2015-11-30 Completed [facility] Polys[facility]ar[facility] 00:00:00 PPV 23 Pneumococcal 2015-11-30 Completed [facility] 00:00:00 influenza virus 2015-04-17 [facility] 18:05:00 influenza virus 2015-04-17 [facility] 18:05:00 Hx influenza 2014-05-19 Completed [facility] capps vaccine-unspecified< 06:00:00 sup>3</sup> Hx influenza 2014-05-19 Completed [facility] Her capps vaccine-unspecified< 06:00:00 sup>2</sup> Hx influenza 2014-05-19 Completed [facility] Her capps vaccine-unspecified< 06:00:00 sup>3</sup> Hx influenza 2014-05-19 Completed [facility] vaccine-unspecified< 06:00:00 sup>2</sup> diphtheria/pertussis 2014-01-21 Completed [facility] [place] , acel/tetanus 05:00:00 adult<sup>4</sup> diphtheria/pertussis 2014-01-21 Completed [facility] [place] , acel/tetanus 05:00:00 adult<sup>3</sup> diphtheria/pertussis 2014-01-21 Completed [facility] [place] , acel/tetanus 05:00:00 adult<sup>4</sup> diphtheria/pertussis 2014-01-21 Completed Antoni rial [place] , acel/tetanus 05:00:00 adult<sup>3</sup> influenza virus 2013-04-05 [facility], 05:00:00 inactivated<sup>1</s up> influenza virus 2013-04-05 [facility], 05:00:00 inactivated<sup>2</s up> influenza virus 2013-04-05 Com[facility], 05:00:00 inactivated<sup>1</s up> influenza virus 2013-04-05 [facility], 05:00:00 inactivated<sup>2</s up> pneumococcal pneumococcal 2011-03-[address] [facility] conjugate PCV 7 conjugate PCV 7 00:00:00 Prac darwin Tdap Tetanus, 2011-03-16 Completed [facility] diphtheria, 00:00:00 acellular pertussis Vaccine Pneumococcal 2011-03-16 Completed [facility] 7-valent conj 0.5 mL 00:00:00 injection Tdap Tetanus, 2011-03-16 Completed [facility] diphtheria, 00:00:00 acellular pertussis Vaccine Pneumococcal 2011-03-16 Completed [facility] 7-valent conj 0.5 mL 00:00:00 injection Influenza Vaccine 2008-09-24 Completed [facility] 00:00:00 Influenza Vaccine 2008-09-24 Completed [facility] 00:00:00 Vital Signs Vital Name Observation Time Observation Value Comments Source BP Diastolic 2021-12-22 00:00:00 73 mm[Hg] [facility] Height 2021-12-22 00:00:00 62 [in_i] [facility] BMI (Body Mass Index) 2021-12-22 00:00:00 33.7 kg/m2 [facility] BP Systolic 2021-12-22 00:00:00 113 mm[Hg] [facility] Body Weight 2021-12-22 00:00:00 184 [lb_av] [facility] BP Diastolic 2021-12-10 00:00:00 76 mm[Hg] [facility] Height 2021-12-10 00:00:00 62 [in_i] [facility] BMI (Body Mass Index) 2021-12-10 00:00:00 33.9 kg/m2 [facility] BP Systolic 2021-12-10 00:00:00 131 mm[Hg] [facility] Body Weight 2021-12-10 00:00:00 185.6 [lb_av] [facility] BP Diastolic 2021-11-11 00:00:00 73 mm[Hg] [facility] Height 2021-11-11 00:00:00 62 [in_i] [facility] BMI (Body Mass Index) 2021-11-11 00:00:00 33.8 kg/m2 [facility] BP Systolic 2021-11-11 00:00:00 130 mm[Hg] [facility] Body Weight 2021-11-11 00:00:00 184.6 [lb_av] [facility] Height 2021-11-10 00:00:00 62 [in_i] [facility] BP Diastolic 2021-09-14 00:00:00 82 mm[Hg] [facility] Height 2021-09-14 00:00:00 62 [in_i] [facility] BMI (Body Mass Index) 2021-09-14 00:00:00 34.6 kg/m2 [facility] BP Systolic 2021-09-14 00:00:00 146 [...] Practice Body Weight 2020 00:00:00 195 [lb_av] [facility] BP Diastolic 2020-05-19 00:00:00 83 mm[Hg] [facility] Height 2020-05-19 00:00:00 62 [in_i] [facility] BMI (Body Mass Index) 2020-05-19 00:00:00 35.7 kg/m2 [facility] BP Systolic 2020-05-19 00:00:00 175 mm[Hg] [facility] Body Weight 2020-05-19 00:00:00 195 [lb_av] [facility] Weight 2018-10-31 16:20:00 [facility] [place] BMI Calculated 2018-10-31 16:20:00 [facility] Height 2018-10-31 16:20:00 154.94 cm [facility] Temperature Oral (F) 2018-10-31 16:20:00 98.8 F [facility] Heart Rate 2018-10-31 16:20:00 [facility] Systolic (mm Hg) 2018-10-31 16:20:00 [facility] [place] Diastolic (mm Hg) 2018-10-31 16:20:00 Mem orial [place] Weight 2018-09-10 14:33:00 [facility] BMI Calculated 2018-09-10 14:33:00 [facility] [place] Height 2018-09-10 14:33:00 154.94 cm [facility] [place] Systolic (mm Hg) 2018-09-10 14:33:00 Antoni rial [place] Diastolic (mm Hg) 2018-09-10 14:33:00 Mem orial [place] Temperature Oral (F) 2018-09-10 14:33:00 99.0 F [facility] [place] Heart Rate 2018-09-10 14:33:00 [facility] [place] BMI Calculated 2018-08-02 19:39:00 [facility] [place] Weight 2018-08-02 19:39:00 [facility] Height 2018-08-02 19:39:00 154.94 cm [facility] Temperature Oral (F) 2018-08-02 19:39:00 98.7 F [facility] [place] Heart Rate 2018-08-02 19:39:00 [facility] [place] Systolic (mm Hg) 2018-08-02 19:39:00 Antoni rial [place] Temperature Oral (F) 2018-04-02 18:44:00 98.9 F [facility] Weight 2018-04-02 18:44:00 [facility] BMI Calculated 2018-04-02 18:44:00 [facility] [place] Height 2018-04-02 18:44:00 154.94 cm [facility] Systolic (mm Hg) 2018-04-02 18:44:00 Antoni rial [place] Diastolic (mm Hg) 2018-04-02 18:44:00 Mem orial [place] Heart Rate 2018-04-02 18:44:00 [facility] Temperature Oral (F) 2018-03-26 05:06:00 98.6 F [facility] Respitory Rate 2018-03-26 05:06:00 [facility] [place] Heart Rate 2018-03-26 05:06:00 [facility] [place] Systolic (mm Hg) 2018-03-26 05:06:00 Antoni rial [place] Diastolic (mm Hg) 2018-03-26 05:06:00 Mem orial [place] Weight 2018-03-26 02:39:00 [facility] [place] Systolic (mm Hg) 2018-03-26 02:39:00 Antoni rial [place] Diastolic (mm Hg) 2018-03-26 02:39:00 Mem orial [place] Heart Rate 2018-03-26 02:39:00 [facility] [place] Temperature Oral (F) 2018-03-26 02:39:00 98.7 F [facility] [place] Respitory Rate 2018-03-26 02:39:00 Memori al [facility] BMI Calculated 2018-03-06 15:22:00 [facility] Weight 2018-03-06 15:22:00 [facility] Heart Rate 2018-03-06 15:22:00 [facility] [place] Temperature Oral (F) 2018-03-06 15:22:00 98.5 F [facility] Systolic (mm Hg) 2018-03-06 15:22:00 Antoin rial [place] Diastolic (mm Hg) 2018-03-06 15:22:00 [facility] Height 2018-03-06 15:22:00 154.94 cm [facility] BMI Calculated 2017-11-07 16:17:00 [facility] [place] Height 2017-11-07 16:17:00 154.94 cm [facility] Weight 2017-11-07 16:17:00 [facility] Heart Rate 2017-11-07 16:17:00 [facility] Temperature Oral (F) 2017-11-07 16:17:00 97.8 F [facility] Systolic (mm Hg) 2017-11-07 16:17:00 [facility] [place] Diastolic (mm Hg) 2017-11-07 16:17:00 [facility] [place] BMI Calculated 2017-10-16 19:56:00 [facility] Weight 2017-10-16 19:56:00 [facility] Height 2017-10-16 19:56:00 154.94 cm [facility] Temperature Oral (F) 2017-10-16 19:56:00 98.4 F [facility] Heart Rate 2017-10-16 19:56:00 [facility] Systolic (mm Hg) 2017-10-16 19:56:00 Antoni [facility] Diastolic (mm Hg) 2017-10-16 19:56:00 [facility] Height 2017-09-26 18:19:00 154.94 cm [facility] BMI Calculated 2017-09-26 18:19:00 [facility] [place] Weight 2017-09-26 18:19:00 [facility] Temperature Oral (F) 2017-09-26 18:19:00 98.3 F [facility] Systolic (mm Hg) 2017-09-26 18:19:00 [facility] [place] Diastolic (mm Hg) 2017-09-26 18:19:00 [facility] [place] Heart Rate 2017-09-26 18:19:00 [facility] Height 2017-08-21 17:29:00 154.94 cm [facility] Temperature Oral (F) 2017-08-21 17:29:00 98.9 F [facility] Respitory Rate 2017-08-21 17:29:00 [facility] [place] Heart Rate 2017-08-21 17:29:00 [facility] BMI Calculated 2017-08-21 17:29:00 [facility] Weight 2017-08-21 17:29:00 [facility] Systolic (mm Hg) 2017-08-21 17:29:00 Antoni [facility] Diastolic (mm Hg) 2017-08-21 17:29:00 [facility] [place] Height 2017-08-15 16:49:00 154.94 cm [facility] Temperature Oral (F) 2017-08-15 16:49:00 97.9 F [facility] Heart Rate 2017-08-15 16:49:00 [facility] BMI Calculated 2017-08-15 16:49:00 [facility] Weight 2017-08-15 16:49:00 [facility] Systolic (mm Hg) 2017-08-15 16:49:00 [facility] [place] Diastolic (mm Hg) 2017-08-15 16:49:00 [facility] [place] Weight 2017-07-24 09:36:00 [facility] BMI Calculated 2017-07-24 09:36:00 [facility] Height 2017-07-24 09:36:00 160.02 cm [facility] Respitory Rate 2017-07-24 09:36:00 [facility] Heart Rate 2017-07-24 09:36:00 [facility] Systolic (mm Hg) 2017-07-24 09:36:00 [facility] Diastolic (mm Hg) 2017-07-24 09:36:00 [facility] Temperature Oral (F) 2017-07-24 09:36:00 101.9 F [facility] BMI Calculated 2017-07-21 14:41:00 [facility] Height 2017-07-21 14:41:00 157.48 cm [facility] Weight 2017-07-21 14:41:00 [facility] Heart Rate 2017-07-21 14:41:00 [facility] Temperature Oral (F) 2017-07-21 14:41:00 98.5 F [facility] Systolic (mm Hg) 2017-07-21 14:41:00 [facility] Diastolic (mm Hg) 2017-07-21 14:41:00 [facility] [place] Temperature Oral (F) 2014-04-10 20:30:00 98.7 F [facility] Heart Rate 2014-04-10 20:30:00 [facility] Respitory Rate 2014-04-10 20:30:00 [facility] Systolic (mm Hg) 2014-04-10 20:30:00 [facility] [place] Diastolic (mm Hg) 2014-04-10 20:30:00 [facility] Diastolic (mm Hg) 2014-04-10 16:36:00 [facility] Systolic (mm Hg) 2014-04-10 16:36:00 [facility] Temperature Oral (F) 2014-04-10 16:36:00 98.2 F [facility] Heart Rate 2014-04-10 16:36:00 [facility] Respitory Rate 2014-04-10 16:36:00 [facility] Systolic (mm Hg) 2014-04-10 12:32:00 [facility] Respitory Rate 2014-04-10 12:32:00 [facility] Diastolic (mm Hg) 2014-04-10 12:32:00 [facility] Temperature Oral (F) 2014-04-10 12:32:00 97.8 F [facility] Heart Rate 2014-04-10 12:32:00 [facility] 2014-04-10 06:46:00 160.02 cm [facility] BMI Calculated 2014-04-10 06:46:00 [facility] Weight 2014-04-10 06:46:00 [facility] Weight 2014-04-10 02:38:00 [facility] Procedures Procedure Date / Time Performing Clinician Source Performed MAMMO, screening, 2021-12-22 00:00:00 [facility] Wayne barrett bilateral Practice X-RAY OF SHOULDER 2 VIEW 2021-01-09 00:00:00 [facility] XR, ribs, unilateral, w/ 2021-01-09 00:00:00 [facility] chest Practice XR, lumbar spine 2021-01-09 00:00:[address] [facility] Practice Colonoscopy 2020-09-24 [facility], screening, 2020-07-27 00:00:00 [facility] Wayne barrett, bilateral Practice bone density 2020-07-27 00:00:00 [facility] Practice MAMMO, screening, 2020 00:00:00 [facility] veda barrett, bilateral Practice Diabetic retinal eye exam 2018-09-10 06:00:00 [facility] Hysterectomy (Partial) [facility] Repair of Ankle [facility] Tonsillectomy [facility] Cancer Surgery [facility] Ankle joint operations [facility] Plan of Care Planned Activity Planned Date Details Comments Source Future Scheduled Test 2022-07-03 [facility] 09:33:18 (procedure) [code = 011177940] Future Scheduled Test 2022-07-03 BREAST CANCER [facility] 09:33:18 SCREENING [code = BREAST CANCER SCREENING] Future Scheduled Test 2022-07-03 COLONOSCOPY SCREENING [facility] 09:33:18 [code = COLONOSCOPY SCREENING] Future Scheduled Test 2022-07-03 SHINGLES VACCINES (1 [facility] 09:33:18 of 2) [code = SHINGLES VACCINES (1 of 2)] Future Scheduled Test 2022-07-03 65+ PNEUMOCOCCAL [facility] 09:33:18 VACCINE (2 - PPSV23 if available, else PCV20) [code = 65+ PNEUMOCOCCAL VACCINE (2 - PPSV23 if available, else PCV20)] Future Scheduled Test 2022-07-03 COVID-19 VACCINE ([address] [place] [address] 09:33:18 Booster for Pfizer series) [code = COVID-19 VACCINE (3 - Booster for Pfizer series)] Future Scheduled Test 2022-07-03 INFLUENZA VACCINE [facility] 09:33:18 [code = INFLUENZA VACCINE] Future Scheduled Test 2022-05-23 HEPATITIS B VACCINES [facility] 02:11:48 (1 of 3 - 3-dose series) [code = HEPATITIS B VACCINES (1 of 3 - 3-dose series)] Future Scheduled Test 2022-05-23 Hepatitis C screening [facility] 02:11:48 (procedure) [code = 369622277] Future Scheduled Test 2022-05-23 BREAST CANCER [facility] 02:11:48 SCREENING [code = BREAST CANCER SCREENING] Future Scheduled Test 2022-05-23 COLONOSCOPY SCREENING [facility] 02:11:48 [code = COLONOSCOPY SCREENING] Future Scheduled Test 2022-05-23 SHINGLES VACCINES (1 [facility] 02:11:48 of 2) [code = SHINGLES VACCINES (1 of 2)] Future Scheduled Test 2022-05-23 65+ PNEUMOCOCCAL [facility] 02:11:48 VACCINE (2 - PPSV23 if available, else PCV20) [code = 65+ PNEUMOCOCCAL VACCINE (2 - PPSV23 if available, else PCV20)] Future Scheduled Test 2022-05-23 COVID-19 VACCINE ([address] [place] [address] 02:11:48 Booster for Pfizer series) [code = COVID-19 VACCINE (3 - Booster for Pfizer series)] Future Scheduled Test 2022-05-23 INFLUENZA VACCINE [facility] 02:11:48 [code = INFLUENZA VACCINE] Future Scheduled Test 2017-02-28 [facility] 00:00:00 malignant neoplasm of colon (procedure) [code = 329790417] Future Scheduled Test 2017-02-28 [facility] 00:00:00 malignant neoplasm of colon (procedure) [code = 411235158] Future Scheduled Test 2017-02-25 Breast Cancer Scrn [facility] 00:00:00 (Yearly) [code = Breast Cancer Scrn (Yearly)] Future Scheduled Test 2017-02-25 Breast Cancer Scrn [facility] 00:00:00 (Yearly) [code = Breast Cancer Scrn (Yearly)] Future Scheduled Test 2016-11-29 Imm Pneumococcal 65+ [facility] 00:00:00 (2 - PCV) [code = Imm Pneumococcal 65+ (2 - PCV)] Future Scheduled Test 2016-11-29 Imm Pneumococcal 65+ [facility] 00:00:00 (2 - PCV) [code = Imm Pneumococcal 65+ (2 - PCV)] Future Scheduled Test 1949 COVID-19 Vaccine (#1) [facility] 00:00:00 [code = COVID-19 Vaccine (#1)] Future Scheduled Test 1949 COVID-19 Vaccine (#1) [facility] 00:00:00 [code = COVID-19 Vaccine (#1)] Future Appointment 2022-12-22 Marsha Rico, [address] [facility] 15:30:00 Mendy Bostony; [address], [place] [address] [facility] Encounters Start End Encounter Admission Attending Care Care Encounter Source Date/Time Date/Time Type Type Clinicians Facility Department ID 2020-09-24 Inpatient Ted Anna [facility] DAYS [id number] [facility] 12:30:00 [id number] [facility] 2020-09-14 [id number] 10:00[facility]00 [facility] 2019-10-14 Inpatient HCABM ROXANE [id number] [facility] 16:24:00 [facility] 2022-06-12 2022-06-12 Outpatient Yobany_L VFP VFP [id number] 00:00:00 00:00:00 [id number] Family Practic e 2022-05-16 2022-05-16 NOREEN Zena [id number] CLAC [id number] [facility] 20:00:00 21:00:00 [id number] 5[facility] [id number] 2022-05-08 2022-05-08 Outpatient Gilbert_L VFP VFP [id number] [place] [address] 00:00:00 00:00:00 [id number] Family Practic e 2022-05-03 2022-05-03 Outpatient OWENS_T DMG DMG [id number] [facility] 00:00:00 00:00:00 1018 Medica l Group 2022-03-15 2022-03-15 Outpatient OWENS_T DMG DMG [id number] [facility] 00:00:00 00:00:00 0830 Medica l Group 2022-03-15 2022-03-15 Outpatient Gilbert_L VFP VFP [id number] [place] [address] 00:00:00 00:00:00 [id number] Family Practic e 2022-03-09 2022-03-09 Outpatient OWENS_T DMG DMG [id number] [facility] 00:00:00 00:00:00 0824 Medica l Group 2022-03-08 2022-03-08 Outpatient Persaud_B_W VFP VFP [id number] [facility] 00:00:00 00:00:00 AGDNU [id number] Family Practic e 2022-02-15 2022-02-15 Outpatient OWENS_T DMG DMG [id number] [facility] 00:00:00 00:00:00 0802 Medica l Group 2022-01-28 2022-01-28 Outpatient OWENS_T DMG DMG [id number] [facility] 07:21:00 07:21:00 0715 Medica l Group 2021-12-22 2021-12-22 Outpatient Gilbert_L VFP VFP [id number] [place] [address] 06:14:00 06:14:00 [id number] Family Practic e 2021-12-22 2021-12-22 Outpatient Persaud_B_W VFP VFP [id number] [facility] 06:14:00 06:14:00 AGDNU [id number] Family Practic e 2021-12-22 2021-12-22 Outpatient Persaud_B_W VFP VFP [id number] [facility] 06:14:00 06:14:00 AGDNU [id number] Family Practic e 2021-12-22 2021-12-22 Outpatient Persaud_B_W VFP VFP [id number] [facility] 06:14:00 06:14:00 AGDNU [id number] Family Practic e 2021-12-22 2021-12-22 Marsha VFP [place] - [id number] V illage 00:00:00 00:00:00 Trisha [facility] Famil y MD: 4615 Medical - Pract [facility] VM_HOU_Fair e Tai [address] [address] , Ph. 2021-12-10 2021-12-10 Outpatient Gilbert_L VFP VFP [id number] [place] [address] 04:12:00 04:12:00 [id number] Family Practic e 2021-12-10 2021-12-10 Outpatient Persaud_B_W VFP VFP [id number] [facility] 04:12:00 04:12:00 AGDNU [id number] Family Practic e 2021-12-10 2021-12-10 Eva VFP [place] - [id number] [facility] 00:00:00 00:00:00 Mirza, Law Family STATISTICS TEACHER: 4615 Medical - Pract [facility] VM_HOU_Fair e Tai [facility] ([address] [address] , Ph. 2021-11-15 2021-11-15 Outpatient Gilbert_L VFP VFP [id number] [facility] 08:45:00 08:45:00 [id number] Family Practic e 2021-11-15 2021-11-15 Outpatient Persaud_B_W VFP VFP [id number] [facility] 08:45:00 08:45:00 AGDNU [id number] Family Practic e 2021-11-15 2021-11-15 Outpatient Persaud_B_W VFP VFP [id number] [facility] 08:45:00 08:45:00 AGDNU [id number] Family Practic e 2021-11-11 2021-11-11 Outpatient Gilbert_L VFP VFP [id number] [facility] 10:58:00 10:58:00 [id number] Family Practic e 2021-11-11 2021-11-11 Lisbeth VFP [place] - [id number] V illage 00:00:00 00:00:00 [facility] MD Sarwat: [facility] 4615 VM_HOU_Fair zachary lopez ([facility]) [facility], [facility] [address], [place] [address] , Ph. 2021-11-10 2021-11-10 Outpatient Gilbert_L VFP VFP [id number] [facility] 04:06:00 04:06:00 [id number] Family Practic e 2021-11-10 2021-11-10 Lisbeth VFP [place] - [id number] V illage 00:00:00 00:00:00 [facility] MD Sarwat: [facility] 4615 VM_HOU_Fair e Mendy lopez ([facility]) [facility], [facility] [address], [place] [address] , Ph. 2021-09-14 2021-09-14 Outpatient Gilbert_L VFP VFP [id number] [facility] 03:06:00 03:06:00 [id number] Family Practic e 2021-09-14 2021-09-14 Outpatient Persaud_B_W VFP VFP [id number] [facility] 03:06:00 03:06:00 AGDNU [id number] Family Practic e 2021-09-14 2021-09-14 Outpatient Persaud_B_W VFP VFP [id number] [facility] 03:06:00 03:06:00 AGDNU [id number] Family Practic e 2021-09-14 2021-09-14 Eva VFP [place] - [id number] [facility] 00:00:00 00:00:00 Law Blue Family STATISTICS TEACHER: 4615 Medical - Pract Mendy VM_HOU_Fair e Tai [address] [address] , Ph. 2021-08-16 2021-08-16 Outpatient Gilbert_L VFP VFP [id number] [facility] 06:24:00 06:24:00 [id number] Family Practic e 2021-08-13 2021-08-13 Outpatient Persaud_B_W VFP VFP [id number] [facility] 02:31:00 02:31:00 AGDNU [id number] Family Practic e 2021-08-13 2021-08-13 Outpatient Persaud_B_W VFP VFP [id number] [facility] 02:31:00 02:31:00 AGDNU [id number] Family Practic e 2021-07-07 2021-07-07 Outpatient Gilbert_L VFP VFP [id number] 07:33:00 07:33:00 [id number] Family Practic e 2021-07-07 2021-07-07 Marsha VFP [place] - [id number] V illage 00:00:00 00:00:00 Trisha [facility] Famil y MD: 4615 Medical - Pract Mendy MCCALL_HOU_Fair e jessica Lujan [address] [address] , Ph. 2021-06-25 2021-06-25 Outpatient Persaud_B_W VFP VFP [id number] [facility] 02:12:00 02:12:00 AGDNU [id number] Family Practic e 2021-06-25 2021-06-25 Outpatient Persaud_B_W VFP VFP [id number] [facility] 02:12:00 02:12:00 AGDNU [id number] Family Practic e 2021-06-25 2021-06-25 Outpatient Gilbert_L VFP VFP [id number] [facility] 02:12:00 02:12:00 [id number] Family Practic e 2021-05-11 2021-05-11 Outpatient Gilbert_L VFP VFP [id number] 68-20 [facility] 05:47:00 05:47:00 [id number] Family Practic e 2021-05-11 2021-05-11 Marsha VFP [place] - [id number] V illage 00:00:00 00:00:00 Law Rico Famil y MD: 4615 Medical - Pract ic [place] VM_HOU_Fair e jessica Lujan ([address] [address] , Ph. 2021-04-27 2021-04-27 Outpatient Harrison_L VFP VFP [id number] [facility] 08:19:00 08:19:00 [id number] Family Practic e 2021-04-15 2021-04-15 Outpatient Persaud_B_W VFP VFP [id number] [facility] 02:28:00 02:28:00 AG [id number] Family Practic e 2021-04-15 2021-04-15 Zach VFP [place] - [id number] V illage 00:00:00 00:00:00 Taras [facility] Family Yobany, Medical - Pract ic DO: 4615 VM_HOU_Fair e [place] [facility] ([facility] Tai ([facility]) [address] [address] , Ph. 2021-04-14 2021-04-14 Outpatient Persaud_B_W VFP VFP [id number] [facility] 04:58:00 04:58:00 AG [id number] Family Practic e 2021-04-14 2021-04-14 Marsha VFP [place] - [id number] V illage 00:00:00 00:00:00 Law Rico y MD: 4615 Medical - Pract ic Mendy VM_HOU_Fair e jessica Lujan ([facility]) [address] [address] , Ph. 2021-04-07 2021-04-07 Outpatient Harrison_L VFP VFP [id number] [facility] 10:47:00 10:47:00 [id number] Family Practic e 2021-04-07 2021-04-07 Outpatient Harrison_L VFP VFP [id number] [facility] 10:47:00 10:47:00 [id number] Family Practic e 2021-02-23 2021-02-23 Outpatient Persaud_B_W VFP VFP 119 [id number] [facility] 03:17:00 03:17:00 AG [id number] Family Practic e 2021-02-23 2021-02-23 Outpatient Persaud_B_W VFP VFP 119 [id number] [facility] 03:17:00 03:17:00 AG [id number] Family Practic e 2021-02-05 2021-02-05 Outpatient Persaud_B_W VFP VFP [id number] [facility] 05:41:00 05:41:00 AG [id number] Family Practic e 2021-02-04 2021-02-04 Outpatient Persaud_B_W VFP VFP 119 [id number] [facility] 11:21:00 11:21:00 AG [id number] Family Practic e 2021-02-03 2021-02-03 Outpatient Persaud_B_W VFP VFP [id number] [facility] 01:38:00 01:38:00 AG [id number] Family Practic e 2021-02-03 2021-02-03 Marsha VFP [place] - [id number] V illage 00:00:00 00:00:00 Law Rico Famil y MD: 4615 Medical - Pracarjun MCCALL_HOU_Fair e Tai [address] [address] , Ph. 2021-02-02 2021-02-02 Outpatient Persaud_B_W VFP VFP [id number] [facility] 11:36:00 11:36:00 AG [id number] Family Practic e 2021-02-02 2021-02-02 Marsha VFP [place] - [id number] V illage 00:00:00 00:00:00 Law Rico y MD: 4615 Medical - Pracarjun Brooke VM_HOU_Fair e Tai [address] [address] , Ph. 2021-01-252021-01-25 Emergency EM Keyur, HCABM FERS [id number] [facility] 19:52:00 22:38:00 Gabriel [id number] [facility] 2021-01-21 2021-01-21 Outpatient OWENS_T DMG [facility] [id number] [facility] 05:58:00 05:58:00 [id number] Medica l Group 2021-01-13 2021-01-13 Outpatient Persaud_B_W VFP VFP [id number] [facility] 08:32:00 08:32:00 AG [id number] Family Practic e 2021-01-13 2021-01-13 Outpatient Persaud_B_W VFP VFP [id number] [facility] 08:32:00 08:32:00 AG [id number] Family Practic e 2021-01-09 2021-01-09 Outpatient Persaud_B_W VFP VFP [id number] [facility] 01:22:00 01:22:00 AG [id number] Family Practic e 2021-01-09 2021-01-09 Eva VFP [place] - [id number] [facility] 00:00:00 00:00:00 Mirza, [place] Family STATISTICS TEACHER: 4615 Medical - Pract ic Mendy MCCALL_MALATHI_jessica Aguayo [facility] [address], [place] [address] , Ph. 2020-11-18 2020-11-18 Outpatient Persaud_B_W VFP VFP [id number] [facility] 03:32:00 03:32:00 AG [id number] Family Practic e 2020-11-18 2020-11-18 Outpatient Persaud_B_W VFP VFP [id number] [facility] 03:32:00 03:32:00 AG [id number] Family Practic e 2020-11-18 2020-11-18 Outpatient Persaud_B_W VFP VFP 119 [id number] [facility] 03:32:00 03:32:00 AG [id number] Family Practic e 2020-11-18 2020-11-18 Outpatient Persaud_B_W VFP VFP 119 [id number] [facility] 03:32:00 03:32:00 AG [id number] Family Practic e 2020-11-02 2020-11-02 Outpatient Persaud_B_W VFP VFP 119 [id number] [facility] 03:20:00 03:20:00 AG [id number] Family Practic e 2020-11-02 2020-11-02 Marsha VFP [place] - [id number] V illage 00:00:00 00:00:00 Law Rico y : 46[facility] Mikey Pracarjun PAIGEHOU_Fair jessica Singleton ([facility]) [address], [place] [address] , Ph. 2020-10-06 2020-10-06 Outpatient Persaud_B_W VFP VFP [id number] [facility] 04:07:00 04:07:00 AG [id number] Family Practic e 2020-09-28 2020-09-28 Outpatient POLLONoble [facility] [id number] [address] [place] [address] 00:00:00 00:00:[address] [facility] 2020-09-21 2020-09-21 Outpatient Ted AnnaCL HCACL [id number] [facility] 22:58:06 22:58:06 78 [facility] 2020-09-16 2020-09-16 Outpatient Ted Olsen OPLA [id number] [facility] 08:11:00 08:11:00 [id number] [facility] 2020-09-16 2020-09-16 Outpatient Persaud_B_W VFP VFP [id number] [facility] 05:04:00 05:04:00 AG [id number] Family Practic e 2020-09-16 2020-09-16 Marsha VFP [place] - [id number] V illage 00:00:00 00:00:00 Law Rico y MD: 4615 Medical - Pracarjun OLIVIA_Fair jessica Singleton ([facility]) [address], [place] [address] , Ph. 2020-09-07 2020-09-07 Outpatient Ted AnnaCL HCACL [id number] [facility] 13:53:13 13:53:13 55 [facility] 2020-09-07 2020-09-07 Outpatient Ted [facility] [id number] [facility] 08:11:00 08:11:00 [id number] [facility] 2020-09-07 2020-09-07 Outpatient [facility] [id number] [place] 00:00:00 00:00:[id number] 2020-09-02 2020-09-02 Outpatient Persaud_B_W VFP VFP [id number] [facility] 05:01:00 05:01:00 AG [id number] Family Practic e 2020-08-24 2020-08-24 Outpatient Persaud_B_W VFP VFP [id number] [facility] 12:12:00 12:12:00 AG [id number] Family Practic e 2020-08-24 2020-08-24 Marsha VFP [place] - [id number] V illage 00:00:00 00:00:00 Law Rico MD: 4615 Medical - Pract grace OLIVIA_Fair jessica Singleton [facility] [address] [place] [address] , Ph. 2020-08-21 2020-08-21 Outpatient Persaud_B_W VFP VFP [id number] [facility] 12:51:00 12:51:00 AG [id number] Family Practic e 2020-08-12 2020-08-12 Outpatient Persaud_B_W VFP VFP [id number] [facility] 02:11:00 02:11:00 AG [id number] Family Practic e 2020-07-27 2020-07-27 Outpatient Persaud_B_W VFP VFP 119 [id number] [facility] 06:13:00 06:13:00 AG [id number] Family Practic e 2020-07-27 2020-07-27 Marhsa VFP [place] - [id number] V illage 00:00:00 00:00:00 Law Rico MD: 4615 Medical - Pracarjun MCKINNEYU_Fair jessica Singleton ([facility]) [address], [place] [address] , Ph. 2020-07-24 2020-07-24 Outpatient Persaud_B_W VFP VFP [id number] [facility] 09:04:00 09:04:00 AG [id number] Family Practic e 2020-06-12 2020-06-12 Outpatient Persaud_B_W VFP VFP [id number] [facility] 02:58:00 02:58:00 AG [id number] Family Practic e 2020-06-09 2020-06-09 Outpatient Persaud_B_W VFP VFP [id number] [facility] 09:00:00 09:00:00 AG [id number] Family Practic e 2020 2020 Outpatient Persaud_B_W VFP VFP 119 [id number]20 [facility] 05:40:00 05:40:00 AG [id number] Family Practic e 2020 2020 Marsha VFP [place] - [id number] V illage 00:00:00 00:00:00 Law Rico Famil y MD: 4615 Medical - Pract grace Loza [address] [address] , Ph. 2020-05-23 2020-05-23 Outpatient Persaud_B_W VFP VFP [id number] [facility] 01:14:00 01:14:00 AG Family Practic e 2020-05-19 2020-05-19 Outpatient Persaud_B_W VFP VFP [id number] [facility] 05:53:00 05:53:00 AG Family Practic e 2020-05-19 2020-05-19 Marsha VFP [place] - [id number] V illage 00:00:00 00:00:00 Trisha [facility] Famil y MD: 4615 Medical - Pracarjun Loza [address] [address] , Ph. 2020-05-12 2020-05-12 Outpatient Persaud_B_W VFP VFP [id number] [facility] 03:41:00 03:41:00 AG [id number] Family Practic e 2020-01-10 2020-01-10 Outpatient TOBI, [facility] [id number] [place] 00:00:00 00:00:00 SUZAN [address] 2020-01-02 2020-01-02 Outpatient TOBI [facility] [id number] [place] 00:00:00 00:00:00 SUZAN [address] 2020-01-02 2020-01-02 Outpatient TOBI, [facility] [id number] [place] 00:00:00 00:00:00 SUZAN [address] [facility] 2019-01-07 2019-01-09 Phone nullFlavo MG [id number] [facility] 16:17:50 04:59:59 Message r Primary 21 [facility] 2019-01-07 2019-01-09 Phone nullFlavo MG [id number] Memoria 16:17:50 04:59:59 Message r Primary 21 [facility] 2019-01-07 2019-01-08 Outpatient MG MG [id number] 11:17:50 23:59:59 2018-12-31 2019-01-02 Phone nullFlavo MG [id number] [facility] 20:19:01 04:59:59 Message r Primary 20 [facility] 2018-12-31 2019-01-02 Phone nullFlavo MG [id number] Memoria 20:19:01 04:59:59 Message r Primary 20 [facility] 2018-12-31 2019-01-01 Outpatient MG MG [id number] 15:19:01 23:59:59 20 2018-11-09 2018-11-11 Phone nullFlavo MG [id number] Memoria 19:21:00 04:59:59 Message r Primary 19 [facility] 2018-11-09 2018-11-11 Phone nullFlavo MG [id number] Memoria 19:21:00 04:59:59 Message r Primary 19 [facility] 2018-11-09 2018-11-10 Outpatient MHMG MG [id number] 14:21:00 23:59:59 19 2018-11-08 2018-11-09 Between nullFlavo MG [id number] Memoria 17:54:48 17:54:48 Visit r Primary 35 [facility] 2018-11-08 2018-11-09 Between nullFlavo MG [id number] Memoria 17:54:48 17:54:48 Visit r Primary 35 [facility] 2018-11-08 2018-11-09 Between nullFlavo MHMG [id number] Memoria 17:53:56 17:53:56 Visit r Primary 34 [facility] 2018-11-08 2018-11-09 Between nullFlavo MG [id number] Memoria 17:53:56 17:53:56 Visit r Primary 34 [facility] 2018-11-08 2018-11-09 Outpatient MHMG MG [id number] 12:54:48 12:54:48 35 2018-11-08 2018-11-09 Outpatient MHMG MG [id number] 12:53:56 12:53:56 34 2018-10-31 2018-11-01 [place] [id number] Memoria 16:15:00 04:59:59 r Primary 23 [facility] 2018-10-31 2018-11-01 [place] [id number] Memoria 16:15:00 04:59:59 r Primary 23 [facility] 2018-10-31 2018-10-31 Outpatient Rani MG MG [id number] 11:15:00 23:59:59 Dhiekson 23 [facility] 2018-10-31 2018-10-31 Outpatient MHIE MHIE [id number] Memoria 11:15:00 11:15:00 23 [facility] 2018-09-16 2018-09-17 Between nullFlavo MG [id number] Memoria 12:13:57 12:13:57 Visit r Primary 32 [facility] 2018-09-16 2018-09-17 Between nullFlavo MG [id number] Memoria 12:13:57 12:13:57 Visit r Primary 32 [facility] 2018-09-16 2018-09-17 Outpatient MHMG MG [id number] 06:13:57 06:13:57 32 2018-09-10 2018-09-12 Phone nullFlavo MG [id number] Memoria 15:15:00 05:59:59 Message r Primary 18 [facility] 2018-09-10 2018-09-12 Phone nullFlavo MG [id number] Memoria 15:15:00 05:59:59 Message r Primary 18 l [facility] 2018-09-10 2018-09-11 Outpatient MHMG MG [id number] 09:15:00 23:59:59 18 2018-09-10 2018-09-11 [place] [id number] Memoria 14:30:00 05:59:59 r Primary 21 [facility] 2018-09-10 2018-09-11 [place] [id number] Memoria 14:30:00 05:59:59 r Primary 21 [facility] 2018-09-10 2018-09-10 Outpatient Saravia, MHMG MG [id number] 08:30:00 23:59:59 [place] 21 [facility] [place]09-10 2018-09-10 [place] [id number] Memoria 14:30:00 14:30:00 Pre-Reg r Primary 20 [facility] 2018-09-10 2018-09-10 [place] [id number] Memoria 14:30:00 14:30:00 Pre-Reg r Primary 20 [facility] 2018-09-10 2018-09-10 Outpatient MHIE MHIE [id number] Memoria 08:30:00 08:30:00 21 [facility] 2018-09-10 2018-09-10 Outpatient MHIE MHIE [id number] Memoria 08:30:00 08:30:00 20 [facility] 2018-09-10 2018-09-10 Outpatient Shpats, MG MG [id number] 08:30:00 08:30:00 Selena 20 2018-08-27 2018-08-27 [place] [id number] Memoria 21:30:00 21:30:00 Pre-Reg r Primary 22 [facility] 2018-08-27 2018-08-27 [place] [id number] Memoria 21:30:00 21:30:00 Pre-Reg r Primary 22 [facility] 2018-08-27 2018-08-27 Outpatient MHIE MHIE [id number] Memoria 15:30:00 15:30:00 22 [facility] 2018-08-27 2018-08-27 [id number] 15:30:00 15:30:00 Dhiekson 22 [facility] 2018-08-02 2018-08-03 [place] [id number] Memoria 19:30:00 05:59:59 r Primary 19 [facility] 2018-08-02 2018-08-03 [place] [id number] Memoria 19:30:00 05:59:59 r Primary 19 [facility] 2018-08-02 2018-08-02 Outpatient Julia, MG MG [id number] 13:30:00 23:59:59 Selena 19 2018-08-02 2018-08-02 [place] [id number] Memoria 19:30:00 19:30:00 Pre-Reg r Primary 18 [facility] 2018-08-02 2018-08-02 [place] [id number] Memoria 19:30:00 19:30:00 Pre-Reg r Primary 18 [facility] 2018-08-02 2018-08-02 Outpatient MHIE MHIE [id number] Memoria 13:30:00 13:30:00 19 [facility] 2018-08-02 2018-08-02 Outpatient MHIE MHIE [id number] Memoria 13:30:00 13:30:00 18 [facility] 2018-08-02 2018-08-02 [facility] [id number] 13:30:00 13:30:00 [place] 18 [facility] 2018-07-30 2018-07-30 [place] [id number] Memoria 20:30:00 20:30:00 Pre-Reg r Primary 17 [facility] 2018-07-30 2018-07-30 [place] [id number] Memoria 20:30:00 20:30:00 Pre-Reg r Primary 17 [facility] 2018-07-30 2018-07-30 Outpatient MHIE MHIE [id number] Memoria 14:30:00 14:30:00 17 [facility] 2018-07-30 2018-07-30 Outpatient Saravia, MHMG MG [id number] 14:30:00 14:30:00 Liza Sánchez 2018-07-05 2018-07-07 Phone nullFlavo MG [id number] Memoria 17:18:00 05:59:59 Message r Primary 17 [facility] 2018-07-05 2018-07-07 Phone nullFlavo MG [id number] Memoria 17:18:00 05:59:59 Message r Primary 17 [facility] 2018-07-05 2018-07-06 Outpatient MHMG MG [id number] 11:18:00 23:59:59 17 2018-05-18 2018-05-20 Phone nullFlavo MG [id number] Memoria 16:39:00 04:59:59 Message r Primary 16 [facility] 2018-05-18 2018-05-20 Phone nullFlavo MG [id number] Memoria 16:39:00 04:59:59 Message r Primary 16 [facility] 2018-05-18 2018-05-19 Outpatient MHMG MG [id number] 11:39:00 23:59:59 16 2018-04-03 2018-04-03 Outpt Diag nullFlavo [facility] [id number] Memoria 12:45:00 12:45:00 Services r Outpatient 07 [facility] 2018-04-03 2018-04-03 Outpt Diag nullFlavo [facility] [id number] Memoria 12:45:00 12:45:00 Services r Outpatient 07 [facility] 2018-04-03 2018-04-03 Outpatient Alexandr, 2.16.840. 2.16.840.1. 3 [id number] 07:45:00 07:45:00 [place] [id number] 3.615.36 5.36 2018-04-02 2018-04-03 [place] [id number] Memoria 19:30:00 04:59:59 r Primary 16 [facility] 2018-04-02 2018-04-03 [place] [id number] Memoria 19:30:00 04:59:59 r Primary 16 l [facility] 2018-04-02 2018-04-02 Outpatient Rani MG [facility] [id number] 14:30:00 23:59:59 Liza Sánchez 2018-04-02 2018-04-02 Outpatient MHIE [facility] [id number] Memoria 14:30:00 14:30:00 16 radha [place] 2018-03-26 2018-03-26 Emergency nullFlavo [facility] [id number] Memoria 02:38:00 05:08:00 zurdo [place] [address] [place] [address] 2018-03-26 2018-03-26 Emergency nullFlavo [facility] [id number] Memoria 02:38:00 05:08:00 zurdo Xander 08 [facility] 2018-03-25 2018-03-26 Outpatient Brigid, [facility] [id number] 21:38:00 00:08:00 Gaby Heena Salgueroy 2018-03-14 2018-03-16 Phone nullFlavo [facility] [id number] Memoria 15:17:00 04:59:59 Message r Primary 15 l [facility] 2018-03-14 2018-03-16 Phone nullFlavo MG [id number] Memoria 15:17:00 04:59:59 Message r Primary 15 l [facility] 2018-03-14 2018-03-15 Outpatient [facility] [id number] 10:17:00 23:59:59 15 2018-03-07 2018-03-09 Phone nullFlavo MG [id number] Memoria 19:52:00 04:59:59 Message r Primary 14 l [facility] 2018-03-07 2018-03-09 Phone nullFlavo MG [id number] Memoria 19:52:00 04:59:59 Message r Primary 14 l [facility] 2018-03-07 2018-03-08 Outpatient MG [facility] [id number] 14:52:00 23:59:59 14 2018-03-06 2018-03-07 [place] [id number] Memoria 15:00:00 04:59:59 r Primary 15 l [facility] 2018-03-06 2018-03-07 [place] [id number] Memoria 15:00:00 04:59:59 r Primary 15 [facility] 2018-03-06 2018-03-06 Outpatient Saravia, MG MG [id number] 10:00:00 23:59:59 Dhiekson 15 [facility] 2018-03-06 2018-03-06 Outpatient MHIE MHIE [id number] Memoria 10:00:00 10:00:00 15 [facility] 2017-12-01 2017-12-03 Phone nullFlavo MG [id number] Memoria 19:26:00 04:59:59 Message r Primary 13 [facility] 2017-12-01 2017-12-03 Phone nullFlavo MG [id number] Memoria 19:26:00 04:59:59 Message r Primary 13 [facility] 2017-12-01 2017-12-03 Phone nullFlavo MG [id number] Memoria 15:06:00 04:59:59 Message r Primary 12 [facility] 2017-12-01 2017-12-03 Phone nullFlavo MG [id number] Memoria 15:06:00 04:59:59 Message r Primary 12 [facility] 2017-12-01 2017-12-02 Outpatient MHMG MG [id number] 14:26:00 23:59:59 13 2017-12-01 2017-12-02 Outpatient MG MG [id number] 10:06:00 23:59:59 12 2017-10-20 2017-11-19 OP Therapy nullFlavo SMR [id number] Memoria 07:30:00 04:59:00 Patients r [facility] 02 [facility] 2017-10-20 2017-11-19 OP Therapy nullFlavo SMR [id number] Memoria 07:30:00 04:59:00 Patients r [facility] 02 [facility] 2017-10-20 2017-11-18 Outpatient Rani, 2.16.840. 2.16.840.1. 3 [id number] 02:30:00 23:59:00 Dhiekson [id number]. [id number] 02 [place] 3.615.98 5.98 2017-11-13 2017-11-15 Phone nullFlavo MHMG [id number] Memoria 20:21:00 04:59:59 Message r Primary 11 l [facility] 2017-11-13 2017-11-15 Phone nullFlavo MHMG [id number] Memoria 20:21:00 04:59:59 Message r Primary 11 l [facility] 2017-11-13 2017-11-15 Phone nullFlavo MNA [id number] Memoria 13:42:00 04:59:59 Message r Neuroscienc 10 l e [facility] 2017-11-13 2017-11-15 Phone nullFlavo MNA [id number] Memoria 13:42:00 04:59:59 Message r Neuroscienc 10 l e [facility] 2017-11-13 2017-11-14 Outpatient MHMG MHMG [id number] 15:21:00 23:59:59 11 2017-11-13 2017-11-14 Outpatient MHMISCHER MHMISCHER [id number] 08:42:00 23:59:59 10 2017-11-07 2017-11-08 Outpatient nullFlavo MNA [id number] Memoria 15:30:00 04:59:59 r Neuroscienc 13 l e [facility] 2017-11-07 2017-11-08 Outpatient nullFlavo MNA [id number] Memoria 15:30:00 04:59:59 r Neuroscienc 13 l e [facility] 2017-11-07 2017-11-07 Outpatient MHMISCHER MHMISCHER [id number] 10:30:00 23:59:59 13 2017-11-07 2017-11-07 Outpatient MHIE MHIE [id number] Memoria 10:30:00 10:30:00 13 [facility] 2017-10-16 2017-10-17 [place] [id number] Memoria 20:00:00 04:59:59 r Primary 14 [facility] 2017-10-16 2017-10-17 [place] [id number] Memoria 20:00:00 04:59:59 r Primary 14 [facility] 2017-10-16 2017-10-16 Outpatient Rani [facility] [id number] 15:00:00 23:59:59 Dhiekson 14 [place] 2017-10-16 2017-10-16 Outpatient MHIE MHIE [id number] Memoria 15:00:00 15:00:00 14 l Xander 2017-10-05 2017-10-07 Phone nullFlavo MNA [id number] Memoria 20:43:00 04:59:59 Message r Neuroscienc 09 l e [facility] 2017-10-05 2017-10-07 Phone nullFlavo MNA [id number] Memoria 20:43:00 04:59:59 Message r Neuroscienc 09 l e [facility] 2017-10-05 2017-10-06 Outpatient [id number] 15:43:00 23:59:59 09 2017-09-26 2017-09-27 Outpatient nullFlavo MNA [id number] Memoria 17:45:00 04:59:59 r Neuroscienc 11 l e [facility] 2017-09-26 2017-09-27 Outpatient nullFlavo MNA [id number] Memoria 17:45:00 04:59:59 r Neuroscienc 11 l e [facility] 2017-09-26 2017-09-26 Outpatient MHMISCHER MISCHER [id number] 12:45:00 23:59:59 11 2017-09-26 2017-09-26 Outpatient MHIE IE [id number] Memoria 12:45:00 12:45:00 11 radha Terrell 2017-09-04 2017-09-06 Phone nullFlavo MNA [id number] Memoria 22:11:00 05:59:59 Message r Neuroscienc 08 l e [facility] 2017-09-04 2017-09-06 Phone nullFlavo MNA [id number] Memoria 22:11:00 05:59:59 Message r Neuroscienc 08 l e [place] [facility] 2017-09-04 2017-09-05 Outpatient MHMISCHER MISCHER [id number] 16:11:00 23:59:59 08 2017-08-21 2017-08-22 Outpatient nullFlavo [facility] [id number] Memoria 17:30:00 05:59:59 r Primary 12 l Care [facility] 2017-08-21 2017-08-22 Outpatient nullFlavo [facility] [id number] Memoria 17:30:00 05:59:59 r Primary 12 l [facility] 2017-08-21 2017-08-21 Outpatient Brock MG [facility] [id number] 11:30:00 23:59:59 Terrie Davon Pacheco 2017-08-21 2017-08-21 Outpatient MHIE MHIE [id number] Memoria 11:30:00 11:30:00 12 [facility] 2017-08-15 2017-08-17 Phone nullFlavo MNA [id number] Memoria 20:38:00 05:59:59 Message r Neuroscienc 07 l e [facility] 2017-08-15 2017-08-17 Phone nullFlavo MNA [id number] Memoria 20:38:00 05:59:59 Message r Neuroscienc 07 l e [facility] 2017-08-15 2017-08-16 [id number] 14:38:00 23:59:59 07 2017-08-15 2017-08-16 [place] [id number] Memoria 17:00:00 05:59:59 r Primary 10 l [facility] 2017-08-15 2017-08-16 [place] [id number] Memoria 17:00:00 05:59:59 r Primary 10 l [facility] 2017-08-15 2017-08-16 Outpt Diag nullFlavo [facility] [id number] Memoria 18:16:00 05:59:00 Services r Outpatient 05 l Imaging [facility] 2017-08-15 2017-08-16 Outpt Diag nullFlavo [facility] [id number] Memoria 18:16:00 05:59:00 Services r Outpatient 05 l Imaging [facility] 2017-08-15 2017-08-15 Outpatient Rani, [facility] [id number] 11:00:00 23:59:59 Dhiekson 10 Emmiequisedloya 2017-08-15 2017-08-15 Outpatient Rani, 2.16.840. 2.16.840.1. 3 [id number] 12:16:00 23:59:00 Dhiekson [id number]. [id number] Melquised[place] 3.615.36 5.36 2017-08-15 2017-08-15 Outpatient BEATRICE [facility] [id number] Memoria 11:00:00 11:00:00 10 l [place] 2017-08-04 2017-08-05 Outpt Diag nullFlavo [facility] [id number] Memoria 20:21:00 05:59:00 Services r Outpatient 04 l Imaging [facility] 2017-08-04 2017-08-05 Outpt Diag nullFlavo [facility] [id number] Memoria 20:21:00 05:59:00 Services r Outpatient 04 l [facility] 2017-08-04 2017-08-04 Outpatient Rani, 2.16.840. 2.16.840.1. 3 [id number] 14:21:00 23:59:00 Dhiekson [id number]. [id number] Mel[place] 3.615.36 5.36 2017-07-24 2017-07-24 Emergency nullFlavo [facility] [id number] Memoria 09:29:00 12:32:00 r [place] 07 [facility] 2017-07-24 2017-07-24 Emergency nullFlavo [facility] [id number] Memoria 09:29:00 12:32:00 r [place] 07 [facility] 2017-07-24 2017-07-24 Outpatient Brigid [facility] [id number] 03:29:00 06:32:[address] [place] [address] 2017-07-24 2017-07-24 Outpatient Brigid, [facility] [id number] 03:29:00 06:32:[address] [place] [address] 2017-07-21 2017-07-22 Outpatient nullFlavo [facility] [id number] Memoria 14:30:00 05:59:59 r Primary 09 l [facility] 2017-07-21 2017-07-22 Outpatient nullFlavo [facility] [id number] Memoria 14:30:00 05:59:59 r Primary 09 l [facility] 2017-07-21 2017-07-21 Outpatient Rani [facility] [id number] 08:30:00 23:59:59 Dhiekson 09 [place] 2017-07-21 2017-07-21 Outpatient MHIE MHIE [id number] Memoria 08:30:00 08:30:00 09 [facility] 2017-07-14 2017-07-16 Phone nullFlavo MG [id number] Memoria 11:59:00 05:59:59 Message r Primary 06 [facility] 2017-07-14 2017-07-16 Phone nullFlavo MG [id number] Memoria 11:59:00 05:59:59 Message r Primary 06 [facility] 2017-07-14 2017-07-15 Outpatient MHMG MG [id number] 05:59:00 23:59:59 06 2017-06-30 2017-07-02 Phone nullFlavo MG [id number] Memoria 19:02:00 05:59:59 Message r Primary 05 [facility] 2017-06-30 2017-07-02 Phone nullFlavo MG [id number] Memoria 19:02:00 05:59:59 Message r Primary 05 [facility] 2017-06-30 2017-07-01 Outpatient MHMG MG [id number] 13:02:00 23:59:59 05 2017-06-30 2017-07-01 Outpt Diag nullFlavo [facility] [id number] Memoria 21:24:00 05:59:00 Services r Outpatient 03 [facility] 2017-06-30 2017-07-01 Outpt Diag nullFlavo [facility] [id number] Memoria 21:24:00 05:59:00 Services r Outpatient 03 [facility] 2017-06-30 2017-06-30 Outpatient Saravia, 2.16.840. 2.16.840.1. 3 [id number] 15:24:00 23:59:00 Dhiekson [id number]. [id number] [place] 3.615.36 5.36 2017-06-19 2017-06-21 Phone nullFlavo MG [id number] Memoria 22:08:00 05:59:59 Message r Primary 04 [facility] 2017-06-19 2017-06-21 Phone nullFlavo MHMG [id number] Memoria 22:08:00 05:59:59 Message r Primary 04 [facility] 2017-06-19 2017-06-20 Outpatient MHMG MHMG [id number] 16:08:00 23:59:59 04 2017-06-14 2017-06-16 Phone nullFlavo MHMG [id number] Memoria 22:45:00 05:59:59 Message r Primary 03 [facility] 2017-06-14 2017-06-16 Phone nullFlavo MHMG [id number] Memoria 22:45:00 05:59:59 Message r Primary 03 [facility] 2017-06-14 2017-06-15 Outpatient MHMG MHMG [id number] 16:45:00 23:59:59 2017-04-21 2017-04-21 Outpatient MHIE MHIE [id number] Memoria 14:00:00 14:00:00 08 radha Terrell 2017-04-21 2017-04-21 Outpatient MHIE MHIE [id number] Memoria 14:00:00 14:00:00 08 radha Terrell 2016-07-22 2016-07-22 Outpatient [facility] [id number] [place] 09:27:32 09:27:32 Health 2015-10-19 2015-10-19 Outpatient MHIE MHIE [id number] Memoria 08:00:00 08:00:00 07 radha Terrell 2015-10-19 2015-10-19 Outpatient MHIE MHIE [id number] Memoria 08:00:00 08:00:00 07 radha Terrell 2015-09-28 2015-09-28 Outpatient MHIE MHIE [id number] Memoria 14:30:00 14:30:00 06 radha Terrell 2015-09-28 2015-09-28 Outpatient MHIE MHIE [id number] Memoria 14:30:00 14:30:00 06 radha Terrell 2015-09-18 2015-09-18 Outpatient MHIE MHIE [id number] Memoria 10:00:00 10:00:00 05 radha Terrell 2015-09-18 2015-09-18 Outpatient MHIE MHIE [id number] Memoria 10:00:00 10:00:00 05 radha Terrell 2015-08-18 2015-08-18 Outpatient MHIE MHIE [id number] Memoria 11:30:00 11:30:00 03 radha Terrell 2015-08-18 2015-08-18 Outpatient MHIE MHIE [id number] Memoria 11:30:00 11:30:00 03 radha Terrell 2015-07-29 2015-07-29 Outpatient MHIE MHIE [id number] Memoria 10:00:00 10:00:00 04 radha Terrell 2015-07-29 2015-07-29 Outpatient MHIE MHIE [id number] Memoria 10:00:00 10:00:00 04 radha Terrell 2015-05-18 2015-05-18 Outpatient MHIE MHIE [id number] Memoria 11:00:00 11:00:00 02 radha Terrell 2015-05-18 2015-05-18 Outpatient MHIE MHIE [id number] Memoria 11:00:00 11:00:00 02 radha Terrell 2015-05-04 2015-05-04 Outpatient MHIE MHIE [id number] Memoria 11:15:00 11:15:00 01 radha Terrell 2015-05-04 2015-05-04 Outpatient MHIE MHIE [id number] Memoria 11:15:00 11:15:00 01 radha Terrell 2015-04-17 2015-04-17 Outpatient MHIE MHIE [id number] Memoria 11:00:00 11:00:00 00 radha Terrell 2015-04-17 2015-04-17 Outpatient MHIE MHIE [id number] Memoria 11:00:00 11:00:00 00 radha Terrell 2014-06-05 2014-06-06 Outpatient nullFlavo [facility] [id number] Memoria 17:12:00 05:59:00 r Outpatient 01 [facility] 2014-06-05 2014-06-06 Outpatient nullFlavo [facility] [id number] Memoria 17:12:00 05:59:00 r Outpatient 01 [facility] 2014-06-05 2014-06-05 Outpatient Chidi, 2.16.840. 2.16.840.1. [id number] 11:12:00 23:59:00 Yasemin [id number]. [id number] 01 Ryann 3.615.0.1 5.0.391 98 0459-09-25 2014-04-10 OBS nullFlavo [facility] [id number] Memoria 02:24:00 22:50:00 Observatio r Xander 04 l n Patient [facility] 2014-04-10 2014-04-10 OBS nullFlavo [facility] [id number] Memoria 02:24:00 22:50:00 Observatio r Xander 04 l n Patient [facility] 2014-04-09 2014-04-10 Outpatient Marilin, 2.16.840. 2.16.840.1. [id number] 21:24:00 17:50:00 Eulalio [id number]. [id number] Parvez 3.615.0.1 5.0.290 02 0635-08-27 2014-03-13 Outpt Diag nullFlavo [facility] [id number] Memoria 18:44:00 04:59:00 Services r Outpatient 00 l Imaging [facility] 2014-03-12 2014-03-13 Outpt Diag nullFlavo [facility] [id number] Memoria 18:44:00 04:59:00 Services r Outpatient 00 l [facility] 2014-03-12 2014-03-12 Outpatient Murillo, 2.16.840. 2.16.840.1. [id number] 13:44:00 23:59:00 Yasemin 1.756271. [id number] Ryann 3.615.0.1 5.0.223 29 5530-01-16 2013-08-01 Outpatient 2.16.840. 2.16.840.1. 3 [id number] Memoria 19:51:00 23:59:00 [id number]. [id number] 03 l 3.615.0.[address]0.[address] 2013-08-01 2013-08-01 Outpatient nullFlavo [id number] Memoria 19:51:00 19:51:00 [facility] 03 l [place] 2013-08-01 2013-08-01 Outpatient nullFlavo [id number] Memoria 19:51:00 19:51:00 r [facility] 03 l [place] 2013-06-14 2013-06-14 Outpatient 2.16.840. 2.16.840.1. 3 [id number] Memoria 19:34:00 23:59:00 [id number]. [id number] 02 l 3.615.0.1 5.0.101 Heron n 01 [facility] 2013-06-14 2013-06-14 Outpatient nullFlavo [id number] Memoria 19:34:00 19:34:00 r [facility] 02 l [place] 2013-06-14 2013-06-14 Outpatient nullFlavo [id number] Memoria 19:34:00 19:34:00 r [facility] 02 l [place] 2012-07-24 2012-07-24 Outpatient [facility] [id number] Memoria 10:50:00 10:50:00 00 l [place] 2012-07-24 2012-07-24 Outpatient [facility] [id number] Memoria 10:50:00 10:50:00 00 radha Terrell Results Test Description Test Time Test Comments Results Result Comments Source Influenza virus A and B and SARS-CoV+SARS-CoV-2 (COVID -19) Ag 2021-12-10 14:11:38 panel - Upper respiratory specimen by Rapid immunoassay Test Item Value Reference Range Interpretation Comme nts Influenza A (test code = Influenza A) Presumptive Negative Influenza B (test code = Influenza B) Presumptive Negative SARS-CoV-2 Antigen (test code = SARS-CoV-2 Antigen) Presum[facility] Neg [facility] SARS-[facility]+SARS-CoV-2 (COVID- 19) Ag panel - Upper respiratory specimen by Rapid [id number] 14:11:38 Test Item Value Reference Range Interpretation Comments Influenza A (test code = Presumptive Negative Influenza A) Influenza B (test code = Presumptive Negative Influenza B) SARS-CoV-2 Antigen (test Presumptive Negative code = SARS-CoV-2 Antigen) [facility]em[facility].total in [id number] 00:00:00 Test Item Value Reference Range Interpretation Comments Hemoglobin A1c/Hemoglobin.total in 7.7 % 1.0-5.7 H Blood (test code = 4548-4) average blood glucose (calculation) 174 mg/dL (test code = average blood glucose (calculation)) [facility] C-SPINE W/O [id number] 21:00:00 [facility])Name: JAMESON FLYNN : 1950 Sex: F Name: JAMESON FLYNN [facility] : 1950 Age/S: 70 / F [address] [facility] Unit #: [id number] Loc: [place] [address] Phys: Gabriel Baer MD Acct: [id number] Dis Date: Status: REG ER PHONE #: [phone] Exam Date: 01/25/20212010 FAX #: [phone] Reason: Pain s/p fall EXAMS: CPT CODE: [id number] CT C-SPINE W/O CONTRAST 21635 HISTORY: Pain s/p fallTECHNIQUE: Noncontrast 2.[address] of the head and cervical spine. Examination acquired within 24 hours of arrival. Automated exposure control for dose reduction. COMPARISON: None FINDINGS: There is swelling of the soft tissues of the scalp overlying the left side of the frontal bone. Calvarium and skull base are intact. No acute hemorrhage. No intracranial mass, mass effect, or midline shift. Noeffacement of the sulci or prarish-white matter interface. No cortical atrophy. No signs [...] malalignment. PAGE 1 Signed Report (CONTINUED) Name: CHANTAL FLYNNCHICADELMER [facility] : 1950 Age/S: 70 / F [address] [facility] Unit #: [id number] Loc: [place] [address] Phys: Gabriel Baer MD Acct: [id number] Dis Date: Status: REG ER PHONE #: [phone] Exam Date: 01/25/20212010 FAX #: [phone] Reason: Pain s/p fall EXAMS: CPT CODE: [id number] CT C-SPINE W/O CONTRAST 74915 (Continued) Location: [facility] at 2100 Reported and signed by: Ata Casas MD CC: Gabriel Baer MD; Ted Anna MD Technologist:CRIS LOUISE CTDI: DLP: Trnscb Date/Time: 01/25/2021 (2099) [email or web address] Orig Print D/T: S: 01/25/2021 (2102) PAGE 2 Signed Report- CT HEAD/BRAIN W/O [id number] 21:00:00 [facility])Name: JAMESON FLYNN MONAE : 1950 Sex: F Name: JAMESON FLYNN [facility] : 1950 Age/S: 70 / F [address] [facility] Unit #: [id number] Loc: [place] [address] Phys: Gabriel Baer MD Acct: [id number] Dis Date: Status: REG ER PHONE #: [phone] Exam Date: 01/25/20212010 FAX #: [phone] Reason: Pain s/p fall EXAMS: CPT CODE: [id number] CT HEAD/BRAIN W/O CONT 90889 HISTORY: Pain s/p fallTECHNIQUE: Noncontrast 2.[address] of the [...] 1 Signed Report (CONTINUED) Name: JAMESON FLYNN [facility] : 1950 Age/S: 70 / F [address] [facility] Unit #: [id number] Loc: [place] [address] Phys: Gabriel Baer MD Acct: [id number] Dis Date: Status: REG ER PHONE #: [phone] Exam Date: 01/25/20212010 FAX #: [phone] Reason: Pain s/p fall EXAMS:CPT CODE: [id number] CT HEAD/BRAIN W/O CONT 93378 (Continued) Location: [facility] at 2100 Reported and signed by: Ata Casas MD CC: Gabriel Baer MD; Ted Anna MD Technologist:CRIS LOUISE CTDI: DLP: Trnscb Date/Time: 01/25/2021 (2099) [email or web address] Orig Print D/T: S: 01/25/2021 (2102) PAGE 2 Signed ReportSCR MAMM BILATERAL OLEGARIO CAD [id number] 12:57:49 Name: Jameson : 1950 Sex: F* - SCR MAMM BILATERAL OLEGARIO CAD DIGITALBILATERAL DIGITAL SCREENING MAMMOGRAM 3D/2D WITH CAD: 01/01/2021LINICAL: Asymptomatic. Digital breast tomosynthesis was performed in addition to routine CC and MLO views. Current mammographic images were evaluated by [employer] CAD (computer-aided detection) software. No prior exams were available for comparison. The tissue of both breasts is predominantly fatty. No suspicious mass, architectural distortion, malignant type calcification, or lymph node abnormality detected. IMPRESSION: NEGATIVEThere is no mammographic evidence of malignancy. Resume annual screening mammography in one year. Floyd Winslow M.D. ss/penrad:01/02/2021 12:57:49 Pbx Teacher: Jenna Leon FW, [facility]-FWletter sent: BIRADS 1-2 Normal Mammogram BI-RADS: 1 NegativeGASTRIC,[id number] 16:28:00 Test Item Value Reference Range Interpretation Comments GASTRIC,BIOPSY (test code = GASTB) RUN DATE: 09/25/20 [facility] - Lab PAGE 1 RUN TIME: 1628 Specimen Inquiry RUN USER: INTERFACE PATIENT: JAMESON FLYNN LOC: [facility] U #: [id number] AGE/SX: 70/F ROOM: RE09/24/20REG DR: Ted Anna MD : [birth year] BED: DIS: STATUS: [facility] TLOC: SPEC #: [id number] RECD: 09/24/20 STATUS: BRENDEN RAMOS #: [id number] ELIANE: 09/24/20- SUBM DR: Ted Anna MD ENTERED: 09/24/20 SP TYPE: GASTRIC BX MAYTE DR: ORDERED: GROSS/2 PROCEDURES: GROSS (09/25/20-1432) TISSUES: [...] CONTINUED ON NEXT PAGE RUN DATE: 09/25/20 [facility] PAGE 2 RUN TIME: 1628 Specimen Inquiry RUN USER: INTERFACE SPEC #: [id number] PATIENT: JAMESON FLYNN #[id number] (Continued) FINAL DIAGNOSIS (Continued) RRB/ D [id number] MACROSCOPIC The first specimen is received in [...] diameter, submitted as (3). GROSS PERFORMED AT [facility] [address] [place] [id number] [phone])[phone] MICROSCOPIC All of the stains, including any controls performed, stain appropriately. 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 The testing is perf ormed by williamtrarivera d in the procedures for the Truong M2000 molecular diagnostic SARS-CoV-2 assa y in vitro. Novel Coronavirus 17:06:00 Test Item Value Reference Range Interpretation Comments Novel Coronavirus Negative Negative Positive r esults are 2019 Inhouse (test indicativ e of the presence code = [id number]) ofSARS-CoV -2 RNA, clinical correlation wit h [...] for the identification of SARS-CoV-2 RNA usingthe SensGard M2000 Sy stem under the FDA Emergen cy UseAuthorizatio n. The testing is perf ormed by personneltraine d in the procedures for the SensGard M2000 molecular diagnostic SARS-CoV-2 assa y in vitro. BASIC METABOLIC [id number] 18:05:00 Test Item Value Reference Range Interpretation [...] Modifi ed MDRD (test code = GFR) formula.Ch ronic kidney disease is defined as eith er kidney damageor GFR <60 mL/min/1.73 m2 for >3 months. [Automated mess age] The system [employer]BeiFeng generated this result transmitted ref erence range: [...] 9.0 mg/dL 8.5-10.1 N CA) CBC W/AUTO [id number] 17:44:00 Test Item Value Reference Range Interpretation [...] Test performed at: Inhouse (test code = [facility] IRL [address] [id number]) [address] [place] [address] Covid 19 InHouse [id number] 17:15:00 Test Item Value Reference Range Interpretation Comments Covid 19 Negative Negative A negative resu lt does not InHouse NTX preclude the SA RS-COV-2 (test code = viralinfection and should not be [id number]) used as the so le basis forpatient trevor gement decisions. Negative result s must becombined with clinical o bservations, patient history , andepidemiologi erika information. Viral levels in clinicalsamples below the detec tion limit of the assay could vinod d tonegative results. This t est was performed using the Logix SmartTM COVID-19 PCRassay. This test was developed and i ts performancechar acteristics were determined by Gamaliel holland [facility]. Thi s test has notbeen [...] Serum or Plasma by GET with probe [id number] 16:24:00 Test Item Value Reference Range Interpretation Comments hepatitis C antibody (test code non-reactive non-reactive = hepatitis C antibody) signal to cut-off (test code = 0.00 <1.00 signal to cut-off) [facility] Auto Differential panel - [id number] 16:00:00 Test Item Value Reference Range Interpretation [...] (test code = baso#) 0.04 x10*3/?L 0.01-0.08 [facility]Hemoglobin.total in [id number] 12:48:00 Test Item Value Reference Range Interpretation Comments Hemoglobin A1c/Hemoglobin.total in 12.4 % 1.0-5.7 H Blood (test code = 4548-4) average blood glucose (calculated) 309 mg/dL (test code = average blood glucose (calculated)) [facility] 2000 panel - Serum or [...] (test code = anion gap) 8 calc [facility] HospitalLipid 1996 panel - Serum or [id number] 11:25:00 Test Item Value Reference Range Interpretation [...] Serum or Plasma (test code = 2089-1) [facility] Auto Differential panel - [id number] 04:46:00 Test Item Value Reference Range Interpretation [...] fL 7.5-12.5 absolute neutrophils (test 2468 cells/uL 3680-2487 code = absolute neutrophils) absolute lymphocytes (test [...] basophils (test code = 1.3 % basophils) [facility] HospitalVfswulocNRCGCP6832-50-20 11:25:00 Test Item Value Reference Range Interpretation Comments GLUBED (test code = 294 mg/dL 74-106 H Performe d by certified 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 COMPARISON: Head CT from previous day. Location: [facility]. MRI brain without contrast: No acute territorial vascular or acute lacunar infarction. No MR evidence for hemorrhage is noted. No extra-axial fluid collections are noted. Periventricular white matter ischemic lesions scattered lesions within the centrum semiovale white matter. No herniation, hydrocephalus or midline shift. Fourth ventricle does remain midline. The expected flow-voids are noted within the major intracranial vasculature. VII and VIII nerve complex are symmetrical and normal. Inspissated secretions within the bilateralmastoid air cells. Sinuses are clear. Intraorbital contents are unremarkable. Midbrain, cali and medulla are without mass effect. No cerebellar ectopia. Pituitary gland, optic chiasm and corpus callosum are normal. Clivus demonstrated normal marrow signal. Symmetrical hippocampi. No mesial temporal sclerosis. IMPRESSION: No acute territorial vascular or acute lacunar infarction. Chronic white matterischemic disease. at 0924 Reported and signed by: Pernell Temple M.D. 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 7 ESTIMATED AVERAGE 349 MG/DL GLUCOSE (test code = EAG) [id number] 02:55:00 Test Item Value Reference Range Interpretation Comments TROPONIN-I (test code = TROPI) <0.015 ng/mL 0-0.045 N COMMENTS TO SPRING WINDER: COLLECT 3 HOURS AFTER PREVIOUS SAMPLETROPONIN-I 2019-10-14 23:13:00 Test Item Value Reference Range Interpretation Comments TROPONIN-I (test code = TROPI) <0.015 ng/mL 0-0.045 N COMMENTS TO SPRING WINDER: COLLECT 3 HOURS AFTER PREVIOUS [id number] 20:36:00 Test Item Value Reference Range Interpretation Comments GLUBED (test code = 270 mg/dL 74-106 H Performe d by certified 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) 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 [facility] [id number] 18:43:00 Test Item Value Reference Range Interpretation Comments GLUBED (test code = 309 mg/dL 74-106 H Performe d by certified 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 NTHROMBOPLASTIN TIME [id number] 17:31:00 Test Item Value Reference Range Interpretation Comments THROMBOPLASTIN TIME PARTIAL 32.4 seconds 25.0-36.5 N (test code = PTT) IS PATIENT ON ANTICOAGULANTS? 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 [facility] CBC W/AUTO [id number] 17:17:00 Test Item Value Reference Range Interpretation [...] 0.00 K/mm3 0.0-0.1 N NRBC#) CBC W/AUTO [id number] 17:16:00 Test Item Value Reference Range Interpretation [...] BA#) K/mm3 0.0-0.2 - CT HEAD/BRAIN W/O [id number] 17:04:00 Name: JAMESON FLYNN [facility] : 1950 Age/S: 69 / F [address] Unit #: [id number] Loc: [place] [address] Phys: Elizabeth Arrington DO Acct: [id number] Dis Date: Status: REG ER PHONE #: [phone] Exam Date: 10/14/2019 1650 FAX #: [phone] Reason: slurred speech EXAMS: CPT CODE: [id number] CT HEAD/BRAIN W/O CONT 15555 HISTORY: slurred speech TECHNIQUE: Noncontrast 2.5mm axial CT of the head. Examination acquired within 24 hours of arrival. Automated exposure controlfor dose reduction. COMPARISON: None FINDINGS: No lacerations [...] contents are unremarkable. IMPRESSION: No acute intracranial pro cess. Mild cortical atrophy and white matter microvascular ischemic changes are present and likely chronic. Location: [facility] at 1704 Reported and signed by: Ata Casas MD CC: Elizabeth Arrington DO Technologist:Yumi Sanderson RT(R); GIOVANNA Mcclellan CTDI: DLP: Trnscb Date/Time: 10/14/2019 (1704) [email or web address] Orig Print D/T: S: 10/14/2019 (1707) PAGE 1 Signed Report- XR CHEST 1 [id number] 17:04:00 FAX: Elizabeth Arrington DO [place]: B St: REG Name: JAMESON FLYNN [facility] : 1950 Age/S: 69/F [address] [facility] Unit #: [id number] Loc: [place] [address] Phys: Elizabeth Arrington DO Acct: [id number] Dis Date: Status: REG ER PHONE #: [phone] Exam Date: 10/14/2019 1652 FAX #: [phone] Reason:CODE STROKE EXAMS: CPT CODE: [id number] XR CHEST 1 V 16491 REASON FOR EXAM: CODE STROKE Exam Order Date: 10/14/2019 4:34 PM Ordering M.D.: Elizabeth Arrington DO PROCEDURE: - XR CHEST 1 V COMPARISON: NoneFINDINGS: The lungs are clear. There is no pleural effusion or pneumothorax. Pulmonary vascularity is within normal limits. Cardiomediastinal silhouette is normal in size for technique. The mediastinal contours are within normal limits. There are degenerative changes in the spine. The visualized upper abdomen is within normal limits. IMPRESSION: No acute cardiopulmonary process. Location: [facility] at 1704 Reported and signed by: Ata Casas MD CC: Elizabeth Arrington DO Technologist: ANGELO MARLEY Trnscrd Date/Time/By: 10/14/2019 (1704) : By: [email or web address] Orig Print D/T: S: 10/14/2019 (9355) PAGE 1 Signed ReportCHEM [id number] 14:45:00 Test Item Value Reference Range Interpretation Comments eGFR (test code = eGFR) 92 [facility] [id number] 14:45:00 Test Item Value Reference Range Interpretation Comments Potassium Lvl (test code = Potassium 3.6 3.5-5.1 Lvl) [facility] [id number] 14:45:00 Test Item Value Reference Range Interpretation Comments Calcium Lvl (test code = Calcium Lvl) 8.8 8.5-10.5 [facility]2014-09-25 14:45:00 Test Item Value Reference Range Interpretation Comments AGAP (test code = AGAP) 9.6 10.0-20.0 [facility]2014-09-25 14:45:00 Test Item Value Reference Range Interpretation Comments Sodium Lvl (test code = Sodium Lvl) 136 135-145 [facility]2014-09-25 14:45:00 Test Item Value Reference Range Interpretation Comments Creatinine Lvl (test code = Creatinine 0.7 0.5-1.4 Lvl) [facility]2014-09-25 14:45:00 Test Item Value Reference Range Interpretation Comments CO2 (test code = CO2) 27 24-32 [facility]2014-09-25 14:45:00 Test Item Value Reference Range Interpretation Comments Chloride Lvl (test code = Chloride Lvl) 103 95-109 [facility]2014-09-25 14:45:00 Test Item Value Reference Range Interpretation Comments BUN (test code = BUN) 11 7-22 [facility]2014-09-25 14:45:00 Test Item Value Reference Range Interpretation Comments Glucose Lvl (test code = Glucose Lvl) 131 70-99 [facility]2014-09-25 14:45:00 Test Item Value Reference Range Interpretation Comments eGFR (test code = eGFR) 92 [facility]2014-09-25 14:45:00 Test Item Value Reference Range Interpretation Comments Potassium Lvl (test code = Potassium 3.6 3.5-5.1 Lvl) [facility]2014-09-25 14:45:00 Test Item Value Reference Range Interpretation Comments Calcium Lvl (test code = Calcium Lvl) 8.8 8.5-10.5 [facility]2014-09-25 14:45:00 Test Item Value Reference Range Interpretation Comments AGAP (test code = AGAP) 9.6 10.0-20.0 [facility]2014-09-25 14:45:00 Test Item Value Reference Range Interpretation Comments Sodium Lvl (test code = Sodium Lvl) 136 135-145 [facility]2014-09-25 14:45:00 Test Item Value Reference Range Interpretation Comments Creatinine Lvl (test code = Creatinine 0.7 0.5-1.4 Lvl) [facility] [employer] [id number] 14:45:00 Test Item Value Reference Range Interpretation Comments CO2 (test code = CO2) 27 24-32 [facility] [employer] [id number] 14:45:00 Test Item Value Reference Range Interpretation Comments Chloride Lvl (test code = Chloride Lvl) 103 95-109 [facility] [employer] [id number] 14:45:00 Test Item Value Reference Range Interpretation Comments BUN (test code = BUN) 11 -22 [facility] [employer] [id number] 14:45:00 Test Item Value Reference Range Interpretation Comments Glucose Lvl (test code = Glucose Lvl) 131 70-99 [facility] [employer]2014-09-25 09:15:00 Test Item Value Reference Range Interpretation Comments Total CK (test code = Total CK) 88 12-191 [facility] [employer]2014-09-25 09:15:00 Test Item Value Reference Range Interpretation Comments Troponin-I (test code no gt See_Comment [Auto mated message] The = Troponin-I) system which g enerated this result transmit joel reference range : <=0.40. The reference r kezia was not used to interpr et this result as adal l/abnormal. [facility] [employer]2014-09-25 09:15:00 Test Item Value Reference Range Interpretation Comments CK MB (test code = CK MB) 1.0 0.5-3.6 [facility] [employer]2014-09-25 09:15:00 Test Item Value Reference Range Interpretation Comments CK MB Index (test 1.1 See_Comment [Automate d message] The code = CK MB Index) system w [facility] generated this result transmit joel reference range : <=2.5. The reference range was not used to interpr et this result as adal l/abnormal. [employer]2014-09-25 09:15:00 Test Item Value Reference Range Interpretation Comments Glucose Lvl (test code = Glucose Lvl) 75 70-99 [facility] [employer] [id number] 09:15:00 Test Item Value Reference Range Interpretation Comments BUN (test code = BUN) 12 7-22 [facility] [id number] 09:15:00 Test Item Value Reference Range Interpretation Comments Creatinine Lvl (test code = Creatinine 0.8 0.5-1.4 Lvl) [facility]2014-09-25 09:15:00 Test Item Value Reference Range Interpretation Comments CO2 (test code = CO2) 26 24-32 [facility]2014-09-25 09:15:00 Test Item Value Reference Range Interpretation Comments Chloride Lvl (test code = Chloride Lvl) 105 95-109 [facility]2014-09-25 09:15:00 Test Item Value Reference Range Interpretation Comments Sodium Lvl (test code = Sodium Lvl) 138 135-145 [facility]2014-09-25 09:15:00 Test Item Value Reference Range Interpretation Comments Potassium Lvl (test code = Potassium 3.8 3.5-5.1 Lvl) [facility]2014-09-25 09:15:00 Test Item Value Reference Range Interpretation Comments Calcium Lvl (test code = Calcium Lvl) 8.7 8.5-10.5 [facility]2014-09-25 09:15:00 Test Item Value Reference Range Interpretation Comments AGAP (test code = AGAP) 10.8 10.0-20.0 [facility]2014-09-25 09:15:00 Test Item Value Reference Range Interpretation Comments eGFR (test code = eGFR) 78 [facility]ZHS5598[facility]-14 09:15:00 Test Item Value Reference Range Interpretation Comments MPV (test code = MPV) 9.9 7.4-10.4 [facility] HospitalNihznpeEUGUVBVALC7283-72-74 09:15:00 Test Item Value Reference Range Interpretation Comments Platelet (test code = Platelet) 169 133-450 [facility] HospitalBisbpxuDUQQYIAWIH6457-33-82 09:15:00 Test Item Value Reference Range Interpretation Comments RDW (test code = RDW) 14.4 11.5-14.5 [facility] HospitalTatcwnoNZKRLJGIKG5954-73-70 09:15:00 Test Item Value Reference Range Interpretation Comments MCH (test code = MCH) 27.5 pg 27.0-31.0 [facility] HospitalNndxerbRJJLPTCTSR4465-68-18 09:15:00 Test Item Value Reference Range Interpretation Comments MCHC (test code = MCHC) 33.2 32.0-36.0 [facility] HospitalDzlpmgcRWYUALWTJR9234-86-18 09:15:00 Test Item Value Reference Range Interpretation Comments MCV (test code = MCV) 82.8 80.0-98.0 [facility] HospitalXqjnpwcXVZVQIGUOK4129-60-54 09:15:00 Test Item Value Reference Range Interpretation Comments Hct (test code = Hct) 37.3 36.0-48.0 [facility] HospitalIcuqblcJBSRZXZCWG6952-03-12 09:15:00 Test Item Value Reference Range Interpretation Comments Hgb (test code = Hgb) 12.4 12.0-16.0 [facility] HospitalWhlyetbZRPRBJFTIC2650-74-85 09:15:00 Test Item Value Reference Range Interpretation Comments RBC (test code = RBC) 4.50 4.20-5.40 [facility] HospitalOuadrwwTBKSYJCJYC8250-24-69 09:15:00 Test Item Value Reference Range Interpretation Comments WBC (test code = WBC) 7.5 3.7-10.4 [facility] HospitalTwclyjqLADAELJORZ2283-69-28 09:15:00 Test Item Value Reference Range Interpretation Comments Basophils # (test code 0.0 See_Comment [Aut omated message] The = Basophils #) system which generated this result tra nsmitted reference range : <=0.2. The reference r kezia was not used to int erpret this result as normal/abnormal . [facility] HospitalEtukdrhCXOUYBITPD7559-63-15 09:15:00 Test Item Value Reference Range Interpretation Comments Eosinophils # (test code 0.2 See_Comment [A utomated message] The = Eosinophils #) system ic h generated this result tra nsmitted reference range : <=0.5. The reference r kezia was not used to int erpret this result as normal/abnormal . [facility] HospitalHoxecvtKCNMSALAYP1544-39-01 09:15:00 Test Item Value Reference Range Interpretation Comments Segs-Bands # (test code = Segs-Bands #) 3.5 1.5-8.1 [facility]AffwtnpQITRIXZQDE5327-37-60 09:15:00 Test Item Value Reference Range Interpretation Comments Basophils (test code = 0.5 See_Comment [Aut omated message] The Basophils) system which ge nerated this result tra nsmitted reference range : <=1.0. The reference r kezia was not used to int erpret this result as normal/abnormal . [facility] HospitalHesaazhPVXUIAUBQO8758-67-15 09:15:00 Test Item Value Reference Range Interpretation Comments Monocytes # (test code 0.5 See_Comment [Aut omated message] The = Monocytes #) system which generated this result tra nsmitted reference range : <=0.8. The reference r kezia was not used to int erpret this result as normal/abnormal . [facility] HospitalBkbttniBSMZZBBQTT9969-09-01 09:15:00 Test Item Value Reference Range Interpretation Comments Lymphocytes # (test code = Lymphocytes 3.3 1.0-5.5 #) [facility] HospitalEwlisueMNWCVKJIZM2481-14-29 09:15:00 Test Item Value Reference Range Interpretation Comments Monocytes (test code = Monocytes) 6.8 2.0-12.0 [facility] HospitalWejjvhrDFVUDEVIKS4657-80-57 09:15:00 Test Item Value Reference Range Interpretation Comments Lymphocytes (test code = Lymphocytes) 43.6 20.0-40.0 [facility] HospitalYsopbswCTVJKBTMXO4131-71-55 09:15:00 Test Item Value Reference Range Interpretation Comments Eosinophils (test code = 3.1 See_Comment [A utomated message] The Eosinophils) system which ge nerated this result tra nsmitted reference range : <=4.0. The reference r kezia was not used to int erpret this result as normal/abnormal . [facility] HospitalJwlzmqbUUOEAYCUWB8256-63-83 09:15:00 Test Item Value Reference Range Interpretation Comments Segs (test code = Segs) 46.0 45.0-75.0 [facility]EdnzlytLHMOFE6681-07-38 09:15:00 Test Item Value Reference Range Interpretation Comments LDL (Calculated) (test code = LDL 58 (Calculated)) [facility] HospitalIsxrxemQHKRGO4016-28-50 09:15:00 Test Item Value Reference Range Interpretation Comments VLDL (test code = VLDL) 20 [facility] HospitalFgsqvakNHBPOI7835-50-25 09:15:00 Test Item Value Reference Range Interpretation Comments HDL (test code = HDL) 51 [facility] HospitalJtkcfbzQITYOG3832-91-96 09:15:00 Test Item Value Reference Range Interpretation Comments CHD Risk (test code = CHD Risk) 2.53 3.90-5.80 [facility] HospitalUbydjymIASUVO5668-37-34 09:15:00 Test Item Value Reference Range Interpretation Comments Chol (test code = Chol) 129 [facility]QhsvnhkTXLTBH2031-28-88 09:15:00 Test Item Value Reference Range Interpretation Comments Trig (test code = Trig) 98 [facility] FLLQGAKWA8869-05-14 09:15:00 Test Item Value Reference Range Interpretation Comments Hgb A1C (test code = Hgb A1C) 6.0 [facility] [id number] 09:15:00 Test Item Value Reference Range Interpretation Comments Total CK (test code = Total CK) 88 12-191 [facility] JYAILEB7932-81-57 09:15:00 Test Item Value Reference Range Interpretation Comments Troponin-I (test code no gt See_Comment [Auto mated message] The = Troponin-I) system which g enerated this result transmit joel reference range : <=0.40. The reference r kezia was not used to interpr et this result as adal l/abnormal. [facility] [id number] 09:15:00 Test Item Value Reference Range Interpretation Comments CK MB (test code = CK MB) 1.0 0.5-3.6 [facility] [id number] 09:15:00 Test Item Value Reference Range Interpretation Comments CK MB Index (test 1.1 See_Comment [Automate d message] The code = CK MB Index) system w [facility] generated this result transmit joel reference range : <=2.5. The reference range was not used to interpr et this result as adal l/abnormal. [facility] [id number] 09:15:00 Test Item Value Reference Range Interpretation Comments Glucose Lvl (test code = Glucose Lvl) 75 70-99 [facility] [id number] 09:15:00 Test Item Value Reference Range Interpretation Comments BUN (test code = BUN) 12 7-22 [facility] [id number] 09:15:00 Test Item Value Reference Range Interpretation Comments Creatinine Lvl (test code = Creatinine 0.8 0.5-1.4 Lvl) [facility] [id number] 09:15:00 Test Item Value Reference Range Interpretation Comments CO2 (test code = CO2) 26 24-32 [facility] [id number] 09:15:00 Test Item Value Reference Range Interpretation Comments Chloride Lvl (test code = Chloride Lvl) 105 95-109 [facility]2014-09-25 09:15:00 Test Item Value Reference Range Interpretation Comments Sodium Lvl (test code = Sodium Lvl) 138 135-145 [facility]2014-09-25 09:15:00 Test Item Value Reference Range Interpretation Comments Potassium Lvl (test code = Potassium 3.8 3.5-5.1 Lvl) [facility]2014-09-25 09:15:00 Test Item Value Reference Range Interpretation Comments Calcium Lvl (test code = Calcium Lvl) 8.7 8.5-10.5 [facility]2014-09-25 09:15:00 Test Item Value Reference Range Interpretation Comments AGAP (test code = AGAP) 10.8 10.0-20.0 [facility]2014-09-25 09:15:00 Test Item Value Reference Range Interpretation Comments eGFR (test code = eGFR) 78 [facility] HospitalHnzyempRWRHKPBNEX2162-37-16 09:15:00 Test Item Value Reference Range Interpretation Comments MPV (test code = MPV) 9.9 7.4-10.4 [facility] HospitalJhwqpomQHVEUXUSES7476-53-21 09:15:00 Test Item Value Reference Range Interpretation Comments Platelet (test code = Platelet) 169 133-450 [facility] HospitalUmcpxuaONQTRXPCJO4241-80-84 09:15:00 Test Item Value Reference Range Interpretation Comments RDW (test code = RDW) 14.4 11.5-14.5 [facility] HospitalBiqterrMNTMEPSDIQ7952-38-74 09:15:00 Test Item Value Reference Range Interpretation Comments MCH (test code = MCH) 27.5 pg 27.0-31.0 [facility] HospitalMvajemmCKGPHKNWVO9201-84-29 09:15:00 Test Item Value Reference Range Interpretation Comments MCHC (test code = MCHC) 33.2 32.0-36.0 [facility] HospitalBelpkyfMFUXLQONJT7679-62-35 09:15:00 Test Item Value Reference Range Interpretation Comments MCV (test code = MCV) 82.8 80.0-98.0 [facility] HospitalBekwtclJHHNXACLPF0839-88-81 09:15:00 Test Item Value Reference Range Interpretation Comments Hct (test code = Hct) 37.3 36.0-48.0 [facility] HospitalZvmowkxUXGGVZJDPK7563-32-67 09:15:00 Test Item Value Reference Range Interpretation Comments Hgb (test code = Hgb) 12.4 12.0-16.0 [facility] HospitalIynubdqDWXUFYSCPD0206-24-09 09:15:00 Test Item Value Reference Range Interpretation Comments RBC (test code = RBC) 4.50 4.20-5.40 [facility] HospitalRpfserqJLKRGPEXKG5268-75-69 09:15:00 Test Item Value Reference Range Interpretation Comments WBC (test code = WBC) 7.5 3.7-10.4 [facility] HospitalOgtmpttTZSGCHUHFX7309-14-39 09:15:00 Test Item Value Reference Range Interpretation Comments Basophils # (test code 0.0 See_Comment [Aut omated message] The = Basophils #) system which generated this result tra nsmitted reference range : <=0.2. The reference r kezia was not used to int erpret this result as normal/abnormal . [facility] HospitalEihmikcGYYHMLNDUS7330-81-24 09:15:00 Test Item Value Reference Range Interpretation Comments Eosinophils # (test code 0.2 See_Comment [A utomated message] The = Eosinophils #) system whic h generated this result tra nsmitted reference range : <=0.5. The reference r kezia was not used to int erpret this result as normal/abnormal . [facility] HospitalZhkccylPAJGXNBFSU3103-18-96 09:15:00 Test Item Value Reference Range Interpretation Comments Segs-Bands # (test code = Segs-Bands #) 3.5 1.5-8.1 [facility] HospitalZklzpjlCYCOMFFKDK5589-48-47 09:15:00 Test Item Value Reference Range Interpretation Comments Basophils (test code = 0.5 See_Comment [Aut omated message] The Basophils) system which ge nerated this result tra nsmitted reference range : <=1.0. The reference r kezia was not used to int erpret this result as normal/abnormal . [facility] HospitalGyyrzxsVANMUFYFOU4852-47-06 09:15:00 Test Item Value Reference Range Interpretation Comments Monocytes # (test code 0.5 See_Comment [Aut omated message] The = Monocytes #) system which generated this result tra nsmitted reference range : <=0.8. The reference r kezia was not used to int erpret this result as normal/abnormal . [facility] HospitalUdzhvymXLZHEMXTHH0764-84-11 09:15:00 Test Item Value Reference Range Interpretation Comments Lymphocytes # (test code = Lymphocytes 3.3 1.0-5.5 #) [facility]FE6016[facility] 09:15:00 Test Item Value Reference Range Interpretation Comments Monocytes (test code = Monocytes) 6.8 2.0-12.0 [facility] HospitalZxlfdbxAJBUAQAGFT4968-75-28 09:15:00 Test Item Value Reference Range Interpretation Comments Lymphocytes (test code = Lymphocytes) 43.6 20.0-40.0 [facility]AmhcqwjHCZEKSCREY4188-77-78 09:15:00 Test Item Value Reference Range Interpretation Comments Eosinophils (test code = 3.1 See_Comment [A utomated message] The Eosinophils) system which ge nerated this result tra nsmitted reference range : <=4.0. The reference r kezia was not used to int erpret this result as normal/abnormal . [facility] HospitalEkteymcRRAOFYUXRN6991-10-73 09:15:00 Test Item Value Reference Range Interpretation Comments Segs (test code = Segs) 46.0 45.0-75.0 [facility]RlbwrziEPGTYG2630-83-06 09:15:00 Test Item Value Reference Range Interpretation Comments LDL (Calculated) (test code = LDL 58 (Calculated)) [facility] TexasAsjridoVAIBQZ4218-63-00 09:15:00 Test Item Value Reference Range Interpretation Comments VLDL (test code = VLDL) 20 [facility] TexasEpkbyknAWCQSO7258-64-59 09:15:00 Test Item Value Reference Range Interpretation Comments HDL (test code = HDL) 51 [facility] TexasUlbhthmCRAXXR0476-05-31 09:15:00 Test Item Value Reference Range Interpretation Comments CHD Risk (test code = CHD Risk) 2.53 3.90-5.80 [facility] TexasDcytglcHPJLAX1530-16-26 09:15:00 Test Item Value Reference Range Interpretation Comments Chol (test code = Chol) 129 [facility] TexasRvyainaIKMDHY3976-42-13 09:15:00 Test Item Value Reference Range Interpretation Comments Trig (test code = Trig) 98 [facility] [id number] 09:15:00 Test Item Value Reference Range Interpretation Comments Hgb A1C (test code = Hgb A1C) 6.0 [facility] [id number] 07:45:50 Test Item Value Reference Range Interpretation Comments UA Urobilinogen (test code = UA no gt 0.1-1.0 Urobilinogen) [facility] AND [id number] 07:45:50 Test Item Value Reference Range Interpretation Comments UA Turbidity (test code = Clear (04/10/14 2:45 UA Turbidity) AM) [facility] AND [id number] 07:45:50 Test Item Value Reference Range Interpretation Comments UA Color (test code = Yellow *NA*(04/10/14 UA Color) 2:45 AM) [facility] AND [id number] 07:45:50 Test Item Value Reference Range Interpretation Comments UA Spec Grav (test code = UA Spec Grav) 1.014 [facility] AND [id number] 07:45:50 Test Item Value Reference Range Interpretation Comments UA Glucose (test code = UA Negative mg/dL Glucose) [facility] AND [id number] 07:45:50 Test Item Value Reference Range Interpretation Comments UA Blood (test code = Negative (04/10/14 2:45 UA Blood) AM) [facility] AND [id number] 07:45:50 Test Item Value Reference Range Interpretation Comments UA pH (test code = UA pH) 5.5 5.0-8.0 [facility] AND [id number] 07:45:50 Test Item Value Reference Range Interpretation Comments UA Protein (test code = UA Negative mg/dL Protein) [facility] AND [id number] 07:45:50 Test Item Value Reference Range Interpretation Comments UA RBC (test code = no gt See_Comment [Automa joel message] The UA RBC) system which ge nerated this result transmit joel reference range : <=2. The reference range was not used to interpr et this result as adal l/abnormal. [facility] AND [id number] 07:45:50 Test Item Value Reference Range Interpretation Comments UA Leuk Est (test code Large *ABN*(04/10/14 = UA Leuk Est) 2:45 AM) [facility] AND [id number] 07:45:50 Test Item Value Reference Range Interpretation Comments UA Bili (test code = Negative *NA*(04/10/14 UA Bili) 2:45 AM) [facility] AND [id number] 07:45:50 Test Item Value Reference Range Interpretation Comments UA Nitrite (test code Negative (04/10/14 2:45 = UA Nitrite) AM) [facility] AND [id number] 07:45:50 Test Item Value Reference Range Interpretation Comments UA Ketones (test code = UA Negative mg/dL Ketones) [facility] AND [id number] 07:45:50 Test Item Value Reference Range Interpretation Comments UA WBC (test code = 30 See_Comment [Automa joel message] The UA WBC) system which ge nerated this result transmit joel reference range : <=5. The reference range was not used to interpr et this result as adal l/abnormal. [facility] AND [id number] 07:45:50 Test Item Value Reference Range Interpretation Comments UA Bacteria (test code = UA Occasional /HPF Bacteria) [facility] AND [id number] 07:45:50 Test Item Value Reference Range Interpretation Comments UA Mucus (test code = UA Mucus) Few /LPF [facility] AND [id number] 07:45:50 Test Item Value Reference Range Interpretation Comments UA Sq Epi (test code = UA Sq Epi) Few /LPF [facility] AND [id number] 07:45:50 Test Item Value Reference Range Interpretation Comments UA Urobilinogen (test code = UA no gt 0.1-1.0 Urobilinogen) [facility] AND [id number] 07:45:50 Test Item Value Reference Range Interpretation Comments UA Turbidity (test code = Clear (04/10/14 2:45 UA Turbidity) AM) [facility] AND [id number] 07:45:50 Test Item Value Reference Range Interpretation Comments UA Color (test code = Yellow *NA*(04/10/14 UA Color) 2:45 AM) [facility] AND [id number] 07:45:50 Test Item Value Reference Range Interpretation Comments UA Spec Grav (test code = UA Spec Grav) 1.014 [facility] AND [id number] 07:45:50 Test Item Value Reference Range Interpretation Comments UA Glucose (test code = UA Negative mg/dL Glucose) [facility] AND [id number] 07:45:50 Test Item Value Reference Range Interpretation Comments UA Blood (test code = Negative (04/10/14 2:45 UA Blood) AM) [facility] AND [id number] 07:45:50 Test Item Value Reference Range Interpretation Comments UA pH (test code = UA pH) 5.5 5.0-8.0 [facility] AND [id number] 07:45:50 Test Item Value Reference Range Interpretation Comments UA Protein (test code = UA Negative mg/dL Protein) [facility] AND [id number] 07:45:50 Test Item Value Reference Range Interpretation Comments UA RBC (test code = no gt See_Comment [Automa joel message] The UA RBC) system which ge nerated this result transmit joel reference range : <=2. The reference range was not used to interpr et this result as adal l/abnormal. [facility] AND [id number] 07:45:50 Test Item Value Reference Range Interpretation Comments UA Leuk Est (test code Large *ABN*(04/10/14 = UA Leuk Est) 2:45 AM) [facility] AND [id number] 07:45:50 Test Item Value Reference Range Interpretation Comments UA Bili (test code = Negative *NA*(04/10/14 UA Bili) 2:45 AM) [facility] AND [id number] 07:45:50 Test Item Value Reference Range Interpretation Comments UA Nitrite (test code Negative (04/10/14 2:45 = UA Nitrite) AM) [facility] AND [id number] 07:45:50 Test Item Value Reference Range Interpretation Comments UA Ketones (test code = UA Negative mg/dL Ketones) [facility] AND [id number] 07:45:50 Test Item Value Reference Range Interpretation Comments UA WBC (test code = 30 See_Comment [Automa joel message] The UA WBC) system which ge nerated this result transmit joel reference range : <=5. The reference range was not used to interpr et this result as adal l/abnormal. [facility] AND [id number] 07:45:50 Test Item Value Reference Range Interpretation Comments UA Bacteria (test code = UA Occasional /HPF Bacteria) [facility] AND [id number] 07:45:50 Test Item Value Reference Range Interpretation Comments UA Mucus (test code = UA Mucus) [facility] [id number] 07:45:50 Test Item Value Reference Range Interpretation Comments UA Sq Epi (test code = UA Sq Epi) Few /LPF [facility] HermannCARDIAC [id number] 02:56:13 Test Item Value Reference Range Interpretation Comments CK MB Index (test 0.7 See_Comment [Automate d message] The code = CK MB Index) [facility] generated this result transmit joel reference range : <=2.5. The reference range was not used to interpr et this result as adal l/abnormal. [facility] [id number] 02:56:13 Test Item Value Reference Range Interpretation Comments Troponin-I (test code no gt See_Comment [Auto mated message] The = Troponin-I) system which g enerated this result transmit joel reference range : <=0.40. The reference r kezia was not used to interpr et this result as adal l/abnormal. [facility] [employer] [id number] 02:56:13 Test Item Value Reference Range Interpretation Comments CK MB (test code = CK MB) 0.7 0.5-3.6 [facility] CenterLoveSpaceAC [id number] 02:56:13 Test Item Value Reference Range Interpretation Comments Total CK (test code = Total CK) 96 12-191 [facility] [employer] [id number] 02:56:13 Test Item Value Reference Range Interpretation Comments eGFR (test code = eGFR) 78 [facility] [employer] [id number] 02:56:13 Test Item Value Reference Range Interpretation Comments BUN (test code = BUN) 15 7-22 [facility] [employer] [id number] 02:56:13 Test Item Value Reference Range Interpretation Comments Sodium Lvl (test code = Sodium Lvl) 136 135-145 [facility] [employer] [id number] 02:56:13 Test Item Value Reference Range Interpretation Comments Creatinine Lvl (test code = Creatinine 0.8 0.5-1.4 Lvl) [facility] [employer] [id number] 02:56:13 Test Item Value Reference Range Interpretation Comments AGAP (test code = AGAP) 9.9 10.0-20.0 [facility]2014-09-25 02:56:13 Test Item Value Reference Range Interpretation Comments CO2 (test code = CO2) 26 24-32 [facility]2014-09-25 02:56:13 Test Item Value Reference Range Interpretation Comments Calcium Lvl (test code = Calcium Lvl) 8.8 8.5-10.5 [facility]2014-09-25 02:56:13 Test Item Value Reference Range Interpretation Comments Chloride Lvl (test code = Chloride Lvl) 104 95-109 [facility]2014-09-25 02:56:13 Test Item Value Reference Range Interpretation Comments Potassium Lvl (test code = Potassium 3.9 3.5-5.1 Lvl) [facility]2014-09-25 02:56:13 Test Item Value Reference Range Interpretation Comments Glucose Lvl (test code = Glucose Lvl) 104 70-99 [facility] HospitalKgasmefGIHSEJVBEW6196-27-86 02:56:13 Test Item Value Reference Range Interpretation Comments Basophils # (test code 0.0 See_Comment [Aut omated message] The = Basophils #) system which generated this result tra nsmitted reference range : <=0.2. The reference r kezia was not used to int erpret this result as normal/abnormal . [facility] HospitalQgnkdrhDZGTNCNSWV2879-04-94 02:56:13 Test Item Value Reference Range Interpretation Comments Eosinophils # (test code 0.1 See_Comment [A utomated message] The = Eosinophils #) system whic h generated this result tra nsmitted reference range : <=0.5. The reference r kezia was not used to int erpret this result as normal/abnormal . [facility] Hos[id number] 02:56:13 Test Item Value Reference Range Interpretation Comments Monocytes # (test code 0.5 See_Comment [Aut omated message] The = Monocytes #) system which generated this result tra nsmitted reference range : <=0.8. The reference r kezia was not used to int erpret this result as normal/abnormal . [facility] HospitalDvtvpazNAIUZGOLZP2113-76-05 02:56:13 Test Item Value Reference Range Interpretation Comments Lymphocytes # (test code = Lymphocytes 3.4 1.0-5.5 #) [address]09-25 02:56:13 Test Item Value Reference Range Interpretation Comments Segs-Bands # (test code = Segs-Bands #) 4.2 1.5-8.1 [facility] Hos[id number] 02:56:13 Test Item Value Reference Range Interpretation Comments Segs (test code = Segs) 51.2 45.0-75.0 [facility] HospitalNearrjuPCUKKCAGOG4739-50-59 02:56:13 Test Item Value Reference Range Interpretation Comments Basophils (test code = 0.5 See_Comment [Aut omated message] The Basophils) system which ge nerated this result tra nsmitted reference range : <=1.0. The reference r kezia was not used to int erpret this result as normal/abnormal . [facility] HospitalDayiszlQMLKZQBXKD7440-94-55 02:56:13 Test Item Value Reference Range Interpretation Comments Monocytes (test code = Monocytes) 6.0 2.0-12.0 [facility] HospitalYzptneiQCUJFJGSXU4713-21-65 02:56:13 Test Item Value Reference Range Interpretation Comments Lymphocytes (test code = Lymphocytes) 40.7 20.0-40.0 [facility] HospitalMigbvodHVPTLZYNWC5030-99-29 02:56:13 Test Item Value Reference Range Interpretation Comments Eosinophils (test code = 1.6 See_Comment [A utomated message] The Eosinophils) system which ge nerated this result tra nsmitted reference range : <=4.0. The reference r kezia was not used to int erpret this result as normal/abnormal . [facility] HospitalEkwgchcGWSUJXBQLV6384-05-69 02:56:13 Test Item Value Reference Range Interpretation Comments WBC (test code = WBC) 8.3 3.7-10.4 [facility] HospitalMbepvkdSKLUDRVRGL0191-10-74 02:56:13 Test Item Value Reference Range Interpretation Comments Hgb (test code = Hgb) 13.2 12.0-16.0 [facility] HospitalTpsxzqoMGIVSQYUOW3320-06-09 02:56:13 Test Item Value Reference Range Interpretation Comments Hct (test code = Hct) 39.9 36.0-48.0 [facility] HospitalZmioydgLAVZHKMCMM1857-82-49 02:56:13 Test Item Value Reference Range Interpretation Comments MPV (test code = MPV) 9.8 7.4-10.4 [facility] HospitalUfwzxloYUPTXYIUPW3118-92-78 02:56:13 Test Item Value Reference Range Interpretation Comments Platelet (test code = Platelet) 184 133-450 [facility] HospitalDyqpquoZJXFQORRCZ5943-78-08 02:56:13 Test Item Value Reference Range Interpretation Comments RDW (test code = RDW) 14.7 11.5-14.5 [facility] HospitalMgpzeotDLDCPDRQBG7644-66-20 02:56:13 Test Item Value Reference Range Interpretation Comments MCHC (test code = MCHC) 33.1 32.0-36.0 [facility] HospitalXwqvmpoDLUQDDCYPQ1028-47-13 02:56:13 Test Item Value Reference Range Interpretation Comments RBC (test code = RBC) 4.77 4.20-5.40 [facility] HospitalKucdbybQUOBTDAVFS7098-39-17 02:56:13 Test Item Value Reference Range Interpretation Comments MCH (test code = MCH) 27.7 pg 27.0-31.0 [facility] HospitalDkifexmUTZGLTBLEW7840-95-41 02:56:13 Test Item Value Reference Range Interpretation Comments MCV (test code = MCV) 83.7 80.0-98.0 [facility]OHTTWJIX5610-85-60 02:56:13 Test Item Value Reference Range Interpretation Comments PTT (test code = PTT) 30.3 s 22.9-35.8 [facility]YbghdarKOSZCDIBKT6890-13-64 02:56:13 Test Item Value Reference Range Interpretation Comments INR (test code = INR) 1.00 0.85-1.17 [facility] HospitalDxjrezaOYNXRUPNBA6535-92-24 02:56:13 Test Item Value Reference Range Interpretation Comments PT (test code = PT) 13.2 s 12.0-14.7 [facility] [id number] 02:56:13 Test Item Value Reference Range Interpretation Comments CK MB Index (test 0.7 See_Comment [Automate d message] The code = CK MB Index) system w [facility] generated this result transmit joel reference range : <=2.5. The reference range was not used to interpr et this result as adal l/abnormal. [facility] [id number] 02:56:13 Test Item Value Reference Range Interpretation Comments Troponin-I (test code no gt See_Comment [Auto mated message] The = Troponin-I) system which g enerated this result transmit joel reference range : <=0.40. The reference r kezia was not used to interpr et this result as adal l/abnormal. [facility] [id number] 02:56:13 Test Item Value Reference Range Interpretation Comments CK MB (test code = CK MB) 0.7 0.5-3.6 [facility] [id number] 02:56:13 Test Item Value Reference Range Interpretation Comments Total CK (test code = Total CK) 96 12-191 [facility]2014-09-25 02:56:13 Test Item Value Reference Range Interpretation Comments eGFR (test code = eGFR) 78 [facility]2014-09-25 02:56:13 Test Item Value Reference Range Interpretation Comments BUN (test code = BUN) 15 7-22 [facility]2014-09-25 02:56:13 Test Item Value Reference Range Interpretation Comments Sodium Lvl (test code = Sodium Lvl) 136 135-145 [facility]2014-09-25 02:56:13 Test Item Value Reference Range Interpretation Comments Creatinine Lvl (test code = Creatinine 0.8 0.5-1.4 Lvl) [facility]2014-09-25 02:56:13 Test Item Value Reference Range Interpretation Comments AGAP (test code = AGAP) 9.9 10.0-20.0 [facility]2014-09-25 02:56:13 Test Item Value Reference Range Interpretation Comments CO2 (test code = CO2) 26 24-32 [facility]2014-09-25 02:56:13 Test Item Value Reference Range Interpretation Comments Calcium Lvl (test code = Calcium Lvl) 8.8 8.5-10.5 [facility]2014-09-25 02:56:13 Test Item Value Reference Range Interpretation Comments Chloride Lvl (test code = Chloride Lvl) 104 95-109 [facility]2014-09-25 02:56:13 Test Item Value Reference Range Interpretation Comments Potassium Lvl (test code = Potassium 3.9 3.5-5.1 Lvl) [facility]2014-09-25 02:56:13 Test Item Value Reference Range Interpretation Comments Glucose Lvl (test code = Glucose Lvl) 104 70-99 [facility]LrsewuvWRMXWJFGMD8938-12-83 02:56:13 Test Item Value Reference Range Interpretation Comments Basophils # (test code 0.0 See_Comment [Aut omated message] The = Basophils #) system which generated this result tra nsmitted reference range : <=0.2. The reference r kezia was not used to int erpret this result as normal/abnormal . [facility] HospitalIwnrszpSFIMDQOCEE8298-35-47 02:56:13 Test Item Value Reference Range Interpretation Comments Eosinophils # (test code 0.1 See_Comment [A utomated message] The = Eosinophils #) system whic h generated this result tra nsmitted reference range : <=0.5. The reference r kezia was not used to int erpret this result as normal/abnormal . [facility] H[id number] 02:56:13 Test Item Value Reference Range Interpretation Comments Monocytes # (test code 0.5 See_Comment [Aut omated message] The = Monocytes #) system which generated this result tra nsmitted reference range : <=0.8. The reference r kezia was not used to int erpret this result as normal/abnormal . [facility] HospitalTlagqckNDBQEUTJGI2949-91-49 02:56:13 Test Item Value Reference Range Interpretation Comments Lymphocytes # (test code = Lymphocytes 3.4 1.0-5.5 #) [facility] HospitalDrtchnxBLJCLGJPBN7705-38-05 02:56:13 Test Item Value Reference Range Interpretation Comments Segs-Bands # (test code = Segs-Bands #) 4.2 1.5-8.1 [facility] HospitalJlpmyegZOMGZRJVFV8609-12-62 02:56:13 Test Item Value Reference Range Interpretation Comments Segs (test code = Segs) 51.2 45.0-75.0 [facility] HospitalGnpohaePGVKYCHVCA3279-98-20 02:56:13 Test Item Value Reference Range Interpretation Comments Basophils (test code = 0.5 See_Comment [Aut omated message] The Basophils) system which ge nerated this result tra nsmitted reference range : <=1.0. The reference r kezia was not used to int erpret this result as normal/abnormal . [facility] HospitalDpausmdQCHLFLRGPM8794-78-84 02:56:13 Test Item Value Reference Range Interpretation Comments Monocytes (test code = Monocytes) 6.0 2.0-12.0 [facility] HospitalXxzdoddVJPUCDYKWZ4709-32-69 02:56:13 Test Item Value Reference Range Interpretation Comments Lymphocytes (test code = Lymphocytes) 40.7 20.0-40.0 [facility] HospitalPjkyccpIIYVENHXFN1219-20-79 02:56:13 Test Item Value Reference Range Interpretation Comments Eosinophils (test code = 1.6 See_Comment [A utomated message] The Eosinophils) system which ge nerated this result tra nsmitted reference range : <=4.0. The reference r kezia was not used to int erpret this result as normal/abnormal . [facility] HospitalKimtoyrUAQRGCUZCO8094-58-46 02:56:13 Test Item Value Reference Range Interpretation Comments WBC (test code = WBC) 8.3 3.7-10.4 [facility] HospitalYdylaosYLHQGLKINB0282-65-99 02:56:13 Test Item Value Reference Range Interpretation Comments Hgb (test code = Hgb) 13.2 12.0-16.0 [facility] HospitalVaqpgssCSKIQOHHRF3560-57-01 02:56:13 Test Item Value Reference Range Interpretation Comments Hct (test code = Hct) 39.9 36.0-48.0 [facility] HospitalHfbhlkiDISNVOVOEG9737-78-77 02:56:13 Test Item Value Reference Range Interpretation Comments MPV (test code = MPV) 9.8 7.4-10.4 [facility] HospitalHjiofxvCPIUWRWGHS9064-26-18 02:56:13 Test Item Value Reference Range Interpretation Comments Platelet (test code = Platelet) 184 133-450 [facility] HospitalMuvhovoYFWBOCSGLF0683-23-52 02:56:13 Test Item Value Reference Range Interpretation Comments RDW (test code = RDW) 14.7 11.5-14.5 [facility] HospitalHvoarlmZIPIJXXNEE4050-10-56 02:56:13 Test Item Value Reference Range Interpretation Comments MCHC (test code = MCHC) 33.1 32.0-36.0 [facility] HospitalXcgwmpmECSDZSTETU7213-52-77 02:56:13 Test Item Value Reference Range Interpretation Comments RBC (test code = RBC) 4.77 4.20-5.40 [facility] HospitalPxzpxyoEZRSCIOIEF3206-29-31 02:56:13 Test Item Value Reference Range Interpretation Comments MCH (test code = MCH) 27.7 pg 27.0-31.0 [facility] HospitalPmmnyqiFRPRZHSARK8214-12-26 02:56:13 Test Item Value Reference Range Interpretation Comments MCV (test code = MCV) 83.7 80.0-98.0 [facility] HospitalQegstinMBHPNWIEZT5831-01-32 02:56:13 Test Item Value Reference Range Interpretation Comments PTT (test code = PTT) 30.3 s 22.9-35.8 [facility] HospitalFjnavvdNDZVJLHVEK5625-74-86 02:56:13 Test Item Value Reference Range Interpretation Comments INR (test code = INR) 1.00 0.85-1.17 [facility] HospitalDevrbeiZMNRXUQNPN4649-63-04 02:56:13 Test Item Value Reference Range Interpretation Comments PT (test code = PT) 13.2 s 12.0-14.7 [facility]
[2022-07-16] MEDS ORDERED: ONDANSETRON 4 MG (ODT) TAB ONE (11:22)
--- NOTE | 2022-07-16 11:46 | RAD REPORT ---
EXAM DESCRIPTION: RAD - Chest Single View - 07/16/2022 11:40 am CLINICAL HISTORY: Cough COMPARISON: No comparisons FINDINGS: Lines: None. Lungs: No evidence of edema or pneumonia. Pleural: No significant pleural effusions or pneumothorax. Cardiac: The heart size is within normal limits. Mediastinum: Within normal limits. Bones: No acute fractures. Other: None IMPRESSION: No acute cardiopulmonary disease.
[2022-07-16 12:03] LABS: SARS-COV-2 RT PCR NEGATIVE (NEGATIVE)
--- NOTE | 2022-07-16 12:13 | ER ---
Nurse's Notes [facility] Name: Ashley Flynn Age: 72 yrs Sex: Female : 1950 Arrival Date: 07/16/2022 Time: 10:57 Bed 22 Private MD: Diagnosis: Acute upper respiratory infection, unspecified Presentation: 07/16 11:06 Chief complaint: Patient states: Cough, congestion, intermittent fever, body aches x1 kb3 week, vomiting x2 days. Coronavirus screen: Vaccine status: Patient reports receiving the 2nd dose of the covid vaccine. Client denies travel out of the [place] in the last 14 days. Ebola Screen: Patient negative for fever greater than or equal to 101.5 degrees Fahrenheit, and additional compatible Ebola Virus Disease symptoms Patient denies exposure to infectious person. Patient denies travel to an Ebola-affected area in the 21 days before illness onset. Initial Sepsis Screen: Does the patient meet any 2 criteria? No. Patient's initial sepsis screen is negative. Does the patient have a suspected source of infection? No. Patient's initial sepsis screen is negative. Risk Assessment: Do you want to hurt yourself or someone else? Patient reports no desire to harm self or others. Onset of symptoms was July 09, 2022. 11:06 Method Of Arrival: Ambulatory kb3 11:06 Acuity: DONTE 4 kb3 Triage Assessment: 11:08 General: Appears in no apparent distress. Behavior is calm, cooperative. Pain: kb3 Complains of pain in head, chest, abdomen, right arm, left arm, right leg and left leg Pain does not radiate. Pain currently is 8 out of 10 on a pain scale. 11:13 Respiratory: Breath sounds are clear bilaterally. kb3 Historical: - Allergies: 11:08 Latex, Natural Rubber; kb3 11:08 Sulfa (Sulfonamide Antibiotics); kb3 11:08 steriods; kb3 - PMHx: 11:08 diabetes mellitus; Hypercholesterolemia; Hypertensive disorder; Hypothyroidism; kb3 - Immunization history:: Adult Immunizations up to date, Client reports receiving the 2nd dose of the Covid vaccine, Last tetanus immunization: up to date. - Social history:: Smoking status: Patient denies any tobacco usage or history of. Screenin:13 [facility] Fall Risk Assessment (Adult) History of falling in the last 3 months, kb3 including since admission No falls in past 3 months (0 pts) Confusion or Disorientation No (0 pts) Intoxicated or Sedated No (0 pts) Impaired Gait No (0 pts) Mobility Assist Device Used No (0 pt) Altered Elimination No (0 pt) Score/Fall Risk Level 0 - 2 = Low Risk Oriented to surroundings, Maintained a safe environment, Educated pt \T\ family on fall prevention, incl call for assistance when getting out of bed, Assessed \T\ reinforced patient's understanding of fall precautions, Provided non-skid footwear, Hourly rounding (assess needs \T\ fall precautionary measures) done, Used ambulatory aids as needed (educated on \T\ assisted with), Used gait belt as appropriate. Abuse screen: Denies threats or abuse. Denies injuries from another. Nutritional screening: No deficits noted. Tuberculosis screening: No symptoms or risk factors identified. Assessment: 11:13 General: see triage note. kb3 12:37 Reassessment: Patient appears in no apparent distress at this time. Patient and/or jl7 family updated on plan of care and expected duration. Pain level reassessed. Patient is alert, oriented x 3, equal unlabored respirations, skin warm/dry/pink. Patient states symptoms have improved. Vital Signs: 11:06 BP 159 / 76; Pulse 99; Resp 20; Temp 98.8; Pulse Ox 100% ; Weight 83.91 kg; Height 5 kb3 ft. 2 in. (157.48 cm); Pain 8/10; 12:37 BP 129 / 77; Pulse 100; Resp 19; Temp 98.7(O); Pulse Ox 96% on R/A; jl7 11:06 Body Mass Index 33.84 (83.91 kg, 157.48 cm) kb3 ED Course: 10:57 Patient arrived in ED. mr 11:07 Triage completed. kb3 11:08 [facility] kb 11:08 Fernando Alexander MD is Attending Physician. kb 11:08 Arm band placed on right wrist. kb3 11:13 Patient has correct armband on for positive identification. kb3 11:13 No provider procedures requiring assistance completed. Patient did not have IV access kb3 during this emergency room visit. 11:17 Quintanilla, Jahala, RN is Primary Nurse. jl7 11:18 COVID-19/FLU A+B Sent. kb3 11:42 Chest Single View XRAY In Process Unspecified. EDMS Administered Medications: 11:21 Drug: Zofran (Ondansetron) 4 mg Route: PO; jl7 12:30 Follow up: Response: No adverse reaction; Nausea is decreased jl7 Medication: 11:13 VIS not applicable for this client. kb3 Outcome: 12:13 Discharge ordered by . kb 12:37 Discharged to home ambulatory. jl7 12:37 Condition: stable 12:37 Discharge instructions given to patient, Instructed on discharge instructions, follow up and referral plans. medication usage, Demonstrated understanding of instructions, follow-up care, medications, Prescriptions given X 1. 12:39 Patient left the ED. jl7 Signatures: Dispatcher [employer] EDMS Radha Barraza, DUGLAS LAINEZP-Carmela RomanalAdilson RN RN jl7 Carlotta Chacko, YARED RN kb3
--- NOTE | 2022-07-16 12:13 | EDPHYS ---
Physician Documentation [facility] Name: Ashley Flynn Age: 72 yrs Sex: Female : 1950 Arrival Date: 07/16/2022 Time: 10:57 Bed 22 Private MD: ED Physician Fernando Alexander HPI: 07/16 11:42 This 72 yrs old Female presents to ER via Ambulatory with complaints of Flu kb Symptoms. 11:42 The patient or guardian reports cough, that is intermittent, described as mild, flu kb symptoms. Onset: The symptoms/episode began/occurred 1 week(s) ago. Severity of symptoms: At their worst the symptoms were moderate, in the emergency department the symptoms are unchanged. Modifying factors: The symptoms are alleviated by nothing, the symptoms are aggravated by nothing. Associated signs and symptoms: Pertinent positives: fever, nausea, rhinorrhea, vomiting. The patient has not experienced similar symptoms in the past. The patient has not recently seen a physician. Pt reports cough, congestion, fever, bodyaches for a week. Nausea and vomiting began 2 days ago. significant other has similar symptoms. Historical: - Allergies: 11:08 Latex, Natural Rubber; kb3 11:08 Sulfa (Sulfonamide Antibiotics); kb3 11:08 steriods; kb3 - PMHx: 11:08 diabetes mellitus; Hypercholesterolemia; Hypertensive disorder; Hypothyroidism; kb3 - Immunization history:: Adult Immunizations up to date, Client reports receiving the 2nd dose of the Covid vaccine, Last tetanus immunization: up to date. - Social history:: Smoking status: Patient denies any tobacco usage or history of. ROS: 11:42 Cardiovascular: Negative for chest pain, palpitations, and edema. kb 11:42 Constitutional: Positive for body aches, chills, fever, malaise. 11:42 ENT: Positive for rhinorrhea, sinus congestion. 11:42 Respiratory: Positive for cough. 11:42 Abdomen/GI: Positive for nausea and vomiting. 11:42 All other systems are negative. Exam: 11:42 Constitutional: This is a well developed, well nourished patient who is awake, alert, kb and in no acute distress. Head/Face: Normocephalic, atraumatic. ENT: Moist Mucous membranes Cardiovascular: Regular rate and rhythm with a normal S1 and S2. No gallops, murmurs, or rubs. No pulse deficits. Respiratory: Respirations even and unlabored. No increased work of breathing. Talking in full sentences Abdomen/GI: Soft, non-tender. No distention Skin: Warm, dry with normal turgor. Normal color. MS/ Extremity: Pulses equal, no cyanosis. Neurovascular intact. Full, normal range of motion. Neuro: Awake and alert, GCS 15, oriented to person, place, time, and situation. Moves all extremities. Normal gait. Psych: Awake, alert, with orientation to person, place and time. Behavior, mood, and affect are within normal limits. Vital Signs: 11:06 BP 159 / 76; Pulse 99; Resp 20; Temp 98.8; Pulse Ox 100% ; Weight 83.91 kg; Height 5 kb3 ft. 2 in. (157.48 cm); Pain 8/10; 12:37 BP 129 / 77; Pulse 100; Resp 19; Temp 98.7(O); Pulse Ox 96% on R/A; jl7 11:06 Body Mass Index 33.84 (83.91 kg, 157.48 cm) kb3 MDM: 11:12 Patient medically screened. kb 11:42 Data reviewed: vital signs, nurses notes. Data interpreted: Pulse oximetry: on room air kb is 100 %. Interpretation: normal. 12:12 Counseling: I had a detailed discussion with the patient and/or guardian regarding: the kb historical points, exam findings, and any diagnostic results supporting the discharge/admit diagnosis, lab results, radiology results, the need for outpatient follow up, a family practitioner, to return to the emergency department if symptoms worsen or persist or if there are any questions or concerns that arise at home. 07/16 11:12 Order name: COVID-19/FLU A+B; Complete Time: 12:07 kb 07/16 11:12 Order name: Chest Single View XRAY; Complete Time: 11:49 kb Administered Medications: 11:21 Drug: Zofran (Ondansetron) 4 mg Route: PO; jl7 12:30 Follow up: Response: No adverse reaction; Nausea is decreased jl7 Disposition: 13:21 Co-signature as Attending Physician, Fernando Alexander MD. rn Disposition Summary: 07/16/22 12:13 Discharge Ordered Location: Home kb Condition: Stable kb Diagnosis - Acute upper respiratory infection, unspecified kb Followup: kb - With: Emergency Department - When: As needed - Reason: Worsening of condition Followup: kb - With: Private Physician - When: 2 - 3 days - Reason: Recheck today's complaints, Continuance of care, Re-evaluation by your physician Discharge Instructions: - Discharge Summary Sheet kb - Upper Respiratory Infection, Adult, [id number] kb - Viral Respiratory Infection, [id number] kb Forms: - Medication Reconciliation Form kb - Thank You Letter kb - Antibiotic Education kb - Prescription Opioid Use kb Prescriptions: - Zofran 4 mg Oral Tablet - take 1 tablet by ORAL route every 6 hours As needed; 20 tablet; Refills: 0, kb Product Selection Permitted Signatures: Dispatcher [employer] EDMS aRdha Barraza, FREEZER UNLOADER-C FREEZER UNLOADER-Fernando Mohr MD MD rn Adilson Quintanilla RN RN jl7 Carlotta Chacko, RN RN kb3
[2022-07-16 12:51] VITALS: BP 129/77; TEMP 98.7; O2SAT 96
== END 2022-07-16 12:39 | disposition home or self-care (01) ==
LOC: ER 10:52
DX: J06.9 Acute upper respiratory infection, unspecified (principal); Z20.822 Contact with and (suspected) exposure to COVID-19; I10 Essential (primary) hypertension; E11.9 Type 2 diabetes mellitus without complications; Z88.2 Allergy status to sulfonamides; Z88.8 Allergy status to other drugs, medicaments and biological substances; Z91.040 Latex allergy status; Z91.048 Other nonmedicinal substance allergy status
CPT/HCPCS: 0240U; 71045; 99284; Q0162

== ENCOUNTER 2022-09-21 11:44 | Emergency (ER) | payer MEDICARE ==
--- OUTSIDE RECORDS SUMMARY | 2022-09-21 11:55 | XMS REPORT | Continuity of Care Document ---
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 Metered USE 1 Dose Nasal SPRAY IN [place] EACH NOSTRIL TWICE DAILY, # 48 mL, 1 Refill(s), Pharmacy: [facility] #[id number] Fluticasone Yes See Memori a propionate 1-17 Instructio l 0.05 19:53: ns, SHAKE [facility] MG/ACTUAT 35 LIQUID AND Metered USE 1 Dose Nasal SPRAY IN [place] EACH NOSTRIL TWICE DAILY, # 48 mL, 1 Refill(s), Pharmacy: [facility] #[id number] Fluticasone Yes See Memori a propionate 1-17 Instructio l 0.05 19:53: ns, SHAKE Xander MG/ACTUAT 35 LIQUID AND Metered USE 1 Dose Nasal SPRAY IN [place] EACH NOSTRIL TWICE DAILY, # 48 mL, 1 Refill(s), Pharmacy: [facility] #[id number] 3 ML 2017-07 No See Memoria Insulin 2-20 Instructio l Glargine 18:00: ns, 50 [facility] 100 UNT/ML 00 unit SUB-Q Prefilled Bedtime, # Syringe 1 box, 6 [Lantus] Refill(s) NovoTwist 2017-07 Yes 1 ea, Memoria Insulin Pen 2-20 MISC, l Lee 32G 18:00: Daily, # He rmann 5mm=09/30 99 365 ea, 11 inch Refill(s) cetirizine 2017-07 No See Memoria 10 mg oral 2-20 Instructio l tablet 18:00: ns, TAKE 1 Bonny nn 00 TABLET BY MOUTH DAILY NEEDED FOR ALLERGY SYMPTOMS, # 30 tab, 0 Refill(s), Pharmacy: [facility] #[id number] levothyroxi 2017-07 No See Memori a ne 25 mcg 2-20 Instructio l (0.025 mg) 18:00: ns, TAKE 1 H ermann oral tablet 00 TABLET BY MOUTH EVERY DAY, # 90 tab, 0 Refill(s), Pharmacy: [facility] #[id number] 3 ML 2017-07 No See Memoria Insulin 2-20 Instructio l Glargine 18:00: ns, 50 Xander 100 UNT/ML 00 unit SUB-Q Prefilled Bedtime, # Syringe 1 box, 6 [Lantus] Refill(s) NovoTwist 2017-07 Yes 1 ea, Memoria Insulin Pen 2-20 MISC, l Lee 32G 18:00: Daily, # He rmann 5mm=09/30 99 365 ea, 11 inch Refill(s) cetirizine 2017-07 No See Memoria 10 mg oral 2-20 Instructio l tablet 18:00: ns, TAKE 1 Bonny nn 00 TABLET BY MOUTH DAILY NEEDED FOR ALLERGY SYMPTOMS, # 30 tab, 0 Refill(s), Pharmacy: [facility] #[id number] levothyroxi 2017-07 No See Memori a ne 25 mcg 2-20 Instructio l (0.025 mg) 18:00: ns, TAKE 1 H ermann oral tablet 00 TABLET BY MOUTH EVERY DAY, # 90 tab, 0 Refill(s), Pharmacy: [facility] #[id number] 3 ML 2017-07 No See Memoria Insulin 2-20 Instructio l Glargine 18:00: ns, 50 Xander 100 UNT/ML 00 unit SUB-Q Prefilled Bedtime, # Syringe 1 box, 6 [Lantus] Refill(s) NovoTwist 2017-07 Yes 1 ea, Memoria Insulin Pen 2-20 MISC, l Lee 32G 18:00: Daily, # He rmann 5mm=09/29 00 365 ea, 11 inch Refill(s) cetirizine 2017-07 No See Memoria 10 mg oral 2-20 Instructio l tablet 18:00: ns, TAKE 1 Bonny nn 00 TABLET BY MOUTH DAILY NEEDED FOR ALLERGY SYMPTOMS, # 30 tab, 0 Refill(s), Pharmacy: [facility] #[id number] levothyroxi 2017-07 No See Memori a ne 25 mcg 2-20 Instructio l (0.025 mg) 18:00: ns, TAKE 1 H ermann oral tablet 00 TABLET BY MOUTH EVERY DAY, # 90 tab, 0 Refill(s), Pharmacy: [facility] #[id number] Trazodone 2017-07 Yes See Memoria Hydrochlori 1-02 Instructio l de 50 MG 18:30: ns, TAKE 1 Her capps Oral Tablet 00 TABLET BY MOUTH AT BEDTIME, # 90 tab, 0 Refill(s), Pharmacy: [facility] sertraline 2017-07 No See Memoria 50 mg oral 1-02 Instructio l tablet 18:30: ns, TAKE 1 Bonny nn 00 TABLET BY MOUTH EVERY DAY, # 90 tab, 0 Refill(s), Pharmacy: [facility] Hydrochloro 2017-07 No See Memori a thiazide 1-02 Instructio l 12.5 MG / 18:30: ns, TAKE 1 He rmann Lisinopril 00 TABLET BY 20 MG Oral MOUTH Tablet DAILY, # 90 tab, 0 Refill(s), Pharmacy: [facility] diclofenac 2017-07 Yes See Memoria potassium 1-02 Instructio l 50 mg oral 18:30: ns, TAKE 1 H ermann tablet 00 TABLET BY MOUTH THREE TIMES DAILY NEEDED FOR PAIN, # 270 tab, 0 Refill(s), [facility] cetirizine 2017-07 No See Memoria 10 mg oral 1-02 Instructio l tablet 18:30: ns, TAKE 1 Bonny nn 00 TABLET BY MOUTH DAILY NEEDED FOR ALLERGY SYMPTOMS, # 30 tab, 0 Refill(s), Pharmacy: [place] [address] Trazodone 2017-07 Yes See Memoria Hydrochlori 1-02 Instructio l de 50 MG 18:30: ns, TAKE 1 Her capps Oral Tablet 00 TABLET BY MOUTH AT BEDTIME, # 90 tab, 0 Refill(s), Pharmacy: [place] [address] sertraline 2017-07 No See Memoria 50 mg oral 1-02 Instructio l tablet 18:30: ns, TAKE 1 Bonny nn 00 TABLET BY MOUTH EVERY DAY, # 90 tab, 0 Refill(s), [facility] [place] [address] Hydrochloro 2017-07 No See Memori a thiazide 1-02 Instructio l 12.5 MG / 18:30: ns, TAKE 1 He rmann Lisinopril 00 TABLET BY 20 MG Oral MOUTH Tablet DAILY, # 90 tab, 0 Refill(s), Pharmacy: [facility] [place] [address] diclofenac 2017-07 Yes See Memoria potassium 1-02 Instructio l 50 mg oral 18:30: ns, TAKE 1 H ermann tablet 00 TABLET BY MOUTH THREE TIMES DAILY NEEDED FOR PAIN, # 270 tab, 0 Refill(s), Pharmacy: [facility] [place] [address] cetirizine 2017-07 No See Memoria 10 mg oral 1-02 Instructio l tablet 18:30: ns, TAKE 1 Bonny nn 00 TABLET BY MOUTH DAILY NEEDED FOR ALLERGY SYMPTOMS, # 30 tab, 0 Refill(s), Pharmacy: [facility] [place] [address] Trazodone 2017-07 Yes See Memoria Hydrochlori 1-02 Instructio l de 50 MG 18:30: ns, TAKE 1 Her capps Oral Tablet 00 TABLET BY MOUTH AT BEDTIME, # 90 tab, 0 Refill(s), Pharmacy: [facility] [place] [address] sertraline 2017-07 No See Memoria 50 mg oral 1-02 Instructio l tablet 18:30: ns, TAKE 1 Bonny nn 00 TABLET BY MOUTH EVERY DAY, # 90 tab, 0 Refill(s), Pharmacy: [facility] [place] [address] Hydrochloro 2017-07 No See Memori a thiazide 1-02 Instructio l 12.5 MG / 18:30: ns, TAKE 1 He rmann Lisinopril 00 TABLET BY 20 MG Oral MOUTH Tablet DAILY, # 90 tab, 0 Refill(s), Pharm[facility]: [facility] [id number] diclofenac 2017-07 Yes See Memoria potassium 07-18 Instructio l 50 mg oral 18:30: ns, TAKE 1 H ermann tablet 00 TABLET BY MOUTH THREE TIMES DAILY NEEDED FOR PAIN, # 270 tab, 0 Refill(s), Pharm[facility]: [facility] [id number] cetirizine 2017-07 No See Memoria 10 mg oral 07-18 Instructio l tablet 18:30: ns, TAKE 1 Bonny nn 00 TABLET BY MOUTH DAILY NEEDED FOR ALLERGY SYMPTOMS, # 30 tab, 0 Refill(s), Pharmacy: [facility] [id number] Acetaminoph No 1 tab, PO, Memoria en [...] # [Flexeril] 20 tab, 0 Refill(s) Ketorolac 2018-0 No 30 mg, Memori a 9-10 Route: IM, l 03:03: Drug form: [facility] 00 INJ, ONCE, Dosing Weight 90.909, kg, Priority: STAT, Start date: 03/25/18 22:03:00 CDT, Stop date: 03/25/18 22:03:00 CDT Valium 2018-0 No 5 mg, Memoria 9-10 Route: PO, l 03:03: ONCE, Xander 00 Dosing Weight 90.909, kg, Priority: STAT, Start date: 03/25/18 22:03:00 CDT, Stop date: 03/25/18 22:03:00 CDT Acetaminoph 2018-0 No 1 tab, Antoni bret en 325 MG / 03-26 Route: PO, l Hydrocodone 03:03: Drug Form: Xander Bitartrate 00 TAB, 5 MG Oral Dosing Tablet Weight [[place] 90.909, 5/325] kg, ONCE, STAT, Start date: 03/25/18 22:03:00 CDT, Stop date: 03/25/18 22:03:00 CDT Ketorolac 2018-0 No 30 mg, Memori a 9- Route: IM, l 03:03: Drug form: [facility] 00 INJ, ONCE, Dosing Weight 90.909, kg, Priority: STAT, Start date: 03/25/18 22:03:00 CDT, Stop date: 03/25/18 22:03:00 CDT Valium 2018-0 No 5 mg, Memoria 9-10 Route: PO, l 03:03: ONCE, Xander 00 Dosing Weight 90.909, kg, Priority: STAT, Start date: 03/25/18 22:03:00 CDT, Stop date: 03/25/18 22:03:00 CDT Acetaminoph 2018-0 No 1 tab, Antoni bret en 325 MG / 03-26 Route: PO, l Hydrocodone 03:03: Drug Form: [facility] Bitartrate 00 TAB, 5 MG Oral Dosing Tablet Weight [[place] 90.909, 5/325] kg, ONCE, STAT, Start date: 03/25/18 22:03:00 CDT, Stop date: 03/25/18 22:03:00 CDT Ketorolac 2018-0 No 30 mg, Memori a 03-26 Route: IM, l 03:03: Drug form: [facility] 00 INJ, ONCE, Dosing Weight 90.909, kg, Priority: STAT, Start date: 03/25/18 22:03:00 CDT, Stop date: 03/25/18 22:03:00 CDT Valium 2018-0 No 5 mg, Memoria 03-26 Route: PO, l 03:03: ONCE, [facility] 00 Dosing Weight 90.909, kg, Priority: STAT, Start date: 03/25/18 22:03:00 CDT, Stop date: 03/25/18 22:03:00 CDT Acetaminoph 2018-0 No 1 tab, Anotni bret en 325 MG / 03-26 Route: PO, l Hydrocodone 03:03: Drug Form: Xander Bitartrate 00 TAB, 5 MG Oral Dosing Tablet Weight [[place] 90.909, 5/325] kg, ONCE, STAT, Start date: 03/25/18 22:03:00 CDT, Stop date: 03/25/18 22:03:00 CDT Trazodone 2017-0 No See Memoria Hydrochlori 03-07 Instructio l de 50 MG 23:53: ns, # 90 Bonny nn Oral Tablet 50 tab, TAKE 1 TABLET BY MOUTH AT BEDTIME, 05/18/18 11:40:51 CDT, Pharmacy: [facility] [id number] Hydrochloro No See Memori a thiazide 03-07 Instructio l 12.5 MG / 23:53: ns, # 90 Herm danuta Lisinopril 50 tab, TAKE 20 MG Oral 1 TABLET Tablet BY MOUTH DAILY, 05/18/18 11:40:21 CDT, Pharmacy: [facility] [id number] levothyroxi No See Memori a ne 25 mcg 03-07 Instructio l (0.025 mg) 23:53: ns, # 90 Her capps oral tablet 50 tab, TAKE 1 TABLET BY MOUTH EVERY DAY, 07/05/18 11:24:22 [employer]ER, [facility]acy[facility] [id number] rosuvastati No See Memori a n 40 mg 8-22 Instructio l oral tablet 23:53: ns, # 90 He rmann 50 tab, TAKE 1 TABLET BY MOUTH AT BEDTIME, Pharmacy: [facility] [place] [address] Trazodone No See Memoria Hydrochlori 8-22 Instructio l de 50 MG 23:53: ns, # 90 Bonny nn Oral Tablet 50 tab, TAKE 1 TABLET BY MOUTH AT BEDTIME, 05/18/18 11:40:51 CDT, Pharmacy: [facility] [place] [address] Hydrochloro No See Memori a thiazide 8-22 Instructio l 12.5 MG / 23:53: ns, # 90 Herm danuta Lisinopril 50 tab, TAKE 20 MG Oral 1 TABLET Tablet BY MOUTH DAILY, 05/18/18 11:40:21 CDT, Pharmacy: 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 [place] [address] rosuvastati No See Memori a n 40 mg 8-22 Instructio l oral tablet 23:53: ns, # 90 He rmann 50 tab, TAKE 1 TABLET BY MOUTH AT BEDTIME, Pharmacy: [facility] [place] [address] Trazodone No See Memoria Hydrochlori 8-22 Instructio l de 50 MG 23:53: ns, # 90 Bonny nn Oral Tablet 50 tab, TAKE 1 TABLET BY MOUTH AT BEDTIME, 05/18/18 11:40:51 CDT, Pharmacy: [facility] [place] [address] Hydrochloro No See Memori a thiazide 8-22 Instructio l 12.5 MG / 23:53: ns, # 90 Herm danuta Lisinopril 50 tab, TAKE 20 MG Oral 1 TABLET Tablet BY MOUTH DAILY, 05/18/18 11:40:21 CDT, Pharmacy: 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 [place] [address] rosuvastati No See Memori a n 40 mg 8-22 Instructio l oral tablet 23:53: ns, # 90 He rmann 50 tab, TAKE 1 TABLET BY MOUTH AT BEDTIME, Pharmacy: [facility] [place] [address] Fluticasone No See Memori a propionate 8-21 Instructio l 0.05 20:14: ns, # 48 [facility] MG/ACTUAT 08 mL, SHAKE Metered LIQUID AND Dose Nasal USE 1 [place] SPRAY IN EACH NOSTRIL TWICE DAILY, Pharmacy: [facility] [place] [address] diclofenac No See Memoria potassium 8-21 Instructio l 50 mg oral 20:14: ns, # 270 He rmann tablet 08 tab, TAKE 1 TABLET BY MOUTH THREE TIMES DAILY NEEDED FOR PAIN, 05/18/18 11:40:05 CDT, Pharmacy: [facility] [place] [address] Fluticasone No See Memori a propionate 8-21 Instructio l 0.05 20:14: ns, # 48 [facility] MG/ACTUAT 08 mL, SHAKE Metered LIQUID AND Dose Nasal USE 1 [place] SPRAY IN EACH NOSTRIL TWICE DAILY, Pharmacy: [facility] [place] [address] diclofenac No See Memoria potassium 8-21 Instructio l 50 mg oral 20:14: ns, # 270 He rmann tablet 08 tab, TAKE 1 TABLET BY MOUTH THREE TIMES DAILY NEEDED FOR PAIN, 05/18/18 11:40:05 CDT, Pharmacy: [facility] [place] [address] Fluticasone No See Memori a propionate 8-21 Instructio l 0.05 20:14: ns, # 48 Xander MG/ACTUAT 08 mL, SHAKE Metered LIQUID AND Dose Nasal USE 1 [place] SPRAY IN EACH NOSTRIL TWICE DAILY, Pharmacy: [facility] [place] [address] diclofenac No See Memoria potassium 8-21 Instructio l 50 mg oral 20:14: ns, # 270 He rmann tablet 08 tab, TAKE 1 TABLET BY MOUTH THREE TIMES DAILY NEEDED FOR PAIN, 05/18/18 11:40:05 CDT, Pharmacy: [facility] [id number] Fluticasone 2017-0 No 1 spray, Me moria propionate 8-21 NASAL, l 0.05 15:50: BID, # 16 [facility] MG/ACTUAT 24 gm, 0 Metered Refill(s), Dose Nasal Pharmacy: [place] [facility] [id number] Fluticasone 2017-0 No 1 spray, Me moria propionate 8-21 NASAL, l 0.05 15:50: BID, # 16 [facility] MG/ACTUAT 24 gm, 0 Metered Refill(s), Dose Nasal Pharmacy: [place] [facility] [address] Fluticasone 2017-0 No 1 spray, Me moria propionate 8-21 NASAL, l 0.05 15:50: BID, # 16 [facility] MG/ACTUAT 24 gm, 0 Metered Refill(s), Dose Nasal Pharmacy: [place] [facility] [id number] Bromphenira 0 No 5 mL, PO, M emoria mine 8-21 TID, PRN l Maleate 0.4 15:50: cough, # He rmann MG/ML / 16 200 mL, 0 Dextrometho Refill(s), [facility] Pharmacy: Hydro[facility] MG/ML / [facility] [id number] rine Hydrochlori de 6 MG/ML Oral Solution [Bromfed DM] Bromphenira 0 No 5 mL, PO, M emoria mine 8-21 TID, PRN l Maleate 0.4 15:50: cough, # He rmann MG/ML / 16 200 mL, 0 Dextrometho Refill(s), [facility] Pharmacy: Hydrobromid [facility] 2 MG/ML / [facility] [id number] rine Hydrochlori de 6 MG/ML Oral Solution [Bromfed DM] Bromphenira 2018-0 No 5 mL, PO, M emoria mine 8-21 TID, PRN l Maleate 0.4 15:50: cough, # He rmann MG/ML / 16 200 mL, 0 Dextrometho Refill(s), [facility] Pharmacy: Hydrobromid [facility] 2 MG/ML / [facility] Store [facility]ep[facility] [address] kristen Hydrochlori de 6 MG/ML Oral Solution [Bromfed DM] diclofenac No 50 mg = 1 Me moria potassium 8-21 tab, PO, l 50 mg oral 15:50: TID, PRN Her capps tablet 00 for pain, # 60 tab, 0 Refill(s), Pharmacy: [facility] [address] Methocarbam No 750 mg = 1 Memoria ol 750 MG 8-21 tab, PO, l Oral Tablet 15:50: Q8H, PRN He rmann [Robaxin] 00 Spasms, X 20 day, # 60 tab, 0 Refill(s), Pharmacy: [facility] diclofenac No 50 mg = 1 Me moria potassium 8-21 tab, PO, l 50 mg oral 15:50: TID, PRN Her capps tablet 00 for pain, # 60 tab, 0 Refill(s), Pharmacy: [facility] Methocarbam No 750 mg = 1 Memoria ol 750 MG 8-21 tab, PO, l Oral Tablet 15:50: Q8H, PRN He rmann [Robaxin] 00 Spasms, X 20 day, # 60 tab, 0 Refill(s), Pharmacy: [facility] diclofenac 0 No 50 mg = 1 Me moria potassium 8-21 tab, PO, l 50 mg oral 15:50: TID, PRN Her capps tablet 00 for pain, # 60 tab, 0 Refill(s), Pharmacy: [facility] [address] Methocarbam 0 No 750 mg = 1 Memoria ol 750 MG 8-21 tab, PO, l Oral Tablet 15:50: Q8H, PRN He rmann [Robaxin] 00 Spasms, X 20 day, # 60 tab, 0 Refill(s), Pharmacy: [facility] [id number] Ketorolac 0 No 30 mg, Memori a 8 Route: IM, l 15:49: Drug form: [facility] 00 INJ, ONCE, Dosing Weight 86.364, kg, Start date: 03/06/18 10:49:00 CDT, Stop date: 03/06/18 10:49:00 CDT Ketorolac 2018-0 No 30 mg, Memori a 03-06 Route: IM, l 15:49: Drug form: [facility] 00 INJ, ONCE, Dosing Weight 86.364, kg, Start date: 03/06/18 10:49:00 CDT, Stop date: 03/06/18 10:49:00 CDT Ketorolac 2018-0 No 30 mg, Memori a 03-06 Route: IM, l 15:49: Drug form: Xander 00 INJ, ONCE, Dosing Weight 86.364, kg, Start date: 03/06/18 10:49:00 CDT, Stop date: 03/06/18 10:49:00 CDT NovoTwist 2017-0 Yes 1 ea, Memoria Insulin Pen 5-18 MISC, l Lee 32G 19:45: Daily, # He rmann 5mm=09/30 99 365 ea, 11 inch Refill(s) NovoTwist 2018-0 Yes 1 ea, Memoria Insulin Pen 5-18 MISC, l Lee 32G 19:45: Daily, # He rmann 5mm=09/30 99 365 ea, 11 inch Refill(s) NovoTwist 2017-0 Yes 1 ea, Memoria Insulin Pen 5-18 MISC, l Lee 32G 19:45: Daily, # He rmann 5mm=09/30 99 365 ea, 11 inch Refill(s) 3 ML Yes See Memoria Insulin 5-18 Instructio l Glargine 16:14: ns, 50 [facility] 100 UNT/ML 00 unit SUB-Q Prefilled Bedtime, # Syringe 1 box, 6 [Lantus] Refill(s), Pharmacy: [facility] [id number] 3 ML Yes 60 unit, Memoria Insulin 5-18 SUB-Q, l Lispro 100 16:14: BID, # 1 Her capps UNT/ML Pen 00 box, 5 Injector Refill(s), [Humalog] Pharmacy: [facility] [address] cetirizine Yes 10 mg = 1 Me moria hydrochlori 5-18 tab, PO, l de 10 MG 16:14: Daily, PRN Her capps Oral Tablet 00 for [Zyrtec] allergy symptoms, # 30 tab, 0 Refill(s), [facility] [address] 3 ML Yes See Memoria Insulin 5-18 Instructio l Glargine 16:14: ns, 50 Xander 100 UNT/ML 00 unit SUB-Q Prefilled Bedtime, # Syringe 1 box, 6 [Lantus] Refill(s), Pharmacy: [facility] [id number] 3 ML Yes 60 unit, Memoria Insulin 5-18 SUB-Q, l Lispro 100 16:14: BID, # 1 Her capps UNT/ML Pen 00 box, 5 Injector Refill(s), [Humalog] Pharmacy: [facility] cetirizine Yes 10 mg = 1 Me moria hydrochlori 5-18 tab, PO, l de 10 MG 16:14: Daily, PRN Her capps Oral Tablet 00 for [Zyrtec] allergy symptoms, # 30 tab, 0 Refill(s), Pharmacy: [facility] 3 ML Yes See Memoria Insulin 5-18 Instructio l Glargine 16:14: ns, 50 Xander 100 UNT/ML 00 unit SUB-Q Prefilled Bedtime, # Syringe 1 box, 6 [Lantus] Refill(s), Pharmacy: [facility] [id number] 3 ML Yes 60 unit, Memoria Insulin 5-18 SUB-Q, l Lispro 100 16:14: BID, # 1 Her capps UNT/ML Pen 00 box, 5 Injector Refill(s), [Humalog] [facility] cetirizine Yes 10 mg = 1 Me moria hydrochlori 5-18 tab, PO, l de 10 MG 16:14: Daily, PRN Her capps Oral Tablet 00 for [Zyrtec] allergy symptoms, # 30 tab, 0 Refill(s), [facility] 3 ML Yes See Memoria Insulin 5-02 Instructio l Lispro 25 12:30: ns, INJECT He rmann UNT/ML / 00 60 UNITS Insulin, SUBCUTANEO Protamine USLY EVERY Lispro, 12 HOURS, Human 75 # 21 syr, UNT/ML 1 Prefilled Refill(s), Syringe Pharm[facility]: [facility] [address] levothyroxi Yes See Memori a ne 25 mcg 5-02 Instructio l (0.025 mg) 12:30: ns, TAKE 1 H ermann oral tablet 00 TABLET BY MOUTH EVERY DAY, # 90 tab, 1 Refill(s), Pharmacy: [facility] [id number] Rosuvastati Yes 40 mg, PO, Memoria n calcium 5-02 Bedtime, # l 40 MG Oral 12:30: 90 tab, 1 He rmann Tablet 00 Refill(s), [Crestor] Pharmacy: [facility] [address] Trazodone Yes 50 mg = 1 Mem [...] 00 Refill(s), 20 MG Oral Pharmacy: Tablet [facility] 98[address] 3 ML Yes See Memoria Insulin 5-02 Instructio l Lispro 25 12:30: ns, INJECT He rmann UNT/ML / 00 60 UNITS Insulin, SUBCUTANEO Protamine USLY EVERY Lispro, 12 HOURS, Human 75 # 21 syr, UNT/ML 1 Prefilled Refill(s), Syringe Pharmacy: [Humalog [facility] Mix 75/] [facility] [address] levothyroxi Yes See Memori a ne 25 mcg 5-02 Instructio l (0.025 mg) 12:30: ns, TAKE 1 H ermann oral tablet 00 TABLET BY MOUTH EVERY DAY, # 90 tab, 1 Refill(s), Pharmacy: [facility] [address] Rosuvastati Yes 40 mg, PO, Memoria n calcium 5-02 Bedtime, # l 40 MG Oral 12:30: 90 tab, 1 He rmann Tablet 00 Refill(s), [Crestor] Pharmacy: [facility] [id number] Trazodone Yes 50 mg = 1 Mem [...] 00 Refill(s), 20 MG Oral Pharmacy: Tablet [facility] [id number] 3 ML Yes See Memoria Insulin -02 Instructio l Lispro 25 12:30: ns, INJECT He rmann UNT/ML / 00 60 UNITS Insulin, SUBCUTANEO Protamine USLY EVERY Lispro, 12 HOURS, Human 75 # 21 syr, UNT/ML 1 Prefilled Refill(s), Syringe Pharmacy: [Humalog [facility] Mix 75/25] Drug Store [id number] levothyroxi Yes See Memori a ne 25 mcg - Instructio l (0.025 mg) 12:30: ns, TAKE 1 H ermann oral tablet 00 TABLET BY MOUTH EVERY DAY, # 90 tab, 1 Refill(s), Pharmacy: [facility] [id number] Rosuvastati Yes 40 mg, PO, Memoria n calcium 5-02 Bedtime, # l 40 MG Oral 12:30: 90 tab, 1 He rmann Tablet 00 Refill(s), [Crestor] Pharmacy: [facility] [id number] Trazodone Yes 50 mg = 1 Mem oria Hydrochlori 5-02 tab, PO, l de 50 MG 12:30: Bedtime, # Her capps Oral Tablet 00 90 tab, 1 Refill(s) tramadol Yes 50 mg = 1 Antoni bret hydrochlori 5-02 tab, PO, l de 50 MG 12:30: Q8H, PRN Bonny nn Oral Tablet 00 Pain, # 90 tab, 0 Refill(s) Hydrochloro 2017-0 Yes 1 tab, PO, Memoria thiazide 5-02 Daily, # l 12.5 MG / 12:30: 90 tab, 0 Her capps Lisinopril 00 Refill(s), 20 MG Oral Pharmacy: Tablet [facility] [id number] baclofen 0 Yes 20 mg = 1 M emoria mg oral 4-24 tab, PO, l tablet 16:34: TID, PRN [facility] 00 Spasms, # 90 tab, 0 Refill(s), Pharmacy: [facility] [id number] baclofen 0 Yes 20 mg = 1 M emoria mg oral 4-24 tab, PO, l tablet 16:34: TID, PRN Xander 00 Spasms, # 90 tab, 0 Refill(s), Pharmacy: [facility] [id number] baclofen 0 Yes 20 mg = 1 M emoria mg oral 4-24 tab, PO, l tablet 16:34: TID, PRN Xander 00 Spasms, # 90 tab, 0 Refill(s), Pharmacy: [facility] [id number] Bromphenira 2017-0 Yes 5 mL, PO, M emoria mine 4-02 TID, PRN l Maleate 0.4 20:26: cough, # He rmann MG/ML / 33 200 mL, 0 Dextrometho Refill(s), [facility] Pharmacy: Hydrobromid [facility] e 2 MG/ML / Drug Store Pseudoephed [id number] rine Hydrochlori de 6 MG/ML Oral Solution [Bromfed DM] Bromphenira 2018-0 Yes 5 mL, PO, M emoria mine 4-02 TID, PRN l Maleate 0.4 20:26: cough, # He rmann MG/ML / 33 200 mL, 0 Dextrometho Refill(s), [facility] Pharmacy: Hydrobromid [facility] e 2 MG/ML / Drug Store Pseudoephed [id number] rine Hydrochlori de 6 MG/ML Oral Solution [Bromfed DM] Bromphenira 2018-0 Yes 5 mL, PO, M emoria mine 4-02 TID, PRN l Maleate 0.4 20:26: cough, # He rmann MG/ML / 33 200 mL, 0 Dextrometho Refill(s), [facility] Pharmacy: [facility]bromid [facility] 2 MG/ML / Drug Store Pseudoephed [id number] rine Hydrochlori de 6 MG/ML Oral Solution [Bromfed DM] cetirizine No 10 mg = 1 Me moria hydrochlori 02 tab, PO, l de 10 MG 20:26: Daily, PRN Her capps Oral Tablet 00 for [Zyrtec] allergy symptoms, # 30 tab, 0 Refill(s), Pharmacy: [facility] [id number] Azithromyci No See Memori a n 5 Day 10-16 Instructio l Dose Pack 20:26: ns, Take 2 He rmann 250 mg oral 00 tablets by tablet mouth the first day then 1 tablet by mouth days 2-5., X 5 day, # 6 tab, 0 Refill(s), Pharmacy: [facility] [id number] cetirizine No 10 mg = 1 Me moria hydrochlori 10-16 tab, PO, l de 10 MG 20:26: Daily, PRN Her capps Oral Tablet 00 for [Zyrtec] allergy symptoms, # 30 tab, 0 Refill(s), Pharmacy: [facility] [id number] Azithromyci No See Memori a n 5 Day 10-16 Instructio l Dose Pack 20:26: ns, Take 2 He rmann 250 mg oral 00 tablets by tablet mouth the first day then 1 tablet by mouth days 2-5., X 5 day, # 6 tab, 0 Refill(s), Pharmacy: [facility] [id number] cetirizine No 10 mg = 1 Me moria hydrochlori 10-16 tab, PO, l de 10 MG 20:26: Daily, PRN Her capps Oral Tablet 00 for [Zyrtec] allergy symptoms, # 30 tab, 0 Refill(s), Pharmacy: [facility] [id number] Azithromyci No See Memori a n 5 Day 10-16 Instructio l Dose Pack 20:26: ns, Take 2 He rmann 250 mg oral 00 tablets by tablet mouth the first day then 1 tablet by mouth days 2-5., X 5 day, # 6 tab, 0 Refill(s), Pharmacy: [facility] [id number] Magic Mouth 2018-0 Yes 5 ml, Memor ia Wash 2-05 S&SPIT, l (Maalox/Otoniel 18:05: QID, PRN He rmann adryl/Lidoc 00 Mouth ann-marie) 1:1:1 Pain, swish and spit out up to 4 times per day, # 90 ml, 1 Refill(s) Magic Mouth 2018-0 Yes 5 ml, Memor ia Wash 2-05 S&SPIT, l (Maalox/Otoniel 18:05: QID, PRN He rmann adryl/Lidoc 00 Mouth ann-marie) 1:1:1 Pain, swish and spit out up to 4 times per day, # 90 ml, 1 Refill(s) Magic Mouth 2018-0 Yes 5 ml, Memor ia Wash 2-05 S&SPIT, l (Maalox/Otoniel 18:05: QID, PRN He rmann adryl/Lidoc 00 Mouth ann-marie) 1:1:1 Pain, swish and spit out up to 4 times per day, # 90 ml, 1 Refill(s) 2 ML 2018-0 No 1,200,000 Memoria penicillin 1-30 unit, l G 17:32: Route: IM, Xander benzathine 00 ONCE, [id number] Dosing UNT/ML Weight Prefilled 93.636, Syringe kg, Start [Bicillin date: -A] 08/15/17 11:32:00 [employer], Stop date: 08/15/17 11:32:00 [employer]ER benzonatate No 200 mg = 1 Memoria 200 MG Oral 1-30 cap, PO, l Capsule 17:32: TID, X 10 Bon[facility] [Tessalon] 00 day, # 30 cap, 0 Refill(s), Pharmacy: [facility] #[id number] Fluticasone 2018-0 Yes 2 spray, Me moria propionate 1-30 NASAL, l 0.05 17:32: BID, # 16 [facility] MG/ACTUAT 00 gm, 0 Metered Refill(s), Dose Nasal Pharmacy: [facility] [Flonase] [facility] #[id number] Bromphenira 2017-0 No 5 mL, PO, M emoria mine 1-30 TID, PRN l Maleate 0.4 17:32: cough, # He rmann MG/ML / 00 200 mL, 0 Dextrometho Refill(s), [facility] Pharmacy: [facility] 2 MG/ML / cy #[id number] Pseudoephed rine Hydrochlori de 6 MG/ML Oral Solution [Bromfed DM] 2 ML No 1,200,000 Memoria penicillin 1-30 unit, l G 17:32: Route: IM, Xander benzathine 00 ONCE, [id number] Dosing UNT/ML Weight Prefilled 93.636, Syringe kg, Start [Bicillin date: L-A] 08/15/17 11:32:00 [employer]ER, Stop date: 08/15/17 11:32:00 [employer]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 benzonatate 2017-0 No 200 mg = 1 Memoria 200 MG Oral 1-30 cap, PO, l Capsule 17:32: TID, X 10 Bon[place] nn [Tessalon] 00 day, # 30 cap, 0 Refill(s), Pharmacy: [id number] Fluticasone 2018- Yes 2 spray, Me moria propionate 1-30 NASAL, l 0.05 17:32: BID, # 16 Xander MG/ACTUAT 00 gm, 0 Metered Refill(s), Dose Nasal Pharmacy: [facility] [Flonase] cy #[id number] Bromphenira 2018-0 No 5 mL, PO, M emoria mine 1-30 TID, PRN l Maleate 0.4 17:32: cough, # He rmann MG/ML / 00 200 mL, 0 Dextrometho Refill(s), [facility] Pharmacy: [facility] 2 MG/ML / cy #[id number] Pseudoephed rine Hydrochlori de 6 MG/ML Oral Solution [Bromfed DM] 2 ML No 1,200,000 Memoria penicillin 1-30 unit, l G 17:32: Route: IM, [facility] benzathine 00 ONCE, [id number] Dosing UNT/ML Weight Prefilled 93.636, Syringe kg, Start [Bicillin date: L-A] 08/15/17 11:32:00 V[employer]ICER, Stop date: 08/15/17 11:32:00 V[employer]ICER benzonatate 2018-0 No 200 mg = 1 Memoria 200 MG Oral 1-30 cap, PO, l Capsule 17:32: TID, X 10 Bonny nn [Tessalon] 00 day, # 30 cap, 0 Refill(s), Pharmacy: [facility] #[id number] Fluticasone Yes 2 spray, Me moria propionate 1-30 NASAL, l 0.05 17:32: BID, # 16 Xander MG/ACTUAT 00 gm, 0 Metered Refill(s), Dose Nasal Pharmacy: [facility] [Flonase] cy #[id number] Bromphenira No 5 mL, PO, M emoria mine 1-30 TID, PRN l Maleate 0.4 17:32: cough, # He rmann MG/ML / 00 200 mL, 0 Dextrometho Refill(s), rphan Pharmacy: Hydrob[facility] 2 MG/ML / cy #[id number] Pseudoephed rine Hydrochlori de 6 MG/ML Oral Solution [Bromfed DM] Tylenol No Notes: Do Memor ia 1-08 not exceed l 09:41: 4 gm/day. Xander (Same as: Tylenol) Tylenol No Notes: Do Memor ia 1-08 not exceed l 09:41: 4 gm/day. Xander (Same as: Tylenol) Tylenol No Notes: Do Memor ia 1-08 not exceed l 09:41: 4 gm/day. Xander 00 (Same as: Tylenol) tramadol Yes 50 [...] Pain, # 90 tab, 0 Refill(s) tramadol 0 Yes 50 mg = 1 Antoni bret hydrochlori 1-05 tab, PO, l de 50 MG 15:21: Q8H, PRN Bonny nn Oral Tablet 00 Pain, # 90 tab, 0 Refill(s) Trazodone Yes 50 mg = 1 Mem oria Hydrochlori 1-05 tab, PO, l de 50 MG 15:20: Bedtime, # Her capps Oral Tablet 25 90 tab, 1 Refill(s), [id number] Trazodone Yes 50 mg = 1 Mem oria Hydrochlori 1-05 tab, PO, l de 50 MG 15:20: Bedtime, # Her capps Oral Tablet 25 90 tab, 1 Refill(s), Pharmacy: [facility] #[id number] Trazodone Yes 50 mg = 1 Mem oria Hydrochlori 1-05 tab, PO, l de 50 MG 15:20: Bedtime, # Her capps Oral Tablet 25 90 tab, 1 Refill(s), Pharmacy: [facility] #[id number] Rosuvastati Yes 40 mg, PO, Memoria n calcium 1-05 Bedtime, # l 40 MG Oral 15:20: 90 tab, 1 He rmann Tablet 16 Refill(s), [Crestor] Pharmacy: [facility] #[id number] Rosuvastati Yes 40 mg, PO, Memoria n calcium 1-05 Bedtime, # l 40 MG Oral 15:20: 90 tab, 1 He rmann Tablet 16 Refill(s), [Crestor] Pharmacy: [facility] #[id number] Rosuvastati Yes 40 mg, PO, Memoria n calcium 1-05 Bedtime, # l 40 MG Oral 15:20: 90 tab, 1 He rmann Tablet 16 Refill(s), [Crestor] Pharmacy: [facility] #[id number] levothyroxi Yes See Memori a ne 25 mcg 1-05 Instructio l (0.025 mg) 15:20: ns, TAKE 1 H ermann oral tablet 01 TABLET BY MOUTH EVERY DAY, # 90 tab, 1 Refill(s), Pharmacy: [facility] #[id number] levothyroxi Yes See Memori a ne 25 mcg 1-05 Instructio l (0.025 mg) 15:20: ns, TAKE 1 H ermann oral tablet 01 TABLET BY MOUTH EVERY DAY, # 90 tab, 1 Refill(s), Pharmacy: [facility] #[id number] levothyroxi Yes See Memori a ne 25 mcg 1-05 Instructio l (0.025 mg) 15:20: ns, TAKE 1 H ermann oral tablet 01 TABLET BY MOUTH EVERY DAY, # 90 tab, 1 Refill(s), [id number] baclofen Yes See Memori a mg oral 1-05 Instructio l tablet 15:17: ns, TAKE 1 Bonny nn 33 TABLET BY MOUTH 3 TIMES A DAY NEEDED FOR SPASMS, # 90 tab, 0 Refill(s), [id number] baclofen Yes See Memori a mg oral 1-05 Instructio l tablet 15:17: ns, TAKE 1 Bonny nn 33 TABLET BY MOUTH 3 TIMES A DAY NEEDED FOR SPASMS, # 90 tab, 0 Refill(s), [id number] baclofen Yes See Memori a mg oral 1-05 Instructio l tablet 15:17: ns, TAKE 1 Bonny nn 33 TABLET BY MOUTH 3 TIMES A DAY NEEDED FOR SPASMS, # 90 tab, 0 Refill(s), [id number] sertraline Yes 50 mg = 1 Me moria 50 mg oral 1-05 tab, PO, l tablet 15:17: Daily, # Xander 00 90 tab, 0 Refill(s), [id number] Hydrochloro 2017-0 Yes 1 tab, PO, Memoria thiazide 1-05 Daily, # l 12.5 MG / 15:17: 90 tab, 0 Her capps Lisinopril 00 Refill(s), 20 MG Oral [id number] Glyburide 5 Yes 2 tab, PO, Memoria MG / 1-05 BID-Meals, l Metformin 15:17: # 120 tab, He rmann hydrochlori 00 3 de 500 MG Refill(s), Oral Tablet [id number] sertraline 2017- Yes 50 mg = 1 Me moria 50 mg oral 1-05 tab, PO, l tablet 15:17: Daily, # Xander 00 90 tab, 0 Refill(s), [id number] Hydrochloro 2017-0 Yes 1 tab, PO, Memoria thiazide 1-05 Daily, # l 12.5 MG / 15:17: 90 tab, 0 Her capps Lisinopril 00 Refill(s), 20 MG Oral Pharmacy: [facility] #[id number] Glyburide 5 2018-0 Yes 2 tab, PO, Memoria MG / 1-05 BID-Meals, l Metformin 15:17: # 120 tab, He rmann hydrochlori 00 3 de 500 MG Refill(s), Oral Tablet Pharmacy: [facility] #[id number] sertraline 2018-0 Yes 50 mg = 1 Me moria 50 mg oral 1-05 tab, PO, l tablet 15:17: Daily, # Xander 00 90 tab, 0 Refill(s), Pharmacy: [facility] #[id number] Hydrochloro 2018-0 Yes 1 tab, PO, Memoria thiazide 1-05 Daily, # l 12.5 MG / 15:17: 90 tab, 0 Her capps Lisinopril 00 Refill(s), 20 MG Oral Pharmacy: [facility] #[id number] Glyburide 5 2017-0 Yes 2 tab, PO, Memoria MG / 1-05 BID-Meals, l Metformin 15:17: # 120 tab, He rmann hydrochlori 00 3 de 500 MG Refill(s), Oral Tablet Pharmacy: [facility] #[id number] Glyburide 5 2018-0 No 2 tab, PO, [...] tab, PO, l tablet 14:46: Daily, # [facility] 00 90 tab, 0 Refill(s) Glyburide 5 [...] tab, PO, l tablet 14:46: Daily, # [facility] 00 90 tab, 0 Refill(s) Glyburide 5 2017-0 No 2 tab, PO, Memoria MG / [...] 1 TABLET BY MOUTH EVERY DAY, Pharmacy: [facility] #[id number] levothyroxi 2016-07 Yes See Memori a ne 25 mcg 2-29 Instructio l (0.025 mg) 11:59: ns, # 90 Her capps oral tablet 53 tab, TAKE 1 TABLET BY MOUTH EVERY DAY, Pharmacy: [facility] #[id number] levothyroxi 2016-07 Yes See Memori a ne 25 mcg 2-29 Instructio l (0.025 mg) 11:59: ns, # 90 Her capps oral tablet 53 tab, TAKE 1 TABLET BY MOUTH EVERY DAY, Pharmacy: [facility] #[id number] baclofen 20 2016-07 Yes See Memori a mg oral 2-15 Instructio l tablet 19:19: ns, TAKE 1 Bonny nn 00 TABLET BY MOUTH 3 TIMES A DAY NEEDED FOR SPASMS, # 90 tab, 0 Refill(s), Pharmacy: [facility] #[id number] baclofen 20 2016-07 Yes See Memori a mg oral 2-15 Instructio l tablet 19:19: ns, TAKE 1 Bonny nn 00 TABLET BY MOUTH 3 TIMES A DAY NEEDED FOR SPASMS, # 90 tab, 0 Refill(s), Pharmacy: [facility] #[id number] baclofen 20 2016-07 Yes See Memori a mg oral 2-15 Instructio l tablet 19:19: ns, TAKE 1 Bonny nn 00 TABLET BY MOUTH 3 TIMES A DAY NEEDED FOR SPASMS, # 90 tab, 0 Refill(s), Pharmacy: [facility] #[id number] Ibuprofen 2016-07 Yes See Memoria 600 MG Oral 2-01 Instructio l Tablet 20:59: ns, # 60 [facility] [Ibu] 00 tab, TAKE 1 TABLET BY MOUTH EVERY 8HOURS NEEDED WITH PAIN TAKE WITH FOOD, Pharmacy: [facility] #[id number] 3 ML 2016-07 Yes See Memoria Insulin 2-01 Instructio l Lispro 25 20:59: ns, # 21 Herm danuta UNT/ML / 00 syr, Insulin, INJECT 60 Protamine UNITS Lispro, SUBCUTANEO Human 75 USLY EVERY UNT/ML 12 HOURS, Prefilled Pharmacy: [facility] #[id number] Mix 75/25] Ibuprofen 2016-07 Yes See Memoria 600 MG Oral 2-01 Instructio l Tablet 20:59: ns, # 60 Xander [Ibu] 00 tab, TAKE 1 TABLET BY MOUTH EVERY 8HOURS NEEDED WITH PAIN TAKE WITH FOOD, Pharmacy: [facility] #[id number] 3 ML 2016-07 Yes See Memoria Insulin 2-01 Instructio l Lispro 25 20:59: ns, # 21 Herm danuta UNT/ML / 00 syr, Insulin, INJECT 60 Protamine UNITS Lispro, SUBCUTANEO Human 75 USLY EVERY UNT/ML 12 HOURS, Prefilled Pharmacy: [facility] [[employer] #[id number] Mix 75/25] Ibuprofen 2016-07 Yes See Memoria 600 MG Oral 2-01 Instructio l Tablet 20:59: ns, # 60 [facility] [Ibu] 00 tab, TAKE 1 TABLET BY MOUTH EVERY 8HOURS NEEDED WITH PAIN TAKE WITH FOOD, Pharmacy: [facility] #[id number] 3 ML 2016-07 Yes See Memoria Insulin 2-01 Instructio l Lispro 25 20:59: ns, # 21 Herm danuta UNT/ML / 00 syr, Insulin, INJECT 60 Protamine UNITS Lispro, SUBCUTANEO Human 75 USLY EVERY UNT/ML 12 HOURS, Prefilled Pharmacy: [facility] [[facility] #[id number] Mix 75/25] FLUoxetine Yes Severe 10mg QD Take 1 Nando ris (PROZAC) 10 1-06 episode of capsule by Health mg capsule 00:00: 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 FLUoxetine Yes Severe 10mg QD Take 1 Nando ris (PROZAC) 10 - episode of capsule by Health mg capsule 00:00: recurrent mouth 00 major daily. depressive disorder, without psychotic features hydrOXYzine Yes PTSD 25mg Take 1 Sharita is (ATARAX) 25 - (post-traum tablet by Health mg tablet 00:00: atic stress mouth 3 00 disorder) times daily as needed for Anxiety or Insomnia. FLUoxetine Yes Severe 10mg QD Take 1 Nando ris (PROZAC) 10 - episode of capsule by Health mg capsule 00:00: 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 rosuvastati 2015-07 Yes 40mg Take 40 mg [facility] n (CRESTOR) 03 by mouth [facility]al th 40 mg 14:12: at bedtime tablet 04 nightly. aspirin 325 2015-07 Yes 325mg QD Take 325 H arris mg tablet 1-03 mg by Health 14:12: mouth 04 daily. rosuvastati 2015-07 Yes 40mg Take 40 mg Coleman n (CRESTOR) 03 by mouth [facility]al [facility] 40 mg 14:12: at bedtime tablet 04 nightly. aspirin 325 2015-07 Yes 325mg QD Take 325 H arris mg tablet 1-03 mg by Health 14:12: mouth 04 daily. rosuvastati 2015-07 Yes 40mg Take 40 mg Coleman n (CRESTOR) 03 by mouth [facility]al th 40 mg 14:12: [...] Coleman etFORMIN 8-23 diabetes tablets by H ealth (GLUCOVANCE 00:00: mellitus mouth 2 ) 5-500 mg 00 with times per tablet complicatio daily n, without (with long-term meals). current use of insulin fenofibrate Yes Hypertrigly 54mg QD Take 1 Coleman (LOFIBRA) 8-23 ceridemia tablet by Health 54 mg 00:00: [...] without long-term current use of insulin lancets Yes Type 2 Q.5D 2 times Price rris gauge 8-23 diabetes daily. Health 00:00: mellitus 00 with complicatio n, without long-term current use of insulin glyBURIDE-m Yes Type 2 2{tbl} Q.5D Take 2 [facility] etFORMIN 8-23 diabetes tablets by H ealth (GLUCOVANCE 00:00: mellitus mouth 2 ) 5-500 mg 00 with times per tablet complicatio daily n, without (with long-term meals). current use of insulin fenofibrate Yes Hypertrigly 54mg QD Take 1 [facility] (LOFIBRA) 8-23 ceridemia tablet by Health 54 mg 00:00: [...] without long-term current use of insulin lancets Yes Type 2 Q.5D 2 times Prcie rris gauge 8-23 diabetes daily. Health 00:00: mellitus 00 with complicatio n, without long-term current use of insulin glyBURIDE-m Yes Type 2 2{tbl} Q.5D Take 2 [facility] etFORMIN 8-23 diabetes tablets by H ealth (GLUCOVANCE 00:00: mellitus mouth 2 ) 5-500 mg 00 with times per tablet complicatio daily n, without (with long-term meals). current use of insulin fenofibrate Yes Hypertrigly 54mg QD Take 1 [facility] (LOFIBRA) 03-08 ceridemia tablet by Health 54 mg 00:00: mouth tablet 00 daily. blood Yes Type 2 Use as Coleman glucose 8 diabetes directed.. He alth meter 00:00: mellitus 00 with complicatio n, without long-term current use of insulin blood Yes Type 2 Q.5D 2 times Coleman glucose 03-08 diabetes daily to Heal th test strips 00:00: mellitus test blood 00 with sugar. complicatio n, without long-term current use of insulin lancets 28 Yes Type 2 Q.5D 2 times Price rris gauge 8 diabetes daily. Health 00:00: mellitus 00 with complicatio n, without long-term current use of insulin gabapentin Yes Type 2 100mg Take 1 Price rris (NEURONTIN) 808 diabetes capsule by Health 100 mg 00:00: [...] 10 mg 00:00: Hospita tablet 00 l loratadine 0 Yes 10mg Take 10 mg M ethodi (CLARITIN) 6-[address] 10 mg 00:00: Hospita tablet 00 l ibuprofen 0 Yes Body aches 800mg Take 1 Coleman [...] tablet 00 unspecified daily. etiology ibuprofen Yes Body aches 800mg Take 1 [...] 9-26 l injectable 17:00: Xander solution 00 ketorolac No 4 days Memor ia 30 mg/mL 9-26 l injectable 17:00: [facility] solution 00 ketorolac No 4 days Memor ia 30 mg/mL 9-26 l injectable 17:00: Xander solution 00 Aspirin 81 No Notes: Do Me moria MG Enteric 9- not crush l Coated 14:00: or chew. [facility] Tablet 00 (Same As: Ecotrin) Aspirin 81 No Notes: Do Me moria MG Enteric 9-26 not crush l Coated 14:00: or chew. Xander Tablet 00 (Same As: Ecotrin) Aspirin 81 No Notes: Do Me moria MG Enteric 9-26 not crush l Coated 14:00: or chew. [facility] Tablet 00 (Same As: Ecotrin) Lantus No 7 unit, Memoria 04-11 Route: l 02:00: SUB-Q, Xander Drug form: SOLN, Bedtime, Dosing Weight 85.909, kg, Start date: 04/10/14 21:00:00, Duration: 30 day, Stop date: 05/09/14 21:00:00 Levemir No Notes: Memoria FlexPen 04-11 Same as l 02:00: Levemir [facility] 00 "single patient use only" Lantus No 7 unit, Memoria 04-11 Route: l 02:00: SUB-Q, [facility] Drug form: SOLN, Bedtime, Dosing Weight 85.909, kg, Start date: 04/10/14 21:00:00, Duration: 30 day, Stop date: 05/09/14 21:00:00 Levemir 0 No Notes: Memoria FlexPen 04-11 Same as l 02:00: Levemir Xander 00 "single patient use only" Lantus No 7 unit, Memoria 04-11 Route: l 02:00: SUB-Q, Xander Drug form: SOLN, Bedtime, Dosing Weight 85.909, kg, Start date: 04/10/14 21:00:00, Duration: 30 day, Stop date: 05/09/14 21:00:00 Levemir No Notes: Memoria FlexPen 9- Same as l 02:00: Levemir "single patient [...] bret 9-25 Bedtime, 0 l 20:10: Refill(s) [facility] 3 ML Yes = 40 unit, Memoria [...] bret 9-25 Bedtime, 0 l 20:10: Refill(s) [facility] 00 3 ML Yes = 40 unit, Memoria Insulin 9-25 SUB-Q, l Glargine 20:10: Bedtime, # Her capps 100 UNT/ML 00 10 ml, 0 Prefilled Refill(s) Syringe [Lantus] ketorolac No 4 days Memor ia 30 mg/mL 9-25 l injectable 17:00: Xander solution ketorolac No 4 days Memor ia 30 mg/mL 9-25 l injectable 17:00: Xander solution 00 ketorolac No 4 days Memor ia 30 mg/mL 9-25 l injectable 17:00: [facility] solution Saline No Notes: Memoria Flush 0.9% 9-25 (Same as: l 14:00: BD Posiflush) Aspirin 81 No 81 mg, Memor ia MG Enteric 25 Route: PO, l Coated 14:00: Drug form: Bonny nn Tablet 00 ECTAB, Daily, Dosing Weight 85.909, kg, Start date: 04/10/14 9:00:00, Duration: 30 day, Stop date: 05/09/14 9:00:00 Aspirin 325 No Notes: (Do Memoria MG Enteric 9-25 Not Crush) l Coated 14:00: Do not [facility] Tablet 00 crush or chew. Saline No Notes: Memoria Flush 0.9% 9-25 (Same as: l 14:00: BD [facility] 00 Posiflush) Aspirin 81 No 81 mg, Memor ia MG Enteric 9-25 Route: PO, l Coated 14:00: Drug form: Bonny nn Tablet 00 ECTAB, Daily, Dosing Weight 85.909, kg, Start date: 04/10/14 9:00:00, Duration: 30 day, Stop date: 05/09/14 9:00:00 Aspirin 325 No Notes: (Do Memoria MG Enteric 9-25 Not Crush) l Coated 14:00: Do not [facility] Tablet 00 crush or chew. Saline No Notes: Memoria Flush 0.9% 9-25 (Same as: l 14:00: BD [facility] 00 Posiflush) Aspirin 81 No 81 mg, Memor ia MG Enteric 9-25 Route: PO, l Coated 14:00: Drug form: Bonny nn Tablet 00 ECTAB, Daily, Dosing Weight 85.909, kg, Start date: 04/10/14 9:00:00, Duration: 30 day, Stop date: 05/09/14 9:00:00 Aspirin 325 No Notes: (Do Memoria MG Enteric 9-25 Not Crush) l Coated 14:00: Do not [facility] Tablet 00 crush or chew. Aspirin 81 [...] UNT/ML 07:03: Xander Injectable 00 Solution [Lantus] Insulin Yes Bedtime, 0 Antoni bret Glargine 9-25 Refill(s) l 100 UNT/ML 07:03: Xander Injectable 00 Solution [Lantus] Insulin Yes Bedtime, 0 Antoni bret Glargine 9-25 Refill(s) l 100 UNT/ML 07:03: [facility] Injectable 00 Solution [Lantus] Saline No Notes: Memoria Flush 0.9% 9-25 (Same as: l 06:54: BD Xander 00 Posiflush) Saline No Notes: Memoria Flush 0.9% 9-25 (Same as: l 06:54: BD Xander 00 Posiflush) Saline No Notes: Memoria Flush 0.9% 9-25 (Same as: l 06:54: BD Xander 00 Posiflush) Aspirin 81 No 324 mg, Antoni bret MG Chewable 9-25 Route: l Tablet 06:01: CHEW, [facility] 00 ONCE, Dosing Weight 84.545, kg, Priority: STAT, Start date: 04/10/14 1:01:00, Stop date: 04/10/14 1:01:00 Aspirin 81 No 324 mg, Antoni bret MG Chewable 9-25 Route: l Tablet 06:01: CHEW, Xander 00 ONCE, Dosing Weight 84.545, kg, Priority: STAT, Start date: 04/10/14 1:01:00, Stop date: 09/25/14 1:01:00 Aspirin 81 No 324 mg, Antoni bret MG Chewable 04-10 Route: l Tablet 06:01: CHEW, Xander 00 ONCE, Dosing Weight 84.545, kg, Priority: STAT, Start date: 04/10/14 1:01:00, Stop date: 04/10/14 1:01:00 Saline No Notes: Memoria Flush 0.9% -25 (Same as: l 02:52: BD [facility] Posiflush) Saline No Notes: Memoria Flush 0.9% 9-25 (Same as: l 02:52: BD [facility] Posiflush) Saline No Notes: Memoria Flush 0.9% 9-25 (Same as: l 02:52: BD Xander Posiflush) levothyroxi Yes Take 1 po M ethodi ne 9-[address] (SYNTHROID) 00:00: Hospit a 25 mcg 00 l tablet simvastatin Yes Take 1 po M ethodi (ZOCOR) 40 9-[address] mg tablet 00:00: Hospita 00 l levothyroxi Yes Take 1 po M ethodi ne 9-[address] (SYNTHROID) 00:00: Hospit a 25 mcg 00 l tablet simvastatin Yes Take 1 po M ethodi (ZOCOR) 40 9-[address] mg tablet 00:00: Hospita 00 l insulin Yes DM type 2 If 150 to [facility] REGULAR 03-28 (diabetes 200 take 2 H ealth (NOVOLIN [...] UTI (lower Take 1 po [facility] ne -12 urinary daily Health (SYNTHROID) 00:00: tract 25 mcg 00 infection) tablet ibuprofen Yes Knee pain Take 1 po [facility] (MOTRIN) 03-28 twice Health 800 mg 00:00: daily tablet 00 levothyroxi Yes Take 1 po M ethodi ne 9-[address] (SYNTHROID) 00:00: Hospit a 25 mcg 00 l tablet simvastatin Yes Take 1 po M ethodi (ZOCOR) 40 9-[address] mg tablet 00:00: Hospita 00 l insulin Yes DM type 2 If 150 to [facility] REGULAR 9-12 (diabetes 200 take 2 H ealth (NOVOLIN [...] Health 800 mg 00:00: daily tablet 00 insulin Yes DM type 2 If 150 [...] mouth Heal th mg tablet 00:00: daily. famotidine Yes Gastritis 40mg QD Take 1 Tab [facility] (PEPCID) 40 6-27 by mouth Heal th mg tablet 00:00: daily. famotidine Yes Gastritis 40mg QD Take 1 [...] uncomplicat times Health GLUCOMETER 00:00: ed daily adult-type II PRECISION Yes Diabetes use 2-3 H arris XTRA 5-30 uncomplicat times Health GLUCOMETER 00:00: ed daily adult-type II PRECISION Yes Diabetes use 2-3 [...] x gauge x gauge x 3/16" USE 09/29" USE 09/29" USE DIRECTED DIRECTED TWICE A DAY TWICE A DAY DIRECTED TWICE A DAY ezetimibe ezetimibe No ezetimibe [facility] 10 mg 10 mg 10 mg Family tablet TAKE tablet TAKE tablet Practic 1 TABLET BY 1 TABLET BY TAKE 1 e MOUTH EVERY MOUTH EVERY TABLET BY DAY DAY MOUTH EVERY DAY FreeStyle FreeStyle No FreeStyle [place] B[place]o 14 Bebo 14 Bebo 14 Fam vinay Day Tracy Day Tracy Day [facility] USE TO TEST USE TO TEST USE TO e BLOOD SUGAR BLOOD SUGAR TEST BLOOD FOUR TIMES FOUR TIMES SUGAR FOUR DAILY DAILY TIMES DAILY FreeStyle FreeStyle No [facility] Bebo 14 Bebo 14 Fam [...] FOR 90 DAYS. levocetiriz levocetiriz No levocetiri [facility] ine 5 mg ine 5 mg zine 5 mg Fa veda tablet TAKE tablet TAKE tablet Practic 1 TABLET BY 1 TABLET BY TAKE 1 e MOUTH MOUTH TABLET BY EVERYDAY AT EVERYDAY AT MOUTH BEDTIME BEDTIME EVERYDAY AT BEDTIME lisinopril lisinopril No lisinopril [facility] 10 mg 10 mg 10 mg Family tablet TAKE tablet TAKE tablet Practic 1 TABLET BY 1 TABLET BY TAKE 1 e MOUTH TWICE MOUTH TWICE TABLET BY A DAY A DAY MOUTH TWICE A DAY pantoprazol pantoprazol No pantoprazo [facility] e 40 mg e 40 mg le [...] Practice mcg/0.3 mL dose mcg/0.3 mL dose ([employer]) ([employer]) COVID-19, mRNA, COVID-19, mRNA, 2020-09-28 Completed [facility] LNP-S, PF, 30 LNP-S, PF, 30 00:00:00 Practice mcg/0.3 mL dose mcg/0.3 mL dose ([employer]) ([employer]) PFIZER COVID-19 MRNA 2020-09-28 Completed [facility] odist VACCINATION 00:00:00 [facility] PFIZER COVID-19 MRNA 2020-09-28 Completed [facility] odist VACCINATION 00:00:00 [facility] PFIZER COVID-19 MRNA 2020-09-28 Completed [facility]ist VACCINATION 00:00:00 [facility] COVID-19, mRNA, COVID-19, mRNA, 2020-09-07 Completed [facility] LNP-S, PF, 30 LNP-S, PF, 30 00:00:00 Practice mcg/0.3 mL dose mcg/0.3 mL dose ([employer]) ([employer]) PFIZER COVID-19 MRNA 2020-09-07 Completed [facility] VACCINATION 00:00:00 [facility] PFIZER COVID-19 MRNA 2020-09-07 Completed [facility] VACCINATION 00:00:00 [facility] PFIZER COVID-19 MRNA 2020-09-07 Completed [facility]ACC[facility] 00:00:00 Hospital pneumococcal pneumococcal 2020-04-21 Completed [facility] Fa veda conjugate PCV 13 conjugate PCV 13 00:00:00 Pr actice zoster recombinant zoster recombinant 2020-04-21 Completed [facility] Family 00:00:00 Practice pneumococcal 2018-09-10 Completed [facility] 13-valent 15:32:00 vaccine<sup>1</sup> pneumococcal 2018-09-10 Completed [facility] Her capps 13-valent 15:32:00 vaccine<sup>1</sup> pneumococcal 2018-09-10 Completed [facility] Her capps 13-valent 15:32:00 vaccine<sup>1</sup> pneumococcal pneumococcal 2018-09-10 Completed [facility] Fa veda conjugate PCV 13 conjugate PCV 13 00:00:00 Pr actice PPV 23 Pneumococcal 2015-11-30 [facility] Pneumococcal 2015-11-30 [facility] PPV 23 Pneumococcal 2015-11-30 [facility]00 influenza virus 2015-04-17 Completed [facility] vaccine, inactivated 18:05:00 influenza virus 2015-04-17 Completed [facility] Xander vaccine, inactivated 18:05:00 influenza virus 2015-04-17 Completed [facility] vaccine, inactivated 18:05:00 Hx influenza 2014-05-19 Completed [facility] capps vaccine-unspecified< 06:00:00 sup>3</sup> Hx influenza 2014-05-19 Completed [facility] Her capps vaccine-unspecified< 06:00:00 sup>2</sup> Hx influenza 2014-05-19 Completed [facility] Her capps vaccine-unspecified< 06:00:00 sup>3</sup> Hx influenza 2014-05-19 Completed [facility] Her capps vaccine-unspecified< 06:00:00 sup>2</sup> Hx influenza 2014-05-19 Completed [facility] capps vaccine-unspecified< 06:00:00 sup>3</sup> Hx influenza 2014-05-19 Completed [facility] capps vaccine-unspecified< 06:00:00 sup>2</sup> diphtheria/pertussis 2014-01-21 Completed [facility] , acel/tetanus 05:00:00 adult<sup>4</sup> diphtheria/pertussis 2014-01-21 Completed [facility] , acel/tetanus 05:00:00 adult<sup>3</sup> diphtheria/pertussis 2014-01-21 Completed [facility] , acel/tetanus 05:00:00 adult<sup>4</sup> diphtheria/pertussis 2014-01-21 Completed [facility] , acel/tetanus 05:00:00 adult<sup>3</sup> diphtheria/pertussis 2014-01-21 Completed [facility] , acel/tetanus 05:00:00 adult<sup>4</sup> diphtheria/pertussis 2014-01-21 Completed [facility] , acel/tetanus 05:00:00 adult<sup>3</sup> influenza virus 2013-04-05 Completed [facility] vaccine, 05:00:00 inactivated<sup>2</s up> influenza virus 2013-04-05 Completed [facility] vaccine, 05:00:00 inactivated<sup>1</s up> influenza virus 2013-04-05 Completed [facility] vaccine, 05:00:00 inactivated<sup>2</s up> influenza virus 2013-04-05 Completed [facility] vaccine, 05:00:00 inactivated<sup>1</s up> influenza virus 2013-04-05 Completed [facility] vaccine, 05:00:00 inactivated<sup>2</s up> influenza virus 2013-04-05 Completed [facility] vaccine, 05:00:00 inactivated<sup>1</s up> pneumococcal pneumococcal 2011-03-16 Completed [facility] conjugate PCV 7 conjugate PCV 7 00:00:00 Prac darwin Tdap Tetanus, 2011-03-16 Completed [facility] diphtheria, 00:00:00 acellular pertussis Vaccine Tdap Tetanus, 2011-03-16 Completed [facility] th diphtheria, 00:00:00 acellular pertussis Vaccine Pneumococcal 2011-03-16 Completed [facility] h 7-valent conj 0.5 mL 00:00:00 injection Pneumococcal 2011-03-16 [facility] 0.5 mL 00:00:00 injection Tdap Tetanus, 2011-03-16 Completed [facility] th diphtheria, 00:00:00 acellular pertussis Vaccine Pneumococcal 2011-03-16 [facility] conj 0.5 mL 00:00:00 injection Influenza Vaccine 2008-09-24 Completed [facility] 00:00:00 Influenza Vaccine 2008-09-24 Completed [facility] 00:00:00 Influenza Vaccine 2008-09-24 Completed [facility] 00:00:00 Vital Signs Vital Name Observation Time Observation Value Comments Source BP Diastolic 2021-12-22 00:00:00 73 mm[Hg] [facility] Height 2021-12-22 00:00:00 62 [in_i] [facility] BMI (Body Mass Index) 2021-12-22 00:00:00 33.7 kg/m2 [facility] BP Systolic 2021-12-22 00:00:00 113 [...] (Body Mass Index) 2020-11-02 00:00:00 34.6 kg/m2 [facility] BP Systolic 2020-11-02 00:00:00 115 mm[Hg] [facility] Body Weight 2020-11-02 00:00:00 189.2 [lb_av] [facility] BP Diastolic 2020-09-16 00:00:00 78 [...] Practice BP Systolic 2020 00:00:00 168 mm[Hg] [facility] Body Weight 2020 00:00:00 195 [lb_av] [facility] BP Diastolic 2020-05-19 00:00:00 83 mm[Hg] [facility] Height 2020-05-19 00:00:00 62 [in_i] [facility] Practice BMI (Body Mass Index) 2020-05-19 00:00:00 35.7 kg/m2 [facility] Practice BP Systolic 2020-05-19 00:00:00 175 mm[Hg] [facility] Body Weight 2020-05-19 00:00:00 195 [lb_av] [facility] Weight 2018-10-31 16:20:00 [facility] BMI Calculated 2018-10-31 16:20:00 [facility] Height 2018-10-31 16:20:00 154.94 cm [facility] Temperature Oral (F) 2018-10-31 16:20:00 98.8 F [facility] Heart Rate 2018-10-31 16:20:00 [facility] Systolic (mm Hg) 2018-10-31 16:20:00 [facility] Diastolic (mm Hg) 2018-10-31 16:20:00 [facility] Weight 2018-09-10 14:33:00 [facility] BMI Calculated 2018-09-10 14:33:00 [facility] Height 2018-09-10 14:33:00 154.94 cm [facility] Systolic (mm Hg) 2018-09-10 14:33:00 [facility] Diastolic (mm Hg) 2018-09-10 14:33:00 [facility] Temperature Oral (F) 2018-09-10 14:33:00 99.0 F [facility] Heart Rate 2018-09-10 14:33:00 [facility] BMI Calculated 2018-08-02 19:39:00 [facility] Weight 2018-08-02 19:39:00 [facility] Height 2018-08-02 19:39:00 154.94 cm [facility] Temperature Oral (F) 2018-08-02 19:39:00 98.7 F [facility] Heart Rate 2018-08-02 19:39:00 [facility] Systolic (mm Hg) 2018-08-02 19:39:00 [facility] Temperature Oral (F) 2018-04-02 18:44:00 98.9 F [facility] Weight 2018-04-02 18:44:00 [facility] BMI Calculated 2018-04-02 18:44:00 [facility] Height 2018-04-02 18:44:00 154.94 cm [facility] Systolic (mm Hg) 2018-04-02 18:44:00 [facility] Diastolic (mm Hg) 2018-04-02 18:44:00 [facility] Heart Rate 2018-04-02 18:44:00 [facility] Temperature Oral (F) 2018-03-26 05:06:00 98.6 F [facility] Respitory Rate 2018-03-26 05:06:00 [facility] Heart Rate 2018-03-26 05:06:00 [facility] Systolic (mm Hg) 2018-03-26 05:06:00 [facility] Diastolic (mm Hg) 2018-03-26 05:06:00 [facility] Weight 2018-03-26 02:39:00 [facility] Systolic (mm Hg) 2018-03-26 02:39:00 [facility] Diastolic (mm Hg) 2018-03-26 02:39:00 [facility] Heart Rate 2018-03-26 02:39:00 [facility] Temperature Oral (F) 2018-03-26 02:39:00 98.7 F [facility] Respitory Rate 2018-03-26 02:39:00 [facility] BMI Calculated 2018-03-06 15:22:00 [facility] Weight 2018-03-06 15:22:00 [facility] Heart Rate 2018-03-06 15:22:00 [facility] Temperature Oral (F) 2018-03-06 15:22:00 98.5 F [facility] Systolic (mm Hg) 2018-03-06 15:22:00 [facility] Diastolic (mm Hg) 2018-03-06 15:22:00 [facility] Height 2018-03-06 15:22:00 154.94 cm [facility] BMI Calculated 2017-11-07 16:17:00 [facility] Height 2017-11-07 16:17:00 154.94 cm [facility] Weight 2017-11-07 16:17:00 [facility] Heart Rate 2017-11-07 16:17:00 [facility] Temperature Oral (F) 2017-11-07 16:17:00 97.8 F [facility] Systolic (mm Hg) 2017-11-07 16:17:00 [facility] Diastolic (mm Hg) 2017-11-07 16:17:00 [facility] BMI Calculated 2017-10-16 19:56:00 [facility] Weight 2017-10-16 19:56:00 [facility] Height 2017-10-16 19:56:00 154.94 cm [facility] Temperature Oral (F) 2017-10-16 19:56:00 98.4 F [facility] Heart Rate 2017-10-16 19:56:00 [facility] Systolic (mm Hg) 2017-10-16 19:56:00 [facility] Diastolic (mm Hg) 2017-10-16 19:56:00 [facility] Height 2017-09-26 18:19:00 154.94 cm [facility] BMI Calculated 2017-09-26 18:19:00 [facility] Weight 2017-09-26 18:19:00 [facility] Temperature Oral (F) 2017-09-26 18:19:00 98.3 F [facility] Systolic (mm Hg) 2017-09-26 18:19:00 [facility] Diastolic (mm Hg) 2017-09-26 18:19:00 [facility] Heart Rate 2017-09-26 18:19:00 [facility] Height 2017-08-21 17:29:00 154.94 cm [facility] Temperature Oral (F) 2017-08-21 17:29:00 98.9 F [facility] Respitory Rate 2017-08-21 17:29:00 [facility] Heart Rate 2017-08-21 17:29:00 [facility] BMI Calculated 2017-08-21 17:29:00 [facility] Weight 2017-08-21 17:29:00 [facility] Systolic (mm Hg) 2017-08-21 17:29:00 [facility] Diastolic (mm Hg) 2017-08-21 17:29:00 [facility] Height 2017-08-15 16:49:00 154.94 cm [facility] Temperature Oral (F) 2017-08-15 16:49:00 97.9 F [facility] Heart Rate 2017-08-15 16:49:00 [facility] BMI Calculated 2017-08-15 16:49:00 [facility] Weight 2017-08-15 16:49:00 [facility] Systolic (mm Hg) 2017-08-15 16:49:00 [facility] Diastolic (mm Hg) 2017-08-15 16:49:00 [facility] Weight 2017-07-24 09:36:00 [facility] BMI Calculated 2017-07-24 09:36:00 [facility] Height 2017-07-24 09:36:00 160.02 cm [facility] Respitory Rate 2017-07-24 09:36:00 [facility] Heart Rate 2017-07-24 09:36:00 [facility] Systolic (mm Hg) 2017-07-24 09:36:00 [facility] Diastolic (mm Hg) 2017-07-24 09:36:00 [facility] Temperature Oral (F) 2017-07-24 09:36:00 101.9 F [facility] BMI Calculated 2017-07-21 14:41:00 [facility] Height 2017-07-21 14:41:00 157.48 cm [facility] Weight 2017-07-21 14:41:00 [facility] Heart Rate 2017-07-21 14:41:00 [facility] Temperature Oral (F) 2017-07-21 14:41:00 98.5 F [facility] Systolic (mm Hg) 2017-07-21 14:41:00 [facility] Diastolic (mm Hg) 2017-07-21 14:41:00 [facility] Temperature Oral (F) 2014-04-10 20:30:00 98.7 F [facility] Heart Rate 2014-04-10 20:30:00 [facility] Respitory Rate 2014-04-10 20:30:00 [facility] Systolic (mm Hg) 2014-04-10 20:30:00 [facility] Diastolic (mm Hg) 2014-04-10 20:30:00 [facility] Diastolic (mm Hg) 2014-04-10 16:36:00 [facility] Systolic (mm Hg) 2014-04-10 16:36:00 [facility] Temperature Oral (F) 2014-04-10 16:36:00 [facility] 2014-04-10 16:36:00 [facility] Xander Respitory Rate 2014-04-10 16:36:00 [facility] Systolic (mm Hg) 2014-04-10 12:32:00 [facility] Respitory Rate 2014-04-10 12:32:00 [facility] Diastolic (mm Hg) 2014-04-10 12:32:00 [facility] Temperature Oral (F) 2014-04-10 12:32:00 97.8 F [facility] Heart Rate 2014-04-10 12:32:00 [facility] Height 2014-04-10 06:46:00 160.02 cm [facility] BMI Calculated 2014-04-10 06:46:[address] [facility] Weight 2014-04-10 06:46:00 [facility] Weight 2014-04-10 02:38:00 [facility] Procedures Procedure Date / Time Performing Clinician Source Performed MAMMO, screening, 2021-12-22 00:00:00 [facility] Wayne barrett bilateral Practice X-RAY OF SHOULDER 2 VIEW 2021-01-09 00:00:00 [facility] XR, ribs, unilateral, w/ 2021-01-09 00:00:00 [facility] chest Practice XR, lumbar spine 2021-01-09 00:00:00 [facility] Practice Colonoscopy 2020-09-24 00:00:00 [facility] daniela Practice MAMMO, screening, 2020-07-27 00:00:00 [facility] Wayne barrett, bilateral Practice bone density 2020-07-27 00:00:00 [facility] daniela Practice MAMMO, screening, 2020 00:00:00 [facility] Wayne barrett, bilateral Practice Diabetic retinal eye exam 2018-09-10 06:00:00 Nm dre Terrell Hysterectomy (Partial) [facility] Repair of Ankle [place] Tonsillectomy [place] Cancer Surgery [place] Ankle joint operations [facility] Plan of Care Planned Activity Planned Date Details Comments Source Future Scheduled Test 2022-07-[address] [facility] 09:33:18 (procedure) [code = 863041751] Future Scheduled Test 2022-07-03 BREAST CANCER [facility] 09:33:18 SCREENING [code = BREAST CANCER SCREENING] Future Scheduled Test 2022-07-[address] [facility] 09:33:18 [code = COLONOSCOPY SCREENING] Future Scheduled Test 2022-07-03 SHINGLES VACCINES (1 [facility] 09:33:18 of 2) [code = SHINGLES VACCINES (1 of 2)] Future Scheduled Test 2022-07-03 65+ PNEUMOCOCCAL [facility] 09:33:18 VACCINE (2 - PPSV23 if available, else PCV20) [code = 65+ PNEUMOCOCCAL VACCINE (2 - PPSV23 if available, else PCV20)] Future Scheduled Test 2022-07-03 COVID-19 VACCINE (3 - [facility] 09:33:18 Booster for Pfizer series) [code = COVID-19 VACCINE (3 - Booster for Pfizer series)] Future Scheduled Test 2022-07-03 INFLUENZA VACCINE [facility] 09:33:18 [code = INFLUENZA VACCINE] Future Scheduled Test 2022-07-[address] [facility] 09:33:18 (procedure) [code = 023006901] Future Scheduled Test 2022-07-03 BREAST CANCER [facility] 09:33:18 SCREENING [code = BREAST CANCER SCREENING] Future Scheduled Test 2022-07-[address] [facility] 09:33:18 [code = COLONOSCOPY SCREENING] Future Scheduled Test 2022-07-03 SHINGLES VACCINES (1 [facility] 09:33:18 of 2) [code = SHINGLES VACCINES (1 of 2)] Future Scheduled Test 2022-07-03 65+ PNEUMOCOCCAL [facility] 09:33:18 VACCINE (2 - PPSV23 if available, else PCV20) [code = 65+ PNEUMOCOCCAL VACCINE (2 - PPSV23 if available, else PCV20)] Future Scheduled Test 2022-07-03 COVID-19 VACCINE (3 - [facility] 09:33:18 Booster for Pfizer series) [code = COVID-19 VACCINE (3 - Booster for Pfizer series)] Future Scheduled Test 2022-07-03 INFLUENZA VACCINE [facility] 09:33:18 [code = INFLUENZA VACCINE] Future Scheduled Test 2022-05-[address] [facility] 02:11:48 (1 of 3 - 3-dose series) [code = HEPATITIS B VACCINES (1 of 3 - 3-dose series)] Future Scheduled Test 2022-05-[address] [facility] 02:11:48 (procedure) [code = 707690877] Future Scheduled Test 2022-05-23 BREAST CANCER [facility] 02:11:48 SCREENING [code = BREAST CANCER SCREENING] Future Scheduled Test 2022-05-[address] [facility] 02:11:48 [code = COLONOSCOPY SCREENING] Future Scheduled Test 2022-05-23 SHINGLES VACCINES (1 [facility] 02:11:48 of 2) [code = SHINGLES VACCINES (1 of 2)] Future Scheduled Test 2022-05-23 65+ PNEUMOCOCCAL [facility] 02:11:48 VACCINE (2 - PPSV23 if available, else PCV20) [code = 65+ PNEUMOCOCCAL VACCINE (2 - PPSV23 if available, else PCV20)] Future Scheduled Test 2022-05-23 COVID-19 VACCINE (3 - [facility] 02:11:48 Booster for Pfizer series) [code = COVID-19 VACCINE (3 - Booster for Pfizer series)] Future Scheduled Test 2022-05-23 INFLUENZA VACCINE [facility] 02:11:48 [code = INFLUENZA VACCINE] Future Scheduled Test 2017-02-28 Screening for [facility] 00:00:00 malignant neoplasm of colon (procedure) [code = 118431602] Future Scheduled Test 2017-02-28 [facility] malignant neoplasm of colon (procedure) [code = 530263806] Future Scheduled Test 2017-02-28 Screening for [facility] 00:00:00 malignant neoplasm of colon (procedure) [code = 311843050] Future Scheduled Test 2017-02-25 Breast Cancer Scrn [place] [facility] 00:00:00 (Yearly) [code = Breast Cancer Scrn (Yearly)] Future Scheduled Test 2017-02-25 Breast Cancer Scrn [facility] 00:00:00 (Yearly) [code = Breast Cancer Scrn (Yearly)] [facility] [code = Breast Cancer Scrn (Yearly)] Future Scheduled Test 2016-11-29 Imm Pneumococcal 65+ [facility] 00:00:00 (2 - PCV) [code = Imm Pneumococcal 65+ (2 - PCV)] Future Scheduled Test 2016-11-29 Imm Pneumococcal 65+ [facility] 00:00:00 (2 - PCV) [code = Imm Pneumococcal 65+ (2 - PCV)] Future Scheduled Test 2016-11-29 Imm Pneumococcal 65+ [facility] 00:00:00 (2 - PCV) [code = Imm Pneumococcal 65+ (2 - PCV)] Future Scheduled Test 1949 COVID-19 Vaccine (#1) [facility] 00:00:00 [code = COVID-19 Vaccine (#1)] Future Scheduled Test 1949 COVID-19 Vaccine (#1) [facility] 00:00:00 [code = COVID-19 Vaccine (#1)] Future Scheduled Test 1949 COVID-19 Vaccine (#1) [facility] 00:00:00 [code = COVID-19 Vaccine (#1)] Future Appointment 2022-12-22 Marsha Rico, [address] [facility] 15:30:00 Mendy Bostony; [address], [place] [address] Instructions [facility] Encounters Start End Encounter Admission Attending Care Care Encounter Source Date/Time Date/Time Type Type Clinicians Facility Department ID 2020-09-24 Inpatient Ted Anna [facility] DAYS [id number] [facility] 12:30:[id number] [facility] 2020-09-14 Inpatient EL Ted Anna [facility] OPLA [id number] [facility] 10:[facility]:00 [facility] 2019-10-14 Inpatient [facility] ROXANE [id number] [facility] 16:24:00 [facility] 2022-09-12 2022-09-12 CAV Lisbeth [id number] CLAC [id number] [facility] 21:00:00 22:00:00 Robles [id number] [facility] [id number] 2022-08-22 2022-08-22 [place] [id number] [facility] 00:00:00 00:00:00 0206 [facility] 2022-06-12 2022-06-12 Outpatient Gilbert_L VFP VFP [id number] 00:00:00 00:00:00 [id number] Family Practic e 2022-05-16 2022-05-16 CAV Zena [id number] CLAC [id number] [facility] 20:00:00 21:00:00 Miftari [id number] [facility] [id number] 2022-05-08 2022-05-08 Outpatient Gilbert_L VFP VFP [id number] 00:00:00 00:00:00 [id number] Family Practic e 2022-05-03 2022-05-03 Outpatient OWENS_T DMG DMG [id number] [facility] 00:00:00 00:00:00 1018 Medica l Group 2022-03-15 2022-03-15 Outpatient OWENS_T DMG DMG [id number] [facility] 00:00:00 00:00:00 0830 Medica l Group 2022-03-15 2022-03-15 Outpatient Gilbert_L VFP VFP [id number] 00:00:00 00:00:00 [id number] Family Practic e 2022-03-09 2022-03-09 Outpatient OWENS_T DMG DMG [id number] [facility] 00:00:00 00:00:00 0824 Medica l Group 2022-03-08 2022-03-08 Outpatient Persaud_B_W VFP VFP [id number] [facility] 00:00:00 00:00:00 AGDNU [id number] Family Practic e 2022-02-15 2022-02-15 Outpatient OWENS_T DMG DMG [id number] [facility] 00:00:00 00:00:00 0802 Medica l Group 2022-01-28 2022-01-28 Outpatient OWENS_T DMG DMG [id number] [facility] 07:21:00 07:21:00 0715 Medica l Group 2021-12-22 2021-12-22 Outpatient Gilbert_L VFP VFP [id number] [facility] 06:14:00 06:14:00 [id number] Family Practic e 2021-12-22 2021-12-22 Outpatient Persaud_B_W VFP VFP 119 [id number] [facility] 06:14:00 06:14:00 AGDNU [id number] Family Practic e 2021-12-22 2021-12-22 Outpatient Persaud_B_W VFP VFP [id number] [facility] 06:14:00 06:14:00 AGDNU [id number] Family Practic e 2021-12-22 2021-12-22 Outpatient Persaud_B_W VFP VFP [id number] [facility] 06:14:00 06:14:00 AGDNU [id number] Family Practic e 2021-12-22 2021-12-22 Marsha VFP [place] - [id number] V illage 00:00:00 00:00:00 Rico, Law Famil y MD: [id number] Medical - Pract grace OLIVIA_jessica Aguayo ([address] [address] , Ph. 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 2021-11-15 2021-11-15 Outpatient Gilbert_L VFP VFP [id number] [place] [address] 08:45:00 08:45:00 [id number] Family Practic e 2021-11-15 2021-11-15 Outpatient Persaud_B_W VFP VFP 119 [id number] [facility] 08:45:00 08:45:00 AGDNU [id number] Family Practic e 2021-11-15 2021-11-15 Outpatient Persaud_B_W VFP VFP 119 [id number] [facility] 08:45:00 08:45:00 AGDNU [id number] Family Practic e 2021-11-11 2021-11-11 Outpatient Gilbert_L VFP VFP [id number] [id number] [facility] 10:58:00 10:58:00 [id number] Family Practic e 2021-11-11 2021-11-11 Lisbeth VFP [place] - [id number] V illage 00:00:00 00:00:00 [facility] MD Sarwat: [facility] 4615 VM_HOU_Fair zachary Higginst jessica ([facility]) [facility], [address] [address] , Ph. 2021-11-10 2021-11-10 Outpatient Gilbert_L VFP VFP [id number] 68-20 [facility] 04:06:00 04:06:00 [id number] Family Practic e 2021-11-10 2021-11-10 Lisbeth VFP [place] - [id number] V illage 00:00:00 00:00:00 [facility] MD [place]: [facility] 4615 VM_HOU_Fair e [place] jessica ([facility]) [facility] [address] [address] , Ph. 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 2021-08-16 2021-08-16 Outpatient Gilbert_L VFP VFP [id number] 68-20 [facility] 06:24:00 06:24:00 [id number] Family Practic e 2021-08-13 2021-08-13 Outpatient Persaud_B_W VFP VFP 119 [id number] [facility] 02:31:00 02:31:00 AGDNU [id number] Family Practic e 2021-08-13 2021-08-13 Outpatient Persaud_B_W VFP VFP 119 [id number] [facility] 02:31:00 02:31:00 AGDNU [id number] Family Practic e 2021-07-07 2021-07-07 Outpatient Gilbert_L VFP VFP [id number] 68-20 [facility] 07:33:00 07:33:00 [id number] Family Practic e 2021-07-07 2021-07-07 Marsha VFP [place] - [id number] V illage 00:00:00 00:00:00 Trisha [facility] Famil y MD: 4615 Medical - Pract [place] VM_HOU_Fair e jessica Lujan [address] [address] , Ph. 2021-06-25 2021-06-25 Outpatient Persaud_B_W VFP VFP 119 [id number] [facility] 02:12:00 02:12:00 AGDNU [id number] Family Practic e 2021-06-25 2021-06-25 Outpatient Persaud_B_W VFP VFP 119 [id number] [facility] 02:12:00 02:12:00 AGDNU [id number] Family Practic e 2021-06-25 2021-06-25 Outpatient Gilbert_L VFP VFP [id number] 68-20 [facility] 02:12:00 02:12:00 [id number] Family Practic e 2021-05-11 2021-05-11 Outpatient Gilbert_L VFP VFP [id number] 68-20 [facility] 05:47:00 05:47:00 [id number] Family Practic e 2021-05-11 2021-05-11 Marsha VFP [place] - [id number] V illage 00:00:00 00:00:00 Law Rico y MD: 4615 Medical - Pract ic Mendy VM_HOU_Fair e Tai [address] [address] , Ph. 2021-04-27 2021-04-27 Outpatient Harrison_L VFP VFP [id number] [facility] 08:19:00 08:19:00 [id number] Family Practic e 2021-04-15 2021-04-15 Outpatient Persaud_B_W VFP VFP 119 [id number] [facility] 02:28:00 02:28:00 AG [id number] Family Practic e 2021-04-15 2021-04-15 Zach VFP [place] - [id number] V illage 00:00:00 00:00:00 Taras [facility] Family Yobany Medical - Pract DO: 4615 VM_HOU_Fair e Mendy [facility] Tai ([facility]) [address] [address] , Ph. 2021-04-14 2021-04-14 Outpatient Persaud_B_W VFP VFP 119 [id number] [facility] 04:58:00 04:58:00 AG [id number] Family Practic e 2021-04-14 2021-04-14 Marsha VFP [place] - [id number] V illage 00:00:00 00:00:00 Law Rico y MD: 4615 Medical - Pract grace Brooke VM_HOU_Fair e Tai [address] [address] , Ph. 2021-04-07 2021-04-07 Outpatient Harrison_L VFP VFP 1195 368-20 [facility] 10:47:00 10:47:00 [id number] Family Practic e 2021-04-07 2021-04-07 Outpatient Harrison_L VFP VFP 1195 368-20 [facility] 10:47:00 10:47:00 [id number] Family Practic e 2021-02-23 2021-02-23 Outpatient Persaud_B_W VFP VFP 119 [id number] [facility] 03:17:00 03:17:00 AG [id number] Family Practic e 2021-02-23 2021-02-23 Outpatient Persaud_B_W VFP VFP 119 [id number] [facility] 03:17:00 03:17:00 AG [id number] Family Practic e 2021-02-05 2021-02-05 Outpatient Persaud_B_W VFP VFP 119 [id number] [facility] 05:41:00 05:41:00 AG [id number] Family Practic e 2021-02-04 2021-02-04 Outpatient Persaud_B_W VFP VFP 119 [id number] [facility] 11:21:00 11:21:00 AG [id number] Family Practic e 2021-02-03 2021-02-03 Outpatient Persaud_B_W VFP VFP 119 [id number] [facility] 01:38:00 01:38:00 AG [id number] Family Practic e 2021-02-03 2021-02-03 Marsha VFP [place] - [id number] V illage 00:00:00 00:00:00 Law Rico Famil y MD: 4615 Medical - Pracarjun OLIVIA_jessica Aguayo [address] [address] , Ph. 2021-02-02 2021-02-02 Outpatient Persaud_B_W VFP VFP 119 [id number] [facility] 11:36:00 11:36:00 AG [id number] Family Practic e 2021-02-02 2021-02-02 Marsha VFP [place] - [id number] V illage 00:00:00 00:00:00 Law Rico y MD: 4615 Medical - Pracarjun Brooke VM_HOU_Fair jessica Singleton ([facility]) [address], [place] [address] , Ph. 2021-01-25 2021-01-25 Emergency EM Keyur, [facility] FERS [id number] [facility] 19:52:00 22:38:00 Gabriel [id number] [facility] 2021-01-21 2021-01-21 Outpatient OWENS_T DMG [facility] [id number] [facility] 05:58:00 05:58:00 [id number] Medica l Group 2021-01-13 2021-01-13 Outpatient Persaud_B_W VFP VFP 119 [id number] [facility] 08:32:00 08:32:00 AG [id number] Family Practic e 2021-01-13 2021-01-13 Outpatient Persaud_B_W VFP VFP 119 [id number] [facility] 08:32:00 08:32:00 AG [id number] Family Practic e 2021-01-09 2021-01-09 Outpatient Persaud_B_W VFP VFP 119 5368-20 [facility] 01:22:00 01:22:00 AG [id number] Family Practic e 2021-01-09 2021-01-09 Eva VFP [place] - [id number] [facility] 00:00:00 00:00:00 Mirza, Law 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 2020-11-18 2020-11-18 Outpatient Persaud_B_W VFP VFP 119 [id number] [facility] 03:32:00 03:32:00 AG [id number] Family Practic e 2020-11-18 2020-11-18 Outpatient Persaud_B_W VFP VFP 119 5368-20 [facility] 03:32:00 03:32:00 AG [id number] Family Practic e 2020-11-18 2020-11-18 Outpatient Persaud_B_W VFP VFP 119 5368-20 [facility] 03:32:00 03:32:00 AG [id number] Family Practic e 2020-11-18 2020-11-18 Outpatient Persaud_B_W VFP VFP 119 5368-20 [facility] 03:32:00 03:32:00 AG [id number] Family Practic e 2020-11-02 2020-11-02 Outpatient Persaud_B_W VFP VFP 119 5368-20 [facility] 03:20:00 03:20:00 AG [id number] Family Practic e 2020-11-02 2020-11-02 Marsha VFP [place] - [id number] V illage 00:00:00 00:00:00 Law Rico y : 4615 Medical - Pracarjun MCCALL_HOU_Fair jessica Singleton ([facility]) [address], [place] [address] , Ph. 2020-10-06 2020-10-06 Outpatient Persaud_B_W VFP VFP 119 [id number] [facility] 04:07:00 04:07:00 AG [id number] Family Practic e 2020-09-28 2020-09-28 Outpatient VIKI [facility] [id number] [place] 00:00:00 00:00:00 HANS 026 [facility] 2020-09-21 2020-09-21 Outpatient Ted Anna HCACL HCACL [id number] [facility] 22:58:06 22:58:[address] [place] [address] 2020-09-16 2020-09-16 Outpatient Ted Olsen HCABM OPLA [id number] [id number] [facility] 08:11:00 08:11:00 [id number] [facility] 2020-09-16 2020-09-16 Outpatient Persaud_B_W VFP VFP 119 [id number] [facility] 05:04:00 05:04:00 AG [id number] Family Practic e 2020-09-16 2020-09-16 Marsha VFP [place] - [id number] V illage 00:00:00 00:00:00 Law Rico y MD: 46[facility] Pracarjun PAIGEHOU_Fair jessica Singleton ([facility]) [address], [place] [address] , Ph. 2020-09-07 2020-09-07 Outpatient Ted Anna HCACL HCACL [id number] [facility] 13:53:13 13:53:13 55 [facility] 2020-09-07 2020-09-07 Outpatient EL Ted Anna HCABM OPLA V82 [id number] [facility] 08:11:00 08:11:00 [id number] [facility] 2020-09-07 2020-09-07 Outpatient [facility] [id number] [place] 00:00:00 00:00:[id number] 2020-09-02 2020-09-02 Outpatient Persaud_B_W VFP VFP 119 5368-20 [facility] 05:01:00 05:01:00 AG [id number] Family Practic e 2020-08-24 2020-08-24 Outpatient Persaud_B_W VFP VFP 119 5368-20 [facility] 12:12:00 12:12:00 AG [id number] Family Practic e 2020-08-24 2020-08-24 Marsha VFP [place] - [id number] V illage 00:00:00 00:00:00 Law Rico y MD: 4615 Medical - Pract grace [address] [address], [place] [address] , Ph. 2020-08-21 2020-08-21 Outpatient Persaud_B_W VFP VFP 119 [id number] [facility] 12:51:00 12:51:00 AG [id number] Family Practic e 2020-08-12 2020-08-12 Outpatient Persaud_B_W VFP VFP 119 5368-20 [facility] 02:11:00 02:11:00 AG [id number] Family Practic e 2020-07-27 2020-07-27 Outpatient Persaud_B_W VFP VFP 119 5368-20 [facility] 06:13:00 06:13:00 AG [id number] Family Practic e 2020-07-27 2020-07-27 Marsha VFP [place] - [id number] V illage 00:00:00 00:00:00 Law Rico y MD: 4615 Medical - Pract grace Brooke VM_HOU_Fair e Tai [address] [address] , Ph. 2020-07-24 2020-07-24 Outpatient Persaud_B_W VFP VFP 119 5368-20 [facility] 09:04:00 09:04:00 AG [id number] Family Practic e 2020-06-12 2020-06-12 Outpatient Persaud_B_W VFP VFP 119 5368-20 [facility] 02:58:00 02:58:00 AG [id number] Family Practic e 2020-06-09 2020-06-09 Outpatient Persaud_B_W VFP VFP 119 5368-20 [facility] 09:00:00 09:00:00 AG [id number] Family Practic e 2020 2020 Outpatient Persaud_B_W VFP VFP 119 5368-20 [facility] 05:40:00 05:40:00 AG [id number] Family Practic e 2020 2020 Marsha VFP [place] - [id number] V illage 00:00:00 00:00:00 Trisha [facility] Famil y MD: 4615 Medical - Pract grace Brooke VM_HOU_Fair e Tai [address] [address] , Ph. 2020-05-23 2020-05-23 Outpatient Persaud_B_W VFP VFP 119 [id number] [facility] 01:14:00 01:14:00 AG Family Practic e 2020-05-19 2020-05-19 Outpatient Persaud_B_W VFP VFP 119 5368-20 [facility] 05:53:00 05:53:00 AG [id number] Family Practic e 2020-05-19 2020-05-19 Marsha VFP [place] - [id number] V illage 00:00:00 00:00:00 Trisha [facility] Famil y MD: 4615 Medical - Pract grace Brooke VM_HOU_Fair e Tai [address] [address] , Ph. 2020-05-12 2020-05-12 Outpatient Persaud_B_W VFP [facility] 119 [id number] [facility] 03:41:00 03:41:00 AG [id number] Family Practic e 2020-01-10 2020-01-10 Outpatient TOBI, [facility] [id number] [place] 00:00:00 00:00:00 SUZAN [address] 2020-01-02 2020-01-02 Outpatient TOBI, [facility] [id number] [place] 00:00:00 00:00:00 SUZAN [address] 2020-01-02 2020-01-02 Outpatient TOBI, [facility] [id number] [place] 00:00:00 00:00:00 SUZAN [address] 2019-01-07 2019-01-09 Phone nullFlavo [facility] [id number] [facility]oria 16:17:50 04:59:59 Message r Primary 21 [facility] 2019-01-07 2019-01-09 Phone nullFlavo MHMG [id number] [facility] 16:17:50 04:59:59 Message r Primary 21 [facility] 2019-01-07 2019-01-08 Outpatient MHMG MHMG [id number] 11:17:50 23:59:59 2018-12-31 2019-01-02 Phone nullFlavo MHMG [id number] [facility]oria 20:19:01 04:59:59 Message r Primary 20 [facility] 2018-12-31 2019-01-02 Phone nullFlavo MHMG [id number] [facility] 20:19:01 04:59:59 Message r Primary 20 [facility] 2018-12-31 2019-01-01 Outpatient MHMG MHMG [id number] 15:19:01 23:59:59 2018-11-09 2018-11-11 Phone nullFlavo MHMG [id number] [facility] 19:21:00 04:59:59 Message r Primary 19 [facility] 2018-11-09 2018-11-11 Phone nullFlavo MHMG [id number] [facility] 19:21:00 04:59:59 Message r Primary 19 [facility] 2018-11-09 2018-11-10 Outpatient MHMG MHMG [id number] 14:21:00 23:59:59 19 2018-11-08 2018-11-09 Between nullFlavo MG [id number] [facility] 17:54:48 17:54:48 Visit r Primary 35 [facility] 2018-11-08 2018-11-09 Between nullFlavo MHMG [id number] Memoria 17:54:48 17:54:48 Visit r Primary 35 [facility] 2018-11-08 2018-11-09 Between nullFlavo MG [id number] [facility] 17:53:56 17:53:56 Visit r Primary 34 [facility] 2018-11-08 2018-11-09 Between nullFlavo MG [id number] Memoria 17:53:56 17:53:56 Visit r Primary 34 [facility] 2018-11-08 2018-11-09 Outpatient MG MG [id number] 12:54:48 12:54:48 35 2018-11-08 2018-11-09 Outpatient MG MG [id number] 12:53:56 12:53:56 34 2018-10-31 2018-11-01 [place] [id number] Memoria 16:15:00 04:59:59 r Primary 23 [facility] 2018-10-31 2018-11-01 [place] [id number] Memoria 16:15:00 04:59:59 r Primary 23 [facility] 2018-10-31 2018-10-31 [id number] 11:15:00 23:59:59 Dhiekson 23 Melquisedek 2018-10-31 2018-10-31 Outpatient MHIE IE [id number] Memoria 11:15:00 11:15:[address] [facility] 2018-09-16 2018-09-17 Between nullFlavo MG [id number] Memoria 12:13:57 12:13:57 Visit r Primary 32 [facility] 2018-09-16 2018-09-17 Between nullFlavo MG [id number] Memoria 12:13:57 12:13:57 Visit r Primary 32 [facility] 2018-09-16 2018-09-17 [facility] [id number] 06:13:57 06:13:57 32 2018-09-10 2018-09-12 Phone nullFlavo MG [id number] Memoria 15:15:00 05:59:59 Message r Primary 18 l [facility] 2018-09-10 2018-09-12 Phone nullFlavo MG [id number] Memoria 15:15:00 05:59:59 Message r Primary 18 [facility] 2018-09-10 2018-09-11 Outpatient MHMG MG [id number] 09:15:00 23:59:59 18 2018-09-10 2018-09-11 [place] [id number] Memoria 14:30:00 05:59:59 r Primary 21 [facility] 2018-09-10 2018-09-11 [place] [id number] Memoria 14:30:00 05:59:59 r Primary 21 [facility] 2018-09-10 2018-09-10 Outpatient Saravia, MG MG [id number] 08:30:00 23:59:59 [facility]-09-[facility] 2018-09-10 [place] [id number] Memoria 14:30:00 14:30:00 Pre-Reg r Primary 20 [facility] 2018-09-10 2018-09-10 [place] [id number] Memoria 14:30:00 14:30:00 Pre-Reg r Primary 20 [facility] 2018-09-10 2018-09-10 Outpatient MHIE MHIE [id number] Memoria 08:30:00 08:30:[address] [facility] 2018-09-10 2018-09-10 Outpatient MHIE MHIE [id number] Memoria 08:30:00 08:30:[address] [facility] 2018-09-10 2018-09-10 Outpatient Shpats, MG MG [id number] 08:30:00 08:30:00 Selena 20 2018-08-27 2018-08-27 [place] [id number] Memoria 21:30:00 21:30:00 Pre-Reg r Primary 22 [facility] 2018-08-27 2018-08-27 [place] [id number] Memoria 21:30:00 21:30:00 Pre-Reg r Primary 22 [facility] 2018-08-27 2018-08-27 Outpatient MHIE MHIE [id number] Memoria 15:30:00 15:30:[address] [facility] 2018-08-27 2018-08-27 Outpatient Saravia, MG MG [id number] 15:30:00 15:30:00 Dhiekson 22 [facility] 2018-08-02 2018-08-03 [place] [id number] Memoria 19:30:00 05:59:59 r Primary 19 [facility] 2018-08-02 2018-08-03 [place] [id number] Memoria 19:30:00 05:59:59 r Primary 19 [facility] 2018-08-02 2018-08-02 Outpatient Julia, MG MG [id number] 13:30:00 23:59:59 Selena 19 2018-08-02 2018-08-02 [place] [id number] Memoria 19:30:00 19:30:00 Pre-Reg r Primary 18 [facility] 2018-08-02 2018-08-02 [place] [id number] Memoria 19:30:00 19:30:00 Pre-Reg r Primary 18 [facility] 2018-08-02 2018-08-02 Outpatient MHIE MHIE [id number] Memoria 13:30:00 13:30:[address] [facility] 2018-08-02 2018-08-02 Outpatient MHIE IE [id number] Memoria 13:30:00 13:30:[address] [facility] 2018-08-02 2018-08-02 Outpatient Saravia, MG MG [id number] 13:30:00 13:30:00 Dhiekson 18 [facility] 2018-07-30 2018-07-30 [place] [id number] Memoria 20:30:00 20:30:00 Pre-Reg r Primary 17 [facility] 2018-07-30 2018-07-30 [place] [id number] Memoria 20:30:00 20:30:00 Pre-Reg r Primary 17 [facility] 2018-07-30 2018-07-30 Outpatient MHIE MHIE [id number] Memoria 14:30:00 14:30:[address] [facility] 2018-07-30 2018-07-30 Outpatient Saravia, MHMG MG [id number] 14:30:00 14:30:00 Liza Sánchez 2018-07-05 2018-07-07 Phone nullFlavo MHMG [id number] Memoria 17:18:00 05:59:59 Message r Primary 17 [facility] 2018-07-05 2018-07-07 Phone nullFlavo MHMG [id number] Memoria 17:18:00 05:59:59 Message r Primary 17 [facility] 2018-07-05 2018-07-06 Outpatient MHMG MHMG [id number] 11:18:00 23:59:59 17 2018-05-18 2018-05-20 Phone nullFlavo MHMG [id number] Memoria 16:39:00 04:59:59 Message r Primary 16 [facility] 2018-05-18 2018-05-20 Phone nullFlavo MHMG [id number] Memoria 16:39:00 04:59:59 Message r Primary 16 [facility] 2018-05-18 2018-05-19 Outpatient MHMG MHMG [id number] 11:39:00 23:59:59 16 2018-04-03 2018-04-03 Outpt Diag nullFlavo [facility] [id number] Memoria 12:45:00 12:45:00 Services r Outpatient [address] [facility] 2018-04-03 2018-04-03 Outpt Diag nullFlavo [facility] [id number] Memoria 12:45:00 12:45:00 Services r Outpatient [address] [facility] 2018-04-03 2018-04-03 Outpatient Alexandr [id number] 07:45:00 07:45:00 [place] [id number] 2018-04-02 2018-04-03 Outpatient nullFlavo MHMG [id number] Memoria 19:30:00 04:59:59 r Primary 16 l [facility] 2018-04-02 2018-04-03 [place] [id number] Memoria 19:30:00 04:59:59 r Primary 16 l [facility] 2018-04-02 2018-04-02 Outpatient Saravia, [facility] [id number] 14:30:00 23:59:59 Dhiekson 16 Emmiequisedolya 2018-04-02 2018-04-02 Outpatient MHIE [facility] [id number] Memoria 14:30:00 14:30:00 16 radha [facility] 2018-03-26 2018-03-26 Emergency nullFlavo [facility] [id number] Memoria 02:38:00 05:08:[address] 2018-03-26 2018-03-26 Emergency nullFlavo [facility] [id number] Memoria 02:38:00 05:08:[address] 2018-03-25 2018-03-26 Outpatient Brigid [facility] [id number] 21:38:00 00:08:00 Gaby Salgueroy 2018-03-14 2018-03-16 Phone nullFlavo [facility] [id number] Memoria 15:17:00 04:59:59 Message r Primary 15 [facility] 2018-03-14 2018-03-16 Phone nullFlavo MG [id number] Memoria 15:17:00 04:59:59 Message r Primary 15 [facility] 2018-03-14 2018-03-15 Outpatient MG [facility] [id number] 10:17:00 23:59:59 15 2018-03-07 2018-03-09 Phone nullFlavo MG [id number] Memoria 19:52:00 04:59:59 Message r Primary 14 [facility] 2018-03-07 2018-03-09 Phone nullFlavo MG [id number] Memoria 19:52:00 04:59:59 Message r Primary 14 [facility] 2018-03-07 2018-03-08 Outpatient [facility] [id number] 14:52:00 23:59:59 14 2018-03-06 2018-03-07 [place] [id number] Memoria 15:00:00 04:59:59 r Primary 15 [facility] 2018-03-06 2018-03-07 [place] [id number] Memoria 15:00:00 04:59:59 r Primary 15 [facility] 2018-03-06 2018-03-06 Outpatient Rani, MG MG [id number] 10:00:00 23:59:59 Dhiekson 15 Abhilashised 2018-03-06 2018-03-06 Outpatient MHIE MHIE [id number] Memoria 10:00:00 10:00:[address] [facility] 2017-12-01 2017-12-03 Phone nullFlavo MG [id number] Memoria 19:26:00 04:59:59 Message r Primary 13 [facility] 2017-12-01 2017-12-03 Phone nullFlavo MG [id number] Memoria 19:26:00 04:59:59 Message r Primary 13 [facility] 2017-12-01 2017-12-03 Phone nullFlavo MG [id number] Memoria 15:06:00 04:59:59 Message r Primary 12 [facility] 2017-12-01 2017-12-03 Phone nullFlavo MG [id number] Memoria 15:06:00 04:59:59 Message r Primary 12 [facility] 2017-12-01 2017-12-02 Outpatient MG MG [id number] 14:26:00 23:59:59 13 2017-12-01 2017-12-02 Outpatient MHMG MG [id number] 10:06:00 23:59:59 12 2017-10-20 2017-11-19 OP Therapy nullFlavo SMR [id number] Memoria 07:30:00 04:59:00 Patients r HORTENCIAH-Sj 02 [facility] 2017-10-20 2017-11-19 OP Therapy nullFlavo SMR [id number] Memoria 07:30:00 04:59:00 Patients r HOSH-Bellai 02 [facility] 2017-10-20 2017-11-18 Outpatient Rani [id number] 02:30:00 23:59:00 Liza [id number] Melquisedolya [id number] 2017-11-13 2017-11-15 Phone nullFlavo MHMG [id number] Memoria 20:21:00 04:59:59 Message r Primary 11 l [facility] 2017-11-13 2017-11-15 Phone nullFlavo MHMG [id number] Memoria 20:21:00 04:59:59 Message r Primary 11 l [facility] 2017-11-13 2017-11-15 Phone nullFlavo MNA [id number] Memoria 13:42:00 04:59:59 Message r Neuroscienc 10 l e [facility] 2017-11-13 2017-11-15 Phone nullFlavo MNA [id number] Memoria 13:42:00 04:59:59 Message r Neuroscienc 10 l e [facility] 2017-11-13 2017-11-14 Outpatient MHMG MHMG [id number] 15:21:00 23:59:59 11 2017-11-13 2017-11-14 Outpatient MHMISCHER MHMISCHER [id number] 08:42:00 23:59:59 10 2017-11-07 2017-11-08 Outpatient nullFlavo MNA [id number] Memoria 15:30:00 04:59:59 r Neuroscienc 13 l e [facility] 2017-11-07 2017-11-08 Outpatient nullFlavo MNA [id number] Memoria 15:30:00 04:59:59 r Neuroscienc 13 l e [facility] 2017-11-07 2017-11-07 Outpatient MHMISCHER MHMISCHER [id number] 10:30:00 23:59:59 13 2017-11-07 2017-11-07 Outpatient MHIE MHIE [id number] Memoria 10:30:00 10:30:[address] [facility] 2017-10-16 2017-10-17 Outpatient nullFlavo MHMG [id number] Memoria 20:00:00 04:59:59 r Primary 14 l [facility] 2017-10-16 2017-10-17 Outpatient nullFlavo MHMG [id number] Memoria 20:00:00 04:59:59 r Primary 14 l [facility] 2017-10-16 2017-10-16 Outpatient Rani [facility] [id number] 15:00:00 23:59:59 Dhiejessica Sánchez 2017-10-16 2017-10-16 Outpatient [facility] IE [id number] Memoria 15:00:00 15:00:00 14 l [facility] 2017-10-05 2017-10-07 Phone nullFlavo MNA [id number] Memoria 20:43:00 04:59:59 Message r Neuroscienc 09 l e [facility] 2017-10-05 2017-10-07 Phone nullFlavo MNA [id number] Memoria 20:43:00 04:59:59 Message r [facility]scienc 09 l e [facility] [facility] 2017-10-05 2017-10-06 [id number] 15:43:00 23:59:59 2017-09-26 2017-09-27 Outpatient nullFlavo MNA [id number] Memoria 17:45:00 04:59:59 r Neuroscienc 11 l e [facility] 2017-09-26 2017-09-27 Outpatient nullFlavo MNA [id number] Memoria 17:45:00 04:59:59 r Neuroscienc 11 l e [facility] 2017-09-26 2017-09-26 [facility] [id number] 12:45:00 23:59:59 11 2017-09-26 2017-09-26 Outpatient MHIE IE [id number] Memoria 12:45:00 12:45:00 11 l [facility] 2017-09-04 2017-09-06 Phone nullFlavo MNA [id number] Memoria 22:11:00 05:59:59 Message r Neuroscienc 08 l e [facility] 2017-09-04 2017-09-06 Phone nullFlavo MNA [id number] Memoria 22:11:00 05:59:59 Message r Neuroscienc 08 l e [facility] 2017-09-04 2017-09-05 Outpatient MHMISCHER MISCHER [id number] 16:11:00 23:59:59 08 2017-08-21 2017-08-22 [place] [id number] Memoria 17:30:00 05:59:59 r Primary 12 l [facility] 2017-08-21 2017-08-22 Outpatient nullFlavo [facility] [id number] Memoria 17:30:00 05:59:59 r Primary 12 l [facility] 2017-08-21 2017-08-21 Outpatient Brock [facility] [id number] 11:30:00 23:59:59 Terrie 12 Junior 2017-08-21 2017-08-21 Outpatient MHIE MHIE [id number] Memoria 11:30:00 11:30:[address] [facility] 2017-08-15 2017-08-17 Phone nullFlavo MNA [id number] Memoria 20:38:00 05:59:59 Message r Neuroscienc 07 l e [facility] 2017-08-15 2017-08-17 Phone nullFlavo MNA [id number] Memoria 20:38:00 05:59:59 Message r Neuroscienc 07 l e [facility] 2017-08-15 2017-08-16 Outpatient MHMISCHER MHMISCHER [id number] 14:38:00 23:59:59 07 2017-08-15 2017-08-16 Outpatient nullFlavo [facility] [id number] Memoria 17:00:00 05:59:59 r Primary 10 l [facility] 2017-08-15 2017-08-16 Outpatient nullFlavo [facility] [id number] Memoria 17:00:00 05:59:59 r Primary 10 l [facility] 2017-08-15 2017-08-16 Outpt Diag nullFlavo [facility] [id number] Memoria 18:16:00 05:59:00 Services r Outpatient 05 l [facility] 2017-08-15 2017-08-16 Outpt Diag nullFlavo [facility] [id number] Memoria 18:16:00 05:59:00 Services r Outpatient 05 l [facility] 2017-08-15 2017-08-15 Outpatient Rani, [facility] [id number] 11:00:00 23:59:59 Dhiekson 10 Melquisedek 2017-08-15 2017-08-15 Outpatient Saravia, 2.16.840. 2.16.840.1. 3 [id number] 12:16:00 23:59:00 Dhiekson 1.807715. [id number] 05 Mel[place] 3.615.36 5.36 2017-08-15 2017-08-15 Outpatient MHIE IE [id number] Memoria 11:00:00 11:00:00 10 l [facility] 2017-08-04 2017-08-05 Outpt Diag nullFlavo [facility] [id number] Memoria 20:21:00 05:59:00 Services r Outpatient [address] [facility] 2017-08-04 2017-08-05 Outpt Diag nullFlavo [facility] [id number] Memoria 20:21:00 05:59:00 Services r Outpatient 04 l [facility] 2017-08-04 2017-08-04 Outpatient Saravia, 2.16.840. 2.16.840.1. 3 [id number] 14:21:00 23:59:00 Eduardoieksvishnu 1.585231. [id number] 04 [place] 3.615.36 5.36 2017-07-24 2017-07-24 Emergency nullFlavo [facility] [id number] Memoria 09:29:00 12:32:00 r [facility] [address] [facility] 2017-07-24 2017-07-24 Emergency nullFlavo [facility] [id number] Memoria 09:29:00 12:32:[address] [facility] 2017-07-24 2017-07-24 Outpatient Rainey, [facility] [id number] 03:29:00 06:32:00 Gaby De La Cruz [facility] 2017-07-24 2017-07-24 Outpatient Brigid, [facility] [id number] 03:29:00 06:32:00 Gaby De La Cruz [facility] 2017-07-21 2017-07-22 Outpatient nullFlavo [facility] [id number] Memoria 14:30:00 05:59:59 r Primary 09 l [facility] 2017-07-21 2017-07-22 Outpatient nullFlavo [facility] [id number] Memoria 14:30:00 05:59:59 r Primary 09 [facility] 2017-07-21 2017-07-21 Outpatient Saravia, MG MG [id number] 08:30:00 23:59:59 Dhiekson 09 [place] 2017-07-21 2017-07-21 Outpatient MHIE MHIE [id number] Memoria 08:30:00 08:30:[address] [facility] 2017-07-14 2017-07-16 Phone nullFlavo MG [id number] Memoria 11:59:00 05:59:59 Message r Primary 06 [facility] 2017-07-14 2017-07-16 Phone nullFlavo MG [id number] Memoria 11:59:00 05:59:59 Message r Primary 06 [facility] 2017-07-14 2017-07-15 Outpatient MHMG MG [id number] 05:59:00 23:59:59 06 2017-06-30 2017-07-02 Phone nullFlavo MG [id number] Memoria 19:02:00 05:59:59 Message r Primary 05 [facility] 2017-06-30 2017-07-02 Phone nullFlavo MG [id number] Memoria 19:02:00 05:59:59 Message r Primary 05 [facility] 2017-06-30 2017-07-01 Outpatient MHMG MG [id number] 13:02:00 23:59:59 05 2017-06-30 2017-07-01 Outpt Diag nullFlavo [facility] [id number] Memoria 21:24:00 05:59:00 Services r Outpatient 03 [facility] 2017-06-30 2017-07-01 Outpt Diag nullFlavo [facility] [id number] Memoria 21:24:00 05:59:00 Services r Outpatient 03 l [facility] 2017-06-30 2017-06-30 Outpatient Saravia, 2.16.840. 2.16.840.1. 3 [id number] 15:24:00 23:59:00 Dhiekson 1.556512. [id number] 03 [place] 3.615.36 5.36 2017-06-19 2017-06-21 Phone nullFlavo [facility] [id number] Memoria 22:08:00 05:59:59 Message r Primary 04 [facility] 2017-06-19 2017-06-21 Phone nullFlavo MHMG [id number] Memoria 22:08:00 05:59:59 Message r Primary 04 [facility] 2017-06-19 2017-06-20 Outpatient MHMG MH[facility] [id number] 16:08:00 23:59:59 04 2017-06-14 2017-06-16 Phone nullFlavo [facility]MG [id number] Memoria 22:45:00 05:59:59 Message r Primary 03 [facility] 2017-06-14 2017-06-16 Phone nullFlavo MHMG [id number] Memoria 22:45:00 05:59:59 Message r Primary 03 [facility] 2017-06-14 2017-06-15 Outpatient MHMG MHMG [id number] 16:45:00 23:59:59 2017-04-21 2017-04-21 Outpatient MHIE MHIE [id number] Memoria 14:00:00 14:00:00 08 radha Terrell 2017-04-21 2017-04-21 Outpatient MHIE MHIE [id number] Memoria 14:00:00 14:00:00 08 radha Terrell 2016-07-22 2016-07-22 Outpatient [facility] [id number] Ellinger 09:27:32 09:27:32 Health 2015-10-19 2015-10-19 Outpatient MHIE MHIE [id number] Memoria 08:00:00 08:00:00 07 radha Terrell 2015-10-19 2015-10-19 Outpatient MHIE MHIE [id number] Memoria 08:00:00 08:00:00 07 radha Terrell 2015-09-28 2015-09-28 Outpatient MHIE MHIE [id number] Memoria 14:30:00 14:30:00 06 radha Terrell 2015-09-28 2015-09-28 Outpatient MHIE MHIE [id number] Memoria 14:30:00 14:30:00 06 radha Terrell 2015-09-18 2015-09-18 Outpatient MHIE MHIE [id number] Memoria 10:00:00 10:00:00 05 radha Terrell 2015-09-18 2015-09-18 Outpatient MHIE MHIE [id number] Memoria 10:00:00 10:00:00 05 radha Terrell 2015-08-18 2015-08-18 Outpatient MHIE MHIE [id number] Memoria 11:30:00 11:30:00 03 radha Terrell 2015-08-18 2015-08-18 Outpatient MHIE MHIE [id number] Memoria 11:30:00 11:30:00 03 radha Terrell 2015-07-29 2015-07-29 Outpatient MHIE MHIE [id number] Memoria 10:00:00 10:00:00 04 radha Terrell 2015-07-29 2015-07-29 Outpatient MHIE MHIE [id number] Memoria 10:00:00 10:00:00 04 radha Terrell 2015-05-18 2015-05-18 Outpatient MHIE MHIE [id number] Memoria 11:00:00 11:00:00 02 radha Terrell 2015-05-18 2015-05-18 Outpatient MHIE MHIE [id number] Memoria 11:00:00 11:00:00 02 radha Terrell 2015-05-04 2015-05-04 Outpatient MHIE MHIE [id number] Memoria 11:15:00 11:15:00 01 radha Terrell 2015-05-04 2015-05-04 Outpatient MHIE MHIE [id number] Memoria 11:15:00 11:15:00 01 radha Terrell 2015-04-17 2015-04-17 Outpatient MHIE MHIE [id number] Memoria 11:00:00 11:00:00 00 radha Terrell 2015-04-17 2015-04-17 Outpatient MHIE MHIE [id number] Memoria 11:00:00 11:00:00 00 radha Terrell 2014-06-05 2014-06-06 Outpatient nullFlavo [facility] [id number] Memoria 17:12:00 05:59:00 r Outpatient 01 radha [facility] 2014-06-05 2014-06-06 Outpatient nullFlavo [facility] [id number] Memoria 17:12:00 05:59:00 r Outpatient 01 radha [facility] 2014-06-05 2014-06-05 Outpatient Chidi 2.16.840. 2.16.840.1. [id number] 11:12:00 23:59:00 Yasemin 1.499465. [id number] 01 Ryann 3.615.0.1 5.0.423 19 1261-09-25 2014-04-10 OBS nullFlavo [facility] [id number] Memoria 02:24:00 22:50:00 Observatio r [facility] [address] [facility] 2014-04-10 2014-04-10 OBS nullFlavo [facility] [id number] Memoria 02:24:00 22:50:00 Observatio r [facility] [address] [facility] 2014-04-09 2014-04-10 Outpatient Marilin, 2.16.840. 2.16.840.1. [id number] 21:24:00 17:50:00 Eulalio 1.746603. [id number] 04 Parvez 3.615.0.1 5.0.752 93 5120-08-27 2014-03-13 Outpt Diag nullFlavo [facility] [id number] Memoria 18:44:00 04:59:00 Services r Outpatient 00 l Imaging [facility] 2014-03-12 2014-03-13 Outpt Diag nullFlavo [facility] [id number] Memoria 18:44:00 04:59:00 Services r Outpatient 00 l Imaging [facility] 2014-03-12 2014-03-12 Outpatient Murillo, 2.16.840. 2.16.840.1. [id number] 13:44:00 23:59:00 Yasemin 1.761297. [id number] 00 Ryann 3.615.0.1 5.0.328 35 6158-01-16 2013-08-01 Outpatient 2.16.840. 2.16.840.1. 3 [id number] Memoria 19:51:00 23:59:00 1.064191. 928511.3.61 03 l 3.615.0.[address] 2013-08-01 2013-08-01 Outpatient nullFlavo [id number] Memoria 19:51:00 19:51:00 r [facility] 03 l Xander 2013-08-01 2013-08-01 Outpatient nullFlavo [id number] Memoria 19:51:00 19:51:00 r [facility] 03 l [facility] 2013-06-14 2013-06-14 Outpatient 2.16.840. 2.16.840.1. 3 [id number] Memoria 19:34:00 23:59:00 1.083781. 736249.3.61 02 l 3.615.0.1 5.0.101 Heron n 01 [facility] 2013-06-14 2013-06-14 Outpatient nullFlavo [id number] Memoria 19:34:00 19:34:00 r [facility] 02 Xander 2013-06-14 2013-06-14 Outpatient nullFlavo [id number] Memoria 19:34:00 19:34:00 r [facility] 02 Xander 2012-07-24 2012-07-24 Outpatient [facility] [id number] Memoria 10:50:00 10:50:00 00 l Xander 2012-07-24 2012-07-24 Outpatient [facility] [id number] Memoria 10:50:00 10:50:00 00 radha Terrell [...] code = SARS-CoV-2 Antigen) Presumptive Neg ative [place]fluenza virus A and B and SARS-CoV+SARS-CoV-2 (COVID- 19) Ag panel - Upper respiratory specimen by Rapid [id number] 14:11:38 Test Item Value Reference Range Interpretation Comments Influenza A (test code = Presumptive Negative Influenza A) Influenza B (test code = Presumptive Negative Influenza B) SARS-CoV-2 Antigen (test Presumptive Negative code = SARS-CoV-2 Antigen) [place]ishesHemoglobin A1c/Hemoglobin.total in [id number] 00:00:00 Test Item Value Reference Range Interpretation Comments Hemoglobin A1c/Hemoglobin.total in 7.7 % 1.0-5.7 H Blood (test code = 4548-4) average blood glucose (calculation) 174 mg/dL (test code = average blood glucose (calculation)) [place] C-SPINE W/O [id number] 21:00:00 [facility])Name: JAMESON FLYNN : 1950 Sex: F Name: JAMESON FLYNN [facility] : 1950 Age/S: 70 / F [address] [facility] Unit #: [id number] Loc: [place] [address] Phys: Gabriel Baer MD Acct: [id number] Dis Date: Status: REG ER PHONE #: [phone] Exam Date: 01/25/20212010 FAX #: [phone] Reason: Pain s/p fall EXAMS: CPT CODE: [id number] CT C-SPINE W/O CONTRAST 44792 HISTORY: Pain s/p fall TECHNIQUE: Noncontrast 2.5 [...] shift. No effacement of the sulci or parrihs-white matter interface. No cortical atrophy. No signs [...] 1 Signed Report (CONTINUED) Name: JAMESON FLYNN [facility] : 1950 Age/S: 70 / F [address] [facility] Unit #: [id number] Loc: [place] [address] Phys: Gabriel Baer MD Acct: [id number] Dis Date: Status: REG ER PHONE #: [phone] Exam Date: 01/25/20212010 FAX #: [phone] Reason: Pain s/p fall EXAMS: CPT CODE: [id number] CT C-SPINE W/O CONTRAST 43127 (Continued) Location: [facility] Electronically Signedby Ata Casas MD on 01/25/2021 at 2100 Reported and signed by: Ata Casas MD CC: Gabriel Baer MD; Ted Anna MD Technologist:CRIS LOUISE CTDI: DLP: Trnscb Date/Time: 01/25/2021 (2099) [email or web address].KEVINR.[email or web address] Orig Print D/T: S: 01/25/2021 (2102) PAGE 2 Signed Report- CT HEAD/BRAIN W/O [id number] 21:00:00 [facility] : 1950 Sex: F Name: JAMESON FLYNN [facility] : 1950 Age/S: 70 / F[address] [facility] Unit #: [id number] Loc: [place] [address] Phys: Gabriel Baer MD Acct: [id number] Dis Date: Status: REG ER PHONE #: [phone] Exam Date: 01/25/20212010 FAX #: [phone]: Pain s/p fall EXAMS: CPT CODE: [id number] CT HEAD/BRAIN W/O CONT 86885 HISTORY: Pain s/p fall TECHNIQUE: Noncontrast 2.5 [...] 1 Signed Report (CONTINUED) Name: JAMESON FLYNN [facility] : 1950 Age/S: 70 / F [address] [facility] Unit #: [id number] Loc: [place] [address] Phys: Gabriel Baer MD Acct: [id number] Dis Date: Status: REG ER PHONE #: [phone] Exam Date: 01/25/20212010 FAX #: [phone] Reason: Pain s/p fall EXAMS: CPT CODE: [id number] CT HEAD/BRAIN W/O CONT 63973 (Continued) Location: [facility] Electronically Signedby Ata Casas MD on 01/25/2021 at 2100 Reported and signed by: Ata Casas MD CC: Gabriel Baer MD; Ted Anna MD Technologist:CRIS WARREN CT CTDI: DLP: Trnscb Date/Time: 01/25/2021 (2099) [email or web address].SDR.RR31 Orig Print D/T: S: 01/25/2021 (2102) PAGE 2 Signed ReportSCR MAMM BILATERAL OLEGARIO CAD [id number] 12:57:49 Name: Jameson : 1950 Sex: F* - SCR MAMM BILATERAL OLEGARIO CAD DIGITALBILATERAL DIGITAL SCREENING MAMMOGRAM 3D/2D WITH CAD: 01/01/2021LINICAL: Asymptomatic. Digital breast tomosynthesis was performed in addition to routine CC and MLO views. Current mammographic images were evaluated by [employer] CAD (computer-aided detection) software. No prior exams were available for comparison. The tissue of both breasts is predominantly fatty. No suspicious mass, architectural distortion, malignant type calcification, or lymph node abnormality detected. IMPRESSION: NEGATIVEThere is no mammographic evidence of malignancy. Resume annual screening mammography in one year. Floyd Winslow M.D. ss/penrad:01/02/2021 12:57:49 Head Of Quality: Jenna Leon FW, [facility]-FWletter sent: BIRADS 1-2 Normal Mammogram BI-RADS: 1 NegativeGASTRIC,[id number] 16:28:00 Test Item Value Reference Range Interpretation Comments GASTRIC,BIOPSY (test code = GASTB) RUN DATE: 09/25/20 [place] [facility] PAGE 1 RUN TIME: 1628 Specimen Inquiry RUN USER: INTERFACE PATIENT: JAMESON FLYNN LOC: [facility] U #: [id number] AGE/SX: 70/F ROOM: RE09/24/20REG DR: Ted Anna MD : [birth year] BED: DIS: STATUS: [facility] TLOC: SPEC #: [id number] RECD: 09/24/20 STATUS: BRENDEN RAMOS #: [id number] ELIANE: 09/24/20- SUBM DR: Ted Anna MD ENTERED: 09/24/20 SP TYPE: GASTRIC BX OTHR DR: ORDERED: GROSS/2 PROCEDURES: GROSS (09/25/20) TISSUES: 1. DUODENUM, NOS - COLD BX [...] CONTINUED ON NEXT PAGE RUN DATE: 09/25/20 [place] [facility] PAGE 2 RUN TIME: 1628 Specimen Inquiry RUN USER: INTERFACE SPEC #: [id number] PATIENT: JAMESON FLYNN #[id number] (Continued) FINAL DIAGNOSIS (Continued) RRB/sm D 33865l5 MACROSCOPIC The first specimen is received in [...] diameter, submitted as (3). GROSS PERFORMED AT [facility] [address] [place] [address] ([phone] MICROSCOPIC All of the stains, including any controls performed, stain appropriately. 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 The testing is perf ormed by kunal orellana in the procedures for the [employer]000 molecular diagnostic SARS-CoV-2 assa y in vitro. Novel Coronavirus 17:06:00 Test Item Value Reference Range Interpretation Comments Novel Coronavirus Negative Negative Positive r esults are 2019 Inhouse (test indicativ e of the presence code = NOBTF20KY) ofSARS-CoV -2 RNA, clinical correlation wit h [...] n. The testing is perf ormed by kunal orellana in the procedures for the [employer] M2000 molecular diagnostic SARS-CoV-2 assa y in vitro. BASIC METABOLIC [id number] 18:05:00 Test Item Value Reference Range Interpretation [...] >3 months. [Automated mess age] The system [employer] generated this result transmitted ref erence range: [...] 9.0 mg/dL 8.5-10.1 N CA) CBC W/AUTO [id number] 17:44:00 Test Item Value Reference Range Interpretation [...] Test performed at: Inhouse (test code = [facility] IRL 7777 [id number]) [facility] [address] [address] [place] [address] Covid 19 InHouse [id number] 17:15:00 Test Item Value Reference Range Interpretation Comments Covid 19 Negative Negative A negative resu lt does not InHouse NTX preclude the SA RS-COV-2 (test code = viralinfection and should not be [id number]) used as the so le basis forpatient [...] performancechar acteristics were determined by Gamaliel holland [facility]. Thi s test has notbeen FDA shazia ared or approved. This test is au thorized by theFDA under Em ergency Use Authorization(E UA). The EUA willremain in e ffect unless it is terminated o r revoked by FDA . Testing berta eters have not been validated for screeningasympt omatic patients. This test was v alidated according to th e FDA's guidancedocumen t "Policy for Diagnostics yadira ting in LaboratoriesCer tified to Perform High Complexity Testing under CLIA". First test? UnknownEmployed in Healthcare? UnknownSymptomatic as defined by CDC? UnknownHospitalizeddue to COVID? UnknownIn ICU due to COVID? UnknownResident in a congregate care setting? Unknown? UnknownAge at collection: YHepatitis C virus RNA [Units/volume] (viral load) in Serum or Plasma by GET with probe [id number] 16:24:00 Test Item Value Reference Range Interpretation Comments hepatitis C antibody (test code non-reactive non-reactive = hepatitis C antibody) signal to cut-off (test code = 0.00 <1.00 signal to cut-off) [place] W Auto Differential panel - [id number] 16:00:00 Test Item Value Reference Range Interpretation [...] (test code = baso#) 0.04 x10*3/?L 0.01-0.08 [place] ParishesHemoglobin A1c/Hemoglobin.total in [id number] 12:48:00 Test Item Value Reference Range Interpretation Comments Hemoglobin A1c/Hemoglobin.total in 12.4 % 1.0-5.7 H Blood (test code = 4548-4) average blood glucose (calculated) 309 mg/dL (test code = average blood glucose (calculated)) [place] ParishesComprehensive metabolic 2000 panel - Serum or Plasma [...] (test code = anion gap) 8 calc [place]ishesLipid 1996 panel - Serum or [id number] 11:25:00 Test Item Value Reference Range Interpretation [...] Serum or Plasma (test code = 2089-1) [place]ishesCB W Auto Differential panel - [id number] 04:46:00 Test Item Value Reference Range Interpretation [...] fL 7.5-12.5 absolute neutrophils (test 2468 cells/uL 5242-1110 code = absolute neutrophils) absolute lymphocytes (test [...] basophils (test code = 1.3 % basophils) 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 COMPARISON: Head CT from previous day. Location: [facility]. 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 CREATININE (test code 1.20 mg/dL 0.55-1.02 H Note change in = CREAT) reference range due to change in reagent. BUN/CREATININE RATIO 21.7 10-20 H (test code = BUN/CREA) CALCIUM (test code = 9.0 mg/dL 8.5-10.1 N CA) [id number] 17:37:00 Test Item Value Reference Range Interpretation Comments TROPONIN-I (test code = TROPI) <0.015 ng/mL 0-0.045 N PROTHROMBIN [id number] 17:31:00 Test Item Value Reference Range Interpretation [...] (2.5-3.5) IS PATIENT ON ANTICOAGULANTS? NTHROMBOPLASTIN TIME [id number] 17:31:00 Test Item Value Reference Range Interpretation Comments THROMBOPLASTIN TIME PARTIAL 32.4 seconds 25.0-36.5 N (test code = PTT) IS PATIENT ON ANTICOAGULANTS? 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 [facility] CBC W/AUTO [id number] 17:17:00 Test Item Value Reference Range Interpretation [...] 0.00 K/mm3 0.0-0.1 N NRBC#) CBC W/AUTO [id number] 17:16:00 Test Item Value Reference Range Interpretation [...] BA#) K/mm3 0.0-0.2 - CT HEAD/BRAIN W/O [id number] 17:04:00 Name: JAMESON FLYNN [facility] : 1950 Age/S: 69 / F [address] Unit #: [id number] Loc: [place] [address] Phys: Elizabeth Arrington DO Acct: [id number] Dis Date: Status: REG ER PHONE #: [phone] Exam Date: 10/14/2019 1650 FAX #: [phone] Reason: slurred speech EXAMS: CPT CODE: [id number] CT HEAD/BRAIN W/O CONT 34023 HISTORY: slurred speech TECHNIQUE: Noncontrast 2.5 mm [...] changes are present and likely chronic. Location: [facility] at 1704 Reported and signed by: Ata Casas MD CC: Elizabeth Arrington DO Technologist:Yumi Sanderson RT(R); GIOVANNA Mcclellan CTDI: DLP: Trnscb Date/Time: 10/14/2019 (1704) [email or web address] Orig Print D/T: S: 10/14/2019 (0716) PAGE 1 Signed Report- XR CHEST 1 [id number] 17:04:00 FAX: Elizabeth Arrington DO [place]: B St: REG Name: JAMESON FLYNN [facility] : 1950 Age/S: 69/F [address] [facility] Unit #: [id number] Loc: [place] [address] Phys: Elizabeth Arrington DO Acct: [id number] Dis Date: Status: REG ER PHONE #: [phone] Exam Date: 10/14/2019 1659 FAX #: [phone] Reason:CODE STROKE EXAMS: CPT CODE: [id number] XR CHEST 1 V 32902 REASON FOR EXAM: CODE STROKE Exam Order [...] degenerative changes in the spine. The visualized upperabdomen is within normal limits. IMPRESSION: No acute cardiopulmonary process. Location: [facility] at 1704 Reported and signed by: Ata Casas MD CC: Elizabeth Arrington DO Technologist: ANGELO MARLEY Trnscrd Date/Time/By: 10/14/2019 (3652) : By: [email or web address] Orig Print D/T: S: 10/14/2019 (5723) PAGE 1 Signed ReportCHEM [id number] 14:45:00 Test Item Value Reference Range Interpretation Comments eGFR (test code = eGFR) 92 [facility] [id number] 14:45:00 Test Item Value Reference Range Interpretation Comments Potassium Lvl (test code = Potassium 3.6 3.5-5.1 Lvl) [facility]2014-09-25 14:45:00 Test Item Value Reference Range Interpretation Comments Calcium Lvl (test code = Calcium Lvl) 8.8 8.5-10.5 [facility]2014-09-25 14:45:00 Test Item Value Reference Range Interpretation Comments AGAP (test code = AGAP) 9.6 10.0-20.0 [facility]2014-09-25 14:45:00 Test Item Value Reference Range Interpretation Comments Sodium Lvl (test code = Sodium Lvl) 136 135-145 [facility]2014-09-25 14:45:00 Test Item Value Reference Range Interpretation Comments Creatinine Lvl (test code = Creatinine 0.7 0.5-1.4 Lvl) [facility]2014-09-25 14:45:00 Test Item Value Reference Range Interpretation Comments CO2 (test code = CO2) 27 24-32 [facility]2014-09-25 14:45:00 Test Item Value Reference Range Interpretation Comments Chloride Lvl (test code = Chloride Lvl) 103 95-109 [facility]2014-09-25 14:45:00 Test Item Value Reference Range Interpretation Comments BUN (test code = BUN) 11 7-22 [facility]2014-09-25 14:45:00 Test Item Value Reference Range Interpretation Comments Glucose Lvl (test code = Glucose Lvl) 131 70-99 [facility]2014-09-25 14:45:00 Test Item Value Reference Range Interpretation Comments eGFR (test code = eGFR) 92 [facility]2014-09-25 14:45:00 Test Item Value Reference Range Interpretation Comments Potassium Lvl (test code = Potassium 3.6 3.5-5.1 Lvl) [facility]2014-09-25 14:45:00 Test Item Value Reference Range Interpretation Comments Calcium Lvl (test code = Calcium Lvl) 8.8 8.5-10.5 [facility]2014-09-25 14:45:00 Test Item Value Reference Range Interpretation Comments AGAP (test code = AGAP) 9.6 10.0-20.0 [facility]2014-09-25 14:45:00 Test Item Value Reference Range Interpretation Comments Sodium Lvl (test code = Sodium Lvl) 136 135-145 [facility]2014-09-25 14:45:00 Test Item Value Reference Range Interpretation Comments Creatinine Lvl (test code = Creatinine 0.7 0.5-1.4 Lvl) [facility]2014-09-25 14:45:00 Test Item Value Reference Range Interpretation Comments CO2 (test code = CO2) - [facility]2014-09-25 14:45:00 Test Item Value Reference Range Interpretation Comments Chloride Lvl (test code = Chloride Lvl) 103 95-109 [facility]2014-09-25 14:45:00 Test Item Value Reference Range Interpretation Comments BUN (test code = BUN) 11 7-22 [facility]2014-09-25 14:45:00 Test Item Value Reference Range Interpretation Comments Glucose Lvl (test code = Glucose Lvl) 131 70-99 [facility]2014-09-25 14:45:00 Test Item Value Reference Range Interpretation Comments eGFR (test code = eGFR) 92 [facility]2014-09-25 14:45:00 Test Item Value Reference Range Interpretation Comments Potassium Lvl (test code = Potassium 3.6 3.5-5.1 Lvl) [facility]2014-09-25 14:45:00 Test Item Value Reference Range Interpretation Comments Calcium Lvl (test code = Calcium Lvl) 8.8 8.5-10.5 [facility]2014-09-25 14:45:00 Test Item Value Reference Range Interpretation Comments AGAP (test code = AGAP) 9.6 10.0-20.0 [facility]2014-09-25 14:45:00 Test Item Value Reference Range Interpretation Comments Sodium Lvl (test code = Sodium Lvl) 136 135-145 [facility]2014-09-25 14:45:00 Test Item Value Reference Range Interpretation Comments Creatinine Lvl (test code = Creatinine 0.7 0.5-1.4 Lvl) [facility]2014-09-25 14:45:00 Test Item Value Reference Range Interpretation Comments CO2 (test code = CO2) 24-32 [facility]2014-09-25 14:45:00 Test Item Value Reference Range Interpretation Comments Chloride Lvl (test code = Chloride Lvl) 103 95-109 [facility] MCH+ [id number] 14:45:00 Test Item Value Reference Range Interpretation Comments BUN (test code = BUN) 11 -22 [facility] MCH+ [id number] 14:45:00 Test Item Value Reference Range Interpretation Comments Glucose Lvl (test code = Glucose Lvl) 131 70-99 [facility] [employer] [id number] 09:15:00 Test Item Value Reference Range Interpretation Comments Total CK (test code = Total CK) 88 12-191 [facility] [id number] 09:15:00 Test Item Value Reference Range Interpretation Comments Troponin-I (test code no gt See_Comment [Auto mated message] The = Troponin-I) system which g enerated this result transmit joel reference range : <=0.40. The reference r kezia was not used to interpr et this result as adal l/abnormal. [facility] [employer]2014-09-25 09:15:00 Test Item Value Reference Range Interpretation Comments CK MB (test code = CK MB) 1.0 0.5-3.6 [facility] 09:15:00 Test Item Value Reference Range Interpretation Comments CK MB Index (test 1.1 See_Comment [Automate d message] The code = CK MB Index) system w [facility] generated this result transmit joel reference range : <=2.5. The reference range was not used to interpr et this result as adal l/abnormal. [facility] MCH+ [id number] 09:15:00 Test Item Value Reference Range Interpretation Comments Glucose Lvl (test code = Glucose Lvl) 75 70-99 [facility] MCH+ [id number] 09:15:00 Test Item Value Reference Range Interpretation Comments BUN (test code = BUN) 12 22 [facility] MCH+ [id number] 09:15:00 Test Item Value Reference Range Interpretation Comments Creatinine Lvl (test code = Creatinine 0.8 0.5-1.4 Lvl) [facility] MCH+ [id number] 09:15:00 Test Item Value Reference Range Interpretation Comments CO2 (test code = CO2) 26 24-32 [place] [id number] 09:15:00 Test Item Value Reference Range Interpretation Comments Chloride Lvl (test code = Chloride Lvl) 105 95-109 [facility]2014-09-25 09:15:00 Test Item Value Reference Range Interpretation Comments Sodium Lvl (test code = Sodium Lvl) 138 135-145 [facility]2014-09-25 09:15:00 Test Item Value Reference Range Interpretation Comments Potassium Lvl (test code = Potassium 3.8 3.5-5.1 Lvl) [facility]2014-09-25 09:15:00 Test Item Value Reference Range Interpretation Comments Calcium Lvl (test code = Calcium Lvl) 8.7 8.5-10.5 [facility]2014-09-25 09:15:00 Test Item Value Reference Range Interpretation Comments AGAP (test code = AGAP) 10.8 10.0-20.0 [facility]2014-09-25 09:15:00 Test Item Value Reference Range Interpretation Comments eGFR (test code = eGFR) 78 [facility]woodUdpzzeoVLZLINQUAB7520-06-56 09:15:00 Test Item Value Reference Range Interpretation Comments MPV (test code = MPV) 9.9 7.4-10.4 [facility] KingwoodCpnulbxBVYZEQMQLG0121-30-73 09:15:00 Test Item Value Reference Range Interpretation Comments Platelet (test code = Platelet) 169 133-450 [facility] KingwoodOwhenajNTLJJJNRYP9608-23-00 09:15:00 Test Item Value Reference Range Interpretation Comments RDW (test code = RDW) 14.4 11.5-14.5 [facility] KingwoodFqltcpgSWADCBWWKF3773-54-87 09:15:00 Test Item Value Reference Range Interpretation Comments MCH (test code = MCH) 27.5 pg 27.0-31.0 [facility] KingwoodOfggfivDZNAXAROGV9640-09-71 09:15:00 Test Item Value Reference Range Interpretation Comments MCHC (test code = MCHC) 33.2 32.0-36.0 [facility] KingwoodJwzhgwuMHWQNYMTFZ1075-96-70 09:15:00 Test Item Value Reference Range Interpretation Comments MCV (test code = MCV) 82.8 80.0-98.0 [place] [id number] 09:15:00 Test Item Value Reference Range Interpretation Comments Hct (test code = Hct) 37.3 36.0-48.0 [facility] KingwoodTvcadifYFGARZTHGK8142-10-00 09:15:00 Test Item Value Reference Range Interpretation Comments Hgb (test code = Hgb) 12.4 12.0-16.0 [facility] KingwoodDioytmpGOANJOKZZI8762-24-83 09:15:00 Test Item Value Reference Range Interpretation Comments RBC (test code = RBC) 4.50 4.20-5.40 [facility] KingwoodOkvgdgyZLWAUQLYLU5485-40-37 09:15:00 Test Item Value Reference Range Interpretation Comments WBC (test code = WBC) 7.5 3.7-10.4 [facility] KingwoodRiugyfdSFXWSJODCS0529-70-36 09:15:00 Test Item Value Reference Range Interpretation Comments Basophils # (test code 0.0 See_Comment [Aut omated message] The = Basophils #) system which generated this result tra nsmitted reference range : <=0.2. The reference r kezia was not used to int erpret this result as normal/abnormal . [facility] KingwoodYemalyhNNOMNDJJGM3418-85-91 09:15:00 Test Item Value Reference Range Interpretation Comments Eosinophils # (test code 0.2 See_Comment [A utomated message] The = Eosinophils #) system whic h generated this result tra nsmitted reference range : <=0.5. The reference r kezia was not used to int erpret this result as normal/abnormal . [facility] KingwoodVbglnxkXUHYCWCJUQ1352-05-85 09:15:00 Test Item Value Reference Range Interpretation Comments Segs-Bands # (test code = Segs-Bands #) 3.5 1.5-8.1 [facility] KingwoodFalbejfTFNDVOTLGB3821-11-16 09:15:00 Test Item Value Reference Range Interpretation Comments Basophils (test code = 0.5 See_Comment [Aut omated message] The Basophils) system which ge nerated this result tra nsmitted reference range : <=1.0. The reference r kezia was not used to int erpret this result as normal/abnormal . [facility] KingwoodKcsimniUPDMVRALIM2647-75-37 09:15:00 Test Item Value Reference Range Interpretation Comments Monocytes # (test code 0.5 See_Comment [Aut omated message] The = Monocytes #) system which generated this result tra nsmitted reference range : <=0.8. The reference r kezia was not used to int erpret this result as normal/abnormal . [facility] KingwoodGomgyssAZYUQZPSVU0560-65-58 09:15:00 Test Item Value Reference Range Interpretation Comments Lymphocytes # (test code = Lymphocytes 3.3 1.0-5.5 #) [facility] KingwoodBpkixrdJCDHFPQAJS9171-52-34 09:15:00 Test Item Value Reference Range Interpretation Comments Monocytes (test code = Monocytes) 6.8 2.0-12.0 [facility] KingwoodMtfgnqhVNWBEVBBWU9972-34-38 09:15:00 Test Item Value Reference Range Interpretation Comments Lymphocytes (test code = Lymphocytes) 43.6 20.0-40.0 [facility] KingwoodUcwlrxlOAKEPWUTNW1190-55-11 09:15:00 Test Item Value Reference Range Interpretation Comments Eosinophils (test code = 3.1 See_Comment [A utomated message] The Eosinophils) system which ge nerated this result tra nsmitted reference range : <=4.0. The reference r kezia was not used to int erpret this result as normal/abnormal . [facility] HospitalOkemakcWNCJOFWODT7517-50-55 09:15:00 Test Item Value Reference Range Interpretation Comments Segs (test code = Segs) 46.0 45.0-75.0 [facility] DistrictZhnroscSBIDCY2664-73-42 09:15:00 Test Item Value Reference Range Interpretation Comments LDL (Calculated) (test code = LDL 58 (Calculated)) [facility] DistrictQsbfpvzBBHFKN4790-21-33 09:15:00 Test Item Value Reference Range Interpretation Comments VLDL (test code = VLDL) 20 [facility] DistrictEpvfkvfEOYCUL2810-53-58 09:15:00 Test Item Value Reference Range Interpretation Comments HDL (test code = HDL) 51 [facility] DistrictZlwdsalHTWRJG9734-65-21 09:15:00 Test Item Value Reference Range Interpretation Comments CHD Risk (test code = CHD Risk) 2.53 3.90-5.80 [facility] DistrictPdstvywZNRNQR3527-16-72 09:15:00 Test Item Value Reference Range Interpretation Comments Chol (test code = Chol) 129 [facility] DistrictWlizqbfAONMPN6757-04-74 09:15:00 Test Item Value Reference Range Interpretation Comments Trig (test code = Trig) 98 [facility] UZDSZHPPV4584-84-25 09:15:00 Test Item Value Reference Range Interpretation Comments Hgb A1C (test code = Hgb A1C) 6.0 [facility] FPNSEHH0103-96-68 09:15:00 Test Item Value Reference Range Interpretation Comments Total CK (test code = Total CK) 88 12-191 [facility] [employer] POTGWSI7817-25-72 09:15:00 Test Item Value Reference Range Interpretation Comments Troponin-I (test code no gt See_Comment [Auto mated message] The = Troponin-I) system which g enerated this result transmit joel reference range : <=0.40. The reference r kezia was not used to interpr et this result as adal l/abnormal. [facility] [employer] ITYMTTT7923-59-03 09:15:00 Test Item Value Reference Range Interpretation Comments CK MB (test code = CK MB) 1.0 0.5-3.6 [facility] [employer]2014-09-25 09:15:00 Test Item Value Reference Range Interpretation Comments CK MB Index (test 1.1 See_Comment [Automate d message] The code = CK MB Index) system w [facility] generated this result transmit joel reference range : <=2.5. The reference range was not used to interpr et this result as adal l/abnormal. [facility] [employer]2014-09-25 09:15:00 Test Item Value Reference Range Interpretation Comments Glucose Lvl (test code = Glucose Lvl) 75 70-99 [facility] [employer]2014-09-25 09:15:00 Test Item Value Reference Range Interpretation Comments BUN (test code = BUN) 12 7-22 [facility] [employer]2014-09-25 09:15:00 Test Item Value Reference Range Interpretation Comments Creatinine Lvl (test code = Creatinine 0.8 0.5-1.4 Lvl) [facility] [employer]2014-09-25 09:15:00 Test Item Value Reference Range Interpretation Comments CO2 (test code = CO2) 26 24-32 [facility] [employer]2014-09-25 09:15:00 Test Item Value Reference Range Interpretation Comments Chloride Lvl (test code = Chloride Lvl) 105 95-109 [facility] [employer]2014-09-25 09:15:00 Test Item Value Reference Range Interpretation Comments Sodium Lvl (test code = Sodium Lvl) 138 135-145 [facility] [employer]2014-09-25 09:15:00 Test Item Value Reference Range Interpretation Comments Potassium Lvl (test code = Potassium 3.8 3.5-5.1 Lvl) [facility]2014-09-25 09:15:00 Test Item Value Reference Range Interpretation Comments Calcium Lvl (test code = Calcium Lvl) 8.7 8.5-10.5 [facility]2014-09-25 09:15:00 Test Item Value Reference Range Interpretation Comments AGAP (test code = AGAP) 10.8 10.0-20.0 [facility]2014-09-25 09:15:00 Test Item Value Reference Range Interpretation Comments eGFR (test code = eGFR) 78 [facility] KingwoodUdyhevyEDMYOXMXJD1142-43-61 09:15:00 Test Item Value Reference Range Interpretation Comments MPV (test code = MPV) 9.9 7.4-10.4 [facility] KingwoodVeaajdyHESORHANFW6488-76-36 09:15:00 Test Item Value Reference Range Interpretation Comments Platelet (test code = Platelet) 169 133-450 [facility] KingwoodCklxsajKTWOPDXQWU4813-77-05 09:15:00 Test Item Value Reference Range Interpretation Comments RDW (test code = RDW) 14.4 11.5-14.5 [facility] KingwoodHutvaraVYWNEXEMAV4082-59-64 09:15:00 Test Item Value Reference Range Interpretation Comments MCH (test code = MCH) 27.5 pg 27.0-31.0 [facility] KingwoodDkhicfdXGIHRTDWAV9726-09-36 09:15:00 Test Item Value Reference Range Interpretation Comments MCHC (test code = MCHC) 33.2 32.0-36.0 [facility] KingwoodFzjpbvoFDVHVSXSLC1273-38-81 09:15:00 Test Item Value Reference Range Interpretation Comments MCV (test code = MCV) 82.8 80.0-98.0 [facility] KingwoodKglqqfvDVFNJSZYUA1078-67-74 09:15:00 Test Item Value Reference Range Interpretation Comments Hct (test code = Hct) 37.3 36.0-48.0 [facility] KingwoodFtvrmktQMDSBVDVQC6531-81-54 09:15:00 Test Item Value Reference Range Interpretation Comments Hgb (test code = Hgb) 12.4 12.0-16.0 [facility] KingwoodVrkstsnRESVUQZVQK3751-02-21 09:15:00 Test Item Value Reference Range Interpretation Comments RBC (test code = RBC) 4.50 4.20-5.40 [facility] KingwoodClokczrGVTWLENMFZ3436-66-54 09:15:00 Test Item Value Reference Range Interpretation Comments WBC (test code = WBC) 7.5 3.7-10.4 [facility] KingwoodDqcxkboSWPERVVJVZ9124-69-50 09:15:00 Test Item Value Reference Range Interpretation Comments Basophils # (test code 0.0 See_Comment [Aut omated message] The = Basophils #) system which generated this result tra nsmitted reference range : <=0.2. The reference r kezia was not used to int erpret this result as normal/abnormal . [facility] KingwoodTgpgeiqLLPCZUVGYI7809-57-16 09:15:00 Test Item Value Reference Range Interpretation Comments Eosinophils # (test code 0.2 See_Comment [A utomated message] The = Eosinophils #) system whic h generated this result tra nsmitted reference range : <=0.5. The reference r kezia was not used to int erpret this result as normal/abnormal . [facility] KingwoodPveyrsqTYCJUPZOOQ9297-03-11 09:15:00 Test Item Value Reference Range Interpretation Comments Segs-Bands # (test code = Segs-Bands #) 3.5 1.5-8.1 [facility] KingwoodEktygqyNUUHBWIFEZ9263-45-74 09:15:00 Test Item Value Reference Range Interpretation Comments Basophils (test code = 0.5 See_Comment [Aut omated message] The Basophils) system which ge nerated this result tra nsmitted reference range : <=1.0. The reference r kezia was not used to int erpret this result as normal/abnormal . [facility] KingwoodEokzsidPLTONSNISU5547-26-32 09:15:00 Test Item Value Reference Range Interpretation Comments Monocytes # (test code 0.5 See_Comment [Aut omated message] The = Monocytes #) system which generated this result tra nsmitted reference range : <=0.8. The reference r kezia was not used to int erpret this result as normal/abnormal . [facility] KingwoodCsxbcukBRNKZPDXXV7688-13-88 09:15:00 Test Item Value Reference Range Interpretation Comments Lymphocytes # (test code = Lymphocytes 3.3 1.0-5.5 #) [facility] KingwoodUtbcckbCZPZAVUCEK3259-64-75 09:15:00 Test Item Value Reference Range Interpretation Comments Monocytes (test code = Monocytes) 6.8 2.0-12.0 [facility] HospitalUhgpsciDJUFKJLVEC4972-65-23 09:15:00 Test Item Value Reference Range Interpretation Comments Lymphocytes (test code = Lymphocytes) 43.6 20.0-40.0 [facility] KingwoodJxgmnqfHYKNBVJPMQ9935-03-64 09:15:00 Test Item Value Reference Range Interpretation Comments Eosinophils (test code = 3.1 See_Comment [A utomated message] The Eosinophils) system which ge nerated this result tra nsmitted reference range : <=4.0. The reference r kezia was not used to int erpret this result as normal/abnormal . [facility] HospitalMojdzweAIJYUHRRJB5283-85-19 09:15:00 Test Item Value Reference Range Interpretation Comments Segs (test code = Segs) 46.0 45.0-75.0 [facility]SblhgvqTFWBYB7869-06-03 09:15:00 Test Item Value Reference Range Interpretation Comments LDL (Calculated) (test code = LDL 58 (Calculated)) [facility] DistrictSugvxtvOIZNUH1763-98-86 09:15:00 Test Item Value Reference Range Interpretation Comments VLDL (test code = VLDL) 20 [facility] DistrictHocbhqhZCLZLL3880-93-28 09:15:00 Test Item Value Reference Range Interpretation Comments HDL (test code = HDL) 51 [facility] DistrictWqdsmnuZODSPQ6270-71-89 09:15:00 Test Item Value Reference Range Interpretation Comments CHD Risk (test code = CHD Risk) 2.53 3.90-5.80 [facility] MarshallRxyzslcMQTPQN1986-75-30 09:15:00 Test Item Value Reference Range Interpretation Comments Chol (test code = Chol) 129 [facility] DistrictXmahxllWTLWML8720-68-52 09:15:00 Test Item Value Reference Range Interpretation Comments Trig (test code = Trig) 98 [facility] HYMNSGRYH5516-83-79 09:15:00 Test Item Value Reference Range Interpretation Comments Hgb A1C (test code = Hgb A1C) 6.0 [facility] [facility] [id number] 09:15:00 Test Item Value Reference Range Interpretation Comments Total CK (test code = Total CK) 88 12-191 [facility] [id number] 09:15:00 Test Item Value Reference Range Interpretation Comments Troponin-I (test code no gt See_Comment [Auto mated message] The = Troponin-I) system which g enerated this result transmit joel reference range : <=0.40. The reference r kezia was not used to interpr et this result as adal l/abnormal. [facility] [id number] 09:15:00 Test Item Value Reference Range Interpretation Comments CK MB (test code = CK MB) 1.0 0.5-3.6 [facility] [id number] 09:15:00 Test Item Value Reference Range Interpretation Comments CK MB Index (test 1.1 See_Comment [Automate d message] The code = CK MB Index) system w [facility] generated this result transmit joel reference range : <=2.5. The reference range was not used to interpr et this result as adal l/abnormal. [facility] [id number] 09:15:00 Test Item Value Reference Range Interpretation Comments Glucose Lvl (test code = Glucose Lvl) 75 70-99 [facility] [id number] 09:15:00 Test Item Value Reference Range Interpretation Comments BUN (test code = BUN) 12 7-22 [facility] [id number] 09:15:00 Test Item Value Reference Range Interpretation Comments Creatinine Lvl (test code = Creatinine 0.8 0.5-1.4 Lvl) [facility] [id number] 09:15:00 Test Item Value Reference Range Interpretation Comments CO2 (test code = CO2) 26 24-32 [facility] [id number] 09:15:00 Test Item Value Reference Range Interpretation Comments Chloride Lvl (test code = Chloride Lvl) 105 95-109 [facility] CenterU[facility] [id number] 09:15:00 Test Item Value Reference Range Interpretation Comments Sodium Lvl (test code = Sodium Lvl) 138 135-145 [facility] [id number] 09:15:00 Test Item Value Reference Range Interpretation Comments Potassium Lvl (test code = Potassium 3.8 3.5-5.1 Lvl) [facility]2014-09-25 09:15:00 Test Item Value Reference Range Interpretation Comments Calcium Lvl (test code = Calcium Lvl) 8.7 8.5-10.5 [facility] [id number] 09:15:00 Test Item Value Reference Range Interpretation Comments AGAP (test code = AGAP) 10.8 10.0-20.0 [facility]2014-09-25 09:15:00 Test Item Value Reference Range Interpretation Comments eGFR (test code = eGFR) 78 [facility]woodIdpbxotHQIDQEGAFK8330-06-99 09:15:00 Test Item Value Reference Range Interpretation Comments MPV (test code = MPV) 9.9 7.4-10.4 [facility] KingwoodKcvjnohRUKKXIUFKS8751-00-93 09:15:00 Test Item Value Reference Range Interpretation Comments Platelet (test code = Platelet) 169 133-450 [facility] KingwoodKcvxxodTCLADPCOOL8704-75-24 09:15:00 Test Item Value Reference Range Interpretation Comments RDW (test code = RDW) 14.4 11.5-14.5 [facility] KingwoodUwotnukENWKJSCWTV5353-53-95 09:15:00 Test Item Value Reference Range Interpretation Comments MCH (test code = MCH) 27.5 pg 27.0-31.0 [facility] KingwoodLlkxafqMNFTTVFXMO6224-18-54 09:15:00 Test Item Value Reference Range Interpretation Comments MCHC (test code = MCHC) 33.2 32.0-36.0 [facility] KingwoodVnetreiTUBODSYYIM5153-18-93 09:15:00 Test Item Value Reference Range Interpretation Comments MCV (test code = MCV) 82.8 80.0-98.0 [facility] KingwoodDvxhxtfHLSOIOGWEE6639-89-94 09:15:00 Test Item Value Reference Range Interpretation Comments Hct (test code = Hct) 37.3 36.0-48.0 [facility] KingwoodEvhtqefEPEXXAHAYF8699-93-81 09:15:00 Test Item Value Reference Range Interpretation Comments Hgb (test code = Hgb) 12.4 12.0-16.0 [facility] KingwoodFjaprsoHIEWZKTSLJ8521-37-25 09:15:00 Test Item Value Reference Range Interpretation Comments RBC (test code = RBC) 4.50 4.20-5.40 [facility] KingwoodFtowepbGJUXFXHBNI7498-98-26 09:15:00 Test Item Value Reference Range Interpretation Comments WBC (test code = WBC) 7.5 3.7-10.4 [facility] KingwoodLfmhdtySDASWETVUA6744-07-04 09:15:00 Test Item Value Reference Range Interpretation Comments Basophils # (test code 0.0 See_Comment [Aut omated message] The = Basophils #) system which generated this result tra nsmitted reference range : <=0.2. The reference r kezia was not used to int erpret this result as normal/abnormal . [facility] KingwoodCxsathpFRKZLGDQDY8508-51-35 09:15:00 Test Item Value Reference Range Interpretation Comments Eosinophils # (test code 0.2 See_Comment [A utomated message] The = Eosinophils #) system whic h generated this result tra nsmitted reference range : <=0.5. The reference r kezia was not used to int erpret this result as normal/abnormal . [facility] KingwoodTxekbjwVYPWCXUXYW2155-12-95 09:15:00 Test Item Value Reference Range Interpretation Comments Segs-Bands # (test code = Segs-Bands #) 3.5 1.5-8.1 [facility] KingwoodDllnyooIHHBCITLUC5315-22-75 09:15:00 Test Item Value Reference Range Interpretation Comments Basophils (test code = 0.5 See_Comment [Aut omated message] The Basophils) system which ge nerated this result tra nsmitted reference range : <=1.0. The reference r kezia was not used to int erpret this result as normal/abnormal . [facility] KingwoodWgdwtcbXAUKXIHUQP8525-98-06 09:15:00 Test Item Value Reference Range Interpretation Comments Monocytes # (test code 0.5 See_Comment [Aut omated message] The = Monocytes #) system which generated this result tra nsmitted reference range : <=0.8. The reference r kezia was not used to int erpret this result as normal/abnormal . [facility] KingwoodWmkoiygWIRJPUWNGR6652-45-15 09:15:00 Test Item Value Reference Range Interpretation Comments Lymphocytes # (test code = Lymphocytes 3.3 1.0-5.5 #) [facility] KingwoodCjfyhmvWLSFSBNTUL8496-06-41 09:15:00 Test Item Value Reference Range Interpretation Comments Monocytes (test code = Monocytes) 6.8 2.0-12.0 [facility] KingwoodIxhfqumTATWUKVFUR0912-09-69 09:15:00 Test Item Value Reference Range Interpretation Comments Lymphocytes (test code = Lymphocytes) 43.6 20.0-40.0 [facility] KingwoodUnglgouGAYSMVUGUP9757-43-38 09:15:00 Test Item Value Reference Range Interpretation Comments Eosinophils (test code = 3.1 See_Comment [A utomated message] The Eosinophils) system which ge nerated this result tra nsmitted reference range : <=4.0. The reference r kezia was not used to int erpret this result as normal/abnormal . [facility] DistrictBxldiwrDAHLMJKPGX4997-64-88 09:15:00 Test Item Value Reference Range Interpretation Comments Segs (test code = Segs) 46.0 45.0-75.0 [facility] DistrictZkvjtlbZZQQID7810-78-67 09:15:00 Test Item Value Reference Range Interpretation Comments LDL (Calculated) (test code = LDL 58 (Calculated)) [facility] DistrictWzaxlbzPCILPL9027-38-52 09:15:00 Test Item Value Reference Range Interpretation Comments VLDL (test code = VLDL) 20 [facility] DistrictTfcpizrVMCVWY4446-46-15 09:15:00 Test Item Value Reference Range Interpretation Comments HDL (test code = HDL) 51 [facility] DistrictNgtlmgvEXSLKT0665-12-89 09:15:00 Test Item Value Reference Range Interpretation Comments CHD Risk (test code = CHD Risk) 2.53 3.90-5.80 [facility] DistrictJjpxpspLSVVIT4245-05-60 09:15:00 Test Item Value Reference Range Interpretation Comments Chol (test code = Chol) 129 [facility] DistrictAvyhzyrQIAHBV2931-03-77 09:15:00 Test Item Value Reference Range Interpretation Comments Trig (test code = Trig) 98 [facility] DistrictSPECIAL IDVVVHFXR8015-98-94 09:15:00 Test Item Value Reference Range Interpretation Comments Hgb A1C (test code = Hgb A1C) 6.0 [facility] AND [id number] 07:45:50 Test Item Value Reference Range Interpretation Comments UA Urobilinogen (test code = UA no gt 0.1-1.0 Urobilinogen) [facility] AND [id number] 07:45:50 Test Item Value Reference Range Interpretation Comments UA Turbidity (test code = Clear (04/10/14 2:45 UA Turbidity) AM) [facility] AND [id number] 07:45:50 Test Item Value Reference Range Interpretation Comments UA Color (test code = Yellow *NA*(04/10/14 UA Color) 2:45 AM) [facility] AND [id number] 07:45:50 Test Item Value Reference Range Interpretation Comments UA Spec Grav (test code = UA Spec Grav) 1.014 [facility] AND [id number] 07:45:50 Test Item Value Reference Range Interpretation Comments UA Glucose (test code = UA Negative mg/dL Glucose) [facility] AND [id number] 07:45:50 Test Item Value Reference Range Interpretation Comments UA Blood (test code = Negative (04/10/14 2:45 UA Blood) AM) [facility] AND [id number] 07:45:50 Test Item Value Reference Range Interpretation Comments UA pH (test code = UA pH) 5.5 5.0-8.0 [facility] AND [id number] 07:45:50 Test Item Value Reference Range Interpretation Comments UA Protein (test code = UA Negative mg/dL Protein) [facility] AND [id number] 07:45:50 Test Item Value Reference Range Interpretation Comments UA RBC (test code = no gt See_Comment [Automa joel message] The UA RBC) system which ge nerated this result transmit joel reference range : <=2. The reference range was not used to interpr et this result as adal l/abnormal. [facility] AND [id number] 07:45:50 Test Item Value Reference Range Interpretation Comments UA Leuk Est (test code Large *ABN*(04/10/14 = UA Leuk Est) 2:45 AM) [facility] AND [id number] 07:45:50 Test Item Value Reference Range Interpretation Comments UA Bili (test code = Negative *NA*(04/10/14 UA Bili) 2:45 AM) [facility] AND [id number] 07:45:50 Test Item Value Reference Range Interpretation Comments UA Nitrite (test code Negative (04/10/14 2:45 = UA Nitrite) AM) [facility] AND [id number] 07:45:50 Test Item Value Reference Range Interpretation Comments UA Ketones (test code = UA Negative mg/dL Ketones) [facility] AND [id number] 07:45:50 Test Item Value Reference Range Interpretation Comments UA WBC (test code = 30 See_Comment [Automa joel message] The UA WBC) system which ge nerated this result transmit joel reference range : <=5. The reference range was not used to interpr et this result as adal l/abnormal. [facility] AND [id number] 07:45:50 Test Item Value Reference Range Interpretation Comments UA Bacteria (test code = UA Occasional /HPF Bacteria) [facility] AND [id number] 07:45:50 Test Item Value Reference Range Interpretation Comments UA Mucus (test code = UA Mucus) Few /LPF [facility] AND [id number] 07:45:50 Test Item Value Reference Range Interpretation Comments UA Sq Epi (test code = UA Sq Epi) Few /LPF [facility] AND [id number] 07:45:50 Test Item Value Reference Range Interpretation Comments UA Urobilinogen (test code = UA no gt 0.1-1.0 Urobilinogen) [facility] AND [id number] 07:45:50 Test Item Value Reference Range Interpretation Comments UA Turbidity (test code = Clear (04/10/14 2:45 UA Turbidity) AM) [facility] AND [id number] 07:45:50 Test Item Value Reference Range Interpretation Comments UA Color (test code = Yellow *NA*(04/10/14 UA Color) 2:45 AM) [facility] AND [id number] 07:45:50 Test Item Value Reference Range Interpretation Comments UA Spec Grav (test code = UA Spec Grav) 1.014 [facility] AND [id number] 07:45:50 Test Item Value Reference Range Interpretation Comments UA Glucose (test code = UA Negative mg/dL Glucose) [facility] AND [id number] 07:45:50 Test Item Value Reference Range Interpretation Comments UA Blood (test code = Negative (04/10/14 2:45 UA Blood) AM) [facility] AND [id number] 07:45:50 Test Item Value Reference Range Interpretation Comments UA pH (test code = UA pH) 5.5 5.0-8.0 [facility] AND [id number] 07:45:50 Test Item Value Reference Range Interpretation Comments UA Protein (test code = UA Negative mg/dL Protein) [facility] AND [id number] 07:45:50 Test Item Value Reference Range Interpretation Comments UA RBC (test code = no gt See_Comment [Automa joel message] The UA RBC) system which ge nerated this result transmit joel reference range : <=2. The reference range was not used to interpr et this result as adal l/abnormal. [facility] AND [id number] 07:45:50 Test Item Value Reference Range Interpretation Comments UA Leuk Est (test code Large *ABN*(04/10/14 = UA Leuk Est) 2:45 AM) [facility] AND [id number] 07:45:50 Test Item Value Reference Range Interpretation Comments UA Bili (test code = Negative *NA*(04/10/14 UA Bili) 2:45 AM) [facility] AND [id number] 07:45:50 Test Item Value Reference Range Interpretation Comments UA Nitrite (test code Negative (04/10/14 2:45 = UA Nitrite) AM) [facility] AND [id number] 07:45:50 Test Item Value Reference Range Interpretation Comments UA Ketones (test code = UA Negative mg/dL Ketones) [facility] AND [id number] 07:45:50 Test Item Value Reference Range Interpretation Comments UA WBC (test code = 30 See_Comment [Automa joel message] The UA WBC) system which ge nerated this result transmit joel reference range : <=5. The reference range was not used to interpr et this result as adal l/abnormal. [facility] AND [id number] 07:45:50 Test Item Value Reference Range Interpretation Comments UA Bacteria (test code = UA Occasional /HPF Bacteria) [facility] AND [id number] 07:45:50 Test Item Value Reference Range Interpretation Comments UA Mucus (test code = UA Mucus) Few /LPF [facility] AND [id number] 07:45:50 Test Item Value Reference Range Interpretation Comments UA Sq Epi (test code = UA Sq Epi) Few /LPF [facility] AND [id number] 07:45:50 Test Item Value Reference Range Interpretation Comments UA Urobilinogen (test code = UA no gt 0.1-1.0 Urobilinogen) [facility] AND [id number] 07:45:50 Test Item Value Reference Range Interpretation Comments UA Turbidity (test code = Clear (04/10/14 2:45 UA Turbidity) AM) [facility] AND [id number] 07:45:50 Test Item Value Reference Range Interpretation Comments UA Color (test code = Yellow *NA*(04/10/14 UA Color) 2:45 AM) [facility] AND [id number] 07:45:50 Test Item Value Reference Range Interpretation Comments UA Spec Grav (test code = UA Spec Grav) 1.014 [facility] AND [id number] 07:45:50 Test Item Value Reference Range Interpretation Comments UA Glucose (test code = UA Negative mg/dL Glucose) [facility] AND [id number] 07:45:50 Test Item Value Reference Range Interpretation Comments UA Blood (test code = Negative (04/10/14 2:45 UA Blood) AM) [facility] AND [id number] 07:45:50 Test Item Value Reference Range Interpretation Comments UA pH (test code = UA pH) 5.5 5.0-8.0 [facility] AND [id number] 07:45:50 Test Item Value Reference Range Interpretation Comments UA Protein (test code = UA Negative mg/dL Protein) [facility] AND [id number] 07:45:50 Test Item Value Reference Range Interpretation Comments UA RBC (test code = no gt See_Comment [Automa joel message] The UA RBC) system which ge nerated this result transmit joel reference range : <=2. The reference range was not used to interpr et this result as adal l/abnormal. [facility] AND [id number] 07:45:50 Test Item Value Reference Range Interpretation Comments UA Leuk Est (test code Large *ABN*(04/10/14 = UA Leuk Est) 2:45 AM) [facility] AND [id number] 07:45:50 Test Item Value Reference Range Interpretation Comments UA Bili (test code = Negative *NA*(04/10/14 UA Bili) 2:45 AM) [facility] AND [id number] 07:45:50 Test Item Value Reference Range Interpretation Comments UA Nitrite (test code Negative (04/10/14 2:45 = UA Nitrite) AM) [facility] AND [id number] 07:45:50 Test Item Value Reference Range Interpretation Comments UA Ketones (test code = UA Negative mg/dL Ketones) [facility] AND [id number] 07:45:50 Test Item Value Reference Range Interpretation Comments UA WBC (test code = 30 See_Comment [Automa joel message] The UA WBC) system which ge nerated this result transmit joel reference range : <=5. The reference range was not used to interpr et this result as adal l/abnormal. [facility] AND [id number] 07:45:50 Test Item Value Reference Range Interpretation Comments UA Bacteria (test code = UA Occasional /HPF Bacteria) [facility] AND [id number] 07:45:50 Test Item Value Reference Range Interpretation Comments UA Mucus (test code = UA Mucus) Few /LPF [facility] AND [id number] 07:45:50 Test Item Value Reference Range Interpretation Comments UA Sq Epi (test code = UA Sq Epi) Few /LPF [facility] CenterAnvatoCARSemiNexAC [id number] 02:56:13 Test Item Value Reference Range Interpretation Comments CK MB Index (test 0.7 See_Comment [Automate d message] The code = CK MB Index) system w [facility] generated this result transmit joel reference range : <=2.5. The reference range was not used to interpr et this result as adal l/abnormal. [facility] CenterAnvatoCARSemiNexAC [id number] 02:56:13 Test Item Value Reference Range Interpretation Comments Troponin-I (test code no gt See_Comment [Auto mated message] The = Troponin-I) system which g enerated this result transmit joel reference range : <=0.40. The reference r kezia was not used to interpr et this result as adal l/abnormal. [facility] CenterAnvatoCARSemiNexAC [id number] 02:56:13 Test Item Value Reference Range Interpretation Comments CK MB (test code = CK MB) 0.7 0.5-3.6 [facility] CenterOhaiAC [id number] 02:56:13 Test Item Value Reference Range Interpretation Comments Total CK (test code = Total CK) 96 12-191 [facility] CenterUranium Energy [id number] 02:56:13 Test Item Value Reference Range Interpretation Comments eGFR (test code = eGFR) 78 [facility] CenterU[facility] Energy [id number] 02:56:13 Test Item Value Reference Range Interpretation Comments BUN (test code = BUN) 15 7-22 [facility]2014-09-25 02:56:13 Test Item Value Reference Range Interpretation Comments Sodium Lvl (test code = Sodium Lvl) 136 135-145 [facility]2014-09-25 02:56:13 Test Item Value Reference Range Interpretation Comments Creatinine Lvl (test code = Creatinine 0.8 0.5-1.4 Lvl) [facility]2014-09-25 02:56:13 Test Item Value Reference Range Interpretation Comments AGAP (test code = AGAP) 9.9 10.0-20.0 [facility]2014-09-25 02:56:13 Test Item Value Reference Range Interpretation Comments CO2 (test code = CO2) 26 24-32 [facility]2014-09-25 02:56:13 Test Item Value Reference Range Interpretation Comments Calcium Lvl (test code = Calcium Lvl) 8.8 8.5-10.5 [facility]2014-09-25 02:56:13 Test Item Value Reference Range Interpretation Comments Chloride Lvl (test code = Chloride Lvl) 104 95-109 [facility]2014-09-25 02:56:13 Test Item Value Reference Range Interpretation Comments Potassium Lvl (test code = Potassium 3.9 3.5-5.1 Lvl) [facility]2014-09-25 02:56:13 Test Item Value Reference Range Interpretation Comments Glucose Lvl (test code = Glucose Lvl) 104 70-99 [facility] KingwoodEannlaxSNBJEZLKXS7301-84-89 02:56:13 Test Item Value Reference Range Interpretation Comments Basophils # (test code 0.0 See_Comment [Aut omated message] The = Basophils #) system which generated this result tra nsmitted reference range : <=0.2. The reference r kezia was not used to int erpret this result as normal/abnormal . [facility] KingwoodCkpltwfCZZPYGNFPH8911-97-81 02:56:13 Test Item Value Reference Range Interpretation Comments Eosinophils # (test code 0.1 See_Comment [A utomated message] The = Eosinophils #) system whic h generated this result tra nsmitted reference range : <=0.5. The reference r kezia was not used to int erpret this result as normal/abnormal . [facility] KingwoodLarilkvBBSEHSYZMS6632-16-50 02:56:13 Test Item Value Reference Range Interpretation Comments Monocytes # (test code 0.5 See_Comment [Aut omated message] The = Monocytes #) system which generated this result tra nsmitted reference range : <=0.8. The reference r kezia was not used to int erpret this result as normal/abnormal . [facility] KingwoodEbdhsscGWMPGFZOEW8965-40-54 02:56:13 Test Item Value Reference Range Interpretation Comments Lymphocytes # (test code = Lymphocytes 3.4 1.0-5.5 #) [facility] K[id number] 02:56:13 Test Item Value Reference Range Interpretation Comments Segs-Bands # (test code = Segs-Bands #) 4.2 1.5-8.1 [facility] KingwoodMxkmaknDPMBUEZQEJ4963-97-05 02:56:13 Test Item Value Reference Range Interpretation Comments Segs (test code = Segs) 51.2 45.0-75.0 [facility] KingwoodNfdxsshLSQSGUMNPJ4529-58-21 02:56:13 Test Item Value Reference Range Interpretation Comments Basophils (test code = 0.5 See_Comment [Aut omated message] The Basophils) system which ge nerated this result tra nsmitted reference range : <=1.0. The reference r kezia was not used to int erpret this result as normal/abnormal . [facility] KingwoodQbkmezeIKVLAGNFZK6177-81-85 02:56:13 Test Item Value Reference Range Interpretation Comments Monocytes (test code = Monocytes) 6.0 2.0-12.0 [facility]woodZruzdqhZKSDXWKTIN4662-40-37 02:56:13 Test Item Value Reference Range Interpretation Comments Lymphocytes (test code = Lymphocytes) 40.7 20.0-40.0 [facility] KingwoodCnipqduOCTQUCSFHI2749-72-76 02:56:13 Test Item Value Reference Range Interpretation Comments Eosinophils (test code = 1.6 See_Comment [A utomated message] The Eosinophils) system which ge nerated this result tra nsmitted reference range : <=4.0. The reference r kezia was not used to int erpret this result as normal/abnormal . [facility] KingwoodNycejvoGTRZFYLPWB2833-20-89 02:56:13 Test Item Value Reference Range Interpretation Comments WBC (test code = WBC) 8.3 3.7-10.4 [facility] KingwoodLldlfdtKNLHXEQBWC1669-98-48 02:56:13 Test Item Value Reference Range Interpretation Comments Hgb (test code = Hgb) 13.2 12.0-16.0 [facility]woodQpfwdcxJHYRIKQLGI4711-68-67 02:56:13 Test Item Value Reference Range Interpretation Comments Hct (test code = Hct) 39.9 36.0-48.0 [facility] KingwoodElsmvsiPHSDMRJVTE1882-06-89 02:56:13 Test Item Value Reference Range Interpretation Comments MPV (test code = MPV) 9.8 7.4-10.4 [facility] KingwoodKwfkwgjQCQMZYGTTA7988-74-04 02:56:13 Test Item Value Reference Range Interpretation Comments Platelet (test code = Platelet) 184 133-450 [facility] KingwoodDaxwvheXNRMPTGMNV4171-40-79 02:56:13 Test Item Value Reference Range Interpretation Comments RDW (test code = RDW) 14.7 11.5-14.5 [facility] KingwoodFdublznGTNNPAWVGN6152-24-14 02:56:13 Test Item Value Reference Range Interpretation Comments MCHC (test code = MCHC) 33.1 32.0-36.0 [facility] KingwoodEgrmyftEDIGDOTEDL8878-83-11 02:56:13 Test Item Value Reference Range Interpretation Comments RBC (test code = RBC) 4.77 4.20-5.40 [facility] KingwoodSimrvjiIZHDICCTCZ9421-85-44 02:56:13 Test Item Value Reference Range Interpretation Comments MCH (test code = MCH) 27.7 pg 27.0-31.0 [facility] KingwoodMevnhhmNGGDQHJKRJ6578-98-89 02:56:13 Test Item Value Reference Range Interpretation Comments MCV (test code = MCV) 83.7 80.0-98.0 [facility] KingwoodUtbsxiuVWXKHFYAYH0722-87-20 02:56:13 Test Item Value Reference Range Interpretation Comments PTT (test code = PTT) 30.3 s 22.9-35.8 [facility] KingwoodWolrxwoUVYQUDYOVN8032-90-86 02:56:13 Test Item Value Reference Range Interpretation Comments INR (test code = INR) 1.00 0.85-1.17 [facility] KingwoodLizowpoFFNAITHXBF1588-46-41 02:56:13 Test Item Value Reference Range Interpretation Comments PT (test code = PT) 13.2 s 12.0-14.7 [facility] DistrictCARDIAC OELEMOI6798-26-68 02:56:13 Test Item Value Reference Range Interpretation Comments CK MB Index (test 0.7 See_Comment [Automate d message] The code = CK MB Index) system w [facility] generated this result transmit joel reference range : <=2.5. The reference range was not used to interpr et this result as adal l/abnormal. [facility] 02:56:13 Test Item Value Reference Range Interpretation Comments Troponin-I (test code no gt See_Comment [Auto mated message] The = Troponin-I) system which g enerated this result transmit joel reference range : <=0.40. The reference r kezia was not used to interpr et this result as adal l/abnormal. [facility] CenterOhai GIERHJV9202-34-06 02:56:13 Test Item Value Reference Range Interpretation Comments CK MB (test code = CK MB) 0.7 0.5-3.6 [facility] DistrictInfoharmoniTAYL[facility] WXHJMCB3103-90-81 02:56:13 Test Item Value Reference Range Interpretation Comments Total CK (test code = Total CK) 96 12-191 [facility] DistrictCell[facility] TCGIE8165-98-68 02:56:13 Test Item Value Reference Range Interpretation Comments eGFR (test code = eGFR) 78 [facility] DistrictCell[facility] WEBLI2330-32-01 02:56:13 Test Item Value Reference Range Interpretation Comments BUN (test code = BUN) 15 7-22 [facility] CenterU[facility] GCGGI4637-30-51 02:56:13 Test Item Value Reference Range Interpretation Comments Sodium Lvl (test code = Sodium Lvl) 136 135-145 [facility] PIMHH9434-21-14 02:56:13 Test Item Value Reference Range Interpretation Comments Creatinine Lvl (test code = Creatinine 0.8 0.5-1.4 Lvl) [facility] Center[facility] INHFT3902-87-67 02:56:13 Test Item Value Reference Range Interpretation Comments AGAP (test code = AGAP) 9.9 10.0-20.0 [facility] JMEZN0073-14-21 02:56:13 Test Item Value Reference Range Interpretation Comments CO2 (test code = CO2) 26 24-32 [facility] GMCNI1236-33-55 02:56:13 Test Item Value Reference Range Interpretation Comments Calcium Lvl (test code = Calcium Lvl) 8.8 8.5-10.5 [facility]2014-09-25 02:56:13 Test Item Value Reference Range Interpretation Comments Chloride Lvl (test code = Chloride Lvl) 104 95-109 [facility]2014-09-25 02:56:13 Test Item Value Reference Range Interpretation Comments Potassium Lvl (test code = Potassium 3.9 3.5-5.1 Lvl) [facility]2014-09-25 02:56:13 Test Item Value Reference Range Interpretation Comments Glucose Lvl (test code = Glucose Lvl) 104 70-99 [facility] KingwoodXowardgNYMVTQEUYX2307-08-61 02:56:13 Test Item Value Reference Range Interpretation Comments Basophils # (test code 0.0 See_Comment [Aut omated message] The = Basophils #) system which generated this result tra nsmitted reference range : <=0.2. The reference r kezia was not used to int erpret this result as normal/abnormal . [facility] KingwoodTktcvjbVUBCXKEFLZ2914-71-02 02:56:13 Test Item Value Reference Range Interpretation Comments Eosinophils # (test code 0.1 See_Comment [A utomated message] The = Eosinophils #) system whic h generated this result tra nsmitted reference range : <=0.5. The reference r kezia was not used to int erpret this result as normal/abnormal . [facility] KingwoodRpjbhpxNQBSSMJCUR5275-45-12 02:56:13 Test Item Value Reference Range Interpretation Comments Monocytes # (test code 0.5 See_Comment [Aut omated message] The = Monocytes #) system which generated this result tra nsmitted reference range : <=0.8. The reference r kezia was not used to int erpret this result as normal/abnormal . [facility] KingwoodZvyknboADZTXEKIIA9566-60-79 02:56:13 Test Item Value Reference Range Interpretation Comments Lymphocytes # (test code = Lymphocytes 3.4 1.0-5.5 #) [facility] KingwoodJwphqqqMOLTAPKLMT9238-87-07 02:56:13 Test Item Value Reference Range Interpretation Comments Segs-Bands # (test code = Segs-Bands #) 4.2 1.5-8.1 [facility] KingwoodKgjqiknCKZCNTUJPA9647-33-03 02:56:13 Test Item Value Reference Range Interpretation Comments Segs (test code = Segs) 51.2 45.0-75.0 [facility] KingwoodVqmaisaTBBADJBSRC7584-62-81 02:56:13 Test Item Value Reference Range Interpretation Comments Basophils (test code = 0.5 See_Comment [Aut omated message] The Basophils) system which ge nerated this result tra nsmitted reference range : <=1.0. The reference r kezia was not used to int erpret this result as normal/abnormal . [facility] KingwoodAhpmlyqBFAYIBCXBQ2257-68-66 02:56:13 Test Item Value Reference Range Interpretation Comments Monocytes (test code = Monocytes) 6.0 2.0-12.0 [facility] KingwoodJletbzoUMXLGACDDG7948-90-32 02:56:13 Test Item Value Reference Range Interpretation Comments Lymphocytes (test code = Lymphocytes) 40.7 20.0-40.0 [facility] KingwoodRofasrzJWKBLEUSZL5307-03-24 02:56:13 Test Item Value Reference Range Interpretation Comments Eosinophils (test code = 1.6 See_Comment [A utomated message] The Eosinophils) system which ge nerated this result tra nsmitted reference range : <=4.0. The reference r kezia was not used to int erpret this result as normal/abnormal . [facility] KingwoodDlgknbxRXAIIIXKBP3548-54-13 02:56:13 Test Item Value Reference Range Interpretation Comments WBC (test code = WBC) 8.3 3.7-10.4 [facility] KingwoodEavddqoKALMMBREQS2874-46-43 02:56:13 Test Item Value Reference Range Interpretation Comments Hgb (test code = Hgb) 13.2 12.0-16.0 [facility] KingwoodGzkjmkqOZJQZAAMVF7460-02-08 02:56:13 Test Item Value Reference Range Interpretation Comments Hct (test code = Hct) 39.9 36.0-48.0 [facility] KingwoodFkrdyfrCIVDTFNZCO2629-62-44 02:56:13 Test Item Value Reference Range Interpretation Comments MPV (test code = MPV) 9.8 7.4-10.4 [facility] KingwoodFdngitkYXLNXXVBWR5439-47-91 02:56:13 Test Item Value Reference Range Interpretation Comments Platelet (test code = Platelet) 184 133-450 [facility] KingwoodLuohocnCAOCGMPQVB2667-31-65 02:56:13 Test Item Value Reference Range Interpretation Comments RDW (test code = RDW) 14.7 11.5-14.5 [facility] KingwoodHzgrrmuYPNYHJCLCK6832-80-77 02:56:13 Test Item Value Reference Range Interpretation Comments MCHC (test code = MCHC) 33.1 32.0-36.0 [facility] HospitalTthrgkeINCPCPBRSW7021-13-51 02:56:13 Test Item Value Reference Range Interpretation Comments RBC (test code = RBC) 4.77 4.20-5.40 [facility] HospitalFhynfnbJTHPUJKPXE9174-35-99 02:56:13 Test Item Value Reference Range Interpretation Comments MCH (test code = MCH) 27.7 pg 27.0-31.0 [facility] HospitalDphlgqlBDYAPKYHKW0584-96-51 02:56:13 Test Item Value Reference Range Interpretation Comments MCV (test code = MCV) 83.7 80.0-98.0 [facility] HospitalZpjzrifJOLGDGTJKP7821-70-21 02:56:13 Test Item Value Reference Range Interpretation Comments PTT (test code = PTT) 30.3 s 22.9-35.8 [facility] HospitalQcekcblCHDFIJGOYG0445-21-25 02:56:13 Test Item Value Reference Range Interpretation Comments INR (test code = INR) 1.00 0.85-1.17 [facility] HospitalAvrtqprJVSOPJAQYN6198-40-01 02:56:13 Test Item Value Reference Range Interpretation Comments PT (test code = PT) 13.2 s 12.0-14.7 [facility] DistrictDuck Duck MooseRROCTNE5896-23-11 02:56:13 Test Item Value Reference Range Interpretation Comments CK MB Index (test 0.7 See_Comment [Automate d message] The code = CK MB Index) system w [facility] generated this result transmit joel reference range : <=2.5. The reference range was not used to interpr et this result as adal l/abnormal. [facility] DistrictDuck Duck MooseODQXETZ2093-78-86 02:56:13 Test Item Value Reference Range Interpretation Comments Troponin-I (test code no gt See_Comment [Auto mated message] The = Troponin-I) system which g enerated this result transmit joel reference range : <=0.40. The reference r kezia was not used to interpr et this result as adal l/abnormal. [facility] 02:56:13 Test Item Value Reference Range Interpretation Comments CK MB (test code = CK MB) 0.7 0.5-3.6 [facility]2014-09-25 02:56:13 Test Item Value Reference Range Interpretation Comments Total CK (test code = Total CK) 96 12-191 [facility]2014-09-25 02:56:13 Test Item Value Reference Range Interpretation Comments eGFR (test code = eGFR) 78 [facility]2014-09-25 02:56:13 Test Item Value Reference Range Interpretation Comments BUN (test code = BUN) 15 7-22 [facility]2014-09-25 02:56:13 Test Item Value Reference Range Interpretation Comments Sodium Lvl (test code = Sodium Lvl) 136 135-145 [facility]2014-09-25 02:56:13 Test Item Value Reference Range Interpretation Comments Creatinine Lvl (test code = Creatinine 0.8 0.5-1.4 Lvl) [facility]2014-09-25 02:56:13 Test Item Value Reference Range Interpretation Comments AGAP (test code = AGAP) 9.9 10.0-20.0 [facility]2014-09-25 02:56:13 Test Item Value Reference Range Interpretation Comments CO2 (test code = CO2) 26 24-32 [facility]2014-09-25 02:56:13 Test Item Value Reference Range Interpretation Comments Calcium Lvl (test code = Calcium Lvl) 8.8 8.5-10.5 [facility]2014-09-25 02:56:13 Test Item Value Reference Range Interpretation Comments Chloride Lvl (test code = Chloride Lvl) 104 95-109 [facility]2014-09-25 02:56:13 Test Item Value Reference Range Interpretation Comments Potassium Lvl (test code = Potassium 3.9 3.5-5.1 Lvl) [facility]2014-09-25 02:56:13 Test Item Value Reference Range Interpretation Comments Glucose Lvl (test code = Glucose Lvl) 104 70-99 [facility]woodPbfsfkxNJOOEBSOZB6093-91-40 02:56:13 Test Item Value Reference Range Interpretation Comments Basophils # (test code 0.0 See_Comment [Aut omated message] The = Basophils #) system which generated this result tra nsmitted reference range : <=0.2. The reference r kezia was not used to int erpret this result as normal/abnormal . [facility] KingwoodEshdgqoJAPJDUGUYW7714-21-92 02:56:13 Test Item Value Reference Range Interpretation Comments Eosinophils # (test code 0.1 See_Comment [A utomated message] The = Eosinophils #) system whic h generated this result tra nsmitted reference range : <=0.5. The reference r kezia was not used to int erpret this result as normal/abnormal . [facility] KingwoodZzqrilmXSKBMWNHCC8570-11-59 02:56:13 Test Item Value Reference Range Interpretation Comments Monocytes # (test code 0.5 See_Comment [Aut omated message] The = Monocytes #) system which generated this result tra nsmitted reference range : <=0.8. The reference r kezia was not used to int erpret this result as normal/abnormal . [facility] KingwoodHjnhegmJNWBZIRDYM4356-05-46 02:56:13 Test Item Value Reference Range Interpretation Comments Lymphocytes # (test code = Lymphocytes 3.4 1.0-5.5 #) [facility]woodPdfcvxeVPVYDXLQMW2056-52-68 02:56:13 Test Item Value Reference Range Interpretation Comments Segs-Bands # (test code = Segs-Bands #) 4.2 1.5-8.1 [facility] KingwoodXnsiyhxTULVDULEGG1306-43-07 02:56:13 Test Item Value Reference Range Interpretation Comments Segs (test code = Segs) 51.2 45.0-75.0 [facility] KingwoodCjaqxkeZBWUIEYESL3292-03-34 02:56:13 Test Item Value Reference Range Interpretation Comments Basophils (test code = 0.5 See_Comment [Aut omated message] The Basophils) system which ge nerated this result tra nsmitted reference range : <=1.0. The reference r kezia was not used to int erpret this result as normal/abnormal . [facility] KingwoodWgwakjlIJRCPGNVAY6760-20-99 02:56:13 Test Item Value Reference Range Interpretation Comments Monocytes (test code = Monocytes) 6.0 2.0-12.0 [facility] KingwoodSryohqvYTGLKHHBTE9613-63-36 02:56:13 Test Item Value Reference Range Interpretation Comments Lymphocytes (test code = Lymphocytes) 40.7 20.0-40.0 [facility] KingwoodMrjluokIVQDGNMHAM5043-29-64 02:56:13 Test Item Value Reference Range Interpretation Comments Eosinophils (test code = 1.6 See_Comment [A utomated message] The Eosinophils) system which ge nerated this result tra nsmitted reference range : <=4.0. The reference r kezia was not used to int erpret this result as normal/abnormal . [facility] KingwoodNmpbecfBLFEBTMAOS2422-93-29 02:56:13 Test Item Value Reference Range Interpretation Comments WBC (test code = WBC) 8.3 3.7-10.4 [facility] KingwoodBhttoefUVCJVOEAUT9451-27-59 02:56:13 Test Item Value Reference Range Interpretation Comments Hgb (test code = Hgb) 13.2 12.0-16.0 [facility] KingwoodXxdrarrTZGOSYTTEC6587-26-65 02:56:13 Test Item Value Reference Range Interpretation Comments Hct (test code = Hct) 39.9 36.0-48.0 [facility] KingwoodSfozbinGVSYGEFSLT4146-65-66 02:56:13 Test Item Value Reference Range Interpretation Comments MPV (test code = MPV) 9.8 7.4-10.4 [place] 591554-09-25 02:56:13 Test Item Value Reference Range Interpretation Comments Platelet (test code = Platelet) 184 133-450 [facility] KingwoodAtetzxsUFCUVJYVLZ7404-10-08 02:56:13 Test Item Value Reference Range Interpretation Comments RDW (test code = RDW) 14.7 11.5-14.5 [facility] KingwoodRpkfeiwMPEIKTEQRD8899-95-27 02:56:13 Test Item Value Reference Range Interpretation Comments MCHC (test code = MCHC) 33.1 32.0-36.0 [facility] KingwoodSwnwaezYTIKYIPMGZ1267-79-24 02:56:13 Test Item Value Reference Range Interpretation Comments RBC (test code = RBC) 4.77 4.20-5.40 [facility] KingwoodInyjsbgMNIMBSODIB9219-05-33 02:56:13 Test Item Value Reference Range Interpretation Comments MCH (test code = MCH) 27.7 pg 27.0-31.0 [facility] KingwoodHppzpkpFNJEDDXALN8626-77-27 02:56:13 Test Item Value Reference Range Interpretation Comments MCV (test code = MCV) 83.7 80.0-98.0 [facility] KingwoodRhcijssIOQLHKGTJU5621-51-03 02:56:13 Test Item Value Reference Range Interpretation Comments PTT (test code = PTT) 30.3 s 22.9-35.8 [facility] KingwoodOwpsomcUDZSHNIFQW9565-90-28 02:56:13 Test Item Value Reference Range Interpretation Comments INR (test code = INR) 1.00 0.85-1.17 [facility] KingwoodYkwqndkMMUOFHFFZS9458-88-13 02:56:13 Test Item Value Reference Range Interpretation Comments PT (test code = PT) 13.2 s 12.0-14.7 [facility]
[2022-09-21] MEDS ORDERED: ASPIRIN 81 MG CHEWABLE TABLET ONE (12:14)
[2022-09-21 12:15] LABS: Absolute Lymphocytes (CBC) 1.8 K/uL (0.7-4.9); Hematocrit 42.6 % (36.0-45.0); Lymphocytes % 29.8 % (15.3-44.8); MCV 82.8 fL (80-100); MPV 8.8 fL (7.6-11.3); RBC Red Blood Cell Count 5.15 M/uL (3.86-4.86)
[2022-09-21 12:18] LABS: Protime INR 1.02
[2022-09-21 12:36] LABS: Albumin 3.8 g/dL (3.4-5.0); Bilirubin Direct 0.2 mg/dL (0-0.2); Bilirubin Total 0.4 mg/dL (0.2-1.0); Protein, Total 7.5 g/dL (6.4-8.2); Troponin High Sensitivity 3.7 pg/mL (<58.9)
--- NOTE | 2022-09-21 12:55 | RAD REPORT ---
EXAM DESCRIPTION: RADChest Single View09/21/2022 12:45 pm CLINICAL HISTORY: CHEST PAIN COMPARISON: Chest Single View dated 07/16/2022 TECHNIQUE: Portable AP view of the chest. FINDINGS: The lungs are clear. No pneumothorax or effusion. The cardiomediastinal contours are unrem arkable. IMPRESSION: No acute cardiopulmonary process.
[2022-09-21 16:15] VITALS: TEMP 97.8
[2022-09-21 17:47] VITALS: BP 144/57; O2SAT 99
--- NOTE | 2022-09-22 16:23 | EKG ---
Test Date: 2022-09-21 Test Time: 12:29:42 Robotic Technician: ROBERT MEASUREMENT RESULTS: Intervals: Rate: 78 WV: 156 QRSD: 80 QT: 388 QTc: 442 [place]: P: 64 WV: 156 QRS: 73 T: 69 INTERPRETIVE STATEMENTS: Normal sinus rhythm Normal ECG No previous ECG available for comparison Electronically Signed On 09-22-22 16:20:12 [employer] by Chepe Olvera
--- NOTE | 2022-10-07 15:05 | ER ---
Nurse's Notes [facility] Name: Ashley Flynn Age: 72 yrs Sex: Female : 1950 Arrival Date: 09/21/2022 Time: 11:46 Bed 20 Private MD: Anika Navarrete Diagnosis: Chest pain, unspecified Presentation: 09/21 11:50 Chief complaint: Patient states: she has been having left sided chest pain for approx 2 ap3 weeks and it will send pain down her left arm at time. patient states that getting active will sometimes make the pain worse. Coronavirus screen: At this time, the client does not indicate any symptoms associated with coronavirus-19. Ebola Screen: No symptoms or risks identified at this time. Initial Sepsis Screen: Does the patient meet any 2 criteria? No. Patient's initial sepsis screen is negative. Does the patient have a suspected source of infection? No. Patient's initial sepsis screen is negative. Risk Assessment: Do you want to hurt yourself or someone else? Patient reports no desire to harm self or others. Onset of symptoms was September 06, 2022. 11:50 Method Of Arrival: Wheelchair ap3 11:56 Acuity: DONTE 3 ap3 Triage Assessment: 11:54 General: Appears in no apparent distress. Behavior is calm, cooperative. Pain: ap3 Complains of pain in chest Pain radiates to left arm Is intermittent. Neuro: Level of Consciousness is awake, alert, obeys commands, Oriented to person, place, time, situation. Cardiovascular: Reports chest pain. Respiratory: Airway is patent Respiratory effort is even, unlabored, Respiratory pattern is regular, symmetrical. Historical: - Allergies: 11:53 Latex, Natural Rubber; ap3 11:53 steriods; ap3 11:53 Sulfa (Sulfonamide Antibiotics); ap3 - PMHx: 11:53 diabetes mellitus; Hypercholesterolemia; Hypertensive disorder; Hypothyroidism; CVA; ap3 - Immunization history:: Client reports receiving the 2nd dose of the Covid vaccine, Flu vaccine is up to date. - Social history:: Smoking status: Patient denies any tobacco usage or history of. Screenin:56 Abuse screen: Denies threats or abuse. Nutritional screening: No deficits noted. ap3 Tuberculosis screening: No symptoms or risk factors identified. 15:59 [facility] ED Fall Risk Assessment (Adult) Score/Fall Risk Level 0 - 2 = Low Risk ll1 Oriented to surroundings, Maintained a safe environment, Educated pt \T\ family on fall prevention, incl call for assistance when getting out of bed, Hourly rounding (assess needs \T\ fall precautionary measures) done. Assessment: 11:56 Pain: Pain began suddenly, over 2 weeks. ap3 12:31 Reassessment: No changes from previously documented assessment. Patient and/or family ss updated on plan of care and expected duration. Pain level reassessed. Patient is alert, oriented x 3, equal unlabored respirations, skin warm/dry/pink. 13:30 Reassessment: No changes from previously documented assessment. ll1 15:00 Reassessment: No changes from previously documented assessment. Patient and/or family ll1 updated on plan of care and expected duration. Pain level reassessed. Patient is alert, oriented x 3, equal unlabored respirations, skin warm/dry/pink. 15:59 Reassessment: No changes from previously documented assessment. Patient and/or family ll1 updated on plan of care and expected duration. Pain level reassessed. Patient is alert, oriented x 3, equal unlabored respirations, skin warm/dry/pink. 16:00 Reassessment: No changes from previously documented assessment. Patient and/or family ll1 updated on plan of care and expected duration. Pain level reassessed. Patient is alert, oriented x 3, equal unlabored respirations, skin warm/dry/pink. Vital Signs: 11:50 BP 144 / 67; Pulse 84; Resp 17; Temp 97.8; Pulse Ox 98% ; ap3 11:55 Weight 86.64 kg; ap3 13:00 BP 122 / 57; Pulse 75; Resp 20; Pulse Ox 96% on R/A; eh3 14:00 BP 134 / 64; Pulse 68; Resp 20; Pulse Ox 95% on R/A; eh3 15:30 BP 151 / 70; Pulse 69; Resp 16; ll1 16:00 BP 144 / 57; Pulse 72; Resp 20; Pulse Ox 99% on R/A; ll1 ED Course: 11:46 Patient arrived in ED. mr 11:47 Anika Navarrete is Private Physician. mr 11:48 [facility] pm1 11:48 Ej Kuhn DO is Attending Physician. pm1 11:56 Arm band placed on right wrist. ap3 11:56 Patient maintains SpO2 saturation greater than 95% on room air. ap3 11:57 Triage completed. ap3 11:58 Stefanie Pope, RN is Primary Nurse. ll1 12:00 Inserted saline lock: 22 gauge in right antecubital area, using aseptic technique. ll1 Blood collected. 12:31 Patient has correct armband on for positive identification. Bed in low position. Call light in reach. Client placed on continuous cardiac and pulse oximetry monitoring. NIBP monitoring applied. customer service trainer on. 12:47 XRAY Chest (1 view) In Process Unspecified. EDMS 15:59 No provider procedures requiring assistance completed. IV discontinued, intact, ll1 bleeding controlled, No redness/swelling at site. Pressure dressing applied. Administered Medications: 12:17 Drug: Aspirin PO Chewable Tablet 324 mg Route: PO; ll1 15:59 Follow up: Response: No adverse reaction ll1 Medication: 12:18 VIS not applicable for this client. ll1 Outcome: 15:48 Discharge ordered by MD. pm1 15:59 Discharged to home ambulatory. ll1 15:59 Condition: stable 15:59 Discharge instructions given to patient, Instructed on discharge instructions, follow up and referral plans. Demonstrated understanding of instructions, follow-up care. 16:04 Patient left the ED. ll1 Signatures: Dispatcher [employer] [facility] Carmela ZaldivarRose RN RN ss Nile Neves, [employer] WAREHOUSE DEVELOPER [employer] DATA WAREHOUSE DEVELOPER pm1 Teena Glasgow RN RN ap3 Stefanie Pope, YARED RN 1 Dolly Aiken, YARED RN eh3
--- NOTE | 2022-10-07 15:05 | EDPHYS ---
Physician Documentation [facility] Name: Ashley Flynn Age: 72 yrs Sex: Female : 1950 Arrival Date: 09/21/2022 Time: 11:46 Bed 20 Private MD: Anika Navarrete ED Physician Ej Kuhn HPI: 09/21 11:56 This 72 yrs old Female presents to ER via Wheelchair with complaints of Chest pm1 Pain. 11:56 The patient or guardian reports chest pain that is located primarily in the left pm1 breast. Onset: 2 week(s) ago. The pain radiates to the left arm. Associated signs and symptoms: Pertinent negatives: None. abdominal pain, diaphoresis, dizziness, headache, nausea, shortness of breath, vomiting. The chest pain is described as sharp. Duration: The patient or guardian reports multiple episodes. Modifying factors: the symptoms are aggravated by exercising and left arm movement. The patient has not experienced similar symptoms in the past. The patient has been recently seen by a physician: the patient's primary care provider, with similar presenting complaints, and was sent to the [facility] Emergency Department for further evaluation. Historical: - Allergies: 11:53 Latex, Natural Rubber; ap3 11:53 steriods; ap3 11:53 Sulfa (Sulfonamide Antibiotics); ap3 - PMHx: 11:53 diabetes mellitus; Hypercholesterolemia; Hypertensive disorder; Hypothyroidism; CVA; ap3 - Immunization history:: Client reports receiving the 2nd dose of the Covid vaccine, Flu vaccine is up to date. - Social history:: Smoking status: Patient denies any tobacco usage or history of. ROS: 11:56 Constitutional: Negative for fever, chills, and weight loss. pm1 11:56 Respiratory: Negative for shortness of breath, cough, wheezing, and pleuritic chest pain, Abdomen/GI: Negative for abdominal pain, nausea, vomiting, diarrhea, and constipation, Back: Negative for injury and pain, MS/Extremity: Negative for injury and deformity, Skin: Negative for injury, rash, and discoloration, Neuro: Negative for headache, weakness, numbness, tingling, and seizure. 11:56 Cardiovascular: Positive for chest pain, Negative for edema, palpitations. 11:56 All other systems are negative. Exam: 11:56 Constitutional: This is a well developed, well nourished patient who is awake, alert, pm1 and in no acute distress. Head/Face: Normocephalic, atraumatic. 11:56 Back: No spinal tenderness. No costovertebral tenderness. Full range of motion. Skin: Warm, dry with normal turgor. Normal color with no rashes, no lesions, and no evidence of cellulitis. MS/ Extremity: Pulses equal, no cyanosis. Neurovascular intact. Full, normal range of motion. 11:56 Eyes: Exam is negative for acute changes. 11:56 ENT: Exam is negative for acute changes. 11:56 Chest/axilla: Inspection: no acute changes, Palpation: crepitus, is not appreciated, tenderness, that is moderate, of the left breast, that totally reproduces the patient's complaints, Weigh Tank Operator Teena VAIL. 11:56 Cardiovascular: Exam negative for acute changes, Rate: normal, Rhythm: regular, Pulses: no pulse deficits are appreciated, Heart sounds: normal, normal S1and S2, Edema: is not appreciated. 11:56 Respiratory: Exam negative for acute changes, Breath sounds: are clear throughout. 11:56 Abdomen/GI: Exam negative for acute changes, Inspection: abdomen appears normal, Palpation: abdomen is soft and non-tender, in all quadrants. 11:56 Neuro: Exam negative for acute changes, Orientation: is normal, Mentation: is normal, Motor: is normal, moves all fours, Gait: is steady, at a normal pace, without difficulty. Vital Signs: 11:50 BP 144 / 67; Pulse 84; Resp 17; Temp 97.8; Pulse Ox 98% ; ap3 11:55 Weight 86.64 kg; ap3 13:00 BP 122 / 57; Pulse 75; Resp 20; Pulse Ox 96% on R/A; eh3 14:00 BP 134 / 64; Pulse 68; Resp 20; Pulse Ox 95% on R/A; eh3 15:30 BP 151 / 70; Pulse 69; Resp 16; ll1 16:00 BP 144 / 57; Pulse 72; Resp 20; Pulse Ox 99% on R/A; ll1 MDM: 12:02 Patient medically screened. pm1 13:20 Data reviewed: vital signs. pm1 13:20 Counseling: I had a detailed discussion with the patient and/or guardian regarding: lab pm1 results, radiology results, will repeat troponin prior to disposition. 15:29 Differential diagnosis: acute myocardial infarction, chest wall pain, gastritis, pm1 pneumonia, stable angina, unstable angina. 15:29 Counseling: I had a detailed discussion with the patient and/or guardian regarding: the pm1 historical points, exam findings, and any diagnostic results supporting the discharge/admit diagnosis, lab results, the need for outpatient follow up, to return to the emergency department if symptoms worsen or persist or if there are any questions or concerns that arise at home. 15:59 ED course: Offered patient admission for observation. Patient refused because she is pm1 correctly pain free and would like to go home. She agrees with my impression of chest wall pain due to starting her exercise routine. Chest pain is focal and reproducible with palpation and left arm movement. Second troponin negative. 09/21 11:56 Order name: Basic Metabolic Panel; Complete Time: 12:42 pm09/21 11:56 Order name: CBC with Diff; Complete Time: 12:16 pm09/21 11:56 Order name: LFT's; Complete Time: 12:42 pm09/21 11:56 Order name: Magnesium; Complete Time: 12:42 pm09/21 11:56 Order name: NT PRO-BNP; Complete Time: 12:42 pm09/21 11:56 Order name: PT-INR; Complete Time: 12:18 pm09/21 11:56 Order name: Troponin HS; Complete Time: 12:42 pm09/21 13:24 Order name: Troponin High Sensitivity: Draw at 1500; Complete Time: 15:29 pm09/21 11:56 Order name: XRAY Chest (1 view); Complete Time: 12:58 pm09/21 11:56 Order name: EKG; Complete Time: 11:57 pm09/21 11:56 Order name: Cardiac monitoring; Complete Time: 12:18 pm09/21 11:56 Order name: EKG - Nurse/Tech; Complete Time: 12:18 pm09/21 11:56 Order name: IV Saline Lock; Complete Time: 12:17 pm09/21 11:56 Order name: Labs collected and sent; Complete Time: 12:17 pm09/21 11:56 Order name: O2 Per Protocol; Complete Time: 12:00 pm1 09/21 11:56 Order name: O2 Sat Monitoring; Complete Time: 12:00 pm1 EC:31 Rate is 78 beats/min. Rhythm is regular, Normal Sinus Rhythm with No ectopy. QRS Embarrass pm1 is Normal. SC interval is normal. QRS interval is normal. QT interval is normal. No Q waves. T waves are Normal. No ST changes noted. Clinical impression: Normal ECG. Administered Medications: 12:17 Drug: Aspirin PO Chewable Tablet 324 mg Route: PO; ll1 15:59 Follow up: Response: No adverse reaction ll1 Disposition: :23 Co-signature as Attending Physician, Ej Kuhn DO I was immediately available on-site ms3 in the Emergency Department for consultation in the care of the patient. Disposition Summary: 09/21/22 15:48 Discharge Ordered Location: Home pm1 Problem: new pm1 Symptoms: have improved pm1 Condition: Stable pm1 Diagnosis - Chest pain, unspecified pm1 Followup: pm1 - With: Emergency Department - When: As needed - Reason: Worsening of condition Followup: pm1 - With: Private Physician - When: 2 - 3 days - Reason: Recheck today's complaints, Continuance of care, Re-evaluation by your physician Discharge Instructions: - Discharge Summary Sheet pm1 - Nonspecific Chest Pain, Adult pm1 - Chest Wall Pain pm1 Forms: - Medication Reconciliation Form pm1 - Thank You Letter pm1 - Antibiotic Education pm1 - Prescription Opioid Use pm1 Signatures: Dispatcher [employer] EDNM Nile Neves NP PATIENT FINANCIAL SERVICES SPECIALIST pm1 Teena Glasgow RN RN ap3 Stefanie Pope RN RN ll1 Ej Kuhn DO DO ms3
== END 2022-09-21 16:04 | disposition home or self-care (01) ==
LOC: ER 11:44
DX: R07.89 Other chest pain (principal); I10 Essential (primary) hypertension; Z88.2 Allergy status to sulfonamides; Z88.8 Allergy status to other drugs, medicaments and biological substances; Z91.040 Latex allergy status; Z91.048 Other nonmedicinal substance allergy status
CPT/HCPCS: 36415; 71045; 80048; 80076; 83735; 83880; 84484; 85025; 85610; 93005; 99285